=== PATIENT | female | born 1955 | race Caucasian/White ===

== ENCOUNTER 2024-04-11 01:12 | Emergency (ER) | payer MEDICARE, BC, SELFPAY ==
--- OUTSIDE RECORDS SUMMARY | 2024-04-11 01:14 | XMS_ITS | Continuity of Care Document ---
Author Name NwHIN User [facility] Address Unknown Organization Unknown Address Unknown Procedures FILTER APPLIED:Only known Procedures with Onset Date within the last 5 years Procedure Date Procedure Provider Additional Inform ation Status ADMISSION MED REC MARKER FOR REPORTING AND BPA'S (13530) Completed NT PROBNP INPATIENT (75047) Completed Encounters FILTER APPLIED:Only known Encounters with Admission Date within the last 5 years Encounter Location Admission Discharge Billing Code Checkroom Attendant Mesfin jacobo Outpatient [facility] Outpatient [facility]patient [facility] Outpatient [facility] Inpatient
[2024-04-11 01:21] VITALS: BP 144/79; PULSE 54; RESP 20; TEMP 36.8; O2SAT 98; BMI 24.3
--- NOTE | 2024-04-11 01:33 | ED_ITS ---
HPI - General Adult General Time Seen by Provider: 01:33 Date Seen: 04/11/24 Chief complaint: Post Op Complication Stated complaint: possible blood clot right leg Time Seen by Provider: 04/11/24 01:32 Source: patient, RN notes reviewed and old records reviewed Mode of arrival: ambulatory Limitations: no limitations History of Present Illness HPI narrative: This 68-year-old female is concerned about a possible blood clot in her right leg. She also wonders about possibly a urinary tract infection. 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 She was experiencing ureteropelvic obstruction and hydronephrosis. On March 26 she had a robotic assisted side to side anastomosis of lower pole to upper pole moieties. She states she got 2 days of heparin shots. She still has a stent in place which is to hopefully be removed this next Friday. She is on oxybutynin and Flomax for symptoms from the stent. She states she had a urinalysis through [facility] on April 07, she has contacted them but no antibiotics were given. She feels looking at the result that it was positive for UTI. She is not experiencing any fevers. Today, rather more this evening, started having right medial thigh pain and discomfort. Tried heat on this. She has never had a blood clot before. She feels like her legs might be a little swollen. She is not experiencing any respiratory symptoms, no shortness of breath, no chest pain. I did ask her a couple times what type of symptoms she was having that made her think she had a UTI and never got definite symptoms. Does sound like she might be having some irritant urination feeling. Her urinalysis from the in outside records showed large blood, negative nitrite, small leukocyte estrace, 21-30 rbc's, 4-10 wbc's, bacteria present. Does not appear that a culture was done. Related Data Home Medications ?Medication ?Instructions ?Recorded ?Confirmed estradiol 0.01% (0.1 mg/gram) 0.25 appful vaginal 2XW 04/11/24 04/11/24 vaginal cream rosuvastatin 5 mg tablet (Crestor) 5 mg PO .QOD 04/11/24 04/11/24 Allergies Allergy/AdvReac Type Severity Reaction Status Date / Time amoxicillin Allergy Mild Hives Verified 04/11/24 01:30 Review of Systems Status of ROS: Reports: 6 or more systems reviewed and unremarkable except as noted in History and below Exam Const: Vital Signs, click to edit/add: Vital Signs - 24 hr 04/11/24 01:21 Temperature 98.2 F Pulse Rate [Right Pulse Oximeter] 54 L Respiratory Rate 20 Blood Pressure [Ri ght Upper Arm] 144/79 H Pulse Oximetry 98 Oxygen Delivery Me thod Room Air Patient is alert, interactive, no apparent distress, ambulatory into the ED of her own accord. Sclera clear, face atraumatic. Lungs clear, good air entry, no wheezing or crackles. CV regular rate and rhythm, no murmur, normal S1-S2, no S3-S4. Abdomen is soft, nontender, nondistended, no organomegaly. She has no appreciable edema of her lower extremities, certainly no pretibial edema at all. She has some superficial varicosities more prominent in her lower legs, do not appreciate any cords or superficial thrombosis. There is no erythema of the legs. Negative Homans signs bilaterally. The pain was more in her medial right thigh, palpate this without any definable abnormality. Documenting provider has reviewed patient's vital signs: yes Course Course ED Course: Will get a baseline D-dimer in case patient does have DVT. Ultrasound will be ordered given she had recent surgery. Will get basic labs. Will obtain a urinalysis for her symptoms but do wonder if her stent might actually just be causing irritation. Reevaluation(s) Time of Reevaluation #1: 03:29 Reevaluation #1: Patient and I reviewed normal ultrasound, no DVT which she is glad. Her thigh symptoms have largely resolved. Do not know if this was some type of muscle spasm but she is to monitor any ongoing symptoms and follow up if she is having them. As far as her urinary system, did review with her that I had reviewed both her urinalysis today and the 1 from the . I agree that I do not feel they definitively support any infection. Having a stent in place will likely give her some hematuria. She admits that she had a stent 1 other time and they are very irritating. She has already requested that it be removed at 3 weeks verses the recommended 6 weeks. Reviewed with her that she will need to discuss her issues regarding the urinary problem with Urology. We will certainly culture her urine from [facility] and act accordingly if there are concerns with this. We discussed signs and symptoms for return including that of urinary tract infection with a stent in place. Plan will be to discharge to home for further outpatient management. Vital Signs Vital signs: Initial Vital Signs Temperature 98.2 F 04/11/24 01:21 Temperature Source Temporal Artery Scan 04/11/24 01:21 Pulse Rate 54 L 04/11/24 01:21 Pulse Rhythm Regular 04/11/24 01:21 Respiratory Rate 20 04/11/24 01:21 Blood Pressure 144/79 H 04/11/24 01:21 Blood Pressure Mean 100 04/11/24 01:21 Blood Pressure Position Sitting 04/11/24 01:21 Pulse Oximetry 98 04/11/24 01:21 Oxygen Delivery Method Room Air 04/11/24 01:21 Vital Signs Temperature 98.2 F 04/11/24 01:21 Pulse Rate 54 L 04/11/24 01:21 Respiratory Rate 20 04/11/24 01:21 Blood Pressure 144/79 H 04/11/24 01:21 Pulse Oximetry 98 04/11/24 01:21 Oxygen Delivery Method Room Air 04/11/24 01:21 Temperature 98.2 F 04/11/24 01:21 Pulse Rate 54 L 04/11/24 01:21 Respiratory Rate 20 04/11/24 01:21 Blood Pressure 144/79 H 04/11/24 01:21 Pulse Oximetry 98 04/11/24 01:21 Oxygen Delivery Method Room Air 04/11/24 01:21 Medical Decision Making Lab Data Lab results reviewed: Yes I reviewed the patient's lab results Labs: Lab Results 04/11/24 04/11/24 Range/Units 01:45 01:50 WBC 9.60 (4.50-11.00) K/uL RBC 4.24 (4.00-5.20) m/uL Hgb 12.7 (12.0-16.0) gm/dL Hct 39.7 (33.0-51.0) % MCV 94 (80-100) fL MCH 30 (26-34) pg MCHC 32 (32-36) gm/dL RDW Coeff of Rayo 12.9 (11.5-15.5) % Plt Count 170 (140-440) K/uL Neut % (Auto) 75.5 H (42.0-72.0) % Lymph % (Auto) 11.5 L (20-44) % Jackson % (Auto) 6.5 (0.0-11.0) % Eos % (Auto) 5.2 (0.0-7.0) % Baso % (Auto) 1.0 (0.0-3.0) % Neut # (Auto) 7.20 H (1.7-7.0) K/uL Lymph # (Auto) 1.10 (0.90-2.90) K/uL Jackson # (Auto) 0.60 (0.00-0.90) K/UL Eos # (Auto) 0.50 (0.00-0.50) K/uL Baso # (Auto) 0.10 (0.00-0.30) K/uL Abs Immat Gran (auto) 0.03 (0.00-0.30) K/uL Imm/Tot Granulo (auto) 0.3 % D-Dimer Quant (PE/DVT) 0.64 H (0.00-0.50) ug/ml Sodium 139 (135-149) mmol/L Potassium 4.0 (3.6-5.1) mmol/L Chloride 108 (96-114) mmol/L Carbon Dioxide 26 (20-32) mmol/L Anion Gap 5 L (7-15) mEq/L BUN 18 (7-30) mg/dL Creatinine 0.7 (0.5-1.5) mg/dL Estimated Creat Clear 47.78 Estimated GFR 94 ml/min Glucose 101 (60-115) mg/dL Calcium 8.9 (8.4-10.6) mg/dL Urine Color Yellow (Yellow) Urine Appearance Clear (Clear) Urine pH 5.5 (5.0-8.5) Ur Specific [place] <= 1.005 (1.000-1.030) Urine Protein Negative (Negative) Urine Glucose (UA) Negative (Negative) Urine Ketones Negative (Negative) Urine Blood 3+ A (Negative) Urine Nitrite Negative (Negative) Urine Bilirubin Negative (Negative) Urine Urobilinogen 0.2 (0.2-1.0) Ur Leukocyte Esterase 1+ A (Negative) Urine RBC 0-2 (0-2) Urine WBC 0-2 (0-5) Ur Squamous Epith Cells Few (None-Few) Urine Bacteria Few A (None) Imaging Data Venous US: Attestation: I have reviewed the pertinent imaging results. Radiologist's impression: Patient: AUDREY TOVAR Facility:?[facility] Patient ID:?[id number] Site Patient ID:?[id number]. Site :?[id number] Study:?US-Extremity Right lower leg venous-04/11/2024 3:09:49 AM Ordering Physician:Marvin Camacho Final Report: INDICATION: Leg pain and swelling. TECHNIQUE: Ultrasound venous duplex lower left extremity. Compression venous exam was performed using laboy-scale, color Doppler, and spectral Doppler analysis. COMPARISON: None. FINDINGS: Deep veins: Sonographic imaging demonstrates the left common femoral, deep femoral, superficial femoral, popliteal, posterior tibial, and the contralateral right common femoral veins to be fully compressible with normal color Doppler blood flow. Superficial veins: Greater saphenous vein is fully compressible. No popliteal cyst. IMPRESSION: No sign of deep venous thrombosis in the left lower extremity. Dictated by Josr Isaacs MD @ 04/11/2024 3:22:16 AM (Electronic Signature) Discharge Plan Discharge Clinical Impression: Acute pain of right thigh, Dysuria Patient Disposition: Home, Self-Care Condition: Stable Additional Instructions: There was no evidence of blood clot on ultrasound tonight. Unclear why this thigh a started to bother you tonight. Certainly can try some Tylenol or ibuprofen, try ice or heat. If you continue to experience symptoms, would recheck in clinic with your primary care provider. As far as your urinary symptoms, this all could be coming from irritation of the urinary system from the stent. I reviewed the urinalysis from April 07 in did compared to the urinalysis we have today. Neither is definitive for infection, urinalysis today has even less findings than yours from the . We will culture your urine from this visit today. We certainly will let you know if there is anything growing. If you develop fevers, abdominal pain, have vomiting with either of these, do need to be re-evaluated with Urology at [facility]. Discuss further urinary concerns with your urologist please. Prescriptions: No Action rosuvastatin [Crestor] 5 mg tablet 5 mg PO .QOD estradiol 0.01 % (0.1 mg/gram) cream 0.25 appful vaginal 2XW Follow Up/Referrals: Provider,Not a Local [Primary Care Provider] - Stand Alone Forms: [facility] [employer] Info Instructions
--- NOTE | 2024-04-11 01:38 | CRLHL7_ITS ---
For Patients: As a result of the Century Cures Act, medical imaging exams and procedure reports are released immediately into your electronic medical record. You may view this report before your referring provider. If you have questions, please contact your health care provider. INDICATION: Leg pain and swelling. TECHNIQUE: Ultrasound venous duplex lower left extremity. Compression venous exam was performed using laboy-scale, color Doppler, and spectral Doppler analysis. COMPARISON: None. FINDINGS: Deep veins: Sonographic imaging demonstrates the left common femoral, deep femoral, superficial femoral, popliteal, posterior tibial, and the contralateral right common femoral veins to be fully compressible with normal color Doppler blood flow. Superficial veins: Greater saphenous vein is fully compressible. No popliteal cyst. IMPRESSION: No sign of deep venous thrombosis in the left lower extremity. Dictated by Josr Isaacs MD @ 04/11/2024 3:22:16 AM (Electronically Signed)
[2024-04-11 01:52] LABS: Eosinophils Percent Auto 5.2 % (0.0-7.0); Hematocrit 39.7 % (33.0-51.0); Hemoglobin* 12.7 gm/dL (12.0-16.0); Immature Granulocytes Abs Auto 0.03 K/uL (0.00-0.30); Immature Granulocytes Pct Auto 0.3 %; Lymphocytes Percent Auto 11.5 % (20-44); Mean Corpuscular HGB Conc 32 gm/dL (32-36); Mean Corpuscular Hemoglobin 30 pg (26-34); Mean Corpuscular Volume 94 fL (80-100); Monocytes Percent Auto 6.5 % (0.0-11.0); Neutrophils Percent Auto 75.5 % (42.0-72.0); Platelet Count* 170 K/uL (140-440); RDW Coefficient of Variation % 12.9 % (11.5-15.5); Red Blood Count 4.24 m/uL (4.00-5.20)
[2024-04-11 01:54] LABS: Appearance Urine Clear (Clear); Bilirubin Urine Negative (Negative); Blood Urine 3+ (Negative); Color Urine Yellow (Yellow); Glucose Urine Negative (Negative); Ketones Urine Negative (Negative); Leukocyte Esterase Urine 1+ (Negative); Nitrite Urine Negative (Negative); Protein Urine Negative (Negative); Specific Gravity Urine <= 1.005 (1.000-1.030); Urobilinogen Urine 0.2 (0.2-1.0); pH Urine 5.5 (5.0-8.5)
[2024-04-11 01:57] LABS: Slide Review Reflex No
[2024-04-11 01:58] LABS: Bacteria Urine Few; RBC Urine 0-2 (0-2); Squamous Epithelial Cell Urine Few (None-Few); WBC Urine 0-2 (0-5)
[2024-04-11 02:04] LABS: Chloride* 108 mmol/L (96-114); Sodium* 139 mmol/L (135-149)
[2024-04-11 02:07] LABS: Anion Gap 5 mEq/L (7-15); Blood Urea Nitrogen* 18 mg/dL (7-30); Calcium* 8.9 mg/dL (8.4-10.6); Carbon Dioxide* 26 mmol/L (20-32); Creatinine* 0.7 mg/dL (0.5-1.5); Est. Creatinine Clearance* 47.78; Estimated Glomerular Filt Rate 94 ml/min; Glucose* 101 mg/dL (60-115)
[2024-04-11 02:09] LABS: D Dimer Quantitative* 0.64 ug/ml (0.00-0.50)
--- OUTSIDE RECORDS SUMMARY | 2024-04-11 02:26 | XMS_ITS | Clinical Summary ---
Author Organization [facility] Address [place], [place] [address] Care Team Providers Care Electrical Assembly Supervisor Name Role Phone [facility] Allergies Active Allergy Reactions Criticality Noted Date Comments Amoxicillin-Pot Clavulanate Hives High 03/09/2015 Ibandronate Other - Describe In Comment Field 05/02/2015 Generalized muscle spasms Alendronate Sodium Other - Describe In Comment Field 05/02/2015 Generalized muscle spasms Medications methocarbamoL (ROBAXIN) 750 mg tabletIndication s:Back pain, unspecified back location, unspecified back pain laterality, unspecified chronicity Take 1 tablet by mouth 4 times daily. 20 tablet 05/07/2020 Active Active Problems Problem Noted Date Diagnosed Date Rotator cuff impingement syn drome of right shoulder - chronic 05/02/2015 Immunizations Name Administration Dates Next Due AMB Influenza, IIV3 (Age >=3 years)(Flu [facility]) 01/16/2010 Family History Medical History Relation Name Comments Heart Disease Father Cancer-colon Mother Relation Name Status Comments Father Mother Social History Tobacco Use Types Packs/Day Years Used Date Smoking Tobacco: Never Smokeless Tobacco: Never Alcohol Use Standard Drinks/Week Comments Yes 2 (1 standard drink = 0.6 oz pur e alcohol) Comments Unknown Sex and Gender Information Value Date Recorded Sex Assigned at Not on file Legal Sex Female 6:26 AM 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 Gender Identity Not on file Sexual Orientation Not on file Obstetrics History Last Filed Vital Signs Vital Sign Reading Time Taken Comments Blood Pressure 176/75 05/07/2020 11:40 AM HOTBED 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 Pulse 68 05/07/2020 11:40 AM HOTBED 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 Temperature 36.9 C (98.4 F) 05/07/2020 11:40 AM HOTBED 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 Respiratory Rate 16 05/07/2020 11:40 AM HOTBED 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 Oxygen Saturation 97% 05/07/2020 11:40 AM HOTBED 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 Inhaled Oxygen Concentration - - Weight 61.7 kg (136 lb) 05/07/2020 11:40 AM HOTBED 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 Height 162.6 cm (5' 4) 05/07/2020 11:40 AM HOTBED 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 Body Mass Index 23.34 05/07/2020 11:40 AM HOTBED 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 Plan of Treatment Health Maintenance Due Date Last Done Comments Tdap 1965 Depression screening for age 12+ 1966 BMI (ht and wt on same day) for age 18+ 1972 Hepatitis C screening for age 18-79 1972 Tetanus booster 1974 Colonoscopy through age 75 1999 Lipids for age 45-75 1999 Mammogram for age 45-75 1999 Pneumococcal series for age 50+ (1 of 1 - PCV) 2004 Zoster (shingles) series for age 50+ (1 of 2) 2004 DEXA/DXA scan for age 65+ 2019 Influenza for age 65+ 11/23/2023 01/16/2010 RSV vaccine for adults or pr egnancy (1 - 1-dose 75+ series) 2029 COVID-19 vaccine series Completed 12/27/19 24, 01/17/2021, 05/31/2020 Insurance MEDICARE PART B HB ONLY MEDICARE PART A HB ONLY [facility] MEDICARE PB ONLY [facility] Care Teams Electrical Assembly Supervisor Relationship Specialty Start Date End Date Heather Medeiros [address] [place] [address] [facility] - General 04/28/15
--- OUTSIDE RECORDS SUMMARY | 2024-04-11 02:26 | XMS_ITS | Encounter Summary ---
Author Organization [place] Address [address] [place] [address] Care Team Providers Care Breastfeeding Educator Name Role Phone Roselyn Espitia Primary Care Provider [phone] Vasquez Mcnulty MD Unavailable Un available Elian Herrera MD Unavailable [phone] Encounter Details Date Type Department Care Team (Late st Contact Info) Description 02/11/2024 MyC Medical Advice [facility] [address] [place] [address] Kristen Cavazos, RN Social History Tobacco Use Types Packs/Day Years Used Date Smoking Tobacco: Never Smokeless Tobacco: Never Alcohol Use Standard Drinks/Week Comments Yes 0 (1 standard drink = 0.6 oz pur e alcohol) occ Adolescent Education Answer Date Record ed Getting School Help Needed Not on file 08/06 Food Insecurity Answer Date Recorded Within the past 12 months, d id you worry that your food would run out before you got money to buy more? No 02/03/2024 Within the past 12 months, d id the food you bought just not last and you didn t have money to get more? No 02/03/2024 Housing Stability Answer Date Recorded Do you have housing? (Adeelin g is defined as stable permanent housing and does not include staying ouside in a car, in a tent, in an abandoned building, in an overnight detention, or couch-surfing.) Yes 02/03/2024 Are you worried about losing your housing? No 02/03/2024 Financial Resource Strain Answer Date R ecorded Within the past 12 months, h ave you or your family members you live with been unable to get utilities (heat, electricity) when it was really needed? No 02/03/2024 Transportation Needs Answer Date Record ed Within the past 12 months, h as lack of transportation kept you from medical appointments, getting your medicines, non-medical meetings or appointments, work, or from getting things that you need? No 02/03/2024 Interpersonal Safety Answer Date Record ed Do you feel physically and e motionally safe where you currently live? Yes 02/03/2024 Within the past 12 months, h ave you been hit, slapped, kicked or otherwise physically hurt by someone? No 02/03/2024 Within the past 12 months, h ave you been humiliated or emotionally abused in other ways by your partner or ex-partner? No 02/03/2024 Comments No Sex and Gender Information Value Date Recorded Sex Assigned at Female 09/07/2023 11:49 AM CDT Legal Sex Female 3:32 AM INSPECTOR SOLDERING Gender Identity Female 09/07/2023 11:49 AM CDT Sexual Orientation Straight 09/07/2023 11 :49 AM CDT documented as of this encounter Plan of Treatment Not on file documented as of this encounter Visit Diagnoses Not on filedocumented in this encounter Care Teams Breastfeeding Educator Relationship Specialty Start Date End Date OmkarAnirudhalonaulysses PCP - General 09/12/11 Vasquez Mcnulty MD Assigned Heart and Vascular Provider 10/14/23 Elian Herrera MD [address] [place] [id number] Assigned Surgical Provider 03/15/24 documented as of this encounter
--- OUTSIDE RECORDS SUMMARY | 2024-04-11 02:26 | XMS_ITS | Continuity of Care Document ---
Author Name NwHIN [facility] Address Unknown Organization Unknown Address Unknown Procedures FILTER APPLIED:Only known Procedures with Onset Date within the last 5 years Procedure Date Procedure Provider Additional Inform ation Status ADMISSION MED REC MARKER FOR REPORTING AND BPA'S (09251) Completed NT PROBNP INPATIENT (03199) Completed Encounters FILTER APPLIED:Only known Encounters with Admission Date within the last 5 years Encounter Location Admission Discharge Billing Code Lure Maker Mesfin jacobo Outpatient [facility] Inpatient
--- OUTSIDE RECORDS SUMMARY | 2024-04-11 02:26 | XMS_ITS | Encounter Summary ---
Author Organization [place] Address [address] [place] [address] Care Team Providers Care Machined Parts Quality Inspector Name Role Phone Roselyn Espitia Primary Care Provider [phone] Vasquez Mcnulty MD Unavailable Un available Elian Herrera MD Unavailable [phone] Encounter Details Date Type Department Care Team (Late st Contact Info) Description 11/01/2023 MyC [facility] Social History Tobacco Use Types Packs/Day Years Used Date Smoking Tobacco: Never Smokeless Tobacco: Never Alcohol Use Standard Drinks/Week Comments Yes 0 (1 standard drink = 0.6 oz pur e alcohol) occ Adolescent Education Answer Date Record ed Getting School Help Needed Not on file 08/06 Comments Unknown Sex and Gender Information Value Date Recorded Sex Assigned at Female 09/07/2023 11:49 AM CDT Legal Sex Female 3:32 AM PROTECTOR PLATE ATTACHER Gender Identity Female 09/07/2023 11:49 AM CDT Sexual Orientation Straight 09/07/2023 11 :49 AM CDT documented as of this encounter Plan of Treatment Not on file documented as of this encounter Visit Diagnoses Not on filedocumented in this encounter Care Teams Machined Parts Quality Inspector Relationship Specialty Start Date End Date Roselyn Espitia PCP - General 09/12/11 Vasquez Mcnulty MD Assigned Heart and Vascular Provider 10/14/23 Elian Herrera MD [address] [place] [address] Assigned Surgical Provider 03/15/24 documented as of this encounter
--- OUTSIDE RECORDS SUMMARY | 2024-04-11 02:26 | XMS_ITS | Encounter Summary ---
Author Organization [place] Address [address] [facility] [place] [address] Care Team Providers Care Bowling Ball Grader Name Role Phone Roselyn Espitia Primary Care Provider [phone] Vasquez Mcnulty MD Unavailable Un available Elian Herrera MD Unavailable [phone] Encounter Details Date Type Department Care Team ([facility] st Contact Info) Description 09/05/2015 Records - [facility] HE CONVERSION Scan, Non-Provider Social History Tobacco Use Types Packs/Day Years Used Date Smoking Tobacco: Never Assessed Comments Unknown Sex and Gender Information Value Date Recorded Sex Assigned at Female 09/07/2023 11:49 AM CDT Legal Sex Female 3:32 AM LABORER WHARF Gender Identity Female 09/07/2023 11:49 AM CDT Sexual Orientation Straight 09/07/2023 11 :49 AM CDT documented as of this encounter Plan of Treatment Not on file documented as of this encounter Visit Diagnoses Not on filedocumented in this encounter Care Teams Bowling Ball Grader Relationship Specialty Start Date End Date Roselyn Espitia PCP - General 09/12/11 Vasquez Mcnulty MD Assigned Heart and Vascular Provider 10/14/23 Elian Herrera MD [address] [place] [address] [id number] Assigned Surgical Provider 03/15/24 documented as of this encounter
--- OUTSIDE RECORDS SUMMARY | 2024-04-11 02:26 | XMS_ITS | Encounter Summary ---
Author Organization [place] Address [address] 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
--- OUTSIDE RECORDS SUMMARY | 2024-04-11 02:26 | XMS_ITS | Encounter Summary ---
Author Organization [facility] Address [address] [facility] [place] [address] Care Team Providers Care Edge Bander Hand Name Role Phone Roselyn Espitia Primary Care Provider Vasquez Mcnulty MD Unavailable Un available Elian Herrera MD Unavailable [phone] Encounter Details Date Type Department Care Team ([facility] st Contact Info) Description 09/06/2015 Records - [facility] CONVERSION Scan, Non-Provider Social History Tobacco Use Types Packs/Day Years Used Date Smoking Tobacco: Never Assessed Comments Unknown Sex and Gender Information Value Date Recorded Sex Assigned at Female 09/07/2023 11:49 AM CDT Legal Sex Female 3:32 AM CATHODE WASHER Gender Identity Female 09/07/2023 11:49 AM CDT Sexual Orientation Straight 09/07/2023 11 :49 AM CDT documented as of this encounter Plan of Treatment Not on file documented as of this encounter Visit Diagnoses Not on filedocumented in this encounter Care Teams Edge Bander Hand Relationship Specialty Start Date End Date Roselyn Espitia PCP - General 09/12/11 Vasquez Mcnulty MD Assigned Heart and Vascular Provider 10/14/23 Elian Herrera MD [address] [place] [address] [id number] Assigned Surgical Provider 03/15/24 documented as of this encounter
--- OUTSIDE RECORDS SUMMARY | 2024-04-11 02:26 | XMS_ITS | Encounter Summary ---
Author Organization [facility] Address [address] [place] [address] Care Team Providers Care Attendant Coin Operated Laundry Name Role Phone Lawrence Espitia MD Primary Care Provider [phone] Reason for Visit * Reason Comments UTI Encounter Details Date Type Department Care Team (Late st Contact Info) Description 04/05/2024 Nurse Triage [facility] [address] [place], [place] [id number] Lawrence Espitia MD [address] [place], [place] [id number] UTI Social History Tobacco Use Types Packs/Day Years Used Date Smoking Tobacco: Never Passive Smoke Exposure: Never Smokeless Tobacco: Never Alcohol Use Standard Drinks/Week Comments Yes 2 (1 standard drink = 0.6 oz pur e alcohol) occas PHQ-2 Answer Date Recorded PHQ-2 Score 0 02/26/2024 Sex and Gender Information Value Date Recorded Sex Assigned at Not on file Gender Identity Female 07/16/2021 7:12 PM CDT Sexual Orientation Straight 07/16/2021 7: 12 PM CDT documented as of this encounter Nursing Notes * Frida Morgan V RN - 04/05/2024 5:33 PM CST Spoke with patient. Yesterday noticed burning on urination and tinge of blood in urine. No fever. No side of back pain. 1/ procedure/surgery at [facility] w/stent removal Reason for Disposition Urinating more frequently than usual (i.e., frequency) OR new-onset of the feeling of an urgent need to urinate (i.e., urgency) Pain or burning with passing urine (urination) Protocols used: Urinary Svhkmyfl-ICNUV-SH, Urine - Blood In-ADULT-OH ONOMY PROFESSOR * Amena Pete - 04/05/2024 3:39 PM CST Symptoms Describe your symptoms (if pain, include location): Urinary burning and tinge of blood in urine When did they start? Yesterday Additional comments (related to the above concern): Insurance verified and confirmed with patient? Yes If a prescription is needed, patient would like it filled at the pharmacy listed in Medication Management. Preferred communication method: Phone Call. Is it okay to leave a detailed message on your voicemail? Yes Is there anything else I can help you with today? ONOMY PROFESSOR documented in this encounter Plan of Treatment Upcoming Encounters Date Type Department Care Team (Late st Contact Info) Description 07/20/2024 1:45 PM CDT Appointment [facility] [address] [address] [place] [id number] [place] [address] 08/03/2024 1:00 PM CDT Appointment [facility] [address] [address] [place] [id number] [place] [id number] 08/19/2024 1:00 PM CDT Appointment [facility] [address] [address] [place] [id number] [place] [address] 08/25/2024 9:45 AM CDT Appointment [facility] [address] [facility] [place] [address] Elis Crook MD [facility] [place] [address] documented as of this encounter Visit Diagnoses Not on filedocumented in this encounter Care Teams Attendant Coin Operated Laundry Relationship Specialty Start Date End Date Lawrence Espitia MD [address] [place] [address] PCP - General 06/25/10 documented as of this encounter
--- OUTSIDE RECORDS SUMMARY | 2024-04-11 02:26 | XMS_ITS | Encounter Summary ---
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 You can quickly make your appointment online at [email or web address]. You can also call [phone] for help scheduling your appointment. We suggest you call your health insurance company about your coverage and benefits for this appointment. Question Answer Appointment Urgency? Non-Urgent Reason for visit? incontinence ER UP * Therapies (Routine) - New Request Specialty Diagnoses / Procedures Referred By Contac t Referred To Contact Diagnoses Mixed stress and urge urinary incontinence Lawrence Espitia MD [address] [facility] [address] [place] [address] Referral ID Status Reason Start Date Expiration Date V isits Requested Visits Authorized [id number] New Request 02/26/2024 02/25/2025 1 1 Scheduling Instructions Your clinician has recommended an appointment with [facility]. You can quickly schedule your appointment by signing in to your online account at [email or web address] or through the text message you may have received. You can also make an appointment by calling [phone]. We suggest you call your health insurance company about your coverage and benefits for this appointment. Question Answer Appointment Urgency? Non-Urgent Requested Services Evaluate and treat Reason for Visit Pelvic Health dexamethasone use Yes May check glucose per protocol (see policy link below) or if patient has symptoms? Yes ER UP Reason for Visit * Reason Comments Medicare Annual Wellness Encounter Details Date Type Department Care Team (Latest Contact Info) Description 02/26/2024 2:00 PM SKEWER UP Office Visit [facility] [address] [address] Lawrence Espitia MD [address] [facility] [address] [place] [address] Prediabetes (Primary Dx); Encounter for Medicare annual wellness exam; Medicare annual wellness visit, initial; Vaginal atrophy; Pre-diabetes; Mixed stress and urge urinary incontinence; Localized osteoporosis without current pathological fracture; Duplicated renal collecting system; Hydronephrosis, unspecified hydronephrosis type Social History Tobacco Use Types Packs/Day Years [...] PM CDT documented as of this encounter Last Filed Vital Signs Vital Sign Reading Time Taken Comments Blood Pressure 136/71 02/26/2024 1:48 PM SKEWER UP Pulse 50 02/26/2024 1:48 PM SKEWER UP Temperature - - Respiratory Rate - - Oxygen Saturation - - Inhaled Oxygen Concentration - - Weight 68.5 kg (151 lb) 02/26/2024 1:48 PM SKEWER UP Height 162 cm (5' 3.78) 02/26/2024 1:48 PM SKEWER UP Body Mass Index 26.1 02/26/2024 1:48 PM SKEWER UP documented in this encounter Patient Instructions * Patient Instructions* Isis Wsahington LPN - 02/26/2024 2:00 PM SKEWER UP Annual Wellness Visit Summary Your care team is recommending the following tests, procedures or services. Some of these recommendations may not be fully covered by Medicare or your insurance. If you have questions, check with your insurance to determine coverage before completing these services. Health Maintenance Due Health Maintenance Due Topic Date Due ??? Prediabetes: HGBA1C 02/12/2024 If your Medicare Welcome or Annual Wellness Visit is showing you are due in the above list, this will be updated after this visit. You had this completed today and are not due for another year. Thank you for coming in for your Medicare Wellness Visit. To make sure we are doing our best to meet your care needs, here are a few important reminders. We want to know your thoughts as we work together to create your care plan, including stopping and starting medications. When we work together on next steps, it's called shared decision making. If there is anything else you would like to discuss, please reach out or schedule a follow-up appointmentif needed. We are here to listen. We want to help you address any concerns you have about the cost of your medications. To find options for the most cost-effective medications near you, go to https://www.[facility]/hp/pharmacy/drug-cost/index.html You can also find more information in this handout. Health care can be complicated. Sometimes, it can help to share your health information with your family or caregivers. (Caregivers can be friends as well as family.) How much you share is up to you.Here is a helpful link: https://www.[facility]/blog/dqjsem-oopa-qpruv-benefits/ We care about nutrition, how much physical activity you get and how much stress, worry or sadness you have in your life. Please reach out to your care team if you have additional information to shareor would like more resources or support. ER UP documented in this encounter Progress Notes * Lawrence Espitia MD - 02/26/2024 2:00 PM CST Medicare Annual Wellness Visit Subjective/Historical: Tania Washington is a 68 y.o. old female Chief Complaint Patient presents with Medicare Annual Wellness Mini-Cog Assessment Word Recall: 3 Clock Draw: 2 Total: 5 Medicare Annual Wellness Smart Form 02/26/2024 2:00 PM MEDICARE ANNUAL WELLNESS CONCERNS In general, would you say your health is: -- In general, would you say your dental health is: -- Do you or any of your family members have any concerns about your memory? No Would you like to discuss urination concerns? -- Do you have difficulty hearing? -- Would you like to discuss concerns about your sexual health? -- How many servings of fruits and vegetables do you eat a day? 2 to 4 Do you get at least 2 1/2 hours of physical activity in an average week? -- Do you have anyone nearby who can help you when needed? -- Do you have difficulty doing any of the following activities? No difficulties Do you miss taking medicine or skip a dose more than once a week? -- Do you feel unsteady with walking? -- Do you have rugs (not carpet) in your home? Yes Have you had any auto accidents in the last 12 months while you were driving? -- Do you always fasten your seat belt when you are in an automobile? -- Do you take illegal drugs or use prescription medications for reasons other than prescribed by a doctor? -- Do you have concerns about your finances? -- Current concerns: see other note Advance Directives: No advance directives are on file. Written information for advance directives was given. Observed Vitals: BP 136/71 (BP Location: Left Arm, BP Cuff Size: Regular) Pulse (!) 50 Ht 1.62 m (5' 3.78) Wt 68.5 kg (151 lb) BMI 26.10 kg/m?? Assessment/Plan Prediabetes - Hgb A1C; Future Encounter for Medicare annual wellness exam Medicare annual wellness visit, initial Vaginal atrophy - estradiol (ESTRACE) 0.1 MG/GM vaginal cream; APPLY 1 GRAM 2-3 TIMES PER WEEK Pre-diabetes - estradiol (ESTRACE) 0.1 MG/GM vaginal cream; APPLY 1 GRAM 2-3 TIMES PER WEEK Mixed stress and urge urinary incontinence - Physical Therapy - Urogynecology Consult-Adult Other orders - calcium carbonate-vitamin D 600-10 MG-MCG tablet; Take 2 Tablets by mouth. Counseling and education provided today includes proper nutrition and health habits, fall prevention, and for those items ordered above. See plan for future preventive services in Patient Instructions. Chaitanya Espitia MD 02/26/2024, 1:52 PM ER UP * Lawrence Espitia MD - 02/26/2024 2:00 PM CST SUBJECTIVE: Tania Washington68 y.o. Right lower moiety hydronephrosis with suspicion of functional obstruction - developed severDuplicated renal collection system on right right side pain and showed hydronephross , was adm to from 02/01 to 02/02 and had cystoscopy and stents , [facility] witwe discussed stent removal sometime this week (urine culture in single dose of antibiotic atthe time of stent removal) followed by a VCUG, CTU, mag-3 and retrograde diagnostic ureteroscopy, proceed to robotic repair if indicated approximately 1 month after stent removal. I will ask our teamto offer potential surgical dates in late February/early March. Elevated calcium score 19 - she saw preventive cardiology at [facility] and Crestor was started, she had no problemns, and she iwll con't follo wup with them Osteoporosis - she had side effects from [place], and was evaluated at [facility] in 11/2021, and re clast was recommended for 3-6 years as yearly infusion Incontinence, - Sherin mentioned stress incontinence and we discussed about possible treatment , referral to urogyncology , since she will be very busy with her right hydronephrosis, she prefer to wait till everything settle down, but ok to take the referral Post menopausal - she still using her vagainl cream weekly Patient Active Problem List Diagnosis Osteoporosis (HRC) Menopausal symptoms History of basal cell carcinoma Family history of high cholesterol Rotator cuff impingement syndrome of right shoulder Pre-diabetes Past Surgical History: Procedure Laterality Date HYSTERECTOMY LAPAROSCOPY OVARIAN CYST SURGERY ROTATOR CUFF REPAIR right SPINE SURGERY laminectomy lumbar Outpatient Medications Prior to Visit Medication Sig Dispense Refill ascorbic acid 250 MG Chew and swallow 3 Tablets (750 mg) by mouth daily. BOOSTRIX 5-2.5-18.5 LF-MCG/0.5 JACKIE injection (Patient not taking: Reported on 02/26/2024) calcium carbonate-vitamin D 600-10 MG-MCG tablet Take 2 Tablets by mouth. loratadine (CLARITIN) 10 MG tablet Take 1 Tablet (10 mg) by mouth daily. LORazepam (ATIVAN) 0.5 MG tablet Take 1 Tablet (0.5 mg) by mouth every 6 hours as needed (Flight anxiety). Do not fill until patient requests 20 Tablet 0 rosuvastatin (AKA CRESTOR) 5 MG tamsulosin (FLOMAX) 0.4 MG CAPS capsule TAKE 1 CAPSULE (0.4 MG) BY MOUTH DAILY. TAKE ONCE A DAY IF YOU DEVELOP SYMPTOMS OF KIDNEY PAIN. 30 Capsule 1 estradiol (ESTRACE) 0.1 MG/GM vaginal cream APPLY 1 GRAM 2-3 TIMES PER WEEK 42.5 g 0 No facility-administered medications prior to visit. Social History Socioeconomic History Marital status: Spouse name: Not on file Number of children: 2 Years of education: Not on file Highest education level: Not on file Occupational History Occupation: retired Tobacco Use Smoking status: Never Passive exposure: Never Smokeless tobacco: Never Vaping Use Vaping status: Never Used Substance and Sexual Activity Alcohol use: Yes Alcohol/week: 2.0 standard drinks of alcohol Types: 2 Glasses of wine per week Comment: occas Drug use: Never Sexual activity: Yes Partners: Male control/protection: None, Post-menopausal Other Topics Concern Bike Helmet Not Asked [place] Not Asked Exercise Yes Comment: walkimg daily Guns in home Not Asked Seat Belt Yes Special Diet No Weight Concern Yes Social History Narrative 202: 5 grandkids kidnergarten, 6 grad Eating pretty healthy 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 3 tiems a week, césar aguirre Eating health 2022 4-5 time a week: walking, weight lifting Eat: healthy 5 grandkids reading club , [facility] Social Determinants of Health Financial Resource Strain: Low Risk (02/03/2024) Received from [facility] Financial Resource Strain Within the past 12 months, have you or your family members you live with been unable to get utilities (heat, electricity) when it was really needed?: No Food Insecurity: Low Risk (02/03/2024) Received from [facility] Food Insecurity Within the past 12 months, did you worry that your food would run out before you got money to buy more?: No Within the past 12 months, did the food you bought just not last and you didn???t have money to getmore?: No Transportation Needs: Low Risk (02/03/2024) Received from [facility] Transportation Needs Within the past 12 months, has lack of transportation kept you from medical appointments, getting your medicines, non-medical meetings or appointments, work, or from getting things that you need?: No Physical Activity: Insufficiently Active (01/22/2024) Received from [facility] Exercise Vital Sign Days of Exercise per Week: 4 days Minutes of Exercise per Session: 30 min Stress: No Stress Concern Present (11/27/2021) Received from [facility], [facility] [employer] [place] of Occupational Health - Occupational Stress Questionnaire Feeling of Stress : Not at all Social Connections: Socially Integrated (11/27/2021) Received from [facility], [facility] Social Connection and Isolation Panel [NHANES] Frequency of Communication with Friends and Family: More than three times a week Frequency of Social Gatherings with Friends and Family: Three times a week Attends Yarsani Services: More than 4 times per year Active Member of Clubs or Organizations: Yes Attends Club or Organization Meetings: More than 4 times per year Marital Status: Intimate Partner Violence: Low Risk (02/03/2024) Received from [facility] Interpersonal Safety Do you feel physically and emotionally safe where you currently live?: Yes Within the past 12 months, have you been hit, slapped, kicked or otherwise physically hurt by someone?: No Within the past 12 months, have you been humiliated or emotionally abused in other ways by your partner or ex-partner?: No Housing Stability: Low Risk (02/03/2024) Received from [facility] Housing Stability Do you have housing? (Housing is defined as stable permanent housing and does not include staying ouside in a car, in a tent, in an abandoned building, in an overnight senior care, or couch-surfing.): Yes Are you worried about losing your housing?: No Allergies Allergen Reactions Amoxicillin-Pot Clavulanate Hives Alendronate Sodium Other, see comments Muscle aching and cramp, chills, low-grade fever Ibandronic Acid Other, see comments Muscle aching and cramp, chills, low-grade fever Family History Problem Relation Name Age of Onset Cancer Mother Mother Colon cancer High Cholesterol Father Father High Blood Pressure Father Father Cancer Father Father Lung cancer Hypertension Father Father Tuberculosis Father Father Heart Disease Brother Father develpepd destini High Cholesterol Brother Brother High cholesterol Cancer, Colon Negative Family History Diethylstilbestrol Exposure Negative Family History Cancer, Endometrial Negative Family History ROS All of the systems reviewed, unremarkable, except that mentioned in HPI BP 136/71 (BP Location: Left Arm, BP Cuff Size: Regular) Pulse (!) 50 Ht 1.62 m (5' 3.78) Wt68.5 kg (151 lb) BMI 26.10 kg/m?? Objective: General Appearance: Alert, cooperative, no distress, appears stated age Head: Normocephalic, without obvious abnormality, atraumatic Eyes: PERRL, conjunctiva/corneas clear, EOM's intact, fundi benign, both eyes Ears: Nose: Throat: Neck: Supple, symmetrical, trachea midline, no adenopathy; thyroid: no enlargement/tenderness/nodules; no carotid bruit or JVD Back: Symmetric, no curvature, ROM normal, no CVA tenderness Lungs: Clear to auscultation bilaterally, respirations unlabored Chest Wall: No tenderness or deformity Heart: Regular rate and rhythm, S1 and S2 normal, no murmur, rub or gallop Abdomen: Soft, non-tender, bowel sounds active all four quadrants, no masses, no organomegaly Extremities: Extremities normal, atraumatic, no cyanosis or edema Pulses: 2+ and symmetric all extremities Skin: Skin color, texture, turgor normal, no rashes or lesions Lymph nodes: Cervical, supraclavicular, and axillary nodes normal Neurologic: CNII-XII intact, normal strength, sensation and reflexes throughout Labs: Lab Results Component Value Date WBC 5.0 02/11/2023 Hemoglobin 14.1 02/11/2023 HCT 43.6 02/11/2023 MCV 92.2 02/11/2023 Platelets 167 02/11/2023 Lab Results Component Value Date ALT (SGPT) 17 02/11/2023 AST (SGOT) 24 04/15/2019 Alkaline Phosphatase 70 11/08/2021 Bilirubin, Direct 0.2 04/15/2019 Bilirubin, Total 0.6 04/15/2019 Lab Results Component Value Date Cholesterol 264 (H) 02/11/2023 HDL Cholesterol 62 02/11/2023 Triglyceride 93 02/11/2023 LDL, Calculated 183 (H) 02/11/2023 Lab Results Component Value Date TSH, Reflex 3.29 04/15/2019 Thyroxine, Free 1.0 04/27/2010 Lab Results Component Value Date Creatinine 0.80 01/26/2024 Glucose 105 (H) 02/11/2023 CO2 26 02/11/2023 Chloride 104 02/11/2023 Potassium 4.6 02/11/2023 Sodium 139 02/11/2023 BUN 20 02/11/2023 Calcium 9.4 02/11/2023 Estimated GFR (eGFR) 80 01/26/2024 Lab Results Component Value Date Hemoglobin A1C 5.7 (H) 02/11/2023 Hemoglobin A1C 5.7 (H) 02/07/2022 Hemoglobin A1C 5.8 (H) 09/21/2020 Imaging (Past 12 months): No results found. Assessment: ICD-10-CM 1. Prediabetes R73.03 Hgb A1C 2. Encounter for Medicare annual wellness exam Z00.00 3. Medicare annual wellness visit, initial Z00.00 4. Vaginal atrophy N95.2 estradiol (ESTRACE) 0.1 MG/GM vaginal cream 5. Pre-diabetes R73.03 estradiol (ESTRACE) 0.1 MG/GM vaginal cream 6. Mixed stress and urge urinary incontinence N39.46 Physical Therapy Urogynecology Consult-Adult Plan: Tania was seen today for medicare annual wellness. Diagnoses and all orders for this visit: Prediabetes - Hgb A1C; Future Encounter for Medicare annual wellness exam Medicare annual wellness visit, initial Vaginal atrophy - estradiol (ESTRACE) 0.1 MG/GM vaginal cream; APPLY 1 GRAM 2-3 TIMES PER WEEK Pre-diabetes - estradiol (ESTRACE) 0.1 MG/GM vaginal cream; APPLY 1 GRAM 2-3 TIMES PER WEEK Mixed stress and urge urinary incontinence - Physical Therapy - Urogynecology Consult-Adult Localized osteoporosis without current pathological fracture - receiving re clast at [facility] once a year for 3-6 years since 2021 Duplicated renal collecting system Hydronephrosis, unspecified hydronephrosis type - will be following at [facility] Patient Instructions Annual Wellness Visit Summary Your care team is recommending the following tests, procedures or services. Some of these recommendations may not be fully covered by Medicare or your insurance. If you have questions, check with your insurance to determine coverage before completing these services. Health Maintenance Due Health Maintenance Due Topic Date Due Prediabetes: HGBA1C 02/12/2024 If your Medicare Welcome or Annual Wellness Visit is showing you are due in the above list, this will be updated after this visit. You had this completed today and are not due for another year. Thank you for coming in for your Medicare Wellness Visit. To make sure we are doing our best to meet your care needs, here are a few important reminders. We want to know your thoughts as we work together to create your care plan, including stopping and starting medications. When we work together on next steps, it's called shared decision making. If there is anything else you would like to discuss, please reach out or schedule a follow-up appointmentif needed. We are here to listen. We want to help you address any concerns you have about the cost of your medications. To find options for the most cost-effective medications near you, go to https://www.[facility]/hp/pharmacy/drug-cost/index.html You can also find more information in this handout. Health care can be complicated. Sometimes, it can help to share your health information with your family or caregivers. (Caregivers can be friends as well as family.) How much you share is up to you.Here is a helpful link: https://www.[facility]/blog/qsunqp-mbxn-hvhzr-benefits/ We care about nutrition, how much physical activity you get and how much stress, worry or sadness you have in your life. Please reach out to your care team if you have additional information to shareor would like more resources or support. ER UP documented in this encounter Plan of Treatment Upcoming Encounters Date Type Department Care Team (Late st Contact Info) Description 07/20/2024 1:45 PM CDT Appointment [facility] [address] [address] [place] [address] [place] [address] 08/03/2024 1:00 PM CDT Appointment [facility] [address] [address] [place] [address] [place] [address] 08/19/2024 1:00 PM CDT Appointment [facility] [address] [address] [place] [address] [place] [address] 08/25/2024 9:45 AM CDT Appointment [facility] [address] [place] [address] Elis Crook MD [facility] [place] [address] Scheduled Orders Name Type Priority Associated Diagnoses Orde r Schedule Hgb A1C Lab Routine Prediabetes Expected: 02/26/2024, Expires: Scheduled Referrals Name Type Priority Associated Diagnoses Orde r Schedule Physical Therapy Referral Routine Mixed stress and urge urinary incontinence Ordered: 02/26/2024 Urogynecology Consult-Adult Referral Routine Mixed stress and urge urinary incontinence Ordered: 02/26/2024 documented as of this encounter Visit Diagnoses Diagnosis Prediabetes- Primary Other abnormal glucose Encounter for Medicare annual wellness exam Medicare annual wellness visit, initial Routine general medical examination at a health care facility Vaginal atrophy Postmenopausal atrophic vaginitis Pre-diabetes Other abnormal glucose Mixed stress and urge urinary incontinence Mixed incontinence urge and stress (male)(female) Localized osteoporosis without current pathological fracture Duplicated renal collecting 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
--- OUTSIDE RECORDS SUMMARY | 2024-04-11 02:26 | XMS_ITS | Encounter Summary ---
Author Organization [facility] Address [address] [place] [address] Care Team Providers Care Research Soil Scientist Name Role Phone Roselyn Espitia Primary Care Provider [phone] Vasquez Mcnulty MD Unavailable Un available Elian Herrera MD Unavailable [phone] Encounter Details Date Type Department Care Team (Late st Contact Info) Description 02/11/2003 Office Visit-[facility] [address] [place] [address] Unknown, DoctorMD Social History Tobacco Use Types Packs/Day Years Used Date Smoking Tobacco: Never Assessed Comments Unknown Sex and Gender Information Value Date Recorded Sex Assigned at Female 09/07/2023 11:49 AM CDT 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 DATE: 02/11/2003 TANIA TOVAR DATE OF : 1955 AGE: [age] years old Referring Physician: SHONDA PENNINGTON CURRENT DIAGNOSES 1. Chest pain, 786.50 ALLERGIES NKA MEDICATIONS 1. Premarin 0.9 mg, 1 p.o. q.d. 2. Aspirin 81 mg, 1 p.o. q.d. 3. Multivitamin Multiple Vitamins, 1 p.o. q.d. 4. Calcium and Magnesium Calcium and Magnesium, 1 p.o. t.i.d. CHIEF COMPLAINTS Chest pain with exertion, Consultation. and Rapid heart beat when laying down HISTORY OF PRESENT ILLNESS PAST HISTORY Surgical Procedures: s/p hysterectomy, back sugery FAMILY HISTORY: Father - julio c. heart failure., hypercholesterolemia and hypertension; Mother - alive and well; Brother 1 - diabetes-Type I (IDDM), heart attack., hypercholesterolemia and hypertension; CARDIAC RISK FACTORS Tobacco Abuse: negative; Family History of Heart Disease: positive; Hyperlipidemia: positive; Hypertension: negative; Diabetes Mellitus: negative; Prior History of Heart Disease: negative; Obesity:negative; Sedentary Life Style:negative REVIEW OF SYSTEMS GENERAL denies recent weight loss, weight gain, fever or chills or change in exercise tolerance. INTEGUMENTARY denies any change in hair or nails, rashes, or skin lesions. EYES denies diplopia, history of glaucoma or visual field defects. EARS, NOSE, THROAT, MOUTH denies any hearing loss, epistaxis, hoarseness or difficulty speaking. RESPIRATORY dyspnea with exertion CARDIOVASCULAR chest pain, chest pain at rest, chest pain related to activity, palpitations, dizziness ABDOMINAL denies change in bowel habits, dyspepsia, ulcer disease, hematochezia or melena. GENITOURINARY-FEMALE nocturia MUSCULOSKELETAL arthritis of the hand(s) NEUROLOGICAL migraine headaches, tension headaches PSYCHIATRIC stress ENDOCRINE denies any history of hyperlipidemia, thyroid disease or diabetes mellitus. HEMATOLOGICAL/IMMUNOLOGIC seasonal allergies PHYSICAL EXAMINATION VITAL SIGNS: Blood Pressure: 118/78 Sitting, Left arm, regular cuff Pulse- 80.00/min. Weight- 141.00 lbs. Height- 65.00 Temperature- .00 CONSTITUTIONAL cooperative, alert and oriented,well developed, well nourished, in no acute distress. SKIN warm and dry to touch, no apparent skin lesions, or masses noted. HEAD normocephalic, atraumatic NECK carotid pulses are full and equal bilaterally, JVP normal, no carotid bruit, no thyromegaly CHEST normal symmetry, no tenderness to palpation, normal respiratory excursion, no intercostal retraction, no use of accessory muscles, clear to auscultation and percussion. CARDIAC regular rhythm, S1 normal, S2 normal, No S3 or S4, Apical impulse not displaced, no murmurs, gallops or rubs detected. ABDOMEN abdomen soft, bowel sounds normoactive, no masses, no hepatosplenomegaly, non- tender, no bruits EXTREMITIES & BACK no deformities, clubbing, cyanosis, erythema or edema observed. There are no spinal abnormalities noted. Normal muscle strength and tone. NEUROLOGICAL no gross motor deficits noted, affect appropriate, oriented to time, person and place. MEDICATIONS UPDATED TODAY: Premarin 0.9 mg, 1 p.o. q.d., DIRECTED Aspirin 81 mg, 1 p.o. q.d., DIRECTED Multivitamin Multiple Vitamins, 1 p.o. q.d., DIRECTED Calcium and Magnesium Calcium and Magnesium, 1 p.o. t.i.d., DIRECTED IMPRESSIONS/PLAN (Enter Doctor Dictated Impressions Here) TODAYS ORDERS 1. Treadmill Stress Echo 3 weeks Christy Chamberlain M.D. documented in this encounter Plan of Treatment Not on file documented as of this encounter Visit Diagnoses Not on filedocumented in this encounter Care Teams Research Soil Scientist Relationship Specialty Start Date End Date Roselyn Espitia PCP - General 09/12/11 Vasquez Mcnulty MD Assigned Heart and Vascular Provider 10/14/23 Elian Herrera MD [address] [place] [id number] Assigned Surgical Provider 03/15/24 documented as of this encounter
--- OUTSIDE RECORDS SUMMARY | 2024-04-11 02:26 | XMS_ITS | Clinical Summary ---
Author Organization [facility] Address [address] [place] [address] Care Team Providers Care In Store Representative Name Role Phone Oh Espitia MD Primary Care Provider [phone] Source Comments You are receiving this document as you are listed as the primary care provider,follow-up provider, or the patient has been referred to you for consultation.This is in compliance with the Medicare and[facility] EHR Incentive Program,which states Providers who transition their patient to another setting of careor provider of care or refers their patient to another provider of care shouldprovide summary care record for each transition of care or referral. [facility] Allergies Active Allergy Reactions Criticality Noted Date Comments Alendronate Sodium Other, see comments Low 12/15/19 14 Muscle aching and cramp, chills, low-grade fever Amoxicillin-Pot Clavulanate Hives High 03/09/2015 Ibandronic Acid Other, see comments Low 12/14/2013 Muscle aching and cramp, chills, low-grade fever Medications Medication Sig Dispensed Refills Start Date End Date Status tamsulosin (FLOMAX) 0.4 MG CAPS capsule TAKE 1 CAPSULE (0.4 MG) BY MOUTH DAILY. TAKE ONCE A DAY IF YOU DEVELOP SYMPTOMS OF KIDNEY PAIN. 30 Capsule 1 11/15/2021 Active loratadine (CLARITIN) 10 MG tablet Take 1 Tablet (10 mg) by mouth daily. Active ascorbic acid 250 MG Chew and swallow 3 Tablets (750 mg) by mouth daily. Active LORazepam (ATIVAN) 0.5 MG tabletIndications:An xiety with flying (HRC) Take 1 Tablet (0.5 mg) by mouth every 6 hours as needed (Flight anxiety). Do not fill until patient requests 20 Tablet 04/17/2023 Active rosuvastatin (AKA CRESTOR) 5 MG 08/02/2023 Active BOOSTRIX 5-2.5-18.5 LF-MCG/0.5 JACKIE injection 04/11/2023 Active calcium carbonate-vitamin D 600-10 MG-MCG tablet Take 2 Tablets by mouth. Active estradiol (ESTRACE) 0.1 MG/GM vaginal creamIndications:Vag inal atrophy,Pre-diabetes APPLY 1 GRAM 2-3 TIMES PER WEEK 42.5 g 10 02/26/2024 Active Active Problems Problem Noted Date Diagnosed Date Duplicated renal collecting system 02/02/2024 Family history of high cholesterol 01/29/2023 Pre-diabetes 01/29/2023 History of basal cell carcinoma 08/01/2020 Overview (08/01/2020): Left upper back Rotator cuff impingement syndrome of right shoul ashu 05/02/2015 Menopausal symptoms 12/14/2010 Osteoporosis 04/25/2010 Overview (01/29/2023): LW Modifier: lumber -3.1 LW Onset: 2009 Tried fosamx and boniva, not albe to tolerated. Prefer not to be on injection 11/2021, start reclast at [facility] had DEXA at [facility] 2022, will have reclasr in 2022, and 2023, then decided Resolved Problems Problem Noted Date Diagnosed Date Resolved Date Hydronephrosis 02/17/2024 02/27/2024 Encounters Date Type Department Care Team Description 04/05/2024 Nurse Triage [facility] [address] [place] [address] Oh Espitia MD UTI 02/26/2024 2:00 PM MARKETING COORDINATOR Office Visit [facility] [address] [place] [address] Oh Espitia MD Prediabetes (Primary Dx); Encounter for Medicare annual wellness exam; Medicare annual wellness visit, initial; Vaginal atrophy; Pre-diabetes; Mixed stress and urge urinary incontinence; Localized osteoporosis without current pathological fracture; Duplicated renal collecting system; Hydronephrosis, unspecified hydronephrosis type 02/11/2024 Refill [facility] [address] [place] [address] Oh Espitia MD Refill (estradiol (ESTRACE) 0.1 MG/GM vaginal cream [Pharmacy Med Name: ESTRADIOL 0.01% CREAM]) from Last 3 Months Immunizations Name Administration Dates Next Due Flu Vac (3+ yrs) 12/14/2010, 0,12/15/2008,2007,01/05/2007,01/22/2006,02/11/2005,1 04/09/2002 Flu Vac Preserv Free (3+yrs) 01/28/2012,12/15/19 11,12/06/2009 Flublok (RIV4) 12/14/2018 [id number] 04/19/2009 HepA Adult (19+ yrs) 09/11/2000,03/13/2000 HepB Adult (Engerix-B, 20+ y rs, 3 dose series) 09/11/2000,04/18/2000,03/13/2000 Influenza (Fluzone 0.25, 6-35 mos) 12/15/2012 Influenza IIV3 (Trivalent) F luzone Highdose, 65+ Yrs (71654) 12/09/2023 Influenza IIV4 (Quadrivalent ) 0.5mL (79720) 12/02/2017,12/31/2016,12/07/2015,2014,02/09/2014,12/15/2012 Influenza IIV4 (Quadrivalent ) Fluad, 65+ Yrs 12/12/2022,01/23/2022,01/09/2021,2019 Influenza, Unspecified Formulation 12/06/2009 Opal COVID-19 Vaccine 01/17/2021,05/31/2020 Moderna Bivalent 12+ 03/22/2022 Moderna COVID-19 12+ 12/27/2023 PCV20 ([id number]) 01/29/2023 PPSV23 (Pneumovax) 09/21/2020 TDAP (BOOSTRIX) 08/10/2012 Td 02/05/2003,03/13/2000 Tdap 04/11/2023 Zoster (Zostavax) 02/14/2015 Zoster RZV (Shingrix) 11/12/2021,07/25/2021 Family History Medical History Relation Name Comments Cancer Father Father Lung cancer High Blood Pressure Father Father High Cholesterol Father Father Hypertension Father Father Tuberculosis Father Father Cancer Mother Mother Colon cancer Heart Disease Brother 1 Father develpepd destini High Cholesterol Brother 2 Brother High choles terol Cancer, Colon Negative Family History Cancer, Endometrial Negative Family History Diethylstilbestrol Exposure Negative Family History Relation Name Status Comments Father Father Mother Mother Brother 1 Father (Age 62 ) disabled , fall and puncture the artery and did not make it Brother 2 Brother Maternal Grandfather Maternal Grandmother Paternal Grandfather Paternal Grandmother Sister Alive Social History Tobacco Use Types Packs/Day Years [...] Orientation Straight 07/16/2021 7: 12 PM CDT Last Filed Vital Signs Vital Sign Reading Time Taken Comments Blood Pressure 136/71 02/26/2024 1:48 PM MARKETING COORDINATOR Pulse 50 02/26/2024 1:48 PM MARKETING COORDINATOR Temperature 36.3 C (97.3 F) 11/08/2021 1:29 PM CDT Respiratory Rate 16 11/20/2020 3:26 PM CDT Oxygen Saturation 100% 11/20/2020 3:26 PM CDT Inhaled Oxygen Concentration - - Weight 68.5 kg (151 lb) 02/26/2024 1:48 PM MARKETING COORDINATOR Height 162 cm (5' 3.78) 02/26/2024 1:48 PM MARKETING COORDINATOR Body Mass Index 26.1 02/26/2024 1:48 PM MARKETING COORDINATOR Plan of Treatment Upcoming Encounters Date Type Department Care Team (Late st Contact Info) Description 07/20/2024 1:45 PM CDT Appointment [facility] [address] [address] [place] [phone] [place] [address] 08/03/2024 1:00 PM CDT Appointment [facility] [address] [address] [place] [phone] [place] [address] 08/19/2024 1:00 PM CDT Appointment [facility] [address] [address] [place] [phone] [place] [address] 08/25/2024 9:45 AM CDT Appointment [facility] [address] [place] [address] Elis Crook MD [address] [place] [address] Health Maintenance Due Date Last Done Comments Prediabetes: HGBA1C 02/12/2024 02/11/2023, 02/07/2022, 09/21/2020, Additional history exists Mammogram 09/25/2024 09/26/2023, 08/23, 05/02/2021, Additional history exists Medicare Annual Wellness Visit 02/25/2025 02/26/2024, 01/29/2023, 01/23/2022, Additional history exists Dexa 01/25/2026 01/26/2024, 12/22, 07/17/2021, Additional history exists Colonoscopy 11/07/2027 11/06/2020, 10/15/2016 Cholesterol 02/12/2028 02/11/2023, 01/22, 09/21/2020, Additional history exists RSV (1 - 1-dose 75+ series) 2029 DTaP/Tdap/Td (3 - Tdap) 04/11/2033 04/11/19, 08/10/2012, 02/05/2003, Additional history exists HepA Completed 09/11/2000, 03/13/2000 HepB Completed 09/11/2000, 03/25, 03/13/2000 Hep C Screening (Preventive Services) Completed 01/06/2017 Zoster/Shingles Completed 11/12/2021, 06/2021, 02/14/2015 Pneumococcal 65+ Yrs Completed 01/29/2023, 09/22/19 Influenza Completed 12/09/2023, 11/23, 01/23/2022, Additional history exists COVID-19 Vaccine Completed 12/27/2023, , 01/17/2021, Additional history exists Hib Aged Out No longer eligi ble based on patient's age to complete this topic IPV (Polio) Aged Out No longer eligi ble based on patient's age to complete this topic MCV4 Aged Out No longer eligi ble based on patient's age to complete this topic Procedures Procedure Name Priority Date/Time Associated Diagnosis Comments MM MAMMOGRAM SCREENING BILAT W 3D CHRISTOPHER W CAD Routine 09/26/2023 10:38 AM CDT Visit for screening mammogram HGB A1C Routine 02/11/2023 9:16 AM MARKETING COORDINATOR Routine physical examination Pre-diabetes LIPID PANEL & DIRECT LDL (IF NEEDED) Routine 02/11/2023 9:16 AM MARKETING COORDINATOR Routine physical examination DXA BONE DENSITY SPINE/HIP INC VERT FX ASSESS Routine 07/17/2021 2:56 PM CDT Other osteoporosis without current pathological fracture ENDOSCOPY, COLON, SCREENING/DIAGNOST IC Routine 11/06/2020 10:13 AM CDT Chronic diarrhea HEPATITIS C ANTIBODY, WITH REFLEX Routine 01/06/2017 10:55 AM CDT Need for hepatitis C screening test from Last 3 Months or Most Recently Relevant to Health Maintenance Results * MM Mammogram Screening Bilat W 3D Christopher W CAD (09/26/2023 10:38 AM CDT) Anatomical Region Laterality Modality Breast Bilateral Mammography Impressions 09/26/2023 11:23 AM CDT : ACR BI-RADS Category 1: Negative RECOMMENDATION: Follow Up Imaging in 12 months - Bilateral The results and recommendations of this examination will be communicated to the patient. Narrative 09/26/2023 11:23 AM CDT MM MAMMOGRAM SCREENING BILAT W 3D CHRISTOPHER W CAD performed on 09/26/23 Compared to: 09/12/2022 MM Mammogram Screening Bilat W 3D Christopher W CAD, 05/02/2021 MM Mammogram Screening Bilat W 3D Christopher W CAD, and 04/19/2020 MM Mammogram Screening Bilat W 3D Christopher W CAD FINDINGS: Bilateral screening mammogram was performed with the assistance of Computer-Aided Detection and breast tomosynthesis. The breasts are heterogeneously dense, which may obscure small masses. There is no radiographic evidence of malignancy. Oh Espitia MD RAD MORTEZA * (ABNORMAL) Lipid Panel & Direct LDL (if Needed) (02/11/2023 9:16 AM MARKETING COORDINATOR) Cholesterol 264(H) 0 - 199 mg/dL 02/11/2023 12:21 PM [facility] Triglyceride 93 <=149 mg/dL 02/11/2023 12:21 PM [facility] HDL Cholesterol 62 >=40 mg/dL 12:21 PM [facility] LDL, Calculated 183(H) <130 mg/dL 12:21 PM [facility] Non HDL Chol, Calculated 202(H) <=159 mg/dL 02/11/2023 12:21 PM [facility] Cholesterol/HDL Ratio 4.3 <=5.0 02/11/2023 12:21 PM [facility] Hours Fasting 12.0 8 - 12 Hours 02/11/2023 12:21 PM [facility] Blood Venipuncture / Unknown 02/11/2023 9:16 AM MARKETING COORDINATOR 02/11/2023 9:16 AM MARKETING COORDINATOR Oh Espitia MD LAB_1 Performing Organization Address [facility]/ZIP Co de Phone Number [facility] [address] [place] [address], [facility] [phone] [facility] [address] [place] [address], [facility] [phone] * (ABNORMAL) Hgb A1C (02/11/2023 9:16 AM MARKETING COORDINATOR) Hemoglobin A1C 5.7(H) <=5.6 % 02/11/2023 9:18 PM [facility] Estimated Average Glucose (Calc) 117 < 117 mg/dL 02/11/2023 9:18 PM [facility] Comment:Estimated average gl ucose (eAG) converts A1c into glucose units (mg/dL) and estimates average glucose over the past approximately 3 months. The eAG reference interval (<117 mg/dL) corresponds to an A1c of <5.7%. Blood Venipuncture / Unknown 02/11/2023 9:16 AM MARKETING COORDINATOR 02/11/2023 9:16 AM MARKETING COORDINATOR Narrative [facility] - 02/11/2023 9:18 PM MARKETING COORDINATOR For patients not previously diagnosed with diabetes: 5.7-6.4%: Increased risk for diabetes 6.5% and greater: Diagnostic for diabetes For patients diagnosed with diabetes: <8.0%: Goal of therapy for ages 18-75 Clinicians may recommend a higher or lower goal for specific individuals. Oh Espitia MD LAB_1 Performing Organization Address [facility]/ZIP Co de Phone Number [facility] [address] [address], [facility] [phone] * Endoscopy, Colon, Screening/Diagnostic (11/06/2020 10:13 AM CDT) Anatomical Region Laterality Modality Other 11/06/2020 10:1 3 AM CDT Narrative 11/06/2020 10:13 AM CDT Patient Name: Tania Washington Procedure Date: 11/06/2020 10:13 AM Date of : 1955 Admit Type: Outpatient Age: 65 Gender: Female Note Status: Finalized Attending MD: Giovanni Nicholas , Procedure: Colonoscopy Indications: Chronic diarrhea Providers: Giovanni Nicholas, Malorie Perez RN Referring MD: Oh Espitia Medicines: Monitored Anesthesia Care Complications: No immediate complications. Procedure: Pre-Anesthesia Assessment: - Prior to the procedure, a History and Physical was performed, and patient medications, allergies and sensitivities were reviewed. The patient's tolerance of previous anesthesia was reviewed. - The risks and benefits of the procedure and the sedation options and risks were discussed with the patient. All questions were answered and informed consent was obtained. After I obtained informed consent, the scope was passed under direct vision. Throughout the procedure, the patient's blood pressure, pulse, and oxygen saturations were monitored continuously. The [id number] was introduced through the anus and advanced to the terminal ileum, with identification of the appendiceal orifice and IC valve. The colonoscopy was performed without difficulty. The patient tolerated the procedure well. The quality of the bowel preparation was excellent. Findings: Scattered diverticula were found in the sigmoid colon. The exam was otherwise without abnormality on direct and retroflexion views. The terminal ileum appeared normal. Biopsies for histology were taken with a cold forceps from the entire colon for evaluation of microscopic colitis. Impression: - Diverticulosis in the sigmoid colon. - The examination was otherwise normal on direct and retroflexion views. - The examined portion of the ileum was normal. - Biopsies were taken with a cold forceps from the entire colon for evaluation of microscopic colitis. Recommendation: - Await pathology results. - Repeat colonoscopy in 7 years for surveillance. Procedure Code(s): --- Professional --- 69382, Colonoscopy, flexible; with biopsy, single or multiple Diagnosis Code(s): --- Professional --- K52.9, Noninfective gastroenteritis and colitis, unspecified K57.30, Diverticulosis of large intestine without perforation or abscess without bleeding CPT copyright 2019 [employer]. All rights reserved. The codes documented in this report are preliminary and upon outpatient coder review may be revised to meet current compliance requirements. Giovanni Nicholas, 11/06/2020 12:15:16 PM Number of Addenda: 0 Note Initiated On: 11/06/2020 10:13 AM Endoscopy Report Procedure Note Provider, MD Dulce - 11/06/2020 Patient Name: Tania Washington Procedure Date: 11/06/2020 10:13 AM Date of : 1955 Admit Type: Outpatient Age: 65 Gender: Female Note Status: Finalized Attending MD: Giovanni Nicholas , Procedure: Colonoscopy Indications: Chronic diarrhea Providers: Giovanni Nicholas, Malorie Perez RN Referring MD: Oh Espitia Medicines: Monitored Anesthesia Care Complications: No immediate complications. Procedure: Pre-Anesthesia Assessment: - Prior to the procedure, a History and Physical was performed, and patient medications, allergies and sensitivities were reviewed. The patient's tolerance of previous anesthesia was reviewed. - The risks and benefits of the procedure and the sedation options and risks were discussed with the patient. All questions were answered and informed consent was obtained. After I obtained informed consent, the scope was passed under direct vision. Throughout the procedure, the patient's blood pressure, pulse, and oxygen saturations were monitored continuously. The [id number] was introduced through the anus and advanced to the terminal ileum, with identification of the appendiceal orifice and IC valve. The colonoscopy was performed without difficulty. The patient tolerated the procedure well. The quality of the bowel preparation was excellent. Findings: Scattered diverticula were found in the sigmoid colon. The exam was otherwise without abnormality on direct and retroflexion views. The terminal ileum appeared normal. Biopsies for histology were taken with a cold forceps from the entire colon for evaluation of microscopic colitis. Impression: - Diverticulosis in the sigmoid colon. - The examination was otherwise normal on direct and retroflexion views. - The examined portion of the ileum was normal. - Biopsies were taken with a cold forceps from the entire colon for evaluation of microscopic colitis. Recommendation: - Await pathology results. - Repeat colonoscopy in 7 years for surveillance. Procedure Code(s): --- Professional --- 04240, Colonoscopy, flexible; with biopsy, single or multiple Diagnosis Code(s): --- Professional --- K52.9, Noninfective gastroenteritis and colitis, unspecified K57.30, Diverticulosis of large intestine without perforation or abscess without bleeding CPT copyright 2019 [employer]. All rights reserved. The codes documented in this report are preliminary and upon outpatient coder review may be revised to meet current compliance requirements. Giovanni Nicholas, 11/06/2020 12:15:16 PM Number of Addenda: 0 Note Initiated On: 11/06/2020 10:13 AM Endoscopy Report Oh Espitia MD ET GI PROCEDURE ORDE RABLES * Hepatitis C Antibody, with Reflex (01/06/2017 10:55 AM CDT) Hepatitis C Antibody Nonreactive Nonreactive PN SOFT 01/06/2017 10:5 5 AM CDT 01/06/2017 4:20 PM CDT Narrative PN SOFT - 01/06/2017 5:48 PM CDT Performed at [address] [address] CLIA number [id number] Oh Espitia MD LAB_1 PN SOFT [address] [place] [id number] from Last 3 Months or Most Recently Relevant to Health Maintenance Advance Directives * Full Code (Latest Code Status on File) Date Activated Date Inactivated Comments 11/21/2011 12:02 PM 11/21/2011 5:36 PM Care Teams In Store Representative Relationship Specialty Start Date End Date Oh Espitia MD [address] [place] [address] PCP - General 06/25/10
--- OUTSIDE RECORDS SUMMARY | 2024-04-11 02:26 | XMS_ITS | Encounter Summary ---
Author Organization [facility] Address [address] [place] [address] Care Team Providers Care Design And Sales Consultant Name Role Phone Roselyn Espitia Primary Care Provider [phone] Vasquez Mcnulty MD Unavailable Un available Elian Herrera MD Unavailable [phone] Reason for Visit * Reason Onset Date Comments Call to schedule test 09/23/2023 Cardiac MR I Encounter Details Date Type Department Care Team (Late st Contact Info) Description 09/23/2023 Telephone [facility] [address] [phone] Vasquez Mcnulty MD Call to schedule test (Cardiac MRI) Social History Tobacco Use Types Packs/Day Years [...] AM CDT 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 Thank you Action Taken: Other: cardiology Travel Screening: Not Applicable Thank you! [facility] Date of Service: documented in this encounter Plan of Treatment Not on file documented as of this encounter Visit Diagnoses Not on filedocumented in this encounter Care Teams Design And Sales Consultant Relationship Specialty Start Date End Date Omkar Anirudhsusan PCP - General 09/12/11 Vasquez Mcnulty MD Assigned Heart and Vascular Provider 10/14/23 Elian Herrera MD [address] [place] [address] Assigned Surgical Provider 03/15/24 documented as of this encounter
--- OUTSIDE RECORDS SUMMARY | 2024-04-11 02:26 | XMS_ITS | Clinical Summary ---
Author Organization [facility] Address [address] [place] [address] Care Team Providers Care Inspector Wreath Name Role Phone Roselyn Espitai Primary Care Provider [phone] Vasquez Mcnulty MD Unavailable Un available Elian Herrera MD Unavailable [phone] Allergies Active Allergy Reactions Criticality Noted Date Comments Amoxicillin-Pot Clavulanate Hives 02/02/20 24 Ibandronic Acid Unknown 09/05/2015 Alendronate Unknown 09/05/2015 Medications phenazopyridine (PYRIDIUM) 100 MG tabletIndicatio ns:Right flank pain,Dysuria Take 1 tablet (100 mg) by mouth 2 times daily as needed for urinary tract discomfort. 20 tablet 1 02/03/2024 Active tamsulosin (FLOMAX) 0.4 MG capsuleIndicati ons:Duplicated renal collecting system,Right renal stone Take 1 capsule (0.4 mg) by mouth as needed. At the first sign of kidney pain 30 capsule 3 02/03/2024 Active vitamin C (ASCORBIC ACID) 250 MG tablet Take 750 mg by mouth daily. Active Calcium Carbonate-Vitam in D 600-10 MG-MCG TABS Take 2 tablets by mouth 2 times daily. Active estradiol (ESTRACE) 0.1 MG/GM vaginal cream APPLY 1 GRAM 2-3 TIMES PER WEEK Active loratadine (CLARITIN) 10 MG tablet Take 10 mg by mouth daily. Active LORazepam (ATIVAN) 0.5 MG tablet Take 0.5 mg by mouth as needed for anxiety. Prior to flying Active rosuvastatin (CRESTOR) 5 MG tablet Take 5 mg by mouth twice a week. On Friday and Active oxyBUTYnin ER (DITROPAN XL) 5 MG 24 hr tabletIndicatio ns:Hydrouretero nephrosis Take 1 tablet (5 mg) by mouth daily. 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 Right flank pain 02/02/2024 Right renal stone 02/02/2024 Osteoporosis 01/31/2016 Encounters Date Type Department Care Team Description 02/18/2024 11:15 AM TRACK REPAIRER HELPER Office Visit [facility] [address] [phone] Elian Herrera MD Hydronephrosis with ureteral stricture, not elsewhere classified (Primary Dx) 02/18/2024 Travel 02/11/2024 MyC Medical Advice [facility] [address] [phone] Kristen Cavazos RN 02/11/2024 PRE VISIT [facility] [address] [phone] Elian Herrera MD Pre Visit Planning - Done 02/11/2024 Telephone [facility] [address] [phone] Elian Herrera MD 02/05/2024 Telephone [facility] [address] [place] [address] Jossy Dickinson MD Patient Request 02/05/2024 Telephone [facility] [address] [place] [address] Andrea Infante MD Clinic Care Coordination - Follow-up 02/05/2024 Telephone [facility] [address] [place] [phone] Jossy Dickinson MD Patient Request 02/03/2024 12:20 AM TRACK REPAIRER HELPER Anesthesia Event [facility] [address] [place] [address] Pat Odonnell MD 02/02/2024 9:20 PM TRACK REPAIRER HELPER - 02/02/2024 10:15 PM TRACK REPAIRER HELPER Surgery [facility] [address] [place] [address] Andrea Infante MD Cystoscopy, right diagnostic ureteroscopy, right retrograde pyelogram, right ureteral stent placement-modifier 22, fluoroscopic interpretation <1 hour physician time 02/02/2024 1:50 PM TRACK REPAIRER HELPER - 02/03/2024 12:00 PM TRACK REPAIRER HELPER Emergency [facility] Observation Dept [address] [place] [address] Satya Ramirez DO [place], Laura Anne, MD Right flank pain (Primary Dx); Hydroureteronephrosis ; Duplicated renal collecting system; Right renal stone; Dysuria Discharge Disposition: Home or Self Care 02/02/2024 Travel from Last 3 Months Immunizations Name Administration Dates Next Due Influenza Vaccine 18-64 (Flublok) 12/14/2018 Social History Tobacco Use Types Packs/Day Years Used Date Smoking Tobacco: Never Smokeless Tobacco: Never Tobacco Cessation:Counseling Given: Not Answered Alcohol Use Standard Drinks/Week Comments Yes 0 (1 standard drink = 0.6 oz pur e alcohol) occ PHQ-2 Answer Date Recorded PHQ-2 Score 0 02/18/2024 Adolescent Education Answer Date Record ed Getting [...] Answer Date Recorded Do you have housing? (Housin g is defined as stable permanent housing [...] AM CDT Legal Sex Female 3:32 AM TRACK REPAIRER HELPER Gender Identity Female 09/07/2023 11:49 AM CDT Sexual Orientation Straight 09/07/2023 11 :49 AM CDT Last Filed Vital Signs Vital Sign Reading Time Taken Comments Blood Pressure 148/86 02/18/2024 11:15 AM TRACK REPAIRER HELPER Pulse 69 02/18/2024 11:15 AM TRACK REPAIRER HELPER Temperature 36.6 C (97.8 F) 02/03/2024 11:19 AM TRACK REPAIRER HELPER Respiratory Rate 18 02/03/2024 11:19 AM TRACK REPAIRER HELPER Oxygen Saturation 97% 02/18/2024 11:15 AM TRACK REPAIRER HELPER Inhaled Oxygen Concentration - - Weight 67.1 kg (148 lb) 02/18/2024 11:15 AM TRACK REPAIRER HELPER pt states Height 165.1 cm (5' 5) 02/18/2024 11:15 AM TRACK REPAIRER HELPER pt statse Body Mass Index 24.63 02/18/2024 11:15 AM TRACK REPAIRER HELPER Plan of Treatment Health Maintenance Due Date Last Done Comments ADVANCE CARE PLANNING 1954 ANNUAL REVIEW OF HM ORDERS 1954 CT COLONOGRAPHY 1954 DEXA 1954 FIT 1954 FLEX SIG 1954 LIPID 1954 sDNA (Cologuard) 1954 HEPATITIS C SCREENING 1972 COLONOSCOPY 10/01/2011 09/30/2006 COLORECTAL CANCER SCREENING 10/01/2011 RSV VACCINE (1 - Risk 60-74 years 1-dose series) 2014 FALL RISK ASSESSMENT 2019 MEDICARE ANNUAL WELLNESS VISIT 04/15/2020 04/15/2019, 01/29/2018, 01/06/2017, Additional history exists PHQ-2 (once per calendar year) 2024 02/18/2024 MAMMO SCREENING 09/25/2025 09/26/2023, 07/0 07/2023, 09/12/2022, Additional history exists GLUCOSE 02/01/2027 02/02/2024, 08/22, 04/03/2018, Additional history exists DTAP/TDAP/TD IMMUNIZATION (3 - Td or Tdap) 04/11/2033 04/11/2023, 08/10/2012, 02/05/2003, Additional history exists ZOSTER IMMUNIZATION Completed 11/12/2021, 07/25/2021, 02/14/2015 Pneumococcal Vaccine: 50+ Years Completed 01/29/2023, 09/21/2020 INFLUENZA VACCINE Completed 12/09/2023, , 01/23/2022, Additional history exists COVID-19 Vaccine Completed 12/27/2023, , 01/17/2021, Additional history exists HPV IMMUNIZATION Aged Out No longer e ligible based on patient's age to complete this topic MENINGITIS IMMUNIZATION Aged Out No l onger eligible based on patient's age to complete this topic RSV MONOCLONAL ANTIBODY Aged Out No l onger eligible based on patient's age to complete this topic Medical Devices Implanted Type Area Cost And Risk Analysis Manager Device Identifier Shelf Expiration Date Model / Serial / Lot Stent Ureteral Polaris Ultra [id number] - [id number] Implanted:Qty : 1 on 02/02/2024 by Andrea Infante MD at [facility] Stent Right: Abdomen [employer] [place] [id number] 08/19/2026 [id number] Procedures Procedure Name Priority Date/Time Associated Diagnosis Comments XR SURGERY ROSEMARIE FLUORO LESS THAN 5 MIN Routine 02/03/2024 2:02 AM TRACK REPAIRER HELPER ANE AIRWAY SUPRAGLOTTIC PERFORMABLE Routine 02/03/2024 12:30 AM TRACK REPAIRER HELPER CYSTOSCOPY, WITH RETROGRADE PYELOGRAM AND URETERAL STENT INSERTION 02/03/2024 12:23 AM TRACK REPAIRER HELPER Right flank pain Hydroureteronephro sis Duplicated renal collecting system EKG 12-LEAD, TRACING ONLY STAT 02/02/2024 4:40 PM TRACK REPAIRER HELPER TROPONIN T, HIGH SENSITIVITY STAT 02/02/2024 4:21 [address] CHEST PE ABDOMEN PELVIS W CONTRAST STAT 02/02/2024 3:43 PM TRACK REPAIRER HELPER ROUTINE UA WITH MICROSCOPIC REFLEX TO CULTURE STAT 02/02/2024 1:36 PM TRACK REPAIRER HELPER CBC WITH PLATELETS & DIFFERENTIAL STAT 02/02/2024 1:17 PM TRACK REPAIRER HELPER NT PROBNP INPATIENT STAT 02/02/2024 1 :17 PM TRACK REPAIRER HELPER TROPONIN T, HIGH SENSITIVITY STAT 02/02/2024 1:17 PM TRACK REPAIRER HELPER LIPASE STAT 02/02/2024 1:17 PM TRACK REPAIRER HELPER EXTRA RED TOP TUBE STAT 02/02/2024 1: 17 PM TRACK REPAIRER HELPER EXTRA BLUE TOP TUBE STAT 02/02/2024 1 :17 PM TRACK REPAIRER HELPER CBC WITH PLATELETS AND DIFFERENTIAL STAT 02/02/2024 1:17 PM TRACK REPAIRER HELPER EXTRA TUBE STAT 02/02/2024 1:17 PM TRACK REPAIRER HELPER COMPREHENSIVE METABOLIC PANEL STAT 02/02/2024 1:17 PM TRACK REPAIRER HELPER MA SCREENING DIGITAL BILATERAL Routine 09/12/2011 1:58 PM CDT COLONOSCOPY Routine 09/30/2006 8:35 AM CDT from Last 3 Months or Most Recently Relevant to Health Maintenance Results * XR Surgery ROSEMARIE L/T 5 Min Fluoro (02/03/2024 2:02 AM TRACK REPAIRER HELPER) Narrative RADIANT - 02/03/2024 2:02 AM TRACK REPAIRER HELPER This exam was marked as non-reportable because it will not be read by a radiologist or a [facility] non-radiologist provider. us Andrea Infante MD IMG DIAGNOSTIC IMAGING ORDERA BLES Final Result RADIANT * ANE AIRWAY SUPRAGLOTTIC PERFORMABLE (02/03/2024 12:30 AM TRACK REPAIRER HELPER) Narrative Eri Shields APRN RESTAURANT MANAGER - 02/03/2024 12:30 AM TRACK REPAIRER HELPER Eri Shields APRN RESTAURANT MANAGER 02/03/2024 12:39 AM Airway Patient location during procedure: OR Procedure Start/Stop Times: 02/03/2024 12:30 AM Staff - Anesthesiologist: Pat Odonnell MD RESTAURANT MANAGER: Eri Shields APRN RESTAURANT MANAGER Performed By: RESTAURANT MANAGER Consent for Airway Urgency: elective Indications and Patient Condition Indications for airway management: wing-procedural Induction type:intravenous Mask difficulty assessment: 0 - not attempted Final Airway Details Final airway type: supraglottic airway Supraglottic Airway Details Type: LMA Brand: I-Gel LMA size: 4 Post intubation assessment Placement verified by: capnometry, equal breath sounds and chest rise Number of attempts at approach: 1 Number of other approaches attempted: 0 Secured with: commercial tube potter Ease of procedure: easy Dentition: Intact and Unchanged Medication(s) Administered Medication Administration Time: 02/03/2024 12:30 AM us Pat Odonnell MD ME ANESTHESIA Final Re sult * EKG 12-lead, tracing only (02/02/2024 4:40 PM TRACK REPAIRER HELPER) Systolic Blood Pressure mmHg RADIOLOGY RESULTS Diastolic Blood Pressure mmHg RADIOLOGY RESULTS Ventricular Rate 73 BPM RAD IOLOGY RESULTS Atrial Rate 73 BPM RADIOLOG Y RESULTS ME Interval 138 ms RADIOLOG Y RESULTS QRS Duration 80 ms RADIOLO GY RESULTS QT 424 ms RADIOLOGY RESULTS QTc 467 ms RADIOLOGY RESULTS P Laporte 51 degrees RADIOLOGY RESULTS R AXIS 6 degrees RADIOLOGY RESULTS T [place] 7 degrees RADIOLOGY RESULTS Interpretation ECG Sinus rhythm with frequent Premature ventricular complexes Possible Left atrial enlargement Nonspecific ST abnormality Abnormal ECG When compared with ECG of 03-Apr-2018 17:15, Premature ventricular complexes are now Present ST now depressed in Inferior leads Nonspecific T wave abnormality now evident in Anterior leads Unconfirmed report - interpretation of this ECG is computer generated - see medical record for final interpretation Confirmed by - EMERGENCY ROOM, PHYSICIAN ([id number]), editor trade journal RED OLIVARES ([id number]) on 02/03/2024 6:42:23 AM RADIOLOGY RESULTS 02/02/2024 4:40 PM TRACK REPAIRER HELPER 02/03/2024 6:42 AM TRACK REPAIRER HELPER Satya Ramirez DO ECG ORDERABLES Edited Result - Final RADIOLOGY RESULTS * Troponin T, High Sensitivity (02/02/2024 4:21 PM TRACK REPAIRER HELPER) Only the most recent of2 resultswithin the time period is included. Troponin T, High Sensitivity 7 <=14 ng/L 02/02/2024 5:06 PM TRACK REPAIRER HELPER LABORATORY Comment: Either a High Sensitivity Troponin T baseline (0 hours) value = 100 ng/L, or an increase in High Sensitivity Troponin T = 7 ng/L at 2 hours compared to 0 hours (2-0 hours), suggests myocardial injury, and urgent clinical attention is required. If the 2-0 hours increase is <7 ng/L, a High Sensitivity Troponin T result above gender-specific reference ranges warrants further evaluation. Recommendations for further evaluation include correlation with clinical decision-making tool (e.g., HEART), a 3rd High Sensitivity Troponin T test 2 hours after the 2nd (a 20% change from baseline would represent concern), admission for observation, close PCC/cardiology follow-up, or urgent outpatient provocative testing. Blood STRUCTURE OF RIGHT HAND / Unknown Venipuncture / Unknown 02/02/2024 4:21 PM TRACK REPAIRER HELPER 02/02/2024 4:35 PM TRACK REPAIRER HELPER us Satya Ramirez DO LAB - BLOOD ORDERABLES Final Res ult [facility] [address] Lab (1st floor, no room number) [place] [address], [facility] * CT Chest (PE) Abdomen Pelvis w Contrast (02/02/2024 3:43 PM TRACK REPAIRER HELPER) Anatomical Region Laterality Modality Chest, SUBRAD CT BODY, UMP CT CHEST, RAD CT Computed Tomography Impressions 02/02/2024 4:00 PM TRACK REPAIRER HELPER IMPRESSION: 1. Likely duplicated renal collecting system on the right with moderate hydroureteronephrosis of the lower pole moiety to the level of the proximal ureter, similar to prior exam but degree of hydronephrosis may be slightly increased. Questionable punctate stone at this level, although given positioning and persistence of hydronephrosis, it is felt this is unlikely to be the source of obstruction. Correlate with urinalysis to exclude superimposed urinary tract infection. Recommend urology referral and/or CT urogram, can be performed on a nonemergent/outpatient basis if clinically indicated. 2. Left kidney and urinary bladder are unremarkable. 3. No pulmonary embolus or other acute abnormality in the chest. TROY VARELA MD SYSTEM ID: [id number] Narrative 02/02/2024 4:[address] CHEST PE ABDOMEN PELVIS W CONTRAST 02/02/2024 3:43 PM CLINICAL HISTORY: Pleuritic Right lower chest wall pain, RUQ pain, right flank pain, RLQ pain, recent long trip to [facility] TECHNIQUE: CT angiogram chest and routine CT abdomen pelvis with IV contrast. Arterial phase through the chest and venous phase through the abdomen and pelvis. 2D and 3D MIP reconstructions were performed by the electroencephalographic technologist. Dose reduction techniques were used. CONTRAST: 64mL Isovue-370 COMPARISON: CT 03/24/2018 FINDINGS: ANGIOGRAM CHEST: Pulmonary arteries are normal caliber and negative for pulmonary emboli. Thoracic aorta is not well opacified and is indeterminate for dissection. No CT evidence of right heart strain. LUNGS AND PLEURA: No focal airspace consolidation, pleural effusion or pneumothorax. Multiple calcified granulomas in the left lower lobe. MEDIASTINUM/AXILLAE: Calcified left hilar lymph nodes, compatible with prior granulomatous disease. No suspicious lymphadenopathy. CORONARY ARTERY CALCIFICATION: Mild. HEPATOBILIARY: Unchanged hepatic cysts, no specific follow-up recommended. No evidence of cholecystitis or biliary obstruction. PANCREAS: Normal. SPLEEN: Normal. ADRENAL GLANDS: Unremarkable. KIDNEYS/BLADDER: Likely partial duplication of the right renal collecting system with moderate right hydroureteronephrosis of the lower pole moiety with transition point in the upper abdomen but possibly beyond the ureteropelvic junction, in similar position to prior CT (series 13 image 92). There is mild perinephric and periureteric edema with subtle delayed nephrogram on the right. Questionable punctate stone in the ureter near the transition point, although given positioning, this is favored to not be causing obstruction at the time of the exam (series 14 image 44). No additional nephroureterolithiasis. Left kidney and urinary bladder are unremarkable. BOWEL: Diverticulosis in the colon. No acute inflammatory change. No obstruction. Normal appendix. LYMPH NODES: No suspicious lymphadenopathy. PELVIC ORGANS: Hysterectomy. OTHER: No abdominal or pelvic free fluid. MUSCULOSKELETAL: No acute bony abnormality. Procedure Note Troy Varela MD - 02/02/2024 CT CHEST PE ABDOMEN PELVIS W CONTRAST 02/02/2024 3:43 PM CLINICAL HISTORY: Pleuritic Right lower chest wall pain, RUQ pain, right flank pain, RLQ pain, recent long trip to [facility] TECHNIQUE: CT angiogram chest and routine CT abdomen pelvis with IV contrast. Arterial phase through the chest and venous phase through the abdomen and pelvis. 2D and 3D MIP reconstructions were performed by the electroencephalographic technologist. Dose reduction techniques were used. CONTRAST: 64mL Isovue-370 COMPARISON: CT 03/24/2018 FINDINGS: ANGIOGRAM CHEST: Pulmonary arteries are normal caliber and negative for pulmonary emboli. Thoracic aorta is not well opacified and is indeterminate for dissection. No CT evidence of right heart strain. LUNGS AND PLEURA: No focal airspace consolidation, pleural effusion or pneumothorax. Multiple calcified granulomas in the left lower lobe. MEDIASTINUM/AXILLAE: Calcified left hilar lymph nodes, compatible with prior granulomatous disease. No suspicious lymphadenopathy. CORONARY ARTERY CALCIFICATION: Mild. HEPATOBILIARY: Unchanged hepatic cysts, no specific follow-up recommended. No evidence of cholecystitis or biliary obstruction. PANCREAS: Normal. SPLEEN: Normal. ADRENAL GLANDS: Unremarkable. KIDNEYS/BLADDER: Likely partial duplication of the right renal collecting system with moderate right hydroureteronephrosis of the lower pole moiety with transition point in the upper abdomen but possibly beyond the ureteropelvic junction, in similar position to prior CT (series 13 image 92). There is mild perinephric and periureteric edema with subtle delayed nephrogram on the right. Questionable punctate stone in the ureter near the transition point, although given positioning, this is favored to not be causing obstruction at the time of the exam (series 14 image 44). No additional nephroureterolithiasis. Left kidney and urinary bladder are unremarkable. BOWEL: Diverticulosis in the colon. No acute inflammatory change. No obstruction. Normal appendix. LYMPH NODES: No suspicious lymphadenopathy. PELVIC ORGANS: Hysterectomy. OTHER: No abdominal or pelvic free fluid. MUSCULOSKELETAL: No acute bony abnormality. IMPRESSION: 1. Likely duplicated renal collecting system on the right with moderate hydroureteronephrosis of the lower pole moiety to the level of the proximal ureter, similar to prior exam but degree of hydronephrosis may be slightly increased. Questionable punctate stone at this level, although given positioning and persistence of hydronephrosis, it is felt this is unlikely to be the source of obstruction. Correlate with urinalysis to exclude superimposed urinary tract infection. Recommend urology referral and/or CT urogram, can be performed on a nonemergent/outpatient basis if clinically indicated. 2. Left kidney and urinary bladder are unremarkable. 3. No pulmonary embolus or other acute abnormality in the chest. TROY VARELA MD SYSTEM ID: [id number] us [place] Yeh DO IMG CT ORDERABLES Final Result * (ABNORMAL) UA with Microscopic reflex to Culture (02/02/2024 1:36 PM TRACK REPAIRER HELPER) Color Urine Light Yellow Colorless, Straw, Light Yellow, Yellow 02/02/2024 2:23 PM TRACK REPAIRER HELPER [facility] Appearance Urine Clear Clear 02/02/20 24 2:23 PM TRACK REPAIRER HELPER [facility] Glucose Urine Negative Negative mg/dL 02/02/2024 2:23 PM TRACK REPAIRER HELPER [facility] Bilirubin Urine Negative Negative 2:23 PM TRACK REPAIRER HELPER LABORATORY Ketones Urine 10(A) Negative mg/dL 02/02/2024 2:23 PM TRACK REPAIRER HELPER LABORATORY Specific [place] Urine 1.023 1.003 - 1.035 02/02/2024 2:23 PM TRACK REPAIRER HELPER LABORATORY Blood Urine Negative Negative 02/02/2024 2:23 PM TRACK REPAIRER HELPER LABORATORY pH Urine 6.5 5.0 - 7.0 02/02/2024 2:23 PM TRACK REPAIRER HELPER LABORATORY Protein Albumin Urine Negative Negative mg/dL 02/02/2024 2:23 PM TRACK REPAIRER HELPER LABORATORY Urobilinogen Urine Normal Normal, 2.0 mg/dL 02/02/2024 2:23 PM TRACK REPAIRER HELPER LABORATORY Nitrite Urine Negative Negative 02/02/2024 2:23 PM TRACK REPAIRER HELPER LABORATORY Leukocyte Esterase Urine Negative Negative 02/02/2024 2:23 PM TRACK REPAIRER HELPER LABORATORY Mucus Urine Present(A) None Seen /LPF 02/02/2024 2:23 PM TRACK REPAIRER HELPER LABORATORY Amorphous Crystals Urine Few(A) None Seen /HPF 02/02/2024 2:23 PM TRACK REPAIRER HELPER LABORATORY Calcium Oxalate Crystals Urine Few(A) None Seen /HPF 02/02/2024 2:23 PM TRACK REPAIRER HELPER LABORATORY RBC Urine 1 <=2 /HPF 02/02/2024 2:23 PM TRACK REPAIRER HELPER LABORATORY WBC Urine 2 <=5 /HPF 02/02/2024 2:23 PM TRACK REPAIRER HELPER LABORATORY Squamous Epithelials Urine 1 <=1 /HPF 02/02/2024 2:23 PM TRACK REPAIRER HELPER LABORATORY Urine URINE SPECIMEN OBTAINED BY CLEAN CATCH PROCEDURE / Unknown Non-blood Collection / Unknown 02/02/2024 1:36 PM TRACK REPAIRER HELPER 02/02/2024 1:46 PM TRACK REPAIRER HELPER Narrative [facility] - 02/02/2024 2:23 PM TRACK REPAIRER HELPER Urine Culture not indicated us Satya Ramirez DO LAB - URINE ORDERABLES Final Res ult LABORATORY [facility] Lab [address] Lab (1st floor, no room number) [place] [address], [facility] * Extra Red Top Tube (02/02/2024 1:17 PM TRACK REPAIRER HELPER) Hold Specimen [facility] 02/02/2024 2:31 PM TRACK REPAIRER HELPER [facility] Blood STRUCTURE OF RIGHT UPPER LIMB / Unknown Venipuncture / Unknown 02/02/2024 1:17 PM TRACK REPAIRER HELPER 02/02/2024 1:20 PM TRACK REPAIRER HELPER us [place] Yeh DO LAB - BLOOD ORDERABLES Final Res ult LABORATORY [facility] [address] Lab (1st floor, no room number) [place] [id number] * Extra Blue Top Tube (02/02/2024 1:17 PM TRACK REPAIRER HELPER) Hold Specimen [facility] 02/02/2024 2:31 PM TRACK REPAIRER HELPER [facility] Blood STRUCTURE OF RIGHT UPPER LIMB / Unknown Venipuncture / Unknown 02/02/2024 1:17 PM TRACK REPAIRER HELPER 02/02/2024 1:21 PM TRACK REPAIRER HELPER us Satya Yeh DO LAB - BLOOD ORDERABLES Final Res ult [facility] [address] Lab (1st floor, no room number) [address] * CBC with platelets and differential (02/02/2024 1:17 PM TRACK REPAIRER HELPER) WBC Count 8.1 4.0 - 11.0 10e3/uL 02/02/2024 1:23 PM TRACK REPAIRER HELPER [facility] RBC Count 4.65 3.80 - 5.20 10e6/uL 02/02/2024 1:23 PM TRACK REPAIRER HELPER [facility] Hemoglobin 13.9 11.7 - 15.7 g/dL 02/02/2024 1:23 PM TRACK REPAIRER HELPER [facility] Hematocrit 42.5 35.0 - 47.0 % 02/02/2024 1:23 PM TRACK REPAIRER HELPER [facility] MCV 91 78 - 100 fL 02/02/2024 1:23 PM TRACK REPAIRER HELPER [facility] MCH 29.9 26.5 - 33.0 pg 02/02/2024 1:23 PM TRACK REPAIRER HELPER [facility] MCHC 32.7 31.5 - 36.5 g/dL 02/02/2024 1:23 PM TRACK REPAIRER HELPER [facility] RDW 13.0 10.0 - 15.0 % 02/02/2024 1:23 PM TRACK REPAIRER HELPER [facility] Platelet Count 156 150 - 450 10e3/uL 02/02/2024 1:23 PM TRACK REPAIRER HELPER [facility] % Neutrophils 77 % 02/02/2024 1:23 PM TRACK REPAIRER HELPER [facility] % Lymphocytes 12 % 02/02/2024 1:23 PM TRACK REPAIRER HELPER [facility] % Monocytes 9 % 02/02/2024 1:23 PM TRACK REPAIRER HELPER [facility] % Eosinophils 1 % 02/02/2024 1:23 PM TRACK REPAIRER HELPER [facility] % Basophils 1 % 02/02/2024 1:23 PM TRACK REPAIRER HELPER [facility] % Immature Granulocytes 0 % 02/02/2024 1:23 PM TRACK REPAIRER HELPER [facility] NRBCs per 100 WBC 0 <1 /100 024 1:23 PM TRACK REPAIRER HELPER [facility] Absolute Neutrophils 6.3 1.6 - 8.3 10e3/uL 02/02/2024 1:23 PM TRACK REPAIRER HELPER [facility] Absolute Lymphocytes 1.0 0.8 - 5.3 10e3/uL 02/02/2024 1:23 PM TRACK REPAIRER HELPER [facility] Absolute Monocytes 0.7 0.0 - 1.3 10e3/uL 02/02/2024 1:23 PM TRACK REPAIRER HELPER [facility] Absolute Eosinophils 0.1 0.0 - 0.7 10e3/uL 02/02/2024 1:23 PM TRACK REPAIRER HELPER [facility] Absolute Basophils 0.1 0.0 - 0.2 10e3/uL 02/02/2024 1:23 PM TRACK REPAIRER HELPER [facility] Absolute Immature Granulocytes 0.0 <=0.4 10e3/uL 02/02/2024 1:23 PM TRACK REPAIRER HELPER [facility] Absolute NRBCs 0.0 10e3/uL 02/02/2024 1:23 PM TRACK REPAIRER HELPER [facility] Blood STRUCTURE OF RIGHT UPPER LIMB / Unknown Venipuncture / Unknown 02/02/2024 1:17 PM TRACK REPAIRER HELPER 02/02/2024 1:21 PM TRACK REPAIRER HELPER us Satya Pierreh DO LAB - BLOOD ORDERABLES Final Res ult [facility] [address] Lab (1st floor, no room number) [place] [address] * Nt probnp inpatient (BNP) (02/02/2024 1:17 PM TRACK REPAIRER HELPER) N terminal Pro BNP Inpatient 511 0 - 900 pg/mL 02/02/2024 3:19 PM TRACK REPAIRER HELPER [facility] Comment: Reference range shown and results flagged as abnormal are suggested inpatient cut points for confirming diagnosis if CHF in an acute setting. Establishing a baseline value for each individual patient is useful for follow-up. An inpatient or emergency department NT-proPBNP <300 pg/mL effectively rules out acute CHF, with 99% negative predictive value. The outpatient non-acute reference range for ruling out CHF is: 0-125 pg/mL (age 18 to less than 75) 0-450 pg/mL (age 75 yrs and older) Blood STRUCTURE OF RIGHT UPPER LIMB / Unknown Venipuncture / Unknown 02/02/2024 1:17 PM TRACK REPAIRER HELPER 02/02/2024 1:21 PM TRACK REPAIRER HELPER us Satya Yeh DO LAB - BLOOD ORDERABLES Final Res ult [facility] [address] Lab (1st floor, no room number) [place] [address] * Lipase (02/02/2024 1:17 PM TRACK REPAIRER HELPER) [facility] Lipase 35 13 - 60 U/L 02/02/2024 3:09 PM TRACK REPAIRER HELPER [facility] Blood STRUCTURE OF RIGHT UPPER LIMB / Unknown Venipuncture / Unknown 02/02/2024 1:17 PM TRACK REPAIRER HELPER 02/02/2024 1:21 PM TRACK REPAIRER HELPER us [place] Yeh DO LAB - BLOOD ORDERABLES Final Res ult [facility] Acute [facility] Lab [address] Lab (1st floor, no room number) [place] [address], [facility] * (ABNORMAL) Comprehensive metabolic panel (02/02/2024 1:17 PM TRACK REPAIRER HELPER) Sodium 139 135 - 145 mmol/L 02/02/2024 1:53 PM TRACK REPAIRER HELPER [facility] Potassium 4.2 3.4 - 5.3 mmol/L 02/02/2024 1:53 PM TRACK REPAIRER HELPER [facility] Carbon Dioxide (CO2) 23 22 - 29 mmol/L 02/02/2024 1:53 PM TRACK REPAIRER HELPER [facility] Anion Gap 14 7 - 15 mmol/L 02/02/2024 1:53 PM TRACK REPAIRER HELPER [facility] Urea Nitrogen 22.9 8.0 - 23.0 mg/dL 02/02/2024 1:53 PM TRACK REPAIRER [facility] Creatinine 0.91 0.51 - 0.95 mg/dL 02/02/2024 1:53 PM TRACK REPAIRER HELPER [facility] GFR Estimate 68 >60 mL/min/1.7 3m2 02/02/2024 1:53 PM TRACK REPAIRER HELPER [facility] Comment:eGFR calculated usin 2020 CKD-EPI equation. Calcium 9.1 8.8 - 10.4 mg/dL 02/02/2024 1:53 PM [facility] Comment:Reference intervals for this test were updated on 10/07/2023 to reflect our healthy population more accurately. There may be differences in the flagging of prior results with similar values performed with this method. Those prior results can be interpreted in the context of the updated reference intervals. Chloride 102 98 - 107 mmol/L 02/02/2024 1:53 PM TRACK REPAIRER HELPER [facility] Glucose 116(H) 70 - 99 mg/dL 02/02/2024 1:53 PM TRACK REPAIRER HELPER [facility] Alkaline Phosphatase 63 40 - 150 U/L 02/02/2024 1:53 PM TRACK REPAIRER HELPER [facility] AST 25 0 - 45 U/L 02/02/2024 1:53 PM TRACK REPAIRER HELPER [facility] ALT 23 0 - 50 U/L 02/02/2024 1:53 PM TRACK REPAIRER HELPER [facility] Protein Total 7.1 6.4 - 8.3 g/dL 02/02/2024 1:53 PM TRACK REPAIRER HELPER [facility] Albumin 4.6 3.5 - 5.2 g/dL 02/02/2024 1:53 PM TRACK REPAIRER HELPER [facility] Bilirubin Total 0.3 <=1.2 mg/dL 02/02/2024 1:53 PM TRACK REPAIRER HELPER [facility] Blood STRUCTURE OF RIGHT UPPER LIMB / Unknown Venipuncture / Unknown 02/02/2024 1:17 PM TRACK REPAIRER HELPER 02/02/2024 1:21 PM TRACK REPAIRER HELPER us Satya Ramirez DO LAB - BLOOD ORDERABLES Final Res ult [facility] Lab [address] Lab (1st floor, no room number) [place] [address], [facility] * Mammo Screening digital (bilat) (09/12/2011 1:58 PM CDT) Anatomical Region Laterality Modality Breast Bilateral Other 09/12/2011 1:58 PM CDT Impressions 09/13/2011 8:06 AM CDT SCREENING MAMMOGRAM, BILATERAL, DIGITAL w/CAD BREAST SYMPTOMS/COMPARISON: 08/07/2010, 06/15/2007 BREAST PARENCHYMAL PATTERN: Heterogeneously dense. which could obscure detection of small masses FINDINGS: Negative. Screening exam in one year recommended. IMPRESSION: BI-RADS 1, NEGATIVE. us Angel Carter MD IMG MAMMOGRAPHY ORDERABLES Ed ited * COLONOSCOPY (09/30/2006 8:35 AM CDT) COLONOSCOPY Endoscopy ___ Patient Name: Tania Washington Gender: F Procedure Date: 09/30/2006 8:35 AM Date of : 1955 Age: 51 Admit Type: Outpatient Attending MD: Khurram Mccullough ___ Procedure: Colonoscopy Indications: High risk colon ca screening: Colon cancer in mother after age 50 Providers: Khurram Mccullough MD Referring MD: Angus Silva MD Medicines: Atropine IVP 0.4 mgs, Fentanyl (Sublimaze) IVP 200 mcgs, Versed (Midazolam) IVP 2 mgs Complications: No immediate complications ___ Procedure: - A History and Physical has been performed, and patient medication allergies have been reviewed. The patient The risks and benefits of the procedure and the sedation options and risks were discussed with the patient. All questions were answered and informed consent was obtained. Patient identification and proposed procedure were verified prior to the procedure by the physician. Mental Status Examination: normal. Respiratory Examination: clear to auscultation. CV Examination: normal. ASA Grade Assessment: P1 A normal healthy patient. After reviewing the risks and benefits, the patient was deemed in satisfactory condition to undergo the procedure. The anesthesia plan was to use moderate sedation / analgesia (conscious sedation). Immediately prior to administration of medications, the patient was re-assessed for adequacy to receive sedatives. The heart rate, respiratory rate, oxygen saturations, blood pressure, adequacy of pulmonary ventilation, and response to care were monitored throughout the procedure. The physical status of the patient was re-assessed after the procedure. After obtaining informed consent, the colonoscope was passed under direct vision. Throughout the procedure, the patient's blood pressure, pulse, and oxygen saturations were monitored continuously. The [id number] #[id number] was introduced through the anus and advanced to the cecum, identified by appendiceal orifice & IC valve. The colonoscopy was accomplished with ease. The patient tolerated the procedure well. The quality of the prep was excellent. The total duration of the procedure was 16 minutes. Findings: The perianal and digital rectal examination was normal. Pertinent negatives include normal sphincter tone, no palpable rectal lesions and no anal lesion or abnormality was detected. A few small-mouthed diverticula were found in the sigmoid colon. Otherwise normal colon from the anus (including rectal retroflexion) to the base of the cecum. Impression: - Diverticulosis. - The exam was otherwise normal to the cecum. Recommendation: - Discharge patient to home (ambulatory). - High bulk, high fluid diet. - Follow up with Dr. Silva as planned and get annual FOBT (fecal occult blood test). - Repeat colonoscopy for screening purposes in 5 years or PRN sooner. - The findings and recommendations were discussed with the patient. Khurram Mccullough M.D. Khurram Mccullough MD Signed Date: 09/30/2006 9:28 AM Number of Addenda: 0 I was physically present for the entire viewing portion of the exam. Note generated on 09/30/2006 8:34 AM RADIOLOGY RESULTS COLONOSCOPY RADIOLOG Y RESULTS 09/30/2006 8:35 AM CDT us Angus Silva MD PROCEDURES Final Result RADIOLOGY RESULTS from Last 3 Months or Most Recently Relevant to Health Maintenance Insurance MEDICARE [facility] MEDICARE SUPPLEMENT MEDICARE [place] MEDICARE SUPPLEMENT Advance Directives For more information, please contact: [phone] * Full Code (Latest Code Status on File) Date Activated Date Inactivated Comments 02/02/2024 6:57 PM 02/03/2024 2:40 PM All basic and advanced life-sustaining interventions are performed as appropriate Question Answer Comments Code status determined by: Discussion with patie nt/ legal decision maker Care Teams Inspector Wreath Relationship Specialty Start Date End Date Roselyn Espitia PCP - General 09/12/11 Vasquez Mcnulty MD Assigned Heart and Vascular Provider 10/14/23 Elian Herrera MD [address] [place] [address] Assigned Surgical Provider 03/15/24
--- OUTSIDE RECORDS SUMMARY | 2024-04-11 02:26 | XMS_ITS | Referral Summary ---
Author Organization [facility] Address [address] [place] [address] Care Team Providers Care Wool Grower Name Role Phone Roselyn Espitia Primary Care Provider Vasquez Mcnulty MD Unavailable Un available Elian Herrera MD Unavailable [phone] Encounters Date Type Department Care Team Description 02/18/2024 Travel 02/18/2024 11:15 AM COMPUTER FORENSICS ANALYST Office Visit [facility] [address] [phone] Elian Herrera MD Hydronephrosis with ureteral stricture, not elsewhere classified (Primary Dx) 02/11/2024 MyC Medical Advice [facility] [address] [address] Kristen Cavazos RN 02/11/2024 PRE VISIT [facility] [address] [phone] Elian Herrera MD Pre Visit Planning - Done 02/11/2024 Telephone [facility] [address] [phone] Elian Herrera MD 02/05/2024 Telephone [facility] [place] [address] [facility] [address] [place] [phone] Jossy Dickinson MD Patient Request 02/05/2024 Telephone [facility] [place] [address] [facility] [address] [facility] [address] [place] [phone] Andrea Infante MD Clinic Care Coordination - Follow-up 02/05/2024 Telephone [facility] [place] [address] [place] [phone] Jossy Dickinson MD Patient Request 02/03/2024 12:20 AM COMPUTER FORENSICS ANALYST Anesthesia Event [facility] [address] [place] [address] Pat Odonnell MD 02/02/2024 1:50 PM COMPUTER FORENSICS ANALYST - 02/03/2024 12:00 PM COMPUTER FORENSICS ANALYST Emergency [facility] [address] [place] [phone] Satya Ramirez DO [place], Eri Gillis MD Right flank pain (Primary Dx); Hydroureteronephrosis ; Duplicated renal collecting system; Right renal stone; Dysuria Discharge Disposition: Home or Self Care 02/02/2024 9:20 PM COMPUTER FORENSICS ANALYST - 02/02/2024 10:15 PM COMPUTER FORENSICS ANALYST Surgery [facility] [address] [place] [address] Andrea Infante MD Cystoscopy, right diagnostic ureteroscopy, right retrograde pyelogram, right ureteral stent placement-modifier 22, fluoroscopic interpretation <1 hour physician time 02/02/2024 Travel from Last 3 Months Allergies Active Allergy Reactions Criticality Noted Date [...] 02/02/2024 Right renal stone 02/02/2024 Osteoporosis 01/31/2016 Immunizations Name Administration Dates Next Due Influenza [...] in an abandoned building, in an overnight long term, or couch-surfing.) Yes 02/03/2024 Are you worried [...] AM CDT Legal Sex Female 3:32 AM COMPUTER FORENSICS ANALYST Gender Identity Female 09/07/2023 11:49 AM CDT Sexual Orientation Straight 09/07/2023 11 :49 AM CDT Last Filed Vital Signs Vital Sign Reading Time Taken Comments Blood Pressure 148/86 02/18/2024 11:15 AM COMPUTER FORENSICS ANALYST Pulse 69 02/18/2024 11:15 AM COMPUTER FORENSICS ANALYST Temperature 36.6 C (97.8 F) 02/03/2024 11:19 AM COMPUTER FORENSICS ANALYST Respiratory Rate 18 02/03/2024 11:19 AM COMPUTER FORENSICS ANALYST Oxygen Saturation 97% 02/18/2024 11:15 AM COMPUTER FORENSICS ANALYST Inhaled Oxygen Concentration - - Weight 67.1 kg (148 lb) 02/18/2024 11:15 AM COMPUTER FORENSICS ANALYST pt states Height 165.1 cm (5' 5) 02/18/2024 11:15 AM COMPUTER FORENSICS ANALYST pt statse Body Mass Index 24.63 02/18/2024 11:15 AM COMPUTER FORENSICS ANALYST Plan of Treatment Not on file Medical Devices Implanted Type Area Human Resources Administrator Device Identifier Shelf Expiration Date Model / Serial / Lot Stent Ureteral Polaris Ultra [id number] - [id number] Implanted:Qty : 1 on 02/02/2024 by Andrea Infante MD at [facility] Stent Right: Abdomen [employer] [place] [id number] 08/19/2026 [id number] Procedures Procedure Name Priority Date/Time Associated Diagnosis Comments XR SURGERY ROSEMARIE FLUORO LESS THAN 5 MIN Routine 02/03/2024 2:02 AM COMPUTER FORENSICS ANALYST ANE AIRWAY SUPRAGLOTTIC PERFORMABLE Routine 02/03/2024 12:30 AM COMPUTER FORENSICS ANALYST CYSTOSCOPY, WITH RETROGRADE PYELOGRAM AND URETERAL STENT INSERTION 02/03/2024 12:23 AM COMPUTER FORENSICS ANALYST Right flank pain Hydroureteronephro sis Duplicated renal collecting system EKG 12-LEAD, TRACING ONLY STAT 02/02/2024 4:40 PM COMPUTER FORENSICS ANALYST TROPONIN T, HIGH SENSITIVITY STAT 02/02/2024 4:[address] CHEST PE ABDOMEN PELVIS W CONTRAST STAT 02/02/2024 3:43 PM COMPUTER FORENSICS ANALYST ROUTINE UA WITH MICROSCOPIC REFLEX TO CULTURE STAT 02/02/2024 1:36 PM COMPUTER FORENSICS ANALYST CBC WITH PLATELETS & DIFFERENTIAL STAT 02/02/2024 1:17 PM COMPUTER FORENSICS ANALYST NT PROBNP INPATIENT STAT 02/02/2024 1 :17 PM COMPUTER FORENSICS ANALYST TROPONIN T, HIGH SENSITIVITY STAT 02/02/2024 1:17 PM COMPUTER FORENSICS ANALYST LIPASE STAT 02/02/2024 1:17 PM COMPUTER FORENSICS ANALYST EXTRA RED TOP TUBE STAT 02/02/2024 1: 17 PM COMPUTER FORENSICS ANALYST EXTRA BLUE TOP TUBE STAT 02/02/2024 1 :17 PM COMPUTER FORENSICS ANALYST CBC WITH PLATELETS AND DIFFERENTIAL STAT 02/02/2024 1:17 PM COMPUTER FORENSICS ANALYST EXTRA TUBE STAT 02/02/2024 1:17 PM COMPUTER FORENSICS ANALYST COMPREHENSIVE METABOLIC PANEL STAT 02/02/2024 1:17 PM COMPUTER FORENSICS ANALYST MA SCREENING DIGITAL BILATERAL Routine 09/12/2011 1:58 PM CDT COLONOSCOPY Routine 09/30/2006 8:35 AM CDT from Last 3 Months or Most Recently Relevant to Health Maintenance Results * XR Surgery ROSEMARIE L/T 5 Min Fluoro (02/03/2024 2:02 AM COMPUTER FORENSICS ANALYST) Narrative RADIANT - 02/03/2024 2:02 AM COMPUTER FORENSICS ANALYST This exam was marked as non-reportable because it will not be read by a radiologist or a [facility] non-radiologist provider. Andrea Infante MD IMG DIAGNOSTIC IMAGING ORDERA BLES Final Result RADIANT * ANE AIRWAY SUPRAGLOTTIC PERFORMABLE (02/03/2024 12:30 AM COMPUTER FORENSICS ANALYST) Narrative Eri Shields APRN NEW ACCOUNT INTERVIEWER - 02/03/2024 12:30 AM COMPUTER FORENSICS ANALYST Eri Shields APRN NEW ACCOUNT INTERVIEWER 02/03/2024 12:39 AM Airway Patient location during procedure: OR Procedure Start/Stop Times: 02/03/2024 12:30 AM Staff - Anesthesiologist: Pat Odonnell MD NEW ACCOUNT INTERVIEWER: Eri Shields APRN NEW ACCOUNT INTERVIEWER Performed By: NEW ACCOUNT INTERVIEWER Consent for Airway Urgency: elective Indications and [...] Administered Medication Administration Time: 02/03/2024 12:30 AM Pat Odonnell MD MT ANESTHESIA Final Re sult * EKG 12-lead, tracing only (02/02/2024 4:40 PM COMPUTER FORENSICS ANALYST) Pathologist [facility] Systolic Blood Pressure mmHg RADIOLOGY RESULTS Diastolic Blood Pressure mmHg RADIOLOGY RESULTS Ventricular Rate 73 BPM RAD IOLOGY RESULTS Atrial Rate 73 BPM RADIOLOG Y RESULTS MT Interval 138 ms RADIOLOG Y RESULTS QRS Duration 80 ms RADIOLO GY RESULTS QT 424 ms RADIOLOGY RESULTS QTc 467 ms RADIOLOGY RESULTS P Albers 51 degrees RADIOLOGY RESULTS R AXIS 6 degrees RADIOLOGY RESULTS T Albers 7 degrees RADIOLOGY RESULTS Interpretation ECG Sinus [...] Confirmed by - EMERGENCY ROOM, PHYSICIAN ([id number]), publications editor RED OLIVARES ([id number]) on 02/03/2024 6:42:23 AM RADIOLOGY RESULTS 02/02/2024 4:40 PM COMPUTER FORENSICS ANALYST 02/03/2024 6:42 AM COMPUTER FORENSICS ANALYST Satya Ramirez DO ECG ORDERABLES Edited Result - Final RADIOLOGY RESULTS * Troponin T, High Sensitivity (02/02/2024 4:21 PM COMPUTER FORENSICS ANALYST) Only the most recent of2 resultswithin the time period is included. Pathologist [facility] Troponin T, High Sensitivity 7 <=14 ng/L 02/02/2024 5:06 PM COMPUTER FORENSICS ANALYST LABORATORY Comment: Either a High Sensitivity Troponin [...] Unknown Venipuncture / Unknown 02/02/2024 4:21 PM COMPUTER FORENSICS ANALYST 02/02/2024 4:35 PM COMPUTER FORENSICS ANALYST us Satya Ramirez DO LAB - BLOOD ORDERABLES Final Res ult [facility] Lab [address] Lab (1st floor, no room number) [place] [address], [facility] * CT Chest (PE) Abdomen Pelvis w Contrast (02/02/2024 3:43 PM COMPUTER FORENSICS ANALYST) Anatomical Region Laterality Modality Chest, SUBRAD CT BODY, UMP CT CHEST, RAD CT Computed Tomography Impressions 02/02/2024 4:00 PM COMPUTER FORENSICS ANALYST IMPRESSION: 1. Likely duplicated renal collecting system [...] the chest. TROY VARELA MD SYSTEM ID: [id number] Narrative 02/02/2024 4:[address]ICS [address]LY[address] CHEST PE ABDOMEN PELVIS W CONTRAST 02/02/2024 3:43 PM CLINICAL HISTORY: Pleuritic Right lower chest wall pain, RUQ pain, right flank pain, RLQ pain, recent long trip to [facility] TECHNIQUE: CT angiogram chest and routine CT abdomen pelvis with IV contrast. Arterial phase through the chest and venous phase through the abdomen and pelvis. 2D and 3D MIP reconstructions were performed by the hybrid technologist. Dose reduction techniques were used. CONTRAST: [...] pain, RLQ pain, recent long trip to [facility] TECHNIQUE: CT angiogram chest and routine CT abdomen pelvis with IV contrast. Arterial phase through the chest and venous phase through the abdomen and pelvis. 2D and 3D MIP reconstructions were performed by the hybrid technologist. Dose reduction techniques were used. CONTRAST: [...] the chest. TROY VARELA MD SYSTEM ID: [id number] Satya Ramirez DO IMG CT ORDERABLES Final Result * (ABNORMAL) UA with Microscopic reflex to Culture (02/02/2024 1:36 PM COMPUTER FORENSICS ANALYST) Color Urine Light Yellow Colorless, Straw, Light Yellow, Yellow 02/02/2024 2:23 PM COMPUTER FORENSICS ANALYST LABORATORY Appearance Urine Clear Clear 02/02/20 2:23 PM COMPUTER FORENSICS ANALYST LABORATORY Glucose Urine Negative Negative mg/dL 02/02/2024 2:23 PM COMPUTER FORENSICS ANALYST LABORATORY Bilirubin Urine Negative Negative 2:23 PM COMPUTER FORENSICS ANALYST LABORATORY Ketones Urine 10(A) Negative mg/dL 02/02/2024 2:23 PM COMPUTER FORENSICS ANALYST LABORATORY Specific [place] Urine 1.023 1.003 - 1.035 02/02/2024 2:23 PM COMPUTER FORENSICS ANALYST LABORATORY Blood Urine Negative Negative 02/02/2024 2:23 PM COMPUTER FORENSICS ANALYST LABORATORY pH Urine 6.5 5.0 - 7.0 02/02/2024 2:23 PM COMPUTER FORENSICS ANALYST LABORATORY Protein Albumin Urine Negative Negative mg/dL 02/02/2024 2:23 PM COMPUTER FORENSICS ANALYST LABORATORY Urobilinogen Urine Normal Normal, 2.0 mg/dL 02/02/2024 2:23 PM COMPUTER FORENSICS ANALYST LABORATORY Nitrite Urine Negative Negative 02/02/2024 2:23 PM COMPUTER FORENSICS ANALYST LABORATORY Leukocyte Esterase Urine Negative Negative 02/02/2024 2:23 PM COMPUTER FORENSICS ANALYST LABORATORY Mucus Urine Present(A) None Seen /LPF 02/02/2024 2:23 PM COMPUTER FORENSICS ANALYST LABORATORY Amorphous Crystals Urine Few(A) None Seen /HPF 02/02/2024 2:23 PM COMPUTER FORENSICS ANALYST LABORATORY Calcium Oxalate Crystals Urine Few(A) None Seen /HPF 02/02/2024 2:23 PM COMPUTER FORENSICS ANALYST LABORATORY RBC Urine 1 <=2 /HPF 02/02/2024 2:23 PM COMPUTER FORENSICS ANALYST LABORATORY WBC Urine 2 <=5 /HPF 02/02/2024 2:23 PM COMPUTER FORENSICS ANALYST LABORATORY Squamous Epithelials Urine 1 <=1 /HPF 02/02/2024 2:23 PM COMPUTER FORENSICS ANALYST LABORATORY Urine URINE SPECIMEN OBTAINED BY CLEAN CATCH PROCEDURE / Unknown Non-blood Collection / Unknown 02/02/2024 1:36 PM COMPUTER FORENSICS ANALYST 02/02/2024 1:46 PM COMPUTER FORENSICS ANALYST Narrative LABORATORY - 02/02/2024 2:23 PM COMPUTER FORENSICS ANALYST Urine Culture not indicated us Satya Ramirez DO LAB - URINE ORDERABLES Final Res ult LABORATORY [facility] Lab [address] Lab (1st floor, no room number) [place] [address] * Extra Red Top Tube (02/02/2024 1:17 PM COMPUTER FORENSICS ANALYST) Hold Specimen [facility] 02/02/2024 2:31 PM COMPUTER FORENSICS ANALYST RH LABORATORY Blood STRUCTURE OF RIGHT UPPER LIMB / Unknown Venipuncture / Unknown 02/02/2024 1:17 PM COMPUTER FORENSICS ANALYST 02/02/2024 1:20 PM COMPUTER FORENSICS ANALYST us [place] Yeh DO LAB - BLOOD ORDERABLES Final Res ult LABORATORY [facility] [address] Lab (1st floor, no room number) [place] [address] * Extra Blue Top Tube (02/02/2024 1:17 PM COMPUTER FORENSICS ANALYST) Hold Specimen [facility] 02/02/2024 2:31 PM COMPUTER FORENSICS ANALYST RH LABORATORY Blood STRUCTURE OF RIGHT UPPER LIMB / Unknown Venipuncture / Unknown 02/02/2024 1:17 PM COMPUTER FORENSICS ANALYST 02/02/2024 1:21 PM COMPUTER FORENSICS ANALYST us [place] Yeh DO LAB - BLOOD ORDERABLES Final Res ult LABORATORY [facility] Lab [address] Lab (1st floor, no room number) [place] [phone] * CBC with platelets and differential (02/02/2024 1:17 PM COMPUTER FORENSICS ANALYST) WBC Count 8.1 4.0 - 11.0 10e3/uL 02/02/2024 1:23 PM COMPUTER FORENSICS ANALYST RH LABORATORY RBC Count 4.65 3.80 - 5.20 10e6/uL 02/02/2024 1:23 PM COMPUTER FORENSICS ANALYST RH LABORATORY Hemoglobin 13.9 11.7 - 15.7 g/dL 02/02/2024 1:23 PM COMPUTER FORENSICS ANALYST RH LABORATORY Hematocrit 42.5 35.0 - 47.0 % 02/02/2024 1:23 PM COMPUTER FORENSICS ANALYST RH LABORATORY MCV 91 78 - 100 fL 02/02/2024 1:23 PM COMPUTER FORENSICS ANALYST RH LABORATORY MCH 29.9 26.5 - 33.0 pg 02/02/2024 1:23 PM COMPUTER FORENSICS ANALYST RH LABORATORY MCHC 32.7 31.5 - 36.5 g/dL 02/02/2024 1:23 PM COMPUTER FORENSICS ANALYST RH LABORATORY RDW 13.0 10.0 - 15.0 % 02/02/2024 1:23 PM COMPUTER FORENSICS ANALYST RH LABORATORY Platelet Count 156 150 - 450 10e3/uL 02/02/2024 1:23 PM COMPUTER FORENSICS ANALYST RH LABORATORY % Neutrophils 77 % 02/02/2024 1:23 PM COMPUTER FORENSICS ANALYST RH LABORATORY % Lymphocytes 12 % 02/02/2024 1:23 PM COMPUTER FORENSICS ANALYST RH LABORATORY % Monocytes 9 % 02/02/2024 1:23 PM COMPUTER FORENSICS ANALYST RH LABORATORY % Eosinophils 1 % 02/02/2024 1:23 PM COMPUTER FORENSICS ANALYST RH LABORATORY % Basophils 1 % 02/02/2024 1:23 PM COMPUTER FORENSICS ANALYST RH LABORATORY % Immature Granulocytes 0 % 02/02/2024 1:23 PM COMPUTER FORENSICS ANALYST RH LABORATORY NRBCs per 100 WBC 0 <1 /100 024 1:23 PM COMPUTER FORENSICS ANALYST RH LABORATORY Absolute Neutrophils 6.3 1.6 - 8.3 10e3/uL 02/02/2024 1:23 PM COMPUTER FORENSICS ANALYST RH LABORATORY Absolute Lymphocytes 1.0 0.8 - 5.3 10e3/uL 02/02/2024 1:23 PM COMPUTER FORENSICS ANALYST RH LABORATORY Absolute Monocytes 0.7 0.0 - 1.3 10e3/uL 02/02/2024 1:23 PM COMPUTER FORENSICS ANALYST RH LABORATORY Absolute Eosinophils 0.1 0.0 - 0.7 10e3/uL 02/02/2024 1:23 PM COMPUTER FORENSICS ANALYST RH LABORATORY Absolute Basophils 0.1 0.0 - 0.2 10e3/uL 02/02/2024 1:23 PM COMPUTER FORENSICS ANALYST RH LABORATORY Absolute Immature Granulocytes 0.0 <=0.4 10e3/uL 02/02/2024 1:23 PM COMPUTER FORENSICS ANALYST RH LABORATORY Absolute NRBCs 0.0 10e3/uL 02/02/2024 1:23 PM COMPUTER FORENSICS ANALYST RH LABORATORY Blood STRUCTURE OF RIGHT UPPER LIMB / Unknown Venipuncture / Unknown 02/02/2024 1:17 PM COMPUTER FORENSICS ANALYST 02/02/2024 1:21 PM COMPUTER FORENSICS ANALYST us Satya Yeh DO LAB - BLOOD ORDERABLES Final Res ult [facility] Lab [address] Lab (1st floor, no room number) [place] [address] * Nt probnp inpatient (BNP) (02/02/2024 1:17 PM COMPUTER FORENSICS ANALYST) N terminal Pro BNP Inpatient 511 0 - 900 pg/mL 02/02/2024 3:19 PM COMPUTER FORENSICS ANALYST LABORATORY Comment: Reference range shown and results [...] Unknown Venipuncture / Unknown 02/02/2024 1:17 PM COMPUTER FORENSICS ANALYST 02/02/2024 1:21 PM COMPUTER FORENSICS ANALYST us [place] Yeh DO LAB - BLOOD ORDERABLES Final Res ult Performing Organization Address [facility] Co de Phone Number [facility] Lab [address] Lab (1st floor, no room number) [place] [address], [facility] * Lipase (02/02/2024 1:17 PM COMPUTER FORENSICS ANALYST) Lipase 35 13 - 60 U/L 02/02/2024 3:09 PM COMPUTER FORENSICS ANALYST LABORATORY Blood STRUCTURE OF RIGHT UPPER LIMB / Unknown Venipuncture / Unknown 02/02/2024 1:17 PM COMPUTER FORENSICS ANALYST 02/02/2024 1:21 PM COMPUTER FORENSICS ANALYST us Satya Yeh DO LAB - BLOOD ORDERABLES Final Res ult [facility] Lab [address] Lab (1st floor, no room number) [place] [address], [facility] * (ABNORMAL) Comprehensive metabolic panel (02/02/2024 1:17 PM COMPUTER FORENSICS ANALYST) Sodium 139 135 - 145 mmol/L 02/02/2024 1:53 PM COMPUTER FORENSICS ANALYST LABORATORY Potassium 4.2 3.4 - 5.3 mmol/L 02/02/2024 1:53 PM COMPUTER FORENSICS ANALYST LABORATORY Carbon Dioxide (CO2) 23 22 - 29 mmol/L 02/02/2024 1:53 PM COMPUTER FORENSICS ANALYST LABORATORY Anion Gap 14 7 - 15 mmol/L 02/02/2024 1:53 PM COMPUTER FORENSICS ANALYST LABORATORY Urea Nitrogen 22.9 8.0 - 23.0 mg/dL 02/02/2024 1:53 PM [facility] Creatinine 0.91 0.51 - 0.95 mg/dL 02/02/2024 1:53 PM COMPUTER FORENSICS ANALYST LABORATORY GFR Estimate 68 >60 mL/min/1.7 3m2 02/02/2024 1:53 PM COMPUTER FORENSICS ANALYST LABORATORY Comment:eGFR calculated usin 2020 CKD-EPI equation. Calcium 9.1 8.8 - 10.4 mg/dL 02/02/2024 1:53 PM COMPUTER FORENSICS ANALYST LABORATORY Comment:Reference intervals for this test were updated on 10/07/2023 to reflect our healthy population more accurately. There may be differences in the flagging of prior results with similar values performed with this method. Those prior results can be interpreted in the context of the updated reference intervals. Chloride 102 98 - 107 mmol/L 02/02/2024 1:53 PM COMPUTER FORENSICS ANALYST LABORATORY Glucose 116(H) 70 - 99 mg/dL 02/02/2024 1:53 PM COMPUTER FORENSICS ANALYST LABORATORY Alkaline Phosphatase 63 40 - 150 U/L 02/02/2024 1:53 PM COMPUTER FORENSICS ANALYST LABORATORY AST 25 0 - 45 U/L 02/02/2024 1:53 PM COMPUTER FORENSICS ANALYST LABORATORY ALT 23 0 - 50 U/L 02/02/2024 1:53 PM COMPUTER FORENSICS ANALYST LABORATORY Protein Total 7.1 6.4 - 8.3 g/dL 02/02/2024 1:53 PM COMPUTER FORENSICS ANALYST LABORATORY Albumin 4.6 3.5 - 5.2 g/dL 02/02/2024 1:53 PM COMPUTER FORENSICS ANALYST RH LABORATORY Bilirubin Total 0.3 <=1.2 mg/dL 02/02/2024 1:53 PM COMPUTER FORENSICS ANALYST LABORATORY Blood STRUCTURE OF RIGHT UPPER LIMB / Unknown Venipuncture / Unknown 02/02/2024 1:17 PM COMPUTER FORENSICS ANALYST 02/02/2024 1:21 PM COMPUTER FORENSICS ANALYST us Satya Ramirez DO LAB - BLOOD ORDERABLES Final Res ult [facility] LABORATORY [facility] [address], no room number) [place] [address], [facility] * Mammo Screening digital (bilat) (09/12/2011 1:58 [...] oxygen saturations were monitored continuously. The [id number] #[id number] was introduced through the anus and advanced [...] RADIOLOG Y RESULTS 09/30/2006 8:35 AM CDT Angus Silva MD PROCEDURES Final Result RADIOLOGY RESULTS from Last 3 Months or Most Recently Relevant to Health [place] [id number] [facility] MEDICARE SUPPLEMENT MEDICARE [place] MEDICARE SUPPLEMENT Advance Directives For more information, please contact: [phone] * Full Code (Latest Code Status on File) Date Activated Date Inactivated Comments 02/02/2024 6:57 PM 02/03/2024 2:40 PM All basic and advanced life-sustaining interventions are performed as appropriate Question Answer Comments Code status determined by: Discussion with patie nt/ legal decision maker Care Teams Wool Grower Relationship Specialty Start Date End Date Roselyn Espitia PCP - General 09/12/11 Vasquez Mcnulty MD Assigned Heart and Vascular Provider 10/14/23 Elian Herrera MD [address] [place] [address] Assigned Surgical Provider 03/15/24
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
--- OUTSIDE RECORDS SUMMARY | 2024-04-11 02:27 | XMS_ITS ---
Author Organization [facility] Address [address] [place] [address] Care Team Providers Care Rail Manager Name Role Phone Unavailable Unavailable Unavailable Surgery Details Not on file Complications Check Surgery Details section. Procedure Estimated Blood Loss Check Surgery Details section. Procedure Findings Check Surgery Details section. Procedure Specimens Taken Check Surgery Details section.
--- OUTSIDE RECORDS SUMMARY | 2024-04-11 02:27 | XMS_ITS | Encounter Summary ---
Author Organization [facility] Address [address] [place] [address] Care Team Providers Care Tafe Registrar Name Role Phone Unavailable Primary Care Provider Unavailabl e Encounter Details Date Type Department Care Team (Latest Contact Info) Description 03/26/2024 1:15 PM FAGOTING MACHINE OPERATOR Ancillary Procedure Department of Anesthesiology Social History Tobacco Use Types Packs/Day Years Used Date Smoking Tobacco: Never Smokeless Tobacco: Never Alcohol Use Standard Drinks/Week Comments Yes 1 (1 standard drink = 0.6 oz pur e alcohol) [facility] Utilities Answer Date Recorded In the past 12 months has [facility] [employer], gas, oil, or water [employer] threatened to shut off services in your home? No 03/26/2024 Humiliation, Afraid, Rape, and Kick questionnair e Answer Date Recorded Within the last year, have y ou been afraid of your partner or ex-partner? No 11/27/2021 Within the last year, have y ou been humiliated or emotionally abused in other ways by your partner or ex-partner? No Within the last year, have y ou been kicked, hit, slapped, or otherwise physically hurt by your partner or ex-partner? No 11/27/2021 Within the last year, have y ou been raped or forced to have any kind of sexual activity by your partner or ex-partner? No 11/27/2021 Social Connection and Isolat ion Panel [NHANES] Answer Date Recorded In a typical week, how many times do you talk on the phone with family, friends, or neighbors? More than three times a week 11/27/2021 How often do you get togethe r with friends or relatives? Three times a week 11/27/2021 How often do you attend chur ch or mormon services? More than 4 times per year 11/27/2021 Do you belong to any clubs o r organizations such as druze groups, unions, fraternal or athletic groups, or [...] and heating? Not hard at all 12/30/2022 [facility] - Occupational Stress Questionnaire Answer Date Recorded [...] your living situation today? I have a [facility] place to live 03/26/2024 Education Answer Date [...] PM CDT documented as of this encounter Plan of Treatment Upcoming Encounters Date Type Department Care Team (Late st Contact Info) Description 04/16/2024 2:30 PM FAGOTING MACHINE OPERATOR Procedure visit Department of Urology in [place], [place] [address] [place] [address] Dyana Chairez M.D. [address] [place] [address] documented as of this encounter Procedures Procedure Name Priority Date/Time Associated Diagnosis Comments ANESTHESIOLOGY IMAGE EXAM Routine 03/26/2024 1:15 PM FAGOTING MACHINE OPERATOR documented in this encounter Results * Non-Radiology Image-Anesthesiology Image Exam (03/26/2024 1:15 PM FAGOTING MACHINE OPERATOR) Narrative [facility] - 03/27/2024 2:01 AM FAGOTING MACHINE OPERATOR This order has been created and auto-finalized to support the import of images acquired without order. The clinical documentation to support these images can be found on the encounter that produced images. us Provider Not In System IMG NON RAD IMAGING PROCE DURES Final Result [facility] NA documented in this encounter Visit Diagnoses Not on filedocumented in this encounter
--- OUTSIDE RECORDS SUMMARY | 2024-04-11 02:27 | XMS_ITS | Encounter Summary ---
Author Organization [facility] Address [address] [place] [address] Care Team Providers Care Watch Electrician Name Role Phone Unavailable Primary Care Provider Unavailabl e Reason for Visit * Reason Onset Date Comments After Visit Question 04/06/2024 Encounter Details Date Type Department Care Team (Latest Contact Info) Description 04/06/2024 Clinical Communication Department of Urology in [place], [place] [address] [place] [phone] Sandeep Adkins M.D. [address] [place] [phone] After Visit Question Social History Tobacco Use Types Packs/Day Years Used Date Smoking Tobacco: Never Smokeless Tobacco: Never Alcohol Use Standard Drinks/Week Comments Yes 1 (1 standard drink = 0.6 oz pur e alcohol) [facility] Utilities Answer Date Recorded In the past 12 months has e [employer], gas, oil, or water [employer] threatened to shut off services in your [...] often do you attend chur ch or rastafari services? More than 4 times per year 11/27/2021 Do you belong to any clubs o r organizations such as restorationism groups, unions, fraternal or athletic groups, or [...] and heating? Not hard at all 12/30/2022 [facility] [place] of Occupat ional Health - Occupational Stress [...] your living situation today? I have a [facility] place to live 03/26/2024 Education Answer Date Recorded What is the highest level of school you have completed or the highest degree you have received? Bachelor's degree (e.g., BA, AB, BS) 11/27/2021 Comments No Sex and Gender Information Value Date Recorded Sex Assigned at Female 11/27/2021 12:50 PM CDT Legal Sex Female 6:18 PM CDT Gender Identity Female 11/27/2021 12:50 PM CDT Sexual Orientation Straight 11/27/2021 12 :50 PM CDT documented as of this encounter Miscellaneous Notes * Telephone Encounter - Audrey Tai R.N. - 04/06/2024 5:17 PM PRODUCT SUPPORT REP Patient reports that she has experienced stent pain and UTI's before and she can feel the stent irritating her bladder but feels the back pain is lower than her kidney and then the burning and pink tinged urine is new since her surgery and she normally experiences the burning with UTI's. She has not been running a fever. She is taking Flomax daily but has not been taking the oxybutynin as she hasnot felt like she has been having any spasms. Discussed with her it would be advised to have her try the oxybutynin as this may help with spasms in the kidney/ureter from the stent. She will try taking this tonight. She is also encouraged to stay well hydrated. An order has been placed for a urine culture as well and she will call one of the local clinics in the morning to schedule this. UCT SUPPORT REP documented in this encounter Plan of Treatment Upcoming Encounters Date Type Department Care Team (Late st Contact Info) Description 04/16/2024 2:30 PM PRODUCT SUPPORT REP Procedure visit Department of Urology in [place], [place] [address] [place] [phone] Dyana Chairez M.D. [address] [place] [phone] documented as of this encounter Visit Diagnoses Not on filedocumented in this encounter
--- OUTSIDE RECORDS SUMMARY | 2024-04-11 02:27 | XMS_ITS | Encounter Summary ---
Author Organization [facility] Address [address] [place] [id number] Care Team Providers Care Sales And Service Representative Name Role Phone Unavailable Primary Care Provider Unavailabl e Encounter Details Date Type Department Care Team (Late st Contact Info) Description 04/06/2024 Orders Only Department of Urology in [place], [place] [address] [place] [phone] Sandeep Adkins M.D. [address] [place] [phone] Symptom Urinary (Primary Dx) Social History Tobacco Use Types Packs/Day Years Used Date Smoking Tobacco: Never Smokeless Tobacco: Never Alcohol Use Standard Drinks/Week Comments Yes 1 (1 standard drink = 0.6 oz pur e alcohol) [facility] Utilities Answer Date Recorded In the past 12 months has [employer], gas, oil, or water [employer] threatened to shut off services in your [...] 11/27/2021 How often do you attend chur or mandaeism services? More than 4 times per year 11/27/2021 Do you belong to any clubs o r organizations such as advent groups, unions, fraternal or athletic groups, or [...] and heating? Not hard at all 12/30/2022 [facility] of Occupat ional Health - Occupational Stress [...] your living situation today? I have a [facility] place to live 03/26/2024 Education Answer [...] st Contact Info) Description 04/16/2024 2:30 PM OYSTER BUYER Procedure visit Department of Urology in [place], [place] [address] [place] [phone] Dyana Chairez M.D. [address] [place] [phone] documented as of this encounter Results * (ABNORMAL) Urinalysis, with Microscopic: Urine, Midstream (04/07/2024 9:47 AM OYSTER BUYER) Source Urine, Urine, Midstream 04/07/2024 9:47 AM OYSTER BUYER NPCL Clarity Clear Clear 04/07/2024 9:52 AM OYSTER BUYER NPCL Color Yellow 04/07/2024 9:52 AM OYSTER BUYER NPCL Comment: ----REFERENCE VALUE---- Colorless Yellow Raisa Blood Large(A) Negative 04/07/2024 9:52 AM OYSTER BUYER NPCL Nitrite Negative Negative 04/07/2024 9:52 AM OYSTER BUYER NPCL Leukocyte Esterase Small(A) Negative 04/07/2024 9:52 AM OYSTER BUYER NPCL Protein 30(A) mg/dL 04/07/2024 9:52 AM OYSTER BUYER NPCL Comment: ----REFERENCE VALUE---- Negative Trace Glucose Negative Negative mg/dL 04/07/2024 9:52 AM OYSTER BUYER NPCL Ketones, QI(U) Negative Negative mg/dL 04/07/2024 9:52 AM OYSTER BUYER NPCL Bilirubin Negative Negative 04/07/2024 9:52 AM OYSTER BUYER NPCL pH 5.5 5.0 - 8.0 04/07/2024 9:52 AM OYSTER BUYER NPCL Specific Butler 1.010 1.001 - 1.035 04/07/2024 9:52 AM OYSTER BUYER NPCL Urobilinogen 0.2 0.2 - 1.0 mg/dL 04/07/2024 9:52 AM OYSTER BUYER NPCL White Blood Cells 4-10 /hpf 04/07/2024 10:42 AM OYSTER BUYER NPRG Comment: ----REFERENCE VALUE---- Males: 0-3 Females: 0-10 Unknown: 0-10 Red Blood Cells 21-30(A) 0 - 2 /hpf 10:42 AM OYSTER BUYER NPRG Dysmorphic Red Blood Cells <=25 <=25 % 04/07/2024 10:42 AM OYSTER BUYER NPRG Squamous Cells Occ-3 /hpf 04/07/2024 10:42 AM OYSTER BUYER NPRG Bacteria Present(A) None Seen 04/07/2024 10:42 AM OYSTER BUYER NPRG Urine (Urine, Midstream) 04/07/2024 9:47 AM OYSTER BUYER 04/07/2024 9:47 AM OYSTER BUYER us Sandeep Adkins M.D. LAB URINE ORDERABLES Final Res ult [facility] [address] [place] [address], [place] NPCL [facility] [address] [place] [address] NPRG [facility] [address] [place] [address] * Bacterial Culture, Aerobic + Susceptibility, Urine (04/07/2024 9:47 AM OYSTER BUYER) Urine Culture Urogenital microbiota, susceptibilities not performed per laboratory criteria. 04/08/2024 8:22 AM OYSTER BUYER MKKEN Urine (Urine, Midstream) 04/07/2024 9:47 AM OYSTER BUYER 04/07/2024 2:28 PM OYSTER BUYER Comment:Specimen Source Site : Urine us Sandeep Adkins M.D. LAB MICROBIOLOGY - GENERAL ORD ERABLES Final Result [facility] [address] [place] [address], [facility] in [place] [address] [place] [address] documented in this encounter Visit Diagnoses Diagnosis Symptom Urinary- Primary documented in this encounter
--- OUTSIDE RECORDS SUMMARY | 2024-04-11 02:27 | XMS_ITS | Encounter Summary ---
Author Organization [facility] Address [address] [place] [address] Care Team Providers Care Manifest/Order Organizer Print Orders Name Role Phone Unavailable Primary Care Provider Unavailabl e Reason for Referral * Outpatient (Routine) - Authorized Specialty Diagnoses / Procedures Referred By Oni t Referred To Contact Diagnoses Hydronephrosis Obstruction Ureteropelvic Procedures Cysto w/stent removal Cysto w/stent removal Dyana Chairez M.D. [address] [place] [address] Phone: tel: fax: [facility] Referral ID Status Reason Start Date Expiration Date V isits Requested Visits Authorized [id number] Authorized 03/28/2024 03/28/2025 1 1 OPERATOR * Outpatient (Routine) - Authorized Specialty Diagnoses / Procedures Referred By Contac t Referred To Contact Urology Dyana Chairez M.D. [address] [place] [address] Phone: tel: fax: Sandeep Adkins M.D. [address] [place] [address] Phone: tel: fax: Referral ID Status Reason Start Date Expiration Date V isits Requested Visits Authorized [id number] Authorized 03/28/2024 09/27/2025 1 1 OPERATOR * Outpatient (Routine) - Authorized Specialty Diagnoses / Procedures Referred By Oni abarca Referred To Contact Diagnoses Hydronephrosis Obstruction Ureteropelvic Procedures US Kidneys Bilateral with Bladder Dyana Chairez M.D. [address] [place] [address] Phone: tel: fax: [facility] Referral ID Status Reason Start Date Expiration Date V isits Requested Visits Authorized [id number] Authorized 03/28/2024 03/28/2025 1 1 OPERATOR Reason for Visit * Auth/Cert (Routine) Specialty Diagnoses / Procedures Referred By Oni abarca Referred To Contact Diagnoses Hydronephrosis Obstruction Ureteropelvic Hydronephrosis [N13.30]. Procedures URETEROSCOPY, PROCEED INDICATED. RETROGRADE PYELOGRAM. BIOPSY URETER. PROCEED INDICATED TO ROBOTIC-ASSISTED SIDE TO SIDE ANASTOMOSIS OF LOWER POLE TO UPPER POLE MOIETIES. Referral ID Status Reason Start Date Expiration Date Visits Re quested Visits Authorized [id number] 1 1 Encounter Details Date Type Department Care Team (Latest Contact Info) Description 03/26/2024 5:46 AM MVA OPERATOR - 03/28/2024 3:37 PM MVA OPERATOR Hospital Encounter [facility], [facility], Sixth Floor [address] [place] [address] Sandeep Adkins M.D. [address] [place] [address] Hydronephrosis (Primary Dx); Obstruction Ureteropelvic Discharge Disposition: Home or Self Care Social History Tobacco Use Types Packs/Day Years Used Date Smoking Tobacco: Never Smokeless Tobacco: Never Alcohol Use Standard Drinks/Week Comments Yes 1 (1 standard drink = 0.6 oz pur e alcohol) [facility] Utilities Answer Date Recorded In the past 12 months has [employer], gas, oil, or water [employer] threatened to shut off services in your [...] often do you attend chur ch or anglican services? More than 4 times per year 11/27/2021 Do you belong to any clubs o r organizations such as catholic groups, unions, fraternal or athletic groups, or [...] and heating? Not hard at all 12/30/2022 [employer] - Occupational Stress [...] your living situation today? [facility] 03/26/2024 Education Answer Date [...] Sign Reading Time Taken Comments Blood Pressure 125/69 03/28/2024 3:00 PM MVA OPERATOR Pulse 68 03/28/2024 3:00 PM MVA OPERATOR Temperature 36.4 C (97.5 F) 03/28/2024 3:00 PM MVA OPERATOR Respiratory Rate 18 03/28/2024 3:00 PM MVA OPERATOR Oxygen Saturation 100% 03/28/2024 3:00 PM MVA OPERATOR Inhaled Oxygen Concentration - - Weight 68.2 kg (150 lb 5.7 oz) 03/27/2024 10:09 AM MVA OPERATOR Height 161 cm (5' 3.39) 03/26/2024 6:08 AM MVA OPERATOR Body Mass Index 26.31 03/26/2024 6:08 AM MVA OPERATOR documented in this encounter Functional Status * Intimate Partner Violence Question Answer Date of Assessment Author Within the last year, have you been humiliated or emotionally abused in other ways by your partner or ex-partner? Patient unable to answer 03/28/2024 12:00 AM MVA OPERATOR Nalini Guidry, R.N. Within the last year, have you been afraid of your partner or ex-partner? Patient unable to answer 03/28/2024 12:00 AM MVA OPERATOR Nalini Guidry R.N. Within the last year, have you been raped or forced to have any kind of sexual activity by your partner or ex-partner? Patient unable to answer 03/28/2024 12:00 AM MVA OPERATOR Nalini Guidry, R.N. Within the last year, have you been kicked, hit, slapped, or otherwise physically hurt by your partner or ex-partner? Patient unable to answer 03/28/2024 12:00 AM MVA OPERATOR Nalini Guidry R.N. documented as of this encounter Discharge Summaries * Dyana Chairez M.D. - 03/28/2024 10:19 AM CST DISCHARGE SUMMARY BRIEF OVERVIEW Hospital: [facility] Discharge Provider: Sandeep Adkins M.D. Primary Team: [facility] Urology Surgery - [place] No primary care provider on file. Primary Care Provider Phone Number: None Primary Care Provider Fax Number: None Other Providers: None Admission Date: 03/26/2024 Discharge Date: 03/28/24 PRINCIPAL DIAGNOSIS Hydronephrosis SECONDARY DIAGNOSES Principal Problem: Hydronephrosis Active Problems: Obstruction Ureteropelvic Resolved Problems: * No resolved hospital problems. * Surgery Information This Encounter Past Procedures (03/29/2023 to Today) Date Procedures Providers Loc / Dept 03/26/2024 CYSTOSCOPY INSERTION STENT URETER, RETROGRADE PYELOGRAM., ROBOTIC- ASSISTED SIDE TO SIDE ANASTOMOSIS OF LOWER POLE TO UPPER POLE MOIETIES., BLOCK - TRANSVERSUS ABDOMINIS PLANE Sandeep Adkins M.D.Olive, Elizabeth J, M.D.Morris, Kahlen R, M.D. RST ROEI OR DISCHARGE DISPOSITION Home or Self Care [1] ACTIVE ISSUES REQUIRING FOLLOW UP UCO while in hospital POD2 Cysto w/ stent removal in 4-6 weeks wily SHIPLEY, clinic visit 3 months after stent removal OUTPATIENT FOLLOW UP For appointment details refer to your Patient Appointment Guide. TEST RESULTS PENDING AT DISCHARGE Pending Labs None DETAILS OF HOSPITAL STAY REASON FOR ADMISSION Hydronephrosis Obstruction Ureteropelvic HOSPITAL COURSE SURGICAL PROCEDURE: A Cystoscopy, right retrograde pyelogram, right stent placement, and robotic assisted right sided side to side anastomosis of lower pole to upper pole moieties was performed. Patient developed a right pneumothorax during surgery, thought to be a ventilation injuyr or bleb rupture. No surgical injury was noted to the diaphragm. PATHOLOGY: No results found for this or any previous visit (from the past week). HOSPITAL COURSE: Following the procedure, a portable chest x-ray revealed signs of a spontaneous right sided pneumothorax. The patient was extubated and placed on high flow nasal canula, and was transferred to general floor care in stable condition. She developed some dyspnea, so a right chest tube was placed by IR. This was managed by Interventional Pulmonology, and serial CXR showed resolution of the pneumothorax. Tube was clamped overnight on POD1-POD2 and removed POD2 without recurrence of pneumothorax. They do not need follow up for this. The post-operative course was otherwise uneventful. By the time of dismissal, the patient was ambulatory, tolerating oral intake with no nausea / vomiting, and had pain controlled. PHYSICAL EXAM: General: Alert and oriented x 3. No acute distress. Lungs: Good respiratory effort. Nonlabored Abdomen: Abdomen soft, nontender, nondistended. No rebound or guarding. Incisions c/d/i DISMISSAL LABS: Lab Results Component Value Date CREATININE 0.74 03/27/2024 Lab Results Component Value Date HGB 11.5 (L) 03/27/2024 Lab Results Component Value Date WBC 7.6 03/27/2024 CONSULTS ORDERED DURING THIS ADMISSION IP CONSULT TO INTERVENTIONAL PULMONOLOGY CONDITION AT DISCHARGE stable Discharge instructions were provided to the patient and caregiver(s). Total time spent in discharge services today: 30 minutes. OPERATOR documented in this encounter Discharge Instructions * Attachments The following attachments cannot be sent through Care Everywhere. * Acetaminophen (By mouth) (Sammarinese) * Ibuprofen (By mouth) (Sammarinese) * Oxybutynin (By mouth) (Sammarinese) * Oxycodone, Rapid Release (By mouth) (Sammarinese) documented in this encounter Medications at Time of Discharge acetaminophen (TylenoL) 500 mg tablet Take 2 tablets (1,000 mg total) by mouth every 6 (six) hours as needed for pain. Can pick up worker over the counter 03/28/2024 ascorbic acid, vitamin C, (ascorbic acid) 250 mg tablet,chewable Chew 750 mg daily. coQ10, ubiquinol, (Qunol Bc CoQ10) 100 mg capsule capsule Take 100 mg by mouth daily. Crestor 5 mg tablet Take 5 mg by mouth every other day. 07/25/2023 estradioL (ESTRACE) 0.1 mg/g (0.01%) vaginal cream APPLY 1 GRAM 2-3 TIMES PER WEEK 08/30/2021 ibuprofen 600 mg tablet Take 1 tablet (600 mg total) by mouth every 6 (six) hours as needed for pain. 03/28/2024 loratadine (CLARITIN) 10 mg tablet Take 10 mg by mouth daily. LORazepam (ATIVAN) 0.5 mg tablet Take 0.5 mg by mouth every 6 (six) hours as needed (for flight). 11/03/2020 oxyBUTYnin (Ditropan XL) 10 mg 24 hr tablet Take 1 tablet (10 mg total) by mouth daily as needed (bladder spasms). 40 tablet 1 03/28/2024 2:56 PM MVA OPERATOR 03/28/2024 oxyCODONE (Roxicodone) 5 mg immediate release tabletIndications:A cute Pain Take 1 tablet (5 mg total) by mouth every 4 (four) hours as needed for severe pain or score 7-10 of 10 Indication: Acute Pain. 10 tablet 03/28/2024 2:56 PM MVA OPERATOR 03/28/2024 tamsulosin (Flomax) 0.4 mg 24 hr capsule Take 1 capsule (0.4 mg total) by mouth daily as needed (stent pain). 40 capsule 1 03/28/2024 2:56 PM MVA OPERATOR 03/28/2024 zoledronic acid/mannitol-water (RECLAST IV) Infuse into a venous catheter. Once/year levoFLOXacin (Levaquin) 500 mg tabletIndications:H ydronephrosis,Obstr uction Ureteropelvic Take 1 tablet (500 mg total) by mouth once for 1 dose.the morning of stent removal 1 tablet 03/28/2024 2:56 PM MVA OPERATOR 03/28/2024 documented as of this encounter Progress Notes * Dyana Chairez M.D. - 03/28/2024 8:20 AM CST UROLOGY PROGRESS NOTE Subjective Ms. Washington is a 68 y.o. female who is s/p robotic right ureteroureterostomy of lower to upper pole for lower pole UPJ obstruction on 03/26/2024 and is 2 Days Post-Op. Intraoperatively she developed apneumothorax. No surgical injury was noted, suspect this was a ventilation injury or ruptured bleb.She remained AVSS after extubation and the pneumothorax was small on CXR. However, she was somewhatsymptomatic after arrival to the floor, so an IR chest tube was placed POD0 evening. No acute events overnight. Patient remains afebrile, hemodynamically stable. Pain well controlled, some flank pain today which I suspect is related to positioning. Patient has tolerated PO food and drink without nausea/vomiting. Ambulating without difficulty. Urine output adequate. No dyspnea or increased work in breathing, currently on room air from 2L O2 yesterday. No pneumothorax with water seal and then clamping trial for chest tube overnight. Objective BP 126/55 Pulse 68 Temp 36.3 ??C Resp 18 Ht 161 cm Wt 68.2 kg LMP (LMP Unknown) SpO2 95% BMI 26.31 kg/m?? Physical Exam General: Patient comfortably in bed. No acute distress. Neuro: Alert and oriented x3. Converses appropriately. No apparent focal deficit. Pulm: Non-labored breathing on room air. Chest tube to suction, no fluid output. Abdomen: Soft, nondistended, nontender to palpation. Incisions with dressings in place, no strikethrough. Genitourinary: Yanes catheter in place draining clear yellow urine . Extremities: Warm and well-perfused. Lab Results Component Value Date NA 139 03/27/2024 CL 105 03/27/2024 BUN 10 03/27/2024 CO2 31 04/03/2018 HGB 11.5 (L) 03/27/2024 HCT 35.8 03/27/2024 WBC 7.6 03/27/2024 Lab Results Component Value Date/Time CREATININE 0.74 03/27/2024 03:23 AM CREATININE 0.91 02/02/2024 01:17 PM CREATININE 0.80 01/26/2024 01:06 PM CREATININE 0.78 09/10/2023 11:00 AM CREATININE 0.81 01/03/2023 10:55 AM CREATININE 0.94 04/03/2018 04:21 PM Intake/Output Summary (Last 24 hours) at 03/28/2024 0820 Last data filed at 03/28/2024 0741 Gross per 24 hour Intake 1560 ml Output 2425 ml Net -865 ml Assessment & Plan: 1. S/P robotic right ureteroureterostomy of lower to upper pole for lower pole UPJ obstruction on 03/26/2024 2. Pneumothorax, right, suspected ventilation injury or ruptured bleb 2. additional comorbidities include: HLD Patient is 2 Days Post-Op. Progressing well from a postop standpoint. Appreciate Interventional Pulmonlogy's help with the pneumothorax, will follow up recs today. Discharge timeline pending chest tube management -- anticipate today PM if no new concerns, vs tomorrow AM. No further labs unless clinically indicated. Ok to remove dressings on surgical incisions. Hospital Summary: Diet: Regular. Activity: Up ad miguel DVT PPX: SQH, SCDs GI PPX: Not indicated Bowel Regimen: Senokot-S, Miralax, dulcolax IVF: saline lock Abx/Microbiology: Periop antibiotics x24h Pain Control: Tylenol, toradol, oxycodone Home Meds Resumed: statin, Claritin Held Home Meds: Vitamins Consults: Interventional Pulm Lines/Drains/Tubes: PIV, right 10 Fr chest tube, Yanes, no surgical drain The patient's chronic conditions and treatments are addressed and managed as they are as an outpatient, with exceptions related to the current reason for admission and as noted. Signed by: Dyana Chairez M.D. 03/28/2024 9:49 AM MVA OPERATOR OPERATOR * Yaritza Silva, Blake - 03/28/2024 7:35 AM CST INTERVENTIONAL PULMONOLOGY PROGRESS NOTE HISTORY OF PRESENT ILLNESS Taina Washington is a 68 y.o. female with PMHx hydronephrosis, duplicate ureter, osteoporosis, hyperlipidemia and prediabetes who was admitted for postoperative pneumothorax after robotic assisted [id number] anastomosis of lower pole to upper pole. IP consulted for management of pneumothorax.At baseline she is on room air and does not use oxygen. Overnight Events Tania is now on room air which is down from 2L NC. Her PA and lateral CXRs show resolution of her pneumothorax. OBJECTIVE VITAL SIGNS Vitals: 03/27/24 1523 03/27/24 1700 03/27/24 2033 03/27/24 2300 BP: (!) 108/51 110/69 (!) 107/52 126/55 BP Location: Left arm;Upper Left arm;Upper Patient Position: Semi-recumbent Semi-recumbent Pulse: 66 64 65 68 Resp: 18 20 18 Temp: 36.5 ??C 36.7 ??C 36.3 ??C TempSrc: Oral Oral SpO2: 95% 91% 95% Weight: Height: PHYSICAL EXAMINATION GEN: female in no acute distress and pleasant with conversation. RESP: Nonlabored respirations on room air POCUS: Right lung slide noted - images saved in [employer] LABS/IMAGING/MICRO reviewed ASSESSMENT / PLAN # Postoperative right apical pneumothorax s/p 10 panamanian locking loop chest tube placement on 03/26 # Right lower moiety hydronephrosis POD #2 with side to side anastomosis This morning Mrs. Washington's CXR shows resolution of her pneumothorax after her chest tube was clamped overnight. Her chest tube removed at bed side today. RECOMMENDATIONS: Patient will not require follow up with pulmonary and I provided my business card if she has any questions or concerns after discharge. Patient discussed with supervising bridal consultant, Dr. Green. Please refer to her supervisory note forfurther details. Recommendations communicated to primary team. Thank you for the consult. We will sign off. Please page [phone] with questions or concerns. Yaritza Silva DO Pulmonary & Critical Care Medicine Fellow Pager: [phone] Cosigned by Desi Green M.D., M.H.P.E. at 03/28/2024 1:30 PM MVA OPERATOR OPERATOR OPERATOR * Dyana Chairez M.D. - 03/27/2024 9:49 AM CST UROLOGY PROGRESS NOTE Subjective Ms. Washington is a 68 y.o. female who is s/p robotic right ureteroureterostomy of lower to upper pole for lower pole UPJ obstruction on 03/26/2024 and is 1 Day Post-Op. Intraoperatively she developed a pneumothorax. No surgical injury was noted, suspect this was a ventilation injury or ruptured bleb. She remained AVSS after extubation and the pneumothorax was small on CXR. However, she was somewhat symptomatic after arrival to the floor, so an IR chest tube was placed POD0 evening. No acute events overnight. Patient remains afebrile, hemodynamically stable. Pain well controlled, mostly some chest tube insertion site pain. Patient has tolerated PO food and drink without nausea/vomiting. Ambulating without difficulty. Urine output adequate. No dyspnea or increased work in breathing, currently on 2L O2. Objective BP 110/66 (BP Location: Left arm;Upper, Patient Position: Sitting) Pulse 67 Temp 36.6 ??C (Oral) Resp 18 Ht 161 cm Wt 66.1 kg LMP (LMP Unknown) SpO2 99% BMI 25.50 kg/m?? Physical Exam General: Patient comfortably in bed. No acute distress. Neuro: Alert and oriented x3. Converses appropriately. No apparent focal deficit. Pulm: Non-labored breathing on room air. Chest tube to suction, no fluid output. Abdomen: Soft, nondistended, nontender to palpation. Incisions with dressings in place, no strikethrough. Genitourinary: Yanes catheter in place draining clear yellow urine . Extremities: Warm and well-perfused. Lab Results Component Value Date NA 139 03/27/2024 CL 105 03/27/2024 BUN 10 03/27/2024 CO2 31 04/03/2018 HGB 11.5 (L) 03/27/2024 HCT 35.8 03/27/2024 WBC 7.6 03/27/2024 Lab Results Component Value Date/Time CREATININE 0.74 03/27/2024 03:23 AM CREATININE 0.91 02/02/2024 01:17 PM CREATININE 0.80 01/26/2024 01:06 PM CREATININE 0.78 09/10/2023 11:00 AM CREATININE 0.81 01/03/2023 10:55 AM CREATININE 0.94 04/03/2018 04:21 PM Intake/Output Summary (Last 24 hours) at 03/27/2024 0949 Last data filed at 03/27/2024 0849 Gross per 24 hour Intake 3126 ml Output 3050 ml Net 76 ml Assessment & Plan: 1. S/P robotic right ureteroureterostomy of lower to upper pole for lower pole UPJ obstruction on 03/26/2024 2. Pneumothorax, right, suspected ventilation injury or ruptured bleb 2. additional comorbidities include: HLD Patient is 1 Day Post-Op. Progressing well from a postop standpoint. Appreciate Interventional Pulmonlogy's help with the pneumothorax, will follow up recs today. Discharge timeline pending chest tube management. No further labs unless clinically indicated. Hospital Summary: Diet: Regular. Activity: Up ad miguel DVT PPX: SQH, SCDs GI PPX: Not indicated Bowel Regimen: Senokot-S, Miralax, dulcolax IVF: saline lock Abx/Microbiology: Periop antibiotics x24h Pain Control: Tylenol, toradol, oxycodone Home Meds Resumed: statin, Claritin Held Home Meds: Vitamins Consults: Interventional Pulm Lines/Drains/Tubes: PIV, right 10 Fr chest tube, Yanes, no surgical drain The patient's chronic conditions and treatments are addressed and managed as they are as an outpatient, with exceptions related to the current reason for admission and as noted. Signed by: Dyana Chairez M.D. 03/27/2024 9:49 AM MVA OPERATOR OPERATOR OPERATOR * Beto Willard Pharm.D., R.Ph. - 03/27/2024 9:00 AM CST Pharmacist Progress Note Reason for admission: 68 y.o. female with Hydronephrosis [N13.30] Obstruction Ureteropelvic [N13.5] S/P URETEROSCOPY, PROCEED INDICATED. RETROGRADE PYELOGRAM. BIOPSY URETER. PROCEED INDICATED TO ROBOTIC-ASSISTED SIDE TO SIDE ANASTOMOSIS OF LOWER POLE TO UPPER POLE MOIETIES. on 03/26/2024. Admitted for right apical pneumothorax, chest tube placed 03/26/2024. Past Medical History: Diagnosis Date Cataract beginnings in 2019? Osteopenia 10+ years or more ago Osteoporosis 12/10/2021 Polyp Colon various colonoscopies [facility] 2 x's, 2017 & 2019?? OBJECTIVE Home medications: reviewed. Prior to Admission Medications Held: Estrace, Loratadine, Lorazepam, Flomax, Reclast, Supplements. Changed: none. Patient own medications: none. Neuro: pain 07/01, acetaminophen, prn oxycodone, prn IV hydromorphone PRN Melatonin available for sleep. Pulm: pneumothorax, chest tube placed /3 Chest tube (placed 03/26)- no documented output. CV: bradycardia, SBP 112-133, HR 3-80, no CV medications. GI: bowel regimen (Senna-S BID, PRN Bisacodyl, PRN Miralax) Continues Crestor for HLD. FEN: pod a fen: WNL IVFs with LF @ 75 mL/hr Renal: SCr 0.74, CrCl 74.9 mL/min, good UOP, I/O's +626 cc ID: pod a ID: WBC 7.6, afebrile, completed 24 hours of Gentamicin and Vancomycin. Prophylaxis: GI: Famotidine, Pantoprazole. DVT/VTE: Heparin 5,000 units SubQ q8h. ASSESSMENT / PLAN Neuro Pain managed with scheduled Acetaminophen, PRN Oxycodone, and PRN IV Dilaudid. CV Episodes of bradycardia documented overnight. No home CV medications at this time. Continuing to monitor. Neph: Consider resuming home dosing of Flomax as needed after urinary catheter is pulled. GI/FEN Consider discontinuing IV fluids once oral intake tolerated and acceptable. Changes to medications anticipated at discharge: pain regimen, bowel regimen Please page the 5-[place] [phone] with questions. Beto Willard Pharm.D., R.Ph. OPERATOR * Yaritza Silva, D.O. - 03/27/2024 8:27 AM CST INTERVENTIONAL PULMONOLOGY PROGRESS NOTE HISTORY OF PRESENT ILLNESS Tania Washington is a 68 y.o. female with PMHx hydronephrosis, duplicate ureter, osteoporosis, hyperlipidemia and prediabetes who was admitted for postoperative pneumothorax after robotic assisted [id number] anastomosis of lower pole to upper pole. IP consulted for management of pneumothorax.At baseline she is on room air and does not use oxygen. Overnight Events The patient had 10 panamanian locking loop chest tube placed for her right sided postoperative pneumothorax. Her chest tube was on suction overnight and this morning her CXR showed resolution of her pneumothorax. She had no chest tube output and is requiring 2L O2. OBJECTIVE VITAL SIGNS Vitals: 03/26/24 1900 03/26/24 2042 03/26/24 2331 03/27/24 0342 BP: 128/70 133/74 112/79 118/69 BP Location: Left arm;Upper Left arm;Upper Left arm;Upper Patient Position: Lying Lying Lying Pulse: 84 73 80 70 Resp: 16 20 20 Temp: 36.7 ??C 36.7 ??C 36.7 ??C 36.7 ??C TempSrc: Oral Oral Oral SpO2: 94% 94% 95% 94% Weight: Height: PHYSICAL EXAMINATION GEN: female in no acute distress and pleasant with conversation. RESP: Nonlabored respirations on 2L N[place] POCUS: Right lung slide noted - images saved in [employer] LABS/IMAGING/MICRO reviewed ASSESSMENT / PLAN # Postoperative right apical pneumothorax # Right lower moiety hydronephrosis POD #1 with side to side anastomosis This morning Mrs. Washington's CXR shows resolution of her pneumothorax after her chest tube was on suction (-20 cmH20 of water) overnight. Her chest tube should now be on waterseal and we will repeat a CXR in 4 hours. Since her CXR is stable we will do an overnight clamping trial and obtain and AM CXR. If her AM CXR (03/28) does not show a pneumothorax we will remove her chest tube. RECOMMENDATIONS: Place chest tube on waterseal with follow up CXR in 4 hours (ordered) Will proceed with clamping trial after if CXR shows no evidence of pneumothorax Flush chest tube with 10 mL saline three times daily Daily CXR while chest tube is in Patient seen and discussed with supervising bridal consultant, Dr. Green. Please refer to her supervisorynote for further details. Recommendations communicated to primary team. Thank you for the consult. We will continue to follow. Please page [phone] with questions or concerns. Yaritza Silva DO Pulmonary & Critical Care Medicine Fellow Pager: [phone] Cosigned by Desi Green M.D., M.H.P.E. at 03/27/2024 4:00 PM MVA OPERATOR OPERATOR OPERATOR Associated attestation - Desi Green M.D., M.H.P.E. - 03/27/2024 4:00 PM MVA OPERATOR I saw and evaluated the patient, participating in the kitchen portions of the service. I reviewed the resident/fellow???s note. I agree with the resident/fellow???s findings and plan. * Mikal Suarez, Pharm.D., R.Ph. - 03/26/2024 2:37 PM CST Images from the original note were not included. Admission Medication History Note Adherence issues: No concerns Medication list source: Patient Medication related information: pt reports hives with amoxicillin-pot Clavulanate, and is unsure what ABx she has tolerated in the past Prior to Admission Medications Med List Status: Pharmacy Complete Set By: Mikal Suarez, PharmMatthew, R.Ph. at 03/26/2024 2:36 PM Taking? Last Dose Informant Start Date End Date LT ascorbic acid, vitamin C, (ascorbic acid) 250 mg tablet,chewable Past Month -- -- -- Chew 750 mg daily. coQ10, ubiquinol, (Qunol Bc CoQ10) 100 mg capsule capsule Past Month -- -- -- Take 100 mg by mouth daily. Crestor 5 mg tablet Past Month -- 07/25/23 -- Take 5 mg by mouth every other day. estradioL (ESTRACE) 0.1 mg/g (0.01%) vaginal cream Past Month -- 08/30/21 -- APPLY 1 GRAM 2-3 TIMES PER WEEK loratadine (CLARITIN) 10 mg tablet Past Month -- -- -- Take 10 mg by mouth daily. Patient taking differently: Take 10 mg by mouth daily. Taken seasonally LORazepam (ATIVAN) 0.5 mg tablet Past Month -- 11/03/20 -- Take 0.5 mg by mouth every 6 (six) hours as needed (for flight). tamsulosin (Flomax) 0.4 mg 24 hr capsule 03/25/2024 at Bedtime -- 02/18/24 -- Take 1 capsule (0.4 mg total) by mouth daily. Patient taking differently: Take 0.4 mg by mouth at bedtime. zoledronic acid/mannitol-water (RECLAST IV) 01/26/2024 -- -- -- Infuse into a venous catheter. Once/year OPERATOR * Jace Moreno W - 03/26/2024 7:15 AM CST [facility] Spiritual Care Progress Note Patient: Tania Washington Age:68 y.o. Location: [facility] Reason(s) for encounter: Spiritual support as part of the interdisciplinary care team. Spiritual Assessment Spiritual Needs and/or Concerns: None expressed at this time. Spiritual Care Plan / Recommendations: No further spiritual care requested or required at this time. Chaplains can be contacted by paging [phone] ([place]) or [phone] ([employer]). OPERATOR documented in this encounter Consult Notes * Yaritza Silva D.O. - 03/26/2024 3:37 PM CSTAssociated Order(s): IP CONSULT TO INTERVENTIONAL PULMONOLOGY INTERVENTIONAL PULMONOLOGY CONSULT NOTE REFERRAL Sandeep Adkins M.D. CHIEF COMPLAINT/REASON FOR CONSULT Pneumothorax SUBJECTIVE HISTORY OF PRESENT ILLNESS Tania Washington is a 68 y.o. female with PMHx hydronephrosis, duplicate ureter, osteoporosis, hyperlipidemia and prediabetes who was admitted for postoperative pneumothorax after robotic assisted jxkr-ej-agpj anastomosis of lower pole to upper pole. IP consulted for management of pneumothorax. At baseline she is on room air and does not use oxygen. Her pre extubation chest x-ray showed right apical pneumothorax and she was successfully extubated. Her repeat chest x-ray in PACU also showed no change of her right apical pneumothorax. At the timeof our exam, the patient stated that she was having some right-sided chest pain and increasing shortness of breath. PMHx/PSHx/Social Hx/Fam Hx/Allergies reviewed and non-contributory except as above in HPI OBJECTIVE VITAL SIGNS Vitals: 03/26/24 1345 03/26/24 1400 03/26/24 1426 03/26/24 1435 BP: 124/72 127/72 127/71 Pulse: 79 83 85 Resp: 11 13 Temp: 36.5 ??C TempSrc: SpO2: 96% 98% (!) 89% 90% Weight: Height: PHYSICAL EXAMINATION GEN: female in mild distress and pleasant with conversation. RESP: Nonlabored respirations on 2L NC. LABS/IMAGING/MICRO reviewed # Postoperative right apical pneumothorax # Right lower moiety hydronephrosis POD #0 with side to side anastomosis I reviewed the patient's chest x-rays with my bridal consultant Dr. Hunt, she has a small right apical pneumothorax that we initially planned to observe with serial chest x-rays. However at the time of our exam the patient was complaining of shortness of breath and chest pain. Since her pneumothorax is small and apical, we recommended CT-guided chest tube placement rather than pursuing a bedside pigtail.We will follow for chest tube management. RECOMMENDATIONS: CT Guided Pigtail with Interventional Radiology After chest tube is placed: -20 cmH20 suction at the [facility] and -80 cm H20 at the wall Flush chest tube with 10 mL saline three times daily (may start tomorrow if not stop cock is placedin IR) Daily CXR while chest tube is in Patient seen and discussed with supervising bridal consultant, Dr. Hunt. Please refer to his supervisory note for further details. Recommendations communicated to primary team. Thank you for the consult. We will continue to follow. Please page [phone] with questions or concerns. Yaritza Silva DO Pulmonary & Critical Care Medicine Fellow Pager: [phone] Cosigned by Dylan Hunt M.D. at 03/26/2024 3:52 PM MVA OPERATOR OPERATOR OPERATOR Associated attestation - Dylan Hunt M.D. - 03/26/2024 3:52 PM MVA OPERATOR I saw and evaluated the patient, participating in the kitchen portions of the service. I reviewed the resident/fellow???s note. I agree with the resident/fellow???s findings and plan. documented in this encounter Nursing Notes * Carolina Garibay, RAnamaria. - 03/28/2024 3:13 PM CST Shift Goals: Clinical Goals for the Shift: Chest tube removal Identify possible barriers to meeting goals/advancing plan of care: None End of Shift Summary: Pt VSS and adequate for discharge. AVS given and education provided to pt and significant other at bedside. All questions/concerns addressed. Pt left the unit in stable condition on foot with family and belongings. Problem: PAIN - ADULT Goal: PT VERBALIZES/DEMONSTRATES ADEQUATE COMFORT LEVEL OR BASELINE Outcome: Adequate for Discharge Problem: KNOWLEDGE DEFICIT Goal: Patient/family/caregiver demonstrates understanding of disease process, treatment plan, medications, and discharge instructions Outcome: Adequate for Discharge Problem: INFECTION - ADULT Goal: Absence of infection during hospitalization Outcome: Adequate for Discharge Problem: SKIN/TISSUE INTEGRITY Goal: Skin/Tissue integrity maintained or improved Outcome: Adequate for Discharge Goal: Oral and Nasal mucous membranes remain intact Outcome: Adequate for Discharge Problem: SAFETY ADULT Goal: Maintain a safe environment Outcome: Adequate for Discharge Problem: DISCHARGE PLANNING Goal: Patient discharge needs identified Outcome: Adequate for Discharge Problem: SAFETY ADULT - RISK FOR FALL AND OR FALL INJURY Goal: Patient remains free from fall/fall injury Outcome: Adequate for Discharge OPERATOR * Christopher Zazueta R.N. - 03/26/2024 5:41 PM CST Pt had chest tube placement performed by Dr. Pittman today. Per report, pt had severe pain near end of tube placement procedure. Came to recovery unit on 2L O2 with chest tube on water seal and complaining of sharp intermittent pain (reported 8/10) at/near the tube placement site. Patient monitored for sedation hold, VSS stable throughout; most recent BP 126/77, RR 18, HR 90 (SR), SpO2 97. Procedural Nurse JOSE He, accompanied patient and transporter back to patient room to give report to floor nurse. OPERATOR documented in this encounter OR Notes * Op Note - Dyana Chairez M.D. - 03/26/2024 9:00 AM CST Pre-op Diagnosis Hydronephrosis Post-op Diagnosis Hydronephrosis Reporting Coordinator A certified surgical tech/first assistant actively participated and was necessary for one or more of the following: opening, exposure and visualization, maintaining hemostasis, wound closure resulting in its safe and expeditious completion. Findings 1. Cystoscopy normal, no bladder masses or stones 2. Right retrograde pyelogram with bifid collecting system and proximal ureter, with J hook insertion of lower pole moiety into common ureteral sheath 3. Placement right ureteral stent, 6 Fr x 28 cm Tria firm 4. Vscl-ys-egcp anastomosis of right upper and lower pole moieties, proximal to the area of narrowing 5. Placement 18 Fr Yanes with 10 cc in balloon Complications Other: Pneumothorax Operative Note Narrative Following appropriate patient identification and verification of informed consent, the patient was brought to the OR placed under general anesthesia. They were prepped and draped in the standard sterile fashion in sloppy flank synchronous position. After surgical pause and confirmation of laterality, allergies and antibiotic administration, we proceeded with rigid cystoscopy. The bladder was normal, with 1 ureteral orifice noted on each side in orthotopic position. No masses, stones, or foreignbodies were present. Following laterality pause, a Rutner catheter was inserted into the right ureteral orifice and a right retrograde pyelogram was performed. This revealed a bifid right collecting system and proximal ureter, with mild hydronephrosis of the lower pole moiety in comparison to the upper pole moiety. The lower pole moiety inserted into the common sheath and a J-hook configuration as previously demonstrated on retrograde pyelogram. No filling defects or strictures were noted asidefrom this. The Rutner catheter was removed and a 0.035 sensor tip guidewire was advanced into the right ureter to the upper pole moiety. A 6 Fr x 28 cm Tria firm stent was advanced over the wire and deployed in the standard fashion with good proximal and distal curls. The cystoscope was removed from the bladder and an 18 Kyrgyz latex catheter was placed with 10 cc sterile water in the balloon. We then turned our attention to the robotic component of the case. The abdomen was insufflated using supraumbilical Veress access, after negative drop test. Port sites were marked out along the mid clavicular line on the right side. Four 8 mm ports were placed along this line, and a 10 12 orthotic assistant port was placed at the supraumbilical incision. A 5 mm AirSeal port was placed below the xiphoid for liver retraction. Bilateral TAP blocks were performed using Exparel and 0.25% bupivacaine. The robot was docked. A locking Allis was introduced and the liver was retracted away from the field and the Allis secured to the abdominal wall. The right colon and duodenum were then reflected away from Gerota's to expose the vena cava as medial border of the dissection. A psoas window was created and the ureter was identified separately from the gonadal vessels. At this point, diaphragmatic billowing was noted. The Allis retractor was removed from the abdominal wall, and no diaphragmatic injury was visible. It was confirmed that the AirSeal port remained in good position, and there were no major changes from a ventilation standpoint. The billowing improved, and as the patient remained stable we elected to proceed with the remainder of the case. Dissection was carried up until the bifurcation of the ureter was appreciated just caudad to the hilum. This was dissected free, and the decision was made to proceed with a guum-tq-hrlq anastomosis of the lower pole to upper pole moiety. Each moiety was incised longitudinally using Brock scissors. A rhke-bm-axjz anastomosis was then completed proximal to the lower pole moiety obstruction using running 4-0 PDS. The previously placed ureteral stent was left in place. The robot was undocked and port sites were closed using 4-0 Monocryl subcutaneously. Portable x-raycame to the room for a chest x-ray given the diaphragmatic billowing, which confirmed a small rightpneumothorax. The patient remained again stable from a respiratory standpoint, so she was extubatedwithout issue and transferred to the PACU in stable condition. Interventional pulmonology was contacted, and recommended repeating chest x-ray in 1 hour as a first step. Dyana Chairez M.D. Cosigned by Sandeep Adkins M.D. at 03/26/2024 3:22 PM MVA OPERATOR OPERATOR OPERATOR documented in this encounter Miscellaneous Notes * Hospital Course - Dyana Chairez M.D. - 03/26/2024 12:27 PM CST SURGICAL PROCEDURE: A Cystoscopy, right retrograde pyelogram, right stent placement, and robotic assisted right sided side to side anastomosis of lower pole to upper pole moieties was performed. Patient developed a right pneumothorax during surgery, thought to be a ventilation injuyr or bleb rupture. No surgical injury was noted to the diaphragm. PATHOLOGY: No results found for this or any previous visit (from the past week). HOSPITAL COURSE: Following the procedure, a portable chest x-ray revealed signs of a spontaneous right sided pneumothorax. The patient was extubated and placed on high flow nasal canula, and was transferred to general floor care in stable condition. She developed some dyspnea, so a right chest tube was placed by IR. This was managed by Interventional Pulmonology, and serial CXR showed resolution of the pneumothorax. Tube was clamped overnight on POD1-POD2 and removed POD2 without recurrence of pneumothorax. They do not need follow up for this. The post-operative course was otherwise uneventful. By the time of dismissal, the patient was ambulatory, tolerating oral intake with no nausea / vomiting, and had pain controlled. PHYSICAL EXAM: General: Alert and oriented x 3. No acute distress. Lungs: Good respiratory effort. Nonlabored Abdomen: Abdomen soft, nontender, nondistended. No rebound or guarding. Incisions c/d/i DISMISSAL LABS: Lab Results Component Value Date CREATININE 0.74 03/27/2024 Lab Results Component Value Date HGB 11.5 (L) 03/27/2024 Lab Results Component Value Date WBC 7.6 03/27/2024 OPERATOR OPERATOR OPERATOR documented in this encounter Plan of Treatment Upcoming Encounters Date Type Department Care Team (Late st Contact Info) Description 04/16/2024 2:30 PM MVA OPERATOR Procedure visit Department of Urology in [place], [place] [address] [place] [address] Dyana Chairez M.D. [address] [place] [address] Scheduled Orders Name Type Priority Associated Diagnoses Orde r Schedule US Kidneys Bilateral with Bladder Imaging RAD - Routine (most inpatients and all outpatients) Hydronephrosis Obstruction Ureteropelvic Expected: 07/26/2024, Expires: 06/26/2025 Creatinine with Estimated GFR Lab Routine Hydronephrosis Obstruction Ureteropelvic Expected: 07/26/2024, Expires: 06/26/2025 Cystatin C with Estimated GFR Lab Routine Hydronephrosis Obstruction Ureteropelvic Expected: 07/26/2024, Expires: 06/26/2025 Scheduled Referrals Name Type Priority Associated Diagnoses Orde r Schedule Urology office visit (clinic) Outpatient Referral Routine Expected: 07/26/2024, Expires: 06/26/2025 documented as of this encounter Procedures Procedure Name Priority Date/Time Associated Diagnosis Comments DX CHEST AP OR PA AND LATERAL 2 VIEWS RAD - Routine (most inpatients and all outpatients) 03/28/2024 7:27 AM MVA OPERATOR DX CHEST PORTABLE 1 VIEW RAD - Routine (most inpatients and all outpatients) 03/27/2024 11:46 AM MVA OPERATOR ADULT OXYGEN THERAPY Routine 03/27/2024 8:01 AM MVA OPERATOR DX CHEST PORTABLE 1 VIEW RAD - Routine (most inpatients and all outpatients) 03/27/2024 5:56 AM MVA OPERATOR CBC WITHOUT DIFFERENTIAL, B Routine 03/27/2024 3:23 AM MVA OPERATOR BASIC METABOLIC PANEL, S/P Routine 03/27/2024 3:23 AM MVA OPERATOR ADULT OXYGEN THERAPY Routine 03/26/2024 8:[address] CHEST TUBE PLACEMENT RAD - Semiurgent (Fast; most ED patients; some inpatients) 03/26/2024 4:35 PM MVA OPERATOR ADULT OXYGEN THERAPY Routine 03/26/2024 2:26 PM MVA OPERATOR ADULT OXYGEN THERAPY Routine 03/26/2024 2:26 PM MVA OPERATOR ADULT OXYGEN THERAPY Routine 03/26/2024 2:26 PM MVA OPERATOR DX CHEST 1 VIEW RAD - Timed (for specific dates/times) 03/26/2024 12:24 PM MVA OPERATOR DX CHEST PORTABLE 1 VIEW RAD - Routine (most inpatients and all outpatients) 03/26/2024 11:48 AM MVA OPERATOR FL FLUORO LESS THAN 1 HOUR RAD - Routine (most inpatients and all outpatients) 03/26/2024 9:32 AM MVA OPERATOR BLOCK - TRANSVERSUS ABDOMINIS PLANE 03/26/2024 7:29 AM MVA OPERATOR Hydronephrosis ROBOTIC-ASSISTED PYELOPLASTY 03/26/2024 7:29 AM MVA OPERATOR Hydronephrosis RETROGRADE PYELOGRAM 03/26/2024 7:29 AM MVA OPERATOR Hydronephrosis CYSTOSCOPY INSERTION STENT URETER 03/26/2024 7:29 AM MVA OPERATOR Hydronephrosis documented in this encounter Results * DX Chest AP or PA and Lateral 2 Views (03/28/2024 7:27 AM MVA OPERATOR) Anatomical Region Laterality Modality Chest, Thoracic RST LOS, Tho racic ARZ LOS, Thoracic FLA LOS N/A Digital Radiography Impressions 03/28/2024 7:46 AM MVA OPERATOR Since 03/27/2024, no significant change. No definite pneumothorax. Right-sided chest tube. Left basilar atelectasis. Partially visualized right nephroureteral stent. Narrative 03/28/2024 7:46 AM MVA OPERATOR EXAM: DX CHEST AP OR PA AND LATERAL 2 VIEWS Procedure Note Jaya Mccormick M.D. - 03/28/2024 EXAM: DX CHEST AP OR PA AND LATERAL 2 VIEWS IMPRESSION: Since 03/27/2024, no significant change. No definite pneumothorax.Right-sided chest tube. Left basilar atelectasis. Partially visualizedright nephroureteral stent. us Yaritza Silva D.O. IMG DIAGNOSTIC IMAGING PRO CEDURES Final Result * DX Chest Portable 1 View (03/27/2024 11:46 AM MVA OPERATOR) Anatomical Region Laterality Modality Chest, Thoracic RST LOS, Tho racic ARZ LOS, Thoracic FLA LOS N/A Digital Radiography Impressions 03/27/2024 11:58 AM MVA OPERATOR Since earlier today, no significant change. No definite pneumothorax. Right- sided chest tube. Left basilar atelectasis. Partially visualized right nephroureteral stent. Narrative 03/27/2024 11:58 AM MVA OPERATOR EXAM: DX CHEST PORTABLE 1 VIEW Procedure Note Jaya Mccormick M.D. - 03/27/2024 EXAM: DX CHEST PORTABLE 1 VIEW IMPRESSION: Since earlier today, no significant change. No definite pneumothorax.Right-sided chest tube. Left basilar atelectasis. Partially visualizedright nephroureteral stent. Yaritza Silva D.O. [facility] DIAGNOSTIC IMAGING PRO CEDURES Final Result * DX Chest Portable 1 View (03/27/2024 5:56 AM MVA OPERATOR) Anatomical Region Laterality Modality Chest, Thoracic RST LOS, Tho racic ARZ LOS, Thoracic FLA LOS N/A Digital Radiography Impressions 03/27/2024 6:45 AM MVA OPERATOR Comparison 03/26/2024. Heart size normal. Right-sided chest tube. No definite pneumothorax. Mild bibasilar opacities have improved. Right nephroureteral stent partially visualized. Narrative 03/27/2024 6:45 AM MVA OPERATOR EXAM: DX CHEST PORTABLE 1 VIEW Procedure Note Jaya Mccormick M.D. - 03/27/2024 EXAM: DX CHEST PORTABLE 1 VIEW IMPRESSION: Comparison 03/26/2024. Heart size normal. Right-sided chest tube. Nodefinite pneumothorax. Mild bibasilar opacities have improved. Rightnephroureteral stent partially visualized. Yamini Hathaway M.D. [facility] DIAGNOSTIC IMAGING PROC EDURES Final Result * (ABNORMAL) CBC without Differential (03/27/2024 3:23 AM MVA OPERATOR) [facility] Hemoglobin 11.5(L) 11.6 - 15.0 g/dL 03/27/2024 3:44 AM MVA OPERATOR DTL Hematocrit 35.8 35.5 - 44.9 % 03/27/2024 3:44 AM MVA OPERATOR DTL Erythrocytes 3.84(L) 3.92 - 5.13 x10(12)/L 03/27/2024 3:44 AM MVA OPERATOR DTL MCV 93.2 78.2 - 97.9 fL 03/27/2024 3:44 AM MVA OPERATOR DTL RBC Distrib Width 13.4 12.2 - 16.1 % 03/27/2024 3:44 AM MVA OPERATOR DTL Platelet Count 142(L) 157 - 371 x10(9)/L 03/27/2024 4:24 AM MVA OPERATOR DTL Comment:Results confirmed by smear, no clumping or interference seen. Leukocytes 7.6 3.4 - 9.6 x10(9)/L 03/27/2024 4:24 AM MVA OPERATOR DTL Blood (Blood, Venous) 03/27/2024 3:23 AM MVA OPERATOR 03/27/2024 3:38 AM MVA OPERATOR Dyana Chairez M.D. LAB BLOOD ADD-ON Final Re sult [address] [address], [facility] [address] [place] [address] * (ABNORMAL) Basic Metabolic Panel (03/27/2024 3:23 AM MVA OPERATOR) Potassium, S 4.7 3.6 - 5.2 mmol/L 03/27/2024 4:09 AM MVA OPERATOR DTL Sodium, S 139 135 - 145 mmol/L 03/27/2024 4:09 AM MVA OPERATOR DTL Chloride, S 105 98 - 107 mmol/L 03/27/2024 4:09 AM MVA OPERATOR DTL Bicarbonate, S 22 22 - 29 mmol/L 03/27/2024 4:09 AM MVA OPERATOR DTL Anion Gap 12 7 - 15 03/27/2024 4:09 AM MVA OPERATOR DTL BUN (Blood Urea Nitrogen), S 10 6 - 21 mg/dL 03/27/2024 4:09 AM MVA OPERATOR DTL Creatinine 0.74 0.59 - 1.04 mg/dL 03/27/2024 4:09 AM MVA OPERATOR DTL Estimated GFR (eGFR) 88 >=60 mL/min/BSA 03/27/2024 4:09 AM MVA OPERATOR DTL Comment: Estimated GFR calculated using the 2020 CKD_EPI creatinine equation. Calcium, Total, S 8.4(L) 8.8 - 10.2 mg/dL 03/27/2024 4:09 AM MVA OPERATOR DTL Glucose, S 122 70 - 140 mg/dL 03/27/2024 4:09 AM MVA OPERATOR DTL Blood (Blood, Venous) 03/27/2024 3:23 AM MVA OPERATOR 03/27/2024 3:53 AM MVA OPERATOR us Dyana Chairez M.D. LAB BLOOD ADD-ON Final Re sult [facility] [address] [place] [address], [facility] [address] [place] [address] * CT Chest Tube Placement (03/26/2024 4:35 PM MVA OPERATOR) Anatomical Region Laterality Modality Chest, Abdominal RST LOS, Va scular Interventional ARZ LOS, Procedure FLA LOS, Vascular Interventional FLA LOS, Procedural, Procedural NWWI LOS N/A Computed Tomography, C omputed Tomography Impressions 03/26/2024 4:[address]-guided right pleural pigtail catheter placement. NR Narrative 03/26/2024 4:50 PM MVA OPERATOR EXAM: CT CHEST TUBE PLACEMENT PRE-PROCEDURE: Patient seen, evaluated, history reviewed, and approved for sedation. Airway, heart, and lung exam satisfactory for sedation. Discussed risks, benefits, alternatives for procedure, and/or sedation. The roles and responsibilities of care team members, residents, and fellows were discussed. Patient understands information and questions answered. Informed consent obtained from the patient. Immediately prior to starting the procedure, in the presence of the assisting personnel, a procedural pause was conducted to verify correct patient identity and verification of procedure to be performed, and as applicable, correct side and site, correct patient position, availability of implants, special equipment, or special requirements, and all image and specimen identification data. INTRAPROCEDURE: Moderate sedation was administered by sedation nurse under my supervision. The patient was continuously monitored with real time oxygen saturation, heart rate, ECG rhythm strip and blood pressure throughout administration of the sedation and performance of the procedure. The total intra-procedural sedation time was: 15 minutes. TECHNIQUE: Using sterile technique and 1 percent lidocaine as local anesthetic, a 17-gauge introducer needle was advanced into the small right pneumothorax using CT guidance. This was exchanged over wire for a 10 Kyrgyz locking loop catheter. The catheter was secured to the skin with a single stitch and hooked to an atrium device. No immediate complications. Procedure Note Ancelmo Pittman M.D. - 03/26/2024 EXAM: CT CHEST TUBE PLACEMENT PRE-PROCEDURE: Patient seen, evaluated, history reviewed, and approved forsedation. Airway, heart, and lung exam satisfactory for sedation.Discussed risks, benefits, alternatives for procedure, and/or sedation.The roles and responsibilities of care team members, residents, and fellows were discussed. Patient understandsinformation and questions answered. Informed consent obtained from thepatient. Immediately prior to starting the procedure, in the presence ofthe assisting personnel, a procedural pause was conducted to verify correct patient identity and verificationof procedure to be performed, and as applicable, correct side and site,correct patient position, availability of implants, special equipment, orspecial requirements, and all image and specimen identification data. INTRAPROCEDURE: Moderate sedation was administered by sedation nurse undermy supervision. The patient was continuously monitored with real timeoxygen saturation, heart rate, ECG rhythm strip and blood pressurethroughout administration of the sedation and performance of the procedure. The total intra-procedural sedation timewas: 15 minutes. TECHNIQUE: Using sterile technique and 1 percent lidocaine as localanesthetic, a 17-gauge introducer needle was advanced into the small rightpneumothorax using CT guidance. This was exchanged over wire for a 10French locking loop catheter. The catheter was secured to the skin with a single stitch and hooked to anatrium device. No immediate complications. IMPRESSION: CT-guided right pleural pigtail catheter placement. NR us Yamini Hathaway M.D. IMG CT PROCEDURES Final Res ult * DX Chest 1 View (03/26/2024 12:24 PM MVA OPERATOR) Anatomical Region Laterality Modality Chest, Thoracic RST LOS, Tho racic ARZ LOS, Thoracic FLA LOS N/A Digital Radiography Impressions 03/26/2024 12:33 PM MVA OPERATOR Interval removal of the right endotracheal tube. More shallow inspiration accentuates the cardiac silhouette, and pulmonary vascularity. The size of the right apical pneumothorax is unchanged given differences of technique/positioning, with pleural line projected between the posterior right third and fourth ribs. Stable linear atelectasis in the left base. Calcified left hilar nodes. Narrative 03/26/2024 12:33 PM MVA OPERATOR EXAM: DX CHEST 1 VIEW Procedure Note Thierry Deleon M.D. - 03/26/2024 EXAM: DX CHEST 1 VIEW IMPRESSION: Interval removal of the right endotracheal tube. More shallow inspirationaccentuates the cardiac silhouette, and pulmonary vascularity. The size ofthe right apical pneumothorax is unchanged given differences oftechnique/positioning, with pleural line projected between the posterior right third and fourth ribs.Stable linear atelectasis in the left base. Calcified left hilar nodes. Dyana Chairez M.D. IMG DIAGNOSTIC IMAGING [place] OCEDURES Final Result * DX Chest Portable 1 View (03/26/2024 11:48 AM MVA OPERATOR) Anatomical Region Laterality Modality Chest, Thoracic RST LOS, Tho racic ARZ LOS, Thoracic FLA LOS N/A Digital Radiography Impressions 03/26/2024 11:56 AM MVA OPERATOR Small right apical pneumothorax, with pleural line projected between the right posterior third and fourth ribs. Findings discussed with Sandeep Adkins M.D. at 11:55 AM. Endotracheal tube with tip approximately 6 cm from the spencer. Atelectasis in the left base. Calcified granulomas in the left lung with calcified left hilar nodes. Narrative 03/26/2024 11:56 AM MVA OPERATOR EXAM: DX CHEST PORTABLE 1 VIEW Procedure Note Thierry Deleon M.D. - 03/26/2024 EXAM: DX CHEST PORTABLE 1 VIEW IMPRESSION: Small right apical pneumothorax, with pleural line projected between theright posterior third and fourth ribs. Findings discussed with Sandeep Phelan M.D. at 11:55 AM. Endotracheal tube with tip approximately 6 cmfrom the spencer. Atelectasis in the left base. Calcified granulomas in the left lung withcalcified left hilar nodes. Sandeep Adkins M.D. IMG DIAGNOSTIC IMAGING PROCEDU RES Final Result * FL Fluoro Less Than 1 Hour (03/26/2024 9:32 AM MVA OPERATOR) Narrative [id number] - 03/26/2024 9:33 AM MVA OPERATOR This exam does not require a radiologist review or interpretation. Please refer to the patient's medical record on this date for clinical details. us Sandeep Adkins M.D. IMG FLUOROSCOPY PROCEDURES Fin al Result [id number] NA documented in this encounter Visit Diagnoses Diagnosis Hydronephrosis- Primary Hydronephrosis Obstruction Ureteropelvic Obstruction Ureteropelvic documented in this encounter Admitting Diagnoses Diagnosis Hydronephrosis Obstruction Ureteropelvic documented in this encounter Administered Medications Inactive Administered Medications - up to 3 most recent administrations Medication Order MAR Action Action Date Dose Rate Site acetaminophen tablet 1,000 mg (TylenoL) 1,000 mg, oral, Once, On Fri03/26/24 at 0715, For 1 dose, Pre-Op, PreOp give in preprocedural area. Given 03/26/2024 7:24 AM MVA OPERATOR 1,000 mg acetaminophen tablet 1,000 mg (TylenoL) 1,000 mg, oral, Every 6 hours, First dose on Fri03/26/24 at 1500 Given 03/28/2024 2:34 PM MVA OPERATOR 1,000 mg Given 03/28/2024 8:08 AM MVA OPERATOR 1,000 mg Given 03/28/2024 3:07 AM MVA OPERATOR 1,000 mg aprepitant capsule 40 mg (Emend) 40 mg, oral, Once, On Fri03/26/24 at 0730, For 1 dose, Pre-Op, Restriction Criteria (Pharmacy will review and approve if criteria met): Patient does not have IV access and cannot receive fosaprepitant IV Given 03/26/2024 7:24 AM MVA OPERATOR 40 mg cyclobenzaprine tablet 5 mg (FlexeriL) 5 mg, oral, 3 times daily PRN, muscle spasms, Starting on Fri03/26/24 at 2041 Given 03/27/2024 2:49 AM MVA OPERATOR 5 mg Given 03/26/2024 9:52 PM MVA OPERATOR 5 mg fentaNYL injection 25 mcg (Sublimaze) 25 mcg, intravenous, Every 2 min PRN, For pain 4 or greater (maximum 100 mcg). If max dose of Fentanyl is reached and if pain is greater than 4, discontinue Fentanyl: give Hydromorphone, Starting on Fri03/26/24 at 1257, PACU (only) Given 03/26/2024 1:38 PM MVA OPERATOR 25 mcg Given 03/26/2024 1:13 PM MVA OPERATOR 25 mcg Given 03/26/2024 1:06 PM MVA OPERATOR 25 mcg fentaNYL injection 25 mcg (Sublimaze) 25 mcg, intravenous, Every 2 min PRN, sedation, Administer over 1 minute immediately prior to the procedure. May repeat every 2 minutes to a maximum of 200 mcg, until pain score of 3 or less, or until the patient meets the pain comfort goal, or RASS 0 to -2. Do not give if respiratory rate is less than 8 breaths/minute., Starting on Fri03/26/24 at 1619, For 3 hours, Intraprocedure (RAD), Subsequent doses Given 03/26/2024 4:48 PM MVA OPERATOR 25 mc g Given 03/26/2024 4:46 PM MVA OPERATOR 25 mcg Given 03/26/2024 4:28 PM MVA OPERATOR 25 mcg fentaNYL injection 50 mcg (Sublimaze) 50 mcg, intravenous, Once as needed, sedation, Starting on Fri03/26/24 at 1619, For 1 dose, Intraprocedure (RAD), IV Push, Initial dose Given 03/26/2024 4:20 PM MVA OPERATOR 50 mcg gentamicin in NaCl 0.9 % (iso osm) IVPB 100 mg (Garamycin) 100 mg, intravenous, at 100 mL/hr, Administer over 30 Minutes, Once, On Fri03/26/24 at 0715, For 1 dose, Pre-Op, Drug Monitoring Program: Pharmacist to adjust medication dosing based on indication and drug clearance factors., Indications: Prophylaxis, surgicalIndications:Prophylaxis, surgical New Bag 03/26/2024 7:16 AM MVA OPERATOR 100 mg 100 mL/hr gentamicin in NaCl 0.9 % (iso osm) IVPB 100 mg (Garamycin) 100 mg, intravenous, at 100 mL/hr, Administer over 30 Minutes, Every 8 hours, First dose (after last reorder) on Fri03/26/24 at 1530, For 2 doses, Post-Op, Drug Monitoring Program: Pharmacist to adjust medication dosing based on indication and drug clearance factors., Indications: Prophylaxis, surgicalIndications:Prophylaxis, surgical New Bag 03/27/2024 12:26 AM MVA OPERATOR 100 mg 100 mL/hr New Bag 03/26/2024 6:27 PM MVA OPERATOR 100 mg 100 mL/hr heparin (porcine) injection 5,000 Units 5,000 Units, subcutaneous, Every 8 hours scheduled, First dose on Fri03/26/24 at 2200 Given 03/28/2024 5:33 AM MVA OPERATOR 5,000 Units Left Upper Arm (Back ) Given 03/27/2024 9:20 PM MVA OPERATOR 5,000 Units R ight Upper Arm (Back) Given 03/27/2024 1:09 PM MVA OPERATOR 5,000 Units L eft Upper Arm (Back) ketorolac injection 15 mg (ToradoL) 15 mg, intravenous, Every 6 hours PRN, moderate pain or score 4-6 of 10, Starting on 03/27/24 at 1011, For 5 days, Adult IV push rate: Over 15 seconds. Peds IV push rate: Over 1 minute. Doses > 15 mg IV/IM are discouraged due to lack of additional analgesic benefit. Given 03/28/2024 8:09 AM MVA OPERATOR 15 mg Given 03/27/2024 1:09 PM MVA OPERATOR 15 mg Lactated Ringer's 75 mL/hr, intravenous, Continuous, Starting on Fri03/26/24 at 1445, Continue IV fluids from operating room at 125 ml/hour until bag finished, then begin as ordered. New Bag 03/26/2024 2:43 PM MVA OPERATOR 75 mL/hr 75 mL/hr Lactated Ringer's 50 mL/hr, intravenous, Continuous, Starting on Fri03/26/24 at 1230, PACU & Post-Op Continued from OR 03/26/2024 12:30 PM MVA OPERATOR 50 mL/hr 50 mL/hr levoFLOXacin tablet 500 mg (Levaquin) 500 mg, oral, Once, On Fri03/28/24 at 1030, For 1 dose, Take 2 hours before or 6 hours after antacids containing magnesium or aluminum, sucralfate, didanosine, polymeric phosphate binders, or products containing calcium, iron, or zinc., Drug Monitoring Program: Pharmacist to adjust medication dosing based on indication and drug clearance factors., Indications: Prophylaxis, surgicalIndications:Prop hylaxis, surgical Given 03/28/2024 10:37 AM MVA OPERATOR 500 mg lidocaine 10 mg/mL (1 %) injection (Xylocaine) As needed, Starting on Fri03/26/24 at 1623, Intra-Op Given 03/26/2024 4:23 PM MVA OPERATOR 7 mL Right Chest midazolam (PF) injection 0.5 mg (Versed) 0.5 mg, intravenous, Every 2 min PRN, sedation, RASS -1, Starting on Fri03/26/24 at 1619, For 3 hours, Intraprocedure (RAD), May repeat every 2 minutes for a maximum of 5 mg. Do not give if respiratory rate is less than 8 breaths/minute. Given 03/26/2024 4:46 PM MVA OPERATOR 0.5 mg Given 03/26/2024 4:22 PM MVA OPERATOR 0.5 mg midazolam (PF) injection 1 mg (Versed) 1 mg, intravenous, Every 2 min PRN, sedation, RASS 0, Starting on Fri03/26/24 at 1619, For 3 hours, Intraprocedure (RAD), May repeat every 2 minutes for a maximum of 5 mg. Do not give if respiratory rate is less than 8 breaths/minute. Given 03/26/2024 4:19 PM MVA OPERATOR 1 mg oxyCODONE IR tablet 10 mg (Roxicodone) 10 mg, oral, Every 4 hours PRN, severe pain or score 7-10 of 10, May use if patient can take oral meds and other analgesics are ineffective, Starting on Fri03/26/24 at 1340 Given 03/27/2024 3:42 AM MVA OPERATOR 10 mg Given 03/26/2024 11:35 PM MVA OPERATOR 10 mg Given 03/26/2024 5:58 PM MVA OPERATOR 10 mg oxyCODONE IR tablet 5 mg (Roxicodone) 5 mg, oral, Every 4 hours PRN, moderate pain or score 4-6 of 10, May use if patient can take oral meds and other analgesics are ineffective, Starting on Fri03/26/24 at 1340 Given 03/28/2024 2:34 PM MVA OPERATOR 5 mg Given 03/27/2024 8:44 AM MVA OPERATOR 5 mg Given 03/26/2024 1:48 PM MVA OPERATOR 5 mg rosuvastatin tablet 5 mg (Crestor) 5 mg, oral, Every other day, First dose on Fri03/27/24 at 0900 Given 03/27/2024 8:44 AM MVA OPERATOR 5 mg sennosides-docusate sodium 8.6-50 mg per tablet 1 tablet (Senokot-S) 1 tablet, oral, 2 times daily, First dose on Fri03/26/24 at 2100, Do not give if patient has diarrhea. Given 03/28/2024 8:09 AM MVA OPERATOR 1 tablet Given 03/27/2024 9:19 PM MVA OPERATOR 1 tablet Given 03/27/2024 8:44 AM MVA OPERATOR 1 tablet vancomycin in NaCl 0.9 % IVPB 1,000 mg 1,000 mg, intravenous, at 200 mL/hr, Administer over 60 Minutes, Once, On Fri03/26/24 at 0715, For 1 dose, Pre-Op, Drug Monitoring Program: Pharmacist to adjust medication dosing based on indication and drug clearance factors., Indications: Prophylaxis, surgicalIndications:Prophylaxis, surgical New Bag 03/26/2024 7:27 AM MVA OPERATOR 1,000 mg 200 mL/hr vancomycin in NaCl 0.9 % IVPB 1,000 mg 1,000 mg, intravenous, at 200 mL/hr, Administer over 60 Minutes, Every 12 hours, First dose (after last reorder) on Fri03/26/24 at 1930, For 1 dose, Post-Op, Drug Monitoring Program: Pharmacist to adjust medication dosing based on indication and drug clearance factors., Indications: Prophylaxis, surgicalIndications:Prophylaxis, surgical New Bag 03/26/2024 7:33 PM MVA OPERATOR 1,000 mg 200 mL/hr documented in this encounter Active and Recently Administered Medications Times are shown in MVA OPERATOR. Scheduled Medication Order 03/26/2024 03/27/2024 03/28/2024 acetaminophen tablet 1,000 mg (TylenoL) (COMPLETED) 1,000 mg, oral, Once, On Fri03/26/24 at 0715, For 1 dose, Pre-Op, PreOp give in preprocedural area. 0724 (Given - Provider: Mireya Chawla R.N.) acetaminophen tablet 1,000 mg (TylenoL) 1,000 mg, oral, Every 6 hours, First dose on Fri03/26/24 at 1500 1500 (Given - Provider: Danyelle Gutierrez R.N.)2152 (Given - Provider: Danyelle Gutierrez R.N.) 0249 (Given - Provider: Reena Lewis R.N.)0844 (Given - Provider: Carolina Garibay, R.N.)1422 (Given - Provider: Carolina Garibay R.N.)2119 (Given - Provider: Nel Lozano R.N.) 0307 (Given - Provider: Nalini Guidry R.N.)0808 (Given - Provider: Carolina Garibay R.N.)1434 (Given - Provider: Carolina Garibay R.N.) aprepitant capsule 40 mg (Emend) (COMPLETED) 40 mg, oral, Once, On Fri03/26/24 at 0730, For 1 dose, Pre-Op, Restriction Criteria (Pharmacy will review and approve if criteria met): Patient does not have IV access and cannot receive fosaprepitant IV 0724 (Given - Provider: Mireya Chawla R.N.) fosaprepitant in NaCl 0.9% IVPB 150 mg (Emend) (COMPLETED) 150 mg, intravenous, at 500 mL/hr, Administer over 30 Minutes, Once, On Fri03/26/24 at 0915, For 1 dose, Intra-Op, Incompatible with solutions containing divalent cations (calcium, magnesium) including lactated Ringer's solution., Restriction Criteria (Pharmacy will review and approve if criteria met): Meets restriction criteria 0928 (Given - Provider: Germán Constantino) gentamicin in NaCl 0.9 % (iso osm) IVPB 100 mg (Garamycin) (COMPLETED) 100 mg, intravenous, at 100 mL/hr, Administer over 30 Minutes, Once, On Fri03/26/24 at 0715, For 1 dose, Pre-Op, Drug Monitoring Program: Pharmacist to adjust medication dosing based on indication and drug clearance factors., Indications: Prophylaxis, surgical 0716 (New Bag - Provider: Mireya Chawla RMarinaNMarina) gentamicin in NaCl 0.9 % (iso osm) IVPB 100 mg (Garamycin) (COMPLETED) 100 mg, intravenous, at 100 mL/hr, Administer over 30 Minutes, Every 8 hours, First dose (after last reorder) on Fri03/26/24 at 1530, For 2 doses, Post-Op, Drug Monitoring Program: Pharmacist to adjust medication dosing based on indication and drug clearance factors., Indications: Prophylaxis, surgical 1827 (New Bag - Provider: Danyelle Gutierrez R.N.) 0026 (New Bag - Provider: Reena Lewis RMarinaN.) heparin (porcine) injection 5,000 Units (COMPLETED) 5,000 Units, subcutaneous, Once, On Fri03/26/24 at 0745, For 1 dose, Intra-Op 0811 (Given - Provider: Germán Constantino) heparin (porcine) injection 5,000 Units 5,000 Units, subcutaneous, Every 8 hours scheduled, First dose on Fri03/26/24 at 2200 2152 (Given - Provider: Danyelle Gutierrez RMarinaN.) 0546 (Given - Provider: Reena Lewis RMarinaN.)1309 (Given - Provider: Carolina Garibay RMarinaNMarina)2120 (Given - Provider: Nel Lozano RMarinaN.) 0533 (Given - Provider: Nalini Guidry RMarinaNMarina)1400 (Due) levoFLOXacin tablet 500 mg (Levaquin) (COMPLETED) 500 mg, oral, Once, On Fri03/28/24 at 1030, For 1 dose, Take 2 hours before or 6 hours after antacids containing magnesium or aluminum, sucralfate, didanosine, polymeric phosphate binders, or products containing calcium, iron, or zinc., Drug Monitoring Program: Pharmacist to adjust medication dosing based on indication and drug clearance factors., Indications: Prophylaxis, surgical 1037 (Given - Provider: Caroilna Garibay, RMarinaN.) rosuvastatin tablet 5 mg (Crestor) 5 mg, oral, Every other day, First dose on Fri03/27/24 at 0900 0844 (Given - Provider: Carolina Garibay RMarinaN.) sennosides-docusate sodium 8.6-50 mg per tablet 1 tablet (Senokot-S) 1 tablet, oral, 2 times daily, First dose on Fri03/26/24 at 2100, Do not give if patient has diarrhea. 2151 (Given - Provider: Danyelle Gutierrez R.N.) 0844 (Given - Provider: Carolina Garibay R.N.)2118 (Given - Provider: Nel Lozano R.N.) 0809 (Given - Provider: Carolina Garibay R.N.) vancomycin in NaCl 0.9 % IVPB 1,000 mg (COMPLETED) 1,000 mg, intravenous, at 200 mL/hr, Administer over 60 Minutes, Once, On Fri03/26/24 at 0715, For 1 dose, Pre-Op, Drug Monitoring Program: Pharmacist to adjust medication dosing based on indication and drug clearance factors., Indications: Prophylaxis, surgical 726 (New Bag - Provider: Mireya Chawla R.N.) vancomycin in NaCl 0.9 % IVPB 1,000 mg (COMPLETED) 1,000 mg, intravenous, at 200 mL/hr, Administer over 60 Minutes, Every 12 hours, First dose (after last reorder) on Fri03/26/24 at 1930, For 1 dose, Post-Op, Drug Monitoring Program: Pharmacist to adjust medication dosing based on indication and drug clearance factors., Indications: Prophylaxis, surgical 1932 (New Bag - Provider: Danyelle Gutierrez R.N.) Continuous Medication Order 03/26/2024 03/27/2024 03/28/2024 Lactated Ringer's (CANCELED) 75 mL/hr, intravenous, Continuous, Starting on Fri03/26/24 at 1445, Continue IV fluids from operating room at 125 ml/hour until bag finished, then begin as ordered. 1443 (New Bag - Provider: Danyelle Gutierrez R.N.) 0600 (Stopped - Provider: Carolina Garibay R.N.) Lactated Ringer's (CANCELED) 50 mL/hr, intravenous, Continuous, Starting on Fri03/26/24 at 1230, PACU & Post-Op 1230 (Continued from OR - Provider: Parris A Juan M, R.N.)1405 (Continue to Inpatient Floor - Provider: Parris Mcgowan, R.N.)1427 (Stopped - Provider: Tayo Rodriguez II RMarinaN.) PRN Medication Order 03/26/2024 03/27/2024 03/28/2024 benzocaine-menthoL 15-3.6 mg per lozenge 1 lozenge (CepacoL) 1 lozenge, oral, As needed, sore throat, Starting on Fri03/26/24 at 1426 bisacodyL suppository 10 mg (Dulcolax) 10 mg, rectal, Daily PRN, constipation, Starting on Fri03/26/24 at 1426, Ordered sequence of administration: polyethylene glycol, then bisacodyl until BM achieved. BUPivacaine liposome (PF) 20 mL, BUPivacaine 30 mL 50 mL injection (CANCELED) As needed, Starting on Fri03/26/24 at 0945, Intra-Op 0945 (Given - Provider: Dyana Chairez M.D. - Comment: bilateral tap block) calcium carbonate chewable tablet 200 mg of calcium (Tums) 200 mg of calcium, oral, Daily PRN, heartburn, indigestion, Starting on Fri03/26/24 at 1426, calcium carbonate chewable 500 mg (200 mg elemental) was interchanged for calcium carbonate chewable 500 mg calcium carbonate contains 200 mg of elemental calcium. cyclobenzaprine tablet 5 mg (FlexeriL) 5 mg, oral, 3 times daily PRN, muscle spasms, Starting on Fri03/26/24 at 2041 2152 (Given - Provider: Danyelle Gutierrez R.N.) 0249 (Given - Provider: Reena Lewis R.N.) diphenhydrAMINE capsule 25 mg (BenadryL) 25 mg, oral, Every 4 hours PRN, itching, Starting on Fri03/26/24 at 1426 fentaNYL injection 25 mcg (Sublimaze) (CANCELED) 25 mcg, intravenous, Every 2 min PRN, For pain 4 or greater (maximum 100 mcg). If max dose of Fentanyl is reached and if pain is greater than 4, discontinue Fentanyl: give Hydromorphone, Starting on Fri03/26/24 at 1257, PACU (only) 1303 (Given - Provider: Parris Mcgowan R.N.)1306 (Given - Provider: Parris Mcgowan R.N.)1313 (Given - Provider: Parris Mcgowan R.N.)1338 (Given - Provider: Parris Mcgowan R.N.) fentaNYL injection 25 mcg (Sublimaze) (CANCELED) 25 mcg, intravenous, Every 2 min PRN, sedation, Administer over 1 minute immediately prior to the procedure. May repeat every 2 minutes to a maximum of 200 mcg, until pain score of 3 or less, or until the patient meets the pain comfort goal, or RASS 0 to -2. Do not give if respiratory rate is less than 8 breaths/minute., Starting on Fri03/26/24 at 1619, For 3 hours, Intraprocedure (RAD), Subsequent doses 1624 (Given - Provider: Ying Sanchez R.N.)1628 (Given - Provider: Ying Sanchez R.N.)1646 (Given - Provider: Ying Sanchez R.N. - Comment: OK per Dr. Pittman)1648 (Given - Provider: Ying Sanchez R.N.) fentaNYL injection 50 mcg (Sublimaze) (COMPLETED) 50 mcg, intravenous, Once as needed, sedation, Starting on Fri03/26/24 at 1619, For 1 dose, Intraprocedure (RAD), IV Push, Initial dose 1620 (Given - Provider: Ying Sanchez R.N.) haloperidol lactate injection 1 mg (HaldoL) 1 mg, intravenous, Every 6 hours PRN, nausea, vomiting, Starting on Fri03/26/24 at 1426, For 48 hours, Total of 3 doses in 24 hour period. RASS must be -2 or higher to administer. Reassess for nausea or vomiting after at least 10 minutes. If nausea or vomiting persists administer next ordered antiemetic medications (order for antiemetic medication administration ondansetron then haloperidol then prochlorperazine) iohexoL 350 mg iodine/mL solution (Omnipaque) (CANCELED) As needed, Starting on Fri03/26/24 at 0930, Intra-Op 0930 (Given - Provider: Dyana Chairez M.D. - Comment: omni diluted 1:1 with NaCl; 20cc flushed into right ureter) ketorolac injection 15 mg (ToradoL) 15 mg, intravenous, Every 6 hours PRN, moderate pain or score 4-6 of 10, Starting on 03/27/24 at 1011, For 5 days, Adult IV push rate: Over 15 seconds. Peds IV push rate: Over 1 minute. Doses > 15 mg IV/IM are discouraged due to lack of additional analgesic benefit. 1309 (Given - Provider: Carolina Garibay R.N.) 0809 (Given - Provider: Carolina Garibay R.N.) Lactated Ringer's bolus 500 mL 500 mL, intravenous, at 500 mL/hr, Administer over 1 Hours, As needed, Urinary output less than 30 mL/hour x 2 consecutive hours, Starting on Fri03/26/24 at 1426, For 1 dose, May repeat x 1 within 48 hours. lidocaine 10 mg/mL (1 %) injection (Xylocaine) (COMPLETED) As needed, Starting on Fri03/26/24 at 1623, Intra-Op 1623 (Given - Provider: Ancelmo Pittman M.D. - Comment: CT) melatonin tablet 5 mg 5 mg, oral, Bedtime PRN, sleep, Starting on Fri03/26/24 at 1426 midazolam (PF) injection 0.5 mg (Versed) (CANCELED) 0.5 mg, intravenous, Every 2 min PRN, sedation, RASS -1, Starting on Fri03/26/24 at 1619, For 3 hours, Intraprocedure (RAD), May repeat every 2 minutes for a maximum of 5 mg. Do not give if respiratory rate is less than 8 breaths/minute. 1622 (Given - Provider: Ying Sanchez R.N.)1646 (Given - Provider: Ying Sanchez R.N. - Comment: OK'd per Dr. Pittman) midazolam (PF) injection 1 mg (Versed) (CANCELED) 1 mg, intravenous, Every 2 min PRN, sedation, RASS 0, Starting on Fri03/26/24 at 1619, For 3 hours, Intraprocedure (RAD), May repeat every 2 minutes for a maximum of 5 mg. Do not give if respiratory rate is less than 8 breaths/minute. 1619 (Given - Provider: Ying Sanchez R.N.) naloxone injection 0.2 mg (Narcan) 0.2 mg, intravenous, As needed, respiratory depression, Starting on Fri03/26/24 at 1426, For RASS Score -4 or less, respiratory rate of less than 8 breaths/min. Notify provider/service and rapid response team (if available at institution). ondansetron (PF) injection 4 mg (Zofran) 4 mg, intravenous, Every 6 hours PRN, nausea, vomiting, Starting on Fri03/26/24 at 1426, For 48 hours, Reassess for nausea or vomiting after at least 10 minutes. If nausea or vomiting persists administer next ordered antiemetic medications (order for antiemetic medication administration ondansetron then haloperidol then prochlorperazine). oxyBUTYnin tablet 5 mg (Ditropan) 5 mg, oral, 3 times daily PRN, bladder spasms, Starting on Fri03/26/24 at 1426 oxyCODONE IR tablet 10 mg (Roxicodone)(Linked Group 1) 10 mg, oral, Every 4 hours PRN, severe pain or score 7-10 of 10, May use if patient can take oral meds and other analgesics are ineffective, Starting on Fri03/26/24 at 1340 1348 (See Alternative - Provider: Parris Mcgowan R.N.)1758 (Given - Provider: Tayo Rodriguez II R.N.)2335 (Given - Provider: Reena Lewis RAnamaria.) 0342 (Given - Provider: Reena Lewis RAnamaria.)0844 (See Alternative - Provider: Carolina Garibay RMarinaN.) 1434 (See Alternative - Provider: Carolina Garibay R.N.) oxyCODONE IR tablet 5 mg (Roxicodone)(Linked Group 1) 5 mg, oral, Every 4 hours PRN, moderate pain or score 4-6 of 10, May use if patient can take oral meds and other analgesics are ineffective, Starting on Fri03/26/24 at 1340 1348 (Given - Provider: Parris Mcgowan RAnamaria.)1758 (See Alternative - Provider: Tayo Rodriguez II R.N.)2335 (See Alternative - Provider: Reena Lewis R.N.) 0342 (See Alternative - Provider: Reena Lewis R.N.)0870 (Given - Provider: Carolina Garibay R.N.) 1434 (Given - Provider: Carolina Garibay R.N.) polyethylene glycol powder packet 17 g (Miralax) 17 g, oral, Daily PRN, constipation, Starting on Fri03/26/24 at 1426, Ordered sequence of administration: polyethylene glycol, then bisacodyl until BM achieved. Avoid mixing with starch-based thickened liquids. prochlorperazine injection 5 mg (Compazine) 5 mg, intravenous, Every 6 hours PRN, nausea, vomiting, Starting on Fri03/26/24 at 1426, For 48 hours, RASS must be -2 or higher to administer. Reassess for nausea/vomiting after at least 10 minutes. If nausea or vomiting persists administer next ordered antiemetic medications (order for antiemetic medication administration ondansetron then haloperidol then prochlorperazine) simethicone chewable tablet 80 mg 80 mg, oral, 4 times daily PRN, flatulence, gas pain, Starting on Fri03/26/24 at 1426 Linked Groups Order Group 1: oxyCODONE IR tablet 5 mg (Roxicodone)Jump to med 5 mg, oral, Every 4 hours PRN, moderate pain or score 4-6 of 10, May use if patient can take oral meds and other analgesics are ineffective, Starting on Fri03/26/24 at 1340 Or oxyCODONE IR tablet 10 mg (Roxicodone)Jump to med 10 mg, oral, Every 4 hours PRN, severe pain or score 7-10 of 10, May use if patient can take oral meds and other analgesics are ineffective, Starting on Fri03/26/24 at 1340 documented in this encounter
--- OUTSIDE RECORDS SUMMARY | 2024-04-11 02:27 | XMS_ITS | Encounter Summary ---
Author Organization [facility] Address [address] [place] [address] Care Team Providers Care Brake Machine Operator Name Role Phone Unavailable Primary Care Provider Unavailabl e Encounter Details Date Type Department Care Team (Late st Contact Info) Description 03/26/2024 9:05 AM PRACTICE OFFICE ASSOCIATE Ancillary Procedure Department of Urology Social History Tobacco Use Types Packs/Day Years Used Date Smoking Tobacco: Never Smokeless Tobacco: Never Alcohol Use Standard Drinks/Week Comments Yes 1 (1 standard drink = 0.6 oz pur e alcohol) [facility] Utilities Answer Date Recorded In the past 12 months has [facility] [employer], gas, oil, or water [employer] threatened to shut off services in your [...] How often do you attend chur or sikhism services? More than 4 times per year 11/27/2021 Do you belong to any clubs o r organizations such as shinto groups, unions, fraternal or athletic groups, or [...] and heating? Not hard at all 12/30/2022 [facility] of Occupat ional Health - Occupational Stress [...] your living situation today? I have a [facility] place to live 03/26/2024 Education Answer [...] st Contact Info) Description 04/16/2024 2:30 PM PRACTICE OFFICE ASSOCIATE Procedure visit Department of Urology in [place], [place] [address] [place] [address] Dyana Chairez M.D. [address] [place] [address] documented as of this encounter Procedures Procedure Name Priority Date/Time Associated Diagnosis Comments UROLOGY IMAGE EXAM Routine 03/26/2024 9: 05 AM PRACTICE OFFICE ASSOCIATE documented in this encounter Results * FL FLUORO LESS THAN 1 HOUR-Urology Image Exam (03/26/2024 9:05 AM PRACTICE OFFICE ASSOCIATE) 03/26/2024 9:04 AM PRACTICE OFFICE ASSOCIATE Narrative IIMS - 03/26/2024 10:18 AM PRACTICE OFFICE ASSOCIATE This order has been created and auto-finalized [...]
--- OUTSIDE RECORDS SUMMARY | 2024-04-11 02:27 | XMS_ITS | Encounter Summary ---
Author Organization [facility] Address [address] [place] [address] Care Team Providers Care Turbine Engine Assembler Name Role Phone Unavailable Primary Care Provider Unavailabl e Encounter Details Date Type Department Care Team (Late st Contact Info) Description 04/11/2024 Clinical Communication Department of Urology in [place], [place] [address] [place] [address] Mireya Burroughs M.D. [address] [place] [phone] Social History Tobacco Use Types Packs/Day Years Used Date Smoking Tobacco: Never Smokeless Tobacco: Never Alcohol Use Standard Drinks/Week Comments Yes 1 (1 standard drink = 0.6 oz pur e alcohol) [facility] Utilities Answer Date Recorded In the past 12 months has [facility] [employer], gas, oil, or water [employer] threatened to shut off services in your [...] any clubs o r organizations such as jehovah's witness groups, unions, fraternal or athletic groups, or [...] and heating? Not hard at all 12/30/2022 [facility] of Occupat ional Health - Occupational Stress [...] your living situation today? I have a [facility] place to live 03/26/2024 Education Answer [...] encounter Miscellaneous Notes * Telephone Encounter - Mireya Burroughs M.D. - 04/11/2024 12:38 AM CST Patient calls in with new left lower extremity swelling, pain, throbbing. This just started today. Had recent surgery with Dr. Adkins' team on 03/26/2024. Given these symptoms, advised her to present tolocal emergency department for evaluation for DVT IGN BANKNOTE TELLER documented in this encounter Plan of Treatment Upcoming Encounters Date Type Department Care Team (Late st Contact Info) Description 04/16/2024 2:30 PM FOREIGN BANKNOTE TELLER Procedure visit Department of Urology in [place], [place] [address] [place] [address] Dyana Chairez M.D. [address] [place] [address] documented as of this encounter Visit Diagnoses Not on filedocumented in this encounter
--- OUTSIDE RECORDS SUMMARY | 2024-04-11 02:27 | XMS_ITS | Encounter Summary ---
Author Organization [facility] Address [address] [place] [address] Care Team Providers Care Glue Bone Drier Name Role Phone Unavailable Primary Care Provider Unavailabl e Reason for Visit * Reason Onset Date Comments Questions regarding her bandage over her chest t ube site 04/01/2024 Encounter Details Date Type Department Care Team (Latest Contact Info) Description 04/01/2024 Clinical Communication Division of Pulmonary Medicine in [place], [place] [address] [place] [address] Yaritza Silva, DMarinaO. [address] [place] [address] Questions regarding her bandage over her chest tube site Social History Tobacco Use Types Packs/Day Years Used Date Smoking Tobacco: Never Smokeless Tobacco: Never Alcohol Use Standard Drinks/Week Comments Yes 1 (1 standard drink = 0.6 oz pur e alcohol) [facility] Utilities Answer Date Recorded In the past 12 months has e electric, gas, oil, or water company [...] any clubs o r organizations such as restorationist groups, unions, fraternal or athletic groups, or [...] and heating? Not hard at all 12/30/2022 [facility] [place] of Occupat ional Health - Occupational Stress [...] your living situation today? I have a [facility] place to live 03/26/2024 Education Answer [...] encounter Miscellaneous Notes * Telephone Encounter - RoloKathy - 04/01/2024 9:46 AM CST Pulmonary Note: Call Message Caller: Patient Preferred contact: Authorized: Yes Diagnosis: # Postoperative right apical pneumothorax s/p 10 welsh locking loop chest tube placement on 03/26 # Right lower moiety hydronephrosis POD #2 with side to side anastomosis Last Appointment: 03/28/2024 Message: Patient is calling wanting to clarify regarding her bandage over her chest tube. She states that it seems to be healing. She was wondering if she can get it wet. She is on day 6. Action Requested: Directions for her regarding the bandage. BASILIO Chavez ([phone]). AIN CUTTER documented in this encounter Plan of Treatment Upcoming Encounters Date Type Department Care Team (Late st Contact Info) Description 04/16/2024 2:30 PM CURTAIN CUTTER Procedure visit Department of Urology in [place], [place] [address] [place] [address] Dyana Chairez M.D. [address] [place] [address] documented as of this encounter Visit Diagnoses Not on filedocumented in this encounter
--- OUTSIDE RECORDS SUMMARY | 2024-04-11 02:27 | XMS_ITS | Encounter Summary ---
Author Organization [facility] Address [address] [place] [address] Care Team Providers Care Hardwood Floor Finisher Name Role Phone Unavailable Primary Care Provider Unavailabl e Encounter Details Date Type Department Care Team (Latest Contact Info) Description 04/07/2024 9:26 AM LIGHT ADJUSTER - 04/07/2024 11:59 PM [facility] Encounter Department of Laboratory Medicine in [place], [place] [address] [place] [address] Sandeep Adkins M.D. [address] [place] [address] Symptom Urinary Discharge Disposition: Home or Self Care Social History Tobacco Use Types Packs/Day Years Used Date Smoking Tobacco: Never Smokeless Tobacco: Never Alcohol Use Standard Drinks/Week Comments Yes 1 (1 standard drink = 0.6 oz pur e alcohol) [facility] Utilities Answer Date Recorded In the past 12 months has [employer], gas, oil, or water [employer] threatened to shut off services in your [...] How often do you attend chur or holiness services? More than 4 times per year 11/27/2021 Do you belong to any clubs o r organizations such as anabaptism groups, unions, fraternal or athletic groups, or [...] and heating? Not hard at all 12/30/2022 [facility] of Occupat ional Health - Occupational Stress [...] your living situation today? I have a [facility] place to live 03/26/2024 Education Answer [...] PM CDT documented as of this encounter Medications at Time of Discharge acetaminophen (TylenoL) 500 mg tablet Take 2 tablets (1,000 mg total) by mouth every 6 (six) hours as needed for pain. Can black pickler over the counter 03/28/2024 ascorbic acid, vitamin [...] spasms). 40 tablet 1 03/28/2024 2:56 PM LIGHT ADJUSTER 03/28/2024 oxyCODONE (Roxicodone) 5 mg immediate release tabletIndications :Acute Pain Take 1 tablet (5 mg total) by mouth every 4 (four) hours as needed for severe pain or score 7-10 of 10 Indication: Acute Pain. 10 tablet 03/28/2024 2:56 PM LIGHT ADJUSTER 03/28/2024 tamsulosin (Flomax) 0.4 mg 24 hr capsule Take 1 capsule (0.4 mg total) by mouth daily as needed (stent pain). 40 capsule 1 03/28/2024 2:56 PM LIGHT ADJUSTER 03/28/2024 zoledronic acid/mannitol-violet er (RECLAST IV) Infuse into a venous catheter. Once/year documented as of this encounter Plan of Treatment Upcoming Encounters Date Type Department Care Team (Late st Contact Info) Description 04/16/2024 2:30 PM LIGHT ADJUSTER Procedure visit Department of Urology in [place], [place] [address] [place] [phone] Dyana Chairez M.D. [address] [place] [address] documented as of this encounter Procedures Procedure Name Priority Date/Time Associated Diagnosis Comments BACTERIAL CULTURE, AEROBIC + SUSC, URINE Routine 04/07/2024 9:47 AM LIGHT ADJUSTER Symptom Urinary URINALYSIS WITH MICROSCOPIC Routine 04/07/2024 9:47 AM LIGHT ADJUSTER Symptom Urinary documented in this encounter Results * (ABNORMAL) Urinalysis, with Microscopic: Urine, Midstream (04/07/2024 9:47 AM LIGHT ADJUSTER) Source Urine, Urine, Midstream 04/07/2024 9:47 AM LIGHT ADJUSTER NPCL Clarity Clear Clear 04/07/2024 9:52 AM LIGHT ADJUSTER NPCL Color Yellow 04/07/2024 9:52 AM LIGHT ADJUSTER NPCL Comment: ----REFERENCE VALUE---- Colorless Yellow Raisa Blood Large(A) Negative 04/07/2024 9:52 AM LIGHT ADJUSTER NPCL Nitrite Negative Negative 04/07/2024 9:52 AM LIGHT ADJUSTER NPCL Leukocyte Esterase Small(A) Negative 04/07/2024 9:52 AM LIGHT ADJUSTER NPCL Protein 30(A) mg/dL 04/07/2024 9:52 AM LIGHT ADJUSTER NPCL Comment: ----REFERENCE VALUE---- Negative Trace Glucose Negative Negative mg/dL 04/07/2024 9:52 AM LIGHT ADJUSTER NPCL Ketones, QI(U) Negative Negative mg/dL 04/07/2024 9:52 AM LIGHT ADJUSTER NPCL Bilirubin Negative Negative 04/07/2024 9:52 AM LIGHT ADJUSTER NPCL pH 5.5 5.0 - 8.0 04/07/2024 9:52 AM LIGHT ADJUSTER NPCL Specific [place] 1.010 1.001 - 1.035 04/07/2024 9:52 AM LIGHT ADJUSTER NPCL Urobilinogen 0.2 0.2 - 1.0 mg/dL 04/07/2024 9:52 AM LIGHT ADJUSTER NPCL White Blood Cells 4-10 /hpf 04/07/2024 10:42 AM LIGHT ADJUSTER NPRG Comment: ----REFERENCE VALUE---- Males: 0-3 Females: 0-10 Unknown: 0-10 Red Blood Cells 21-30(A) 0 - 2 /hpf 10:42 AM LIGHT ADJUSTER NPRG Dysmorphic Red Blood Cells <=25 <=25 % 04/07/2024 10:42 AM LIGHT ADJUSTER NPRG Squamous Cells Occ-3 /hpf 04/07/2024 10:42 AM LIGHT ADJUSTER NPRG Bacteria Present(A) None Seen 04/07/2024 10:42 AM LIGHT ADJUSTER NPRG Urine (Urine, Midstream) 04/07/2024 9:47 AM LIGHT ADJUSTER 04/07/2024 9:47 AM LIGHT ADJUSTER Sandeep Adkins M.D. LAB URINE ORDERABLES Final Res ult [facility] [address] [place] [address], [place] NPCL [facility] [address] [place] [address] NPRG [facility] [address] [place] [address] * Bacterial Culture, Aerobic + Susceptibility, Urine (04/07/2024 9:47 AM LIGHT ADJUSTER) Urine Culture Urogenital microbiota, susceptibilities not performed per laboratory criteria. 04/08/2024 8:22 AM LIGHT ADJUSTER MKTO Urine (Urine, Midstream) 04/07/2024 9:47 AM LIGHT ADJUSTER 04/07/2024 2:28 PM LIGHT ADJUSTER Comment:Specimen Source Site : Urine Sandeep Adkins M.D. LAB MICROBIOLOGY - GENERAL ORD ERABLES Final Result Performing Organization Address City/[facility]/ZIP Co de Phone Number [facility] [address] [place] [address], [facility] MKTO [facility] [place] [address] [place] [address] documented in this encounter Visit Diagnoses Diagnosis Symptom Urinary documented in this encounter
--- OUTSIDE RECORDS SUMMARY | 2024-04-11 02:27 | XMS_ITS | Encounter Summary ---
Author Organization [facility] Address [address] [place] [address] Care Team Providers Care Yard Hostler Name Role Phone Unavailable Primary Care Provider Unavailabl e Encounter Details Date Type Department Care Team (Late st Contact Info) Description 03/26/2024 9:00 AM STRATEGIC ADVISOR Ancillary Procedure Department of General Surgery Social History Tobacco Use Types Packs/Day Years Used Date Smoking Tobacco: Never Smokeless Tobacco: Never Alcohol Use Standard Drinks/Week Comments Yes 1 (1 standard drink = 0.6 oz pur e alcohol) [facility] Utilities Answer Date Recorded In the past 12 months has [facility] [employer], gas, oil, or water [employer] threatened to shut off services in your [...] How often do you attend chur or buddhist services? More than 4 times per year [...] and heating? Not hard at all 12/30/2022 [facility] [place] of Occupat ional Health - Occupational Stress [...] your living situation today? I have a [facility] place to live 03/26/2024 Education Answer [...] st Contact Info) Description 04/16/2024 2:30 PM STRATEGIC ADVISOR Procedure visit Department of Urology in [place], [place] [address] [place] [address] Dyana Chairez M.D. [address] [place] [address] documented as of this encounter Procedures Procedure Name Priority Date/Time Associated Diagnosis Comments SURGERY IMAGE EXAM Routine 03/26/2024 9: 00 AM STRATEGIC ADVISOR documented in this encounter Results * ROBOT-Surgery Image Exam (03/26/2024 9:00 AM STRATEGIC ADVISOR) 03/26/2024 8:56 AM STRATEGIC ADVISOR Narrative IIMS - 03/26/2024 11:48 AM STRATEGIC ADVISOR This order has been created and auto-finalized [...]
--- OUTSIDE RECORDS SUMMARY | 2024-04-11 02:27 | XMS_ITS | Encounter Summary ---
Author Organization [facility] Address [address] [place] [address] Care Team Providers Care Pier Runner Name Role Phone Unavailable Primary Care Provider Unavailabl e Encounter Details Date Type Department Care Team (Late st Contact Info) Description 03/27/2024 3:05 PM SAND TEMPERER Ancillary Procedure Department of Pulmonary and CC Medicine Social History Tobacco Use Types Packs/Day Years Used Date Smoking Tobacco: Never Smokeless Tobacco: Never Alcohol Use Standard Drinks/Week Comments Yes 1 (1 standard drink = 0.6 oz pur e alcohol) [facility] Utilities Answer Date Recorded In the past 12 months has [facility] [employer], gas, oil, or water [employer] threatened to shut off services in your [...] often do you attend chur ch or jainism services? More than 4 times per year 11/27/2021 Do you belong to any clubs o r organizations such as presybeterian groups, unions, fraternal or athletic groups, or [...] and heating? Not hard at all 12/30/2022 [facility] of Occupat ional Health - Occupational Stress [...] your living situation today? I have a [facility] place to live 03/26/2024 Education Answer [...] st Contact Info) Description 04/16/2024 2:30 PM SAND TEMPERER Procedure visit Department of Urology in [place], [place] [address] [place] [address] Dyana Chairez M.D. [address] [place] [address] documented as of this encounter Procedures Procedure Name Priority Date/Time Associated Diagnosis Comments PULMONARY AND CC MEDICINE IMAGE EXAM Routine 03/27/2024 3:05 PM SAND TEMPERER documented in this encounter Results * Non-Radiology Image-Pulmonary And CC Medicine Image Exam (03/27/2024 3:05 PM SAND TEMPERER) 03/27/2024 3:03 PM SAND TEMPERER Narrative IIMS - 03/27/2024 3:12 PM SAND TEMPERER This order has been created and auto-finalized [...]
--- OUTSIDE RECORDS SUMMARY | 2024-04-11 02:27 | XMS_ITS | Clinical Summary ---
Author Organization [facility] Address [address] [place] [address] Care Team Providers Care Otr Driver Name Role Phone Unavailable Primary Care Provider Unavailabl e Source Comments Patient records contain information from all sites at [facility]. For routine questions regarding patient records, call [phone] during business hours, M-F 8:00 AM - 5:00 PM Central Time. Record requests for emergency care only can be directed to [phone] at any time.[facility] Allergies Active Allergy Reactions Criticality Noted Date Comments Amoxicillin-Pot Clavulanate Hives (Reselect Reaction) High 03/09/2015 Medications * This document contains information received from the source organization and may not represent a complete record from that organization. estradioL (ESTRACE) 0.1 mg/g (0.01%) vaginal cream APPLY 1 GRAM 2-3 TIMES PER WEEK 08/31/19 22 Active LORazepam (ATIVAN) 0.5 mg tablet Take 0.5 mg by mouth every 6 (six) hours as needed (for flight). 11/04/19 21 Active loratadine (CLARITIN) 10 mg tablet Take 10 mg by mouth daily. Active ascorbic acid, vitamin C, (ascorbic acid) 250 mg tablet,chewable Chew 750 mg daily. Active Crestor 5 mg tablet Take 5 mg by mouth every other day. 07/25/19 24 Active coQ10, ubiquinol, (Qunol Bc CoQ10) 100 mg capsule capsule Take 100 mg by mouth daily. Active zoledronic acid/mannitol-violet er (RECLAST IV) Infuse into a venous catheter. Once/year Active tamsulosin (Flomax) 0.4 mg 24 hr capsule Take 1 capsule (0.4 mg total) by mouth daily as needed (stent pain). 40 capsule 1 5 2:56 PM AMPOULE SEALER 03/28/19 25 Active oxyBUTYnin (Ditropan XL) 10 mg 24 hr tablet Take 1 tablet (10 mg total) by mouth daily as needed (bladder spasms). 40 tablet 1 5 2:56 PM AMPOULE SEALER 03/28/19 25 Active acetaminophen (TylenoL) 500 mg tablet Take 2 tablets (1,000 mg total) by mouth every 6 (six) hours as needed for pain. Can potato picker over the counter 03/28/19 25 Active ibuprofen 600 mg tablet Take 1 tablet (600 mg total) by mouth every 6 (six) hours as needed for pain. 03/28/19 25 Active oxyCODONE (Roxicodone) 5 mg immediate release tabletIndications :Acute Pain Take 1 tablet (5 mg total) by mouth every 4 (four) hours as needed for severe pain or score 7-10 of 10 Indication: Acute Pain. 10 tablet 5 2:56 PM AMPOULE SEALER 03/28/19 25 Active methocarbamoL (ROBAXIN) 750 mg tablet Take 1 tablet by mouth as needed. Haven't taken in while 05/07/19 21 024 Discontinued tamsulosin (Flomax) 0.4 mg 24 hr capsule Take 1 capsule (0.4 mg total) by mouth daily. 30 capsule 1 02/18/20 24 025 Discontinued UNABLE TO FIND 4 each 2 (two) times a day. Med Name: AlgaeCal [id number] Discontinued sulfamethoxazole- trimethoprim (Bactrim DS) 800-160 mg per tabletIndications :Hydronephrosis Take 1 tablet by mouth 2 (two) times a day for 5 days. 10 tablet 03/16/20 24 024 levoFLOXacin (Levaquin) 500 mg tabletIndications :Hydronephrosis,O bstruction Ureteropelvic Take 1 tablet (500 mg total) by mouth daily before morning meal for 2 doses. 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 04/07/2024 9:26 AM AMPOULE SEALER - 04/07/2024 11:59 PM AMPOULE SEALER Hospital Encounter Department of Laboratory Medicine in [place] [address] [place] [address] Sandeep Adkins M.D. Symptom Urinary Discharge Disposition: Home or Self Care 04/06/2024 Orders Only Department of Urology in [place], [place] [address] [place] [phone] Sandeep Adkins M.D. Symptom Urinary (Primary Dx) 04/06/2024 Clinical Communication Department of Urology in [place], [place] [address] [place] [phone] Sandeep Adkins M.D. After Visit Question 04/01/2024 Clinical Communication Division of Pulmonary Medicine in [place], [place] [address] [place] [phone] Yaritza Silva D.O. Questions regarding her bandage over her chest tube site 03/27/2024 3:05 PM AMPOULE SEALER Ancillary Procedure Department of Pulmonary and CC Medicine 03/26/2024 1:15 PM AMPOULE SEALER Ancillary Procedure Department of Anesthesiology 03/26/2024 9:05 AM AMPOULE SEALER Ancillary Procedure Department of Urology 03/26/2024 9:00 AM AMPOULE SEALER Ancillary Procedure Department of General Surgery 03/26/2024 7:59 AM AMPOULE SEALER Anesthesia Event [facility] OR [address] [place] [address] Elian Cunha M.D. Kamath, Gerard S, M.D. 03/26/2024 7:30 AM AMPOULE SEALER - 03/26/2024 11:54 AM AMPOULE SEALER Surgery [facility] OR [address] [place] [address] Sandeep Adkins M.D. ROBOTIC-ASSISTED SIDE TO SIDE ANASTOMOSIS OF LOWER POLE TO UPPER POLE MOIETIES. 03/26/2024 5:46 AM AMPOULE SEALER - 03/28/2024 3:37 PM AMPOULE SEALER Hospital Encounter [facility], Sixth Floor [address] [place] [address] Sandeep Adkins M.D. Hydronephrosis (Primary Dx); Obstruction Ureteropelvic Discharge Disposition: Home or Self Care 03/24/2024 Refill Department of Urology in [place], [place] [address] [place] [phone] Aurelio Barrios M.D. Med Change Request 03/19/2024 11:42 AM AMPOULE SEALER - 03/19/2024 11:59 PM AMPOULE SEALER Hospital Encounter Department of Radiology, [facility], in [place], [place] [address] [place] [phone] Aurelio Barrios M.D. Hydronephrosis Discharge Disposition: Home or Self Care 03/16/2024 Orders Only Department of Urology in [place], [place] [address] [place] [phone] Aurelio Barrios M.D. Hydronephrosis (Primary Dx) 03/15/2024 8:45 AM AMPOULE SEALER Telemedicine Preoperative Evaluation Center in [place], [place] [address] [place] [phone] Aurelio Barrios M.D. Pauly, Jacob J, APRN, C.N.P., M.S. Preanesthetic Medical Exam (Primary Dx); Hydronephrosis; Duplicate Ureter; Anesthesia Complication Personal History; Hyperlipidemia; Family History Coronary Artery Disease; PreDiabetes; Osteoporosis; Cancer Lung Family History 03/12/2024 12:41 PM AMPOULE SEALER - 03/12/2024 11:59 PM AMPOULE SEALER Hospital Encounter Department of Radiology, [address] [phone] Aurelio Barrios M.D. Hydronephrosis Discharge Disposition: Home or Self Care 03/12/2024 11:31 AM AMPOULE SEALER - 03/12/2024 12:40 PM AMPOULE SEALER Hospital Encounter Department of Laboratory Medicine and Pathology, [address] [phone] Aurelio Barrios M.D. Hydronephrosis Discharge Disposition: Home or Self Care 03/12/2024 9:45 AM AMPOULE SEALER Clinical Communication Virtual Review in [address] [phone] Pre-visit Intake 03/09/2024 1:00 PM AMPOULE SEALER Procedure visit Department of Urology in [address] [phone] Sandeep Adkins M.D. Hydronephrosis 02/24/2024 Clinical Communication Department of Urology in [address] [phone] Sandeep Adkins M.D. Med Question 02/20/2024 1:30 PM AMPOULE SEALER Procedure visit Department of Urology in [address] [phone] Aurelio Barrios M.D. Pougnier, Charlotte A, M.D., M.S. Hydronephrosis (Primary Dx); Kidney And Ureter Disorder 02/18/2024 Orders Only Department of Urology in [address] [phone] Aurelio Barrios M.D. 02/18/2024 Clinical Communication Department of Urology in [place], [place] [address] [place] [phone] Sandeep Adkins M.D. Appt Request 02/17/2024 3:55 PM AMPOULE SEALER - 02/17/2024 11:59 PM AMPOULE SEALER Hospital Encounter Department of Laboratory Medicine in [address] [phone] Aurelio Barrios M.D. Hydronephrosis Discharge Disposition: Home or Self Care 02/17/2024 9:00 AM AMPOULE SEALER Telemedicine Department of Urology in [place], [place] [address] [place] [phone] Sandeep Adkins M.D. Hydronephrosis (Primary Dx) 02/17/2024 Orders Only Department of Urology in [address] [phone] Sharron Zarate R.N. Hydronephrosis (Primary Dx) 02/12/2024 Clinical Communication Department of Urology in [address] [phone] Provider, Unknown [facility] - Outside Materials (Urology) 01/26/2024 6:00 PM AMPOULE SEALER Infusion Department of Infusion Therapy in [place], [place] [address] [place] [phone] Angus Ortega M.D. Osteoporosis (Primary Dx) 01/26/2024 4:00 PM AMPOULE SEALER Office Visit Division of Endocrinology in [place], [place] [address] [place] [phone] Angus Ortega M.D. Osteoporosis (Primary Dx) 01/26/2024 1:19 PM AMPOULE SEALER - 01/26/2024 11:59 PM AMPOULE SEALER Hospital Encounter Department of Radiology, [facility], in [place], [place] [address] [place] [address] Angus Ortega M.D. Osteoporosis Discharge Disposition: Home or Self Care 01/26/2024 12:57 PM AMPOULE SEALER - 01/26/2024 1:18 PM AMPOULE SEALER Hospital Encounter Department of Laboratory Medicine and Pathology, [facility], in [place], [place] [address] [place] [address] Angus Ortega M.D. Osteoporosis Discharge Disposition: Home or Self Care 01/23/2024 9:30 AM CDT Clinical Communication Virtual Review in [place], [place] [address] [place] [address] Pre-visit Intake from Last 3 Months Immunizations Immunization Administration Dates Next Due H1N1 All Forms 04/19/2009 HZV (ZOSTAVAX) 02/14/2015 HepA Adult 09/11/2000,03/13/2000 HepB Adult 09/11/2000,04/18/2000,03/13/2000 Influenza TIV (IM) 12/14/2010, 0,12/15/2008,2007,01/05/2007,01/22/2006,02/11/2005,1 04/09/2002 Influenza, Quadrivalent, Adj uvanted, Preservative Free 01/09/2021,01/17/2020 Influenza, Seasonal, Injectable 12/15/19 11,01/16/2010,12/15/2008,2007,01/05/2007,01/22/2006,02/11/2005,1 04/09/2002 Influenza, Unspecified 12/06/2009 PPSV23 09/21/2020 RZV (SHINGRIX) 11/12/2021 Td (Adult), adsorbed 02/05/2003,03/13/2000 Tdap 08/10/2012 influenza trivalent vaccine (6 months and older)(PF) 01/28/2012,12/14/2010,12/06/2009 influenza vaccine QV(FLUBLOK ) (18 years or older) (PF) 12/14/2018 influenza vaccine quad (FLUZ ONE) (6 months-35 months) (PF) 12/15/2012 influenza vaccine quad (FLUZONE/FLUARIX) (6 months and older)(PF) 12/02/2017,12/31/2016,12/07/2015,2014,02/09/2014 Family History Medical History Relation Name Comments Arthritis Father Jr Coronary artery disease Father Jr his early 50's Hyperlipidemia Father Jr Hypertension Father Jr Lung cancer Father Jr 2006, 79 y o Tuberculosis Father Jr 1977? Arthritis Mother Irlanda Colon cancer Mother Irlanda 2008, 73yo Hyperlipidemia Paternal Grandfather Ray Hypertension Paternal Grandfather Ray Relation Name Status Comments Father Jr Alive Mother Irlanda Alive Paternal Grandfather Ray Alive Social History Tobacco Use Types Packs/Day Years Used Date Smoking Tobacco: Never Smokeless Tobacco: Never Tobacco Cessation:Counseling Given: Not Answered Alcohol Use Standard Drinks/Week Comments Yes 1 (1 standard drink = 0.6 oz pur e alcohol) [facility] Utilities Answer Date Recorded In the past 12 months has e electric, gas, oil, or water [employer] threatened to shut off services in your [...] often do you attend chur ch or hindu services? More than 4 times per year 11/27/2021 Do you belong to any clubs o r organizations such as religion groups, unions, fraternal or athletic groups, or [...] and heating? Not hard at all 12/30/2022 [facility] - Occupational [...] your living situation today? I have a [facility] place to live 03/26/2024 Education Answer [...] Orientation Straight 11/27/2021 12 :50 PM CDT Last Filed Vital Signs Vital Sign Reading Time Taken Comments Blood Pressure 125/69 03/28/2024 3:00 PM AMPOULE SEALER Pulse 68 03/28/2024 3:00 PM AMPOULE SEALER Temperature 36.4 C (97.5 F) 03/28/2024 3:00 PM AMPOULE SEALER Respiratory Rate 18 03/28/2024 3:00 PM AMPOULE SEALER Oxygen Saturation 100% 03/28/2024 3:00 PM AMPOULE SEALER Inhaled Oxygen Concentration - - Weight 68.2 kg (150 lb 5.7 oz) 03/27/2024 10:09 AM AMPOULE SEALER Height 161 cm (5' 3.39) 03/26/2024 6:08 AM AMPOULE SEALER Body Mass Index 26.31 03/26/2024 6:08 AM AMPOULE SEALER Plan of Treatment Upcoming Encounters Date Type Department Care Team (Late st Contact Info) Description 04/16/2024 2:30 PM AMPOULE SEALER Procedure visit Department of Urology in [place], [place] [address] [place] [address] Dyana Chairez M.D. [address] [place] [address] Health Maintenance Due Date Last Done Comments CT Colonography 1955 Cologuard 1955 Hepatitis C Screening 1955 Lipid (Cholesterol) Screening 1955 Colonoscopy 10/01/2011 09/30/2006 Colorectal Cancer Surveillance 10/01/2011 Depression Screening (Annual PHQ-2) 03/24/2024 Mammogram 09/25/2024 09/26/2023, 070 07/2023, 09/12/2022, Additional history exists Fasting Glucose for Diabetes Screening 03/27/2025 03/27/2024, 02/02/2024, 09/10/2023, Additional history exists DTaP,Tdap,and Td Vaccines (3 - Td or Tdap) 04/11/2033 04/11/2023, 08/10/2012, 02/05/2003, Additional history exists Hepatitis A Vaccines Completed 09/11/2000, 03/13/20 Hepatitis B Vaccines Completed 09/11/2000, 04/18/2000, 03/13/2000 Zoster Vaccines Completed 11/12/2021, 06/2021, 02/14/2015 Pneumococcal vaccine (50+ years) Completed 01/29/2023, 09/21/2020 Influenza Vaccine Completed 12/09/2023, , 01/23/2022, Additional history exists COVID-19 Vaccine Completed 12/27/2023, , 01/17/2021, Additional history exists Bone Density Scan (Osteoporosis Screen) Discontinued 01/26/2024 Fall Risk Screen (Annual) Completed 03/26/2024 IPV Vaccines Aged Out No longer eligi ble based on patient's age to complete this topic Medical Devices Implanted Type Area Medical Assisting Program Director Device Identifier Shelf Expiration Date Model / Serial / Lot [facility] - [id number] Implanted:Qt y: 1 on 03/26/2024 by Sandeep Adkins M.D. at [facility] Hardware e.g. pins/screws /rods N/A: Abdomen [employer] [id number] 07/21/2026 [id number] / / [id number] Ramses chris Payton Lg - [id number] Implanted:Qt y: 1 on 03/26/2024 by Sandeep Adkins M.D. at [facility] Hardware e.g. pins/screws /rods N/A: Abdomen Robert Applebaum [employer] [id number] 12/07/2028 [id number] / / [id number] Ramses Payton Md - [id number] Implanted:Qt y: 1 on 03/26/2024 by Sandeep Adkins M.D. at [facility] Hardware e.g. pins/screws /rods N/A: Abdomen [employer] [id number] 12/23/2028 [id number] / / [id number] Stnt Uret W/O Gw Tria [id number] - [id number] Implanted:Qt y: 1 on 03/26/2024 by Sandeep Adkins M.D. at [facility] Ureteral Stent Right: Ureter [employer] [id number] 12/17/2026 [id number] / / [id number] Explanted Type Area Medical Assisting Program Director Device Identifier Shelf Expiration Date Model / Serial / Lot Ureteral Stent Explanted:Qty : 1 on 02/20/2024 by Catrachita Villalba M.D., M.S. Ureteral Stent Right: Ureter Procedures Procedure Name Priority Date/Time Associated Diagnosis Comments URINALYSIS WITH MICROSCOPIC Routine 04/07/2024 9:47 AM AMPOULE SEALER Symptom Urinary BACTERIAL CULTURE, AEROBIC + SUSC, URINE Routine 04/07/2024 9:47 AM AMPOULE SEALER Symptom Urinary DX CHEST AP OR PA AND LATERAL 2 VIEWS RAD - Routine (most inpatients and all outpatients) 03/28/2024 7:27 AM AMPOULE SEALER PULMONARY AND CC MEDICINE IMAGE EXAM Routine 03/27/2024 3:05 PM AMPOULE SEALER DX CHEST PORTABLE 1 VIEW RAD - Routine (most inpatients and all outpatients) 03/27/2024 11:46 AM AMPOULE SEALER ADULT OXYGEN THERAPY Routine 03/27/2024 8:01 AM AMPOULE SEALER DX CHEST PORTABLE 1 VIEW RAD - Routine (most inpatients and all outpatients) 03/27/2024 5:56 AM AMPOULE SEALER CBC WITHOUT DIFFERENTIAL, B Routine 03/27/2024 3:23 AM AMPOULE SEALER BASIC METABOLIC PANEL, S/P Routine 03/27/2024 3:23 AM AMPOULE SEALER ADULT OXYGEN THERAPY Routine 03/26/2024 8:[address] CHEST TUBE PLACEMENT RAD - Semiurgent (Fast; most ED patients; some inpatients) 03/26/2024 4:35 PM AMPOULE SEALER ADULT OXYGEN THERAPY Routine 03/26/2024 2:26 PM AMPOULE SEALER ADULT OXYGEN THERAPY Routine 03/26/2024 2:26 PM AMPOULE SEALER ADULT OXYGEN THERAPY Routine 03/26/2024 2:26 PM AMPOULE SEALER ANESTHESIOLOGY IMAGE EXAM Routine 03/26/2024 1:15 PM AMPOULE SEALER DX CHEST 1 VIEW RAD - Timed (for specific dates/times) 03/26/2024 12:24 PM AMPOULE SEALER DX CHEST PORTABLE 1 VIEW RAD - Routine (most inpatients and all outpatients) 03/26/2024 11:48 AM AMPOULE SEALER FL FLUORO LESS THAN 1 HOUR RAD - Routine (most inpatients and all outpatients) 03/26/2024 9:32 AM AMPOULE SEALER UROLOGY IMAGE EXAM Routine 03/26/2024 9: 05 AM AMPOULE SEALER SURGERY IMAGE EXAM Routine 03/26/2024 9: 00 AM AMPOULE SEALER LDA ANE ENDOTRACHEAL AIRWAY Routine 03/26/2024 8:07 AM AMPOULE SEALER BLOCK - TRANSVERSUS ABDOMINIS PLANE 03/26/2024 7:29 AM AMPOULE SEALER Hydronephrosis ROBOTIC-ASSISTED PYELOPLASTY 03/26/2024 7:29 AM AMPOULE SEALER Hydronephrosis RETROGRADE PYELOGRAM 03/26/2024 7:29 AM AMPOULE SEALER Hydronephrosis CYSTOSCOPY INSERTION STENT URETER 03/26/2024 7:29 AM AMPOULE SEALER Hydronephrosis CT UROGRAM WITHOUT AND WITH IV CONTRAST RAD - Routine (most inpatients and all outpatients) 03/19/2024 1:03 PM AMPOULE SEALER Hydronephrosis NM KIDNEY WITH LASIX RAD - Routine (most inpatients and all outpatients) 03/12/2024 2:42 PM AMPOULE SEALER Hydronephrosis PH, U Routine 03/12/2024 11:46 AM AMPOULE SEALER DIPSTICK, U Routine 03/12/2024 11:46 AM AMPOULE SEALER OSMOLALITY, U Routine 03/12/2024 11:46 AM AMPOULE SEALER MICROSCOPIC AUTOMATED Routine 03/12/2024 11:46 AM AMPOULE SEALER URINALYSIS WITH MICROSCOPIC Routine 03/12/2024 11:46 AM AMPOULE SEALER Hydronephrosis BACTERIAL CULTURE, AEROBIC + SUSC, URINE Routine 03/12/2024 11:46 AM AMPOULE SEALER Hydronephrosis URO VCUG Routine 03/09/2024 1:16 PM AMPOULE SEALER Hydronephrosis URO CYSTO W/RETROGRADE PYELOGRAM Routine 03/09/2024 1:00 PM AMPOULE SEALER Hydronephrosis BACTERIAL CULTURE, AEROBIC + SUSC, URINE Routine 02/20/2024 1:46 PM AMPOULE SEALER Hydronephrosis Kidney And Ureter Disorder URO CYSTO W/STENT REMOVAL Routine 02/20/2024 1:30 PM AMPOULE SEALER Hydronephrosis BACTERIAL CULTURE, AEROBIC + SUSC, URINE Routine 02/17/2024 3:57 PM AMPOULE SEALER Hydronephrosis OUTSIDE CT BODY Routine 02/02/2024 3:30 PM AMPOULE SEALER BMD BONE DENSITY SPINE HIPS RAD - Routine (most inpatients and all outpatients) 01/26/2024 1:47 PM AMPOULE SEALER Osteoporosis BETA-CROSSLAPS (BETA-CTX), S Routine 01/26/2024 1:06 PM AMPOULE SEALER Osteoporosis CALCIUM, TOT, S/P Routine 01/26/2024 1:0 6 PM AMPOULE SEALER Osteoporosis CREATININE WITH EGFR, S/P Routine 01/26/2024 1:06 PM AMPOULE SEALER Osteoporosis from Last 3 Months Results * Bacterial Culture, Aerobic + Susceptibility, Urine (04/07/2024 9:47 AM AMPOULE SEALER) Only the most recent of4 resultswithin the time period is included. Urine Culture Urogenital microbiota, susceptibilities not performed per laboratory criteria. 04/08/2024 8:22 AM AMPOULE SEALER [facility] Urine (Urine, Midstream) 04/07/2024 9:47 AM AMPOULE SEALER 04/07/2024 2:28 PM AMPOULE SEALER Comment:Specimen Source Site : Urine Sandeep Adkins M.D. LAB MICROBIOLOGY - GENERAL [place] [address], [place] [address] * (ABNORMAL) Urinalysis, with Microscopic: Urine, Midstream (04/07/2024 9:47 AM AMPOULE SEALER) Only the most recent of2 resultswithin the time period is included. Source Urine, Urine, Midstream 04/07/2024 9:47 AM AMPOULE SEALER NPCL Clarity Clear Clear 04/07/2024 9:52 AM AMPOULE SEALER NPCL Color Yellow 04/07/2024 9:52 AM AMPOULE SEALER NPCL Comment: ----REFERENCE VALUE---- Colorless Yellow Raisa Blood Large(A) Negative 04/07/2024 9:52 AM AMPOULE SEALER NPCL Nitrite Negative Negative 04/07/2024 9:52 AM AMPOULE SEALER NPCL Leukocyte Esterase Small(A) Negative 04/07/2024 9:52 AM AMPOULE SEALER NPCL Protein 30(A) mg/dL 04/07/2024 9:52 AM AMPOULE SEALER NPCL Comment: ----REFERENCE VALUE---- Negative Trace Glucose Negative Negative mg/dL 04/07/2024 9:52 AM AMPOULE SEALER NPCL Ketones, QI(U) Negative Negative mg/dL 04/07/2024 9:52 AM AMPOULE SEALER NPCL Bilirubin Negative Negative 04/07/2024 9:52 AM AMPOULE SEALER NPCL pH 5.5 5.0 - 8.0 04/07/2024 9:52 AM AMPOULE SEALER NPCL Specific Colon 1.010 1.001 - 1.035 04/07/2024 9:52 AM AMPOULE SEALER NPCL Urobilinogen 0.2 0.2 - 1.0 mg/dL 04/07/2024 9:52 AM AMPOULE SEALER NPCL White Blood Cells 4-10 /hpf 04/07/2024 10:42 AM AMPOULE SEALER NPRG Comment: ----REFERENCE VALUE---- Males: 0-3 Females: 0-10 Unknown: 0-10 Red Blood Cells 21-30(A) 0 - 2 /hpf 10:42 AM AMPOULE SEALER NPRG Dysmorphic Red Blood Cells <=25 <=25 % 04/07/2024 10:42 AM AMPOULE SEALER NPRG Squamous Cells Occ-3 /hpf 04/07/2024 10:42 AM AMPOULE SEALER NPRG Bacteria Present(A) None Seen 04/07/2024 10:42 AM AMPOULE SEALER NPRG Urine (Urine, Midstream) 04/07/2024 9:47 AM AMPOULE SEALER 04/07/2024 9:47 AM AMPOULE SEALER us Sandeep Adkins M.D. LAB URINE ORDERABLES Final Res ult [facility] [address] [place] [address], [facility] NPCL [facility] [address] [place] [id number] NPRG [facility] [address] [place] [address] * DX Chest AP or PA and Lateral 2 Views (03/28/2024 7:27 AM AMPOULE SEALER) Anatomical Region Laterality Modality Chest, Thoracic RST LOS, Tho racic ARZ LOS, Thoracic FLA LOS N/A Digital Radiography Impressions 03/28/2024 7:46 AM AMPOULE SEALER Since 03/27/2024, no significant change. No definite pneumothorax. Right-sided chest tube. Left basilar atelectasis. Partially visualized right nephroureteral stent. Narrative 03/28/2024 7:46 AM AMPOULE SEALER EXAM: DX CHEST AP OR PA AND LATERAL 2 VIEWS Procedure Note Jaya Mccormick M.D. - 03/28/2024 EXAM: DX CHEST AP OR PA AND LATERAL 2 VIEWS IMPRESSION: Since 03/27/2024, no significant change. No definite pneumothorax.Right-sided chest tube. Left basilar atelectasis. Partially visualizedright nephroureteral stent. us Yaritza Silva D.O. IMG DIAGNOSTIC IMAGING PRO CEDURES Final Result * Non-Radiology Image-Pulmonary And CC Medicine Image Exam (03/27/2024 3:05 PM AMPOULE SEALER) 03/27/2024 3:03 PM AMPOULE SEALER Narrative IIMS - 03/27/2024 3:12 PM AMPOULE SEALER This order has been created and auto-finalized to support the import of images acquired without order. The clinical documentation to support these images can be found on the encounter that produced images. us Provider Not In System IMG NON RAD IMAGING PROCE DURES Final Result IIMS NA * DX Chest Portable 1 View (03/27/2024 11:46 AM AMPOULE SEALER) Only the most recent of3 resultswithin the time period is included. Anatomical Region Laterality Modality Chest, Thoracic RST LOS, Tho racic ARZ LOS, Thoracic FLA LOS N/A Digital Radiography Impressions 03/27/2024 11:58 AM AMPOULE SEALER Since earlier today, no significant change. No definite pneumothorax. Right- sided chest tube. Left basilar atelectasis. Partially visualized right nephroureteral stent. Narrative 03/27/2024 11:58 AM AMPOULE SEALER EXAM: DX CHEST PORTABLE 1 VIEW Procedure Note Jaya Mccormick M.D. - 03/27/2024 EXAM: DX CHEST PORTABLE 1 VIEW IMPRESSION: Since earlier today, no significant change. No definite pneumothorax.Right-sided chest tube. Left basilar atelectasis. Partially visualizedright nephroureteral stent. Yaritza Silva D.O. IMMorgan DIAGNOSTIC IMAGING PRO CEDURES Final Result * (ABNORMAL) CBC without Differential (03/27/2024 3:23 AM AMPOULE SEALER) Hemoglobin 11.5(L) 11.6 - 15.0 g/dL 03/27/2024 3:44 AM AMPOULE SEALER DTL Hematocrit 35.8 35.5 - 44.9 % 03/27/2024 3:44 AM AMPOULE SEALER DTL Erythrocytes 3.84(L) 3.92 - 5.13 x10(12)/L 03/27/2024 3:44 AM AMPOULE SEALER DTL MCV 93.2 78.2 - 97.9 fL 03/27/2024 3:44 AM AMPOULE SEALER DTL RBC Distrib Width 13.4 12.2 - 16.1 % 03/27/2024 3:44 AM AMPOULE SEALER DTL Platelet Count 142(L) 157 - 371 x10(9)/L 03/27/2024 4:24 AM AMPOULE SEALER DTL Comment:Results confirmed by smear, no clumping or interference seen. Leukocytes 7.6 3.4 - 9.6 x10(9)/L 03/27/2024 4:24 AM AMPOULE SEALER DTL Blood (Blood, Venous) 03/27/2024 3:23 AM AMPOULE SEALER 03/27/2024 3:38 AM AMPOULE SEALER Dyana Chairez M.D. LAB BLOOD ADD-ON Final Re sult [facility] [address] [place] [address], [facility] [address] [place] [address] * (ABNORMAL) Basic Metabolic Panel (03/27/2024 3:23 AM AMPOULE SEALER) Potassium, S 4.7 3.6 - 5.2 mmol/L 03/27/2024 4:09 AM AMPOULE SEALER DTL Sodium, S 139 135 - 145 mmol/L 03/27/2024 4:09 AM AMPOULE SEALER DTL Chloride, S 105 98 - 107 mmol/L 03/27/2024 4:09 AM AMPOULE SEALER DTL Bicarbonate, S 22 22 - 29 mmol/L 03/27/2024 4:09 AM AMPOULE SEALER DTL Anion Gap 12 7 - 15 03/27/2024 4:09 AM AMPOULE SEALER DTL BUN (Blood Urea Nitrogen), S 10 6 - 21 mg/dL 03/27/2024 4:09 AM AMPOULE SEALER DTL Creatinine 0.74 0.59 - 1.04 mg/dL 03/27/2024 4:09 AM AMPOULE SEALER DTL Estimated GFR (eGFR) 88 >=60 mL/min/BSA 03/27/2024 4:09 AM AMPOULE SEALER DTL Comment: Estimated GFR calculated using the 2020 CKD_EPI creatinine equation. Calcium, Total, S 8.4(L) 8.8 - 10.2 mg/dL 03/27/2024 4:09 AM AMPOULE SEALER DTL Glucose, S 122 70 - 140 mg/dL 03/27/2024 4:09 AM AMPOULE SEALER DTL Blood (Blood, Venous) 03/27/2024 3:23 AM AMPOULE SEALER 03/27/2024 3:53 AM AMPOULE SEALER Dyana Chairez M.D. LAB BLOOD ADD-ON Final Re sult [facility] [address] [place] [address], [facility] [address] [place] [address] * CT Chest Tube Placement (03/26/2024 4:35 PM AMPOULE SEALER) Anatomical Region Laterality Modality Chest, Abdominal RST LOS, Va scular Interventional ARZ LOS, Procedure FLA LOS, Vascular Interventional FLA LOS, Procedural, Procedural NWWI LOS N/A Computed Tomography, C omputed Tomography Impressions 03/26/2024 4:[address]-guided right pleural pigtail catheter placement. NR Narrative 03/26/2024 4:50 PM AMPOULE SEALER EXAM: CT CHEST TUBE PLACEMENT PRE-PROCEDURE: Patient [...] was exchanged over wire for a 10 Sami locking loop catheter. The catheter was secured [...] IMG CT PROCEDURES Final Res ult * Non-Radiology Image-Anesthesiology Image Exam (03/26/2024 1:15 PM AMPOULE SEALER) Narrative IIMS - 03/27/2024 2:01 AM AMPOULE SEALER This order has been created and auto-finalized to support the import of images acquired without order. The clinical documentation to support these images can be found on the encounter that produced images. us Provider Not In System IMG NON RAD IMAGING PROCE DURES Final Result IIMS NA * DX Chest 1 View (03/26/2024 12:24 PM AMPOULE SEALER) Anatomical Region Laterality Modality Chest, Thoracic RST LOS, Tho racic ARZ LOS, Thoracic FLA LOS N/A Digital Radiography Impressions 03/26/2024 12:33 PM AMPOULE SEALER Interval removal of the right endotracheal tube. More shallow inspiration accentuates the cardiac silhouette, and pulmonary vascularity. The size of the right apical pneumothorax is unchanged given differences of technique/positioning, with pleural line projected between the posterior right third and fourth ribs. Stable linear atelectasis in the left base. Calcified left hilar nodes. Narrative 03/26/2024 12:33 PM AMPOULE SEALER EXAM: DX CHEST 1 VIEW Procedure Note [...] nodes. Dyana Chairez M.D. IMG DIAGNOSTIC IMAGING MO OCEDURES Final Result * FL Fluoro Less Than 1 Hour (03/26/2024 9:32 AM AMPOULE SEALER) Narrative [id number] - 03/26/2024 9:33 AM AMPOULE SEALER This exam does not require a radiologist review or interpretation. Please refer to the patient's medical record on this date for clinical details. Sandeep Adkins M.D. IMG FLUOROSCOPY PROCEDURES Fin al Result Performing Organization Address [facility] de Phone Number [id number] NA * FL FLUORO LESS THAN 1 HOUR-Urology Image Exam (03/26/2024 9:05 AM AMPOULE SEALER) 03/26/2024 9:04 AM AMPOULE SEALER Narrative IIMS - 03/26/2024 10:18 AM AMPOULE SEALER This order has been created and auto-finalized to support the import of images acquired without order. The clinical documentation to support these images can be found on the encounter that produced images. Provider Not In System IMG NON RAD IMAGING PROCE DURES Final Result Performing Organization Address [facility] de Phone Number IIMS NA * ROBOT-Surgery Image Exam (03/26/2024 9:00 AM AMPOULE SEALER) 03/26/2024 8:56 AM AMPOULE SEALER Narrative IIMS - 03/26/2024 11:48 AM AMPOULE SEALER This order has been created and auto-finalized to support the import of images acquired without order. The clinical documentation to support these images can be found on the encounter that produced images. Provider Not In System IMG NON RAD IMAGING PROCE DURES Final Result Performing Organization Address [facility] de Phone Number IIMS NA * LDA ANE ENDOTRACHEAL AIRWAY (03/26/2024 8:07 AM AMPOULE SEALER) Narrative Germán Constantino - 03/26/2024 8:07 AM AMPOULE SEALER Germán Constantino 03/26/2024 8:30 AM Airway Date/Time: [...] Erasto Patino M.D. ANESTHESIA ORDERABLES Final Result * CT Urogram without and with IV Contrast (03/19/2024 1:03 PM AMPOULE SEALER) Anatomical Region Laterality Modality Abdomen, Pelvis, Abdominal R ST LOS, Abdominal ARZ LOS, Abdominal FLA LOS N/A Computed Tomography 03/19/2024 12:4 8 PM AMPOULE SEALER Impressions 03/19/2024 1:18 PM AMPOULE SEALER Partial right renal collecting system duplication. Interval decrease in right lower pole moiety hydronephrosis. No obstructing stone or lesion identified. Narrative 03/19/2024 1:18 PM AMPOULE SEALER EXAM: CT UROGRAM WITHOUT AND WITH IV CONTRAST COMPARISON: 05/07/2020 CT, 03/12/2024 Lasix renogram, 02/02/2024 CT FINDINGS: : Partially duplicated right renal collecting system. Two ureters proximally and then they join above the iliac crossing. The lower pole moiety shows mild hydronephrosis and hydroureter but substantially improved from 02/02/2024. Smooth tapering at the ureteral ureteral junction. No stone or obstructing mass. Right lower pole enhancement has normalized. Left shows near complete duplication with [address] to the level of the UVJ. No left hydronephrosis. No urolithiasis. No suspicious upper tract lesion. No large bladder filling defect. Non-: No abdominal or pelvic lymphadenopathy. Hepatic cysts. Gallbladder decompressed. Spleen, pancreas, adrenals negative. No ascites. Negative appendix. No aggressive appearing osseous lesion. Procedure Note Courtney Huang M.D. - 03/19/2024 EXAM: CT UROGRAM WITHOUT AND WITH IV CONTRAST COMPARISON: 05/07/2020 CT, 03/12/2024 Lasix renogram, 02/02/2024 CT FINDINGS: : Partially duplicated right renal collecting system. Two uretersproximally and then they join above the iliac crossing. The lower polemoiety shows mild hydronephrosis and hydroureter but substantiallyimproved from 02/02/2024. Smooth tapering at the ureteral ureteral junction. No stone or obstructing mass. Right lowerpole enhancement has normalized. Left shows near complete duplication with2 ure[address] to the level of the UVJ. No left hydronephrosis. Nourolithiasis. No suspicious upper tract lesion. No large bladder filling defect. Non-: No abdominal or pelvic lymphadenopathy. Hepatic cysts. Gallbladderdecompressed. Spleen, pancreas, adrenals negative. No ascites. Negativeappendix. No aggressive appearing osseous lesion. IMPRESSION: Partial right renal collecting system duplication. Interval decrease inright lower pole moiety hydronephrosis. No obstructing stone or lesionidentified. Aurelio FERREIRA CT PROCEDURES Final R esult * NM Kidney with Lasix (03/12/2024 2:42 PM AMPOULE SEALER) Anatomical Region Laterality Modality Renal, Nuclear Medicine RST LOS, Nuclear Medicine ARZ LOS, Nuclear Medicine FLA LOS, Nuclear Medicine N/A Nuclea r Medicine Impressions 03/12/2024 4:16 PM AMPOULE SEALER 1. Differential renal function measures 49.6% on the right and 50.4% on the left. 2. No scintigraphic evidence of obstruction. Narrative 03/12/2024 4:16 PM AMPOULE SEALER EXAM: NM KIDNEY WITH LASIX RADIOPHARMACEUTICAL/MEDS: Route: intravenous technetium Tc 99m mertiatide (Tc-99m MAG3),10.923 millicurie Route: intravenous furosemide injection 1.5-40 mg (Lasix) , 33.55 mg TECHNIQUE: Planar dynamic vascular flow and function images of the kidneys beginning immediately following IV radiotracer injection. Additional posterior planar images of the kidneys obtained with pharmacologic intervention using intravenous Lasix. COMPARISON: CT abdomen/pelvis 02/02/2024 INDICATION: Hydronephrosis FINDINGS: RIGHT: Angiographic phase demonstrates normal perfusion to the kidney. Prompt cortical uptake of radiotracer and transit to the bifid renal collecting system. Delayed phase demonstrates spontaneous clearance prior to and following Lasix administration from both the superior and inferior moieties. LEFT: Angiographic phase demonstrates normal perfusion to the kidney. Prompt cortical uptake of radiotracer and transit to the renal collecting system. Delayed phase demonstrates spontaneous clearance prior to Lasix. Differential renal function: 49.6% on the right and 50.4% on the left. Procedure Note James Paez M.D., Ph.D. - 03/12/2024 EXAM: NM KIDNEY WITH LASIX RADIOPHARMACEUTICAL/MEDS: Route: intravenous technetium Tc 99m mertiatide (Tc-99m MAG3),10.923 millicurie Route: intravenous furosemide injection 1.5-40 mg (Lasix) , 33.55 mg TECHNIQUE: Planar dynamic vascular flow and function images of the kidneysbeginning immediately following IV radiotracer injection. Additionalposterior planar images of the kidneys obtained with pharmacologicintervention using intravenous Lasix. COMPARISON: CT abdomen/pelvis 02/02/2024 INDICATION: Hydronephrosis FINDINGS: RIGHT: Angiographic phase demonstrates normal perfusion to the kidney. Promptcortical uptake of radiotracer and transit to the bifid renal collectingsystem. Delayed phase demonstrates spontaneous clearance prior to and followingLasix administration from both the superior and inferior moieties. LEFT: Angiographic phase demonstrates normal perfusion to the kidney. Promptcortical uptake of radiotracer and transit to the renal collectingsystem. Delayed phase demonstrates spontaneous clearance prior to Lasix. Differential renal function: 49.6% on the right and 50.4% on the left. IMPRESSION: 1. Differential renal function measures 49.6% on the right and 50.4% onthe left. 2. No scintigraphic evidence of obstruction. us Aurelio Barrios M.D. IMG NM PROCEDURES Final R esult * Dipstick, Urine (03/12/2024 11:46 AM AMPOULE SEALER) Hemoglobin, QL, U Negative Negative 03/12/2024 12:24 PM AMPOULE SEALER DTL Leukocyte Esterase, U Negative Negative 03/12/2024 12:24 PM AMPOULE SEALER DTL Nitrite, U Negative Negative 03/12/2024 12:24 PM AMPOULE SEALER DTL Ketone, U Negative Negative mg/dL 03/12/2024 12:24 PM AMPOULE SEALER DTL Glucose, U Negative Negative mg/dL 03/12/2024 12:24 PM AMPOULE SEALER DTL Urine 03/12/2024 11:4 6 AM AMPOULE SEALER 03/12/2024 12:09 PM AMPOULE SEALER us Aurelio Barrios M.D. LAB URINE [place]AB[place] [address], [facility] [place] [address] * Microscopic Automated (03/12/2024 11:46 AM AMPOULE SEALER) Microscopy Normal 03/12/2024 12:24 PM AMPOULE SEALER DTL RBC None Seen <3 /hpf 03/12/2024 12:24 PM AMPOULE SEALER DTL WBC None Seen /hpf 03/12/2024 12:24 PM AMPOULE SEALER DTL Comment: ----REFERENCE VALUE---- <4 (Males) <11 (Females) Squamous Epithelial Cells, U 1-3 /hpf 03/12/2024 12:24 PM AMPOULE SEALER DTL Urine 03/12/2024 11:4 6 AM AMPOULE SEALER 03/12/2024 12:09 PM AMPOULE SEALER us Aurelio Barrios M.D. LAB URINE ORDERABLES Shiela l Result Performing Organization Address City/[facility] Co de Phone Number [facility] [address] [place] [address] * pH, Urine (03/12/2024 11:46 AM AMPOULE SEALER) pH, U 5.4 4.5 - 8.0 03/12/2024 12: 34 PM AMPOULE SEALER DTL Urine 03/12/2024 11:4 6 AM AMPOULE SEALER 03/12/2024 12:09 PM AMPOULE SEALER Aurelio Barrios M.D. LAB URINE ORDERABLES Shiela l Result Performing Organization Address [facility] Co de Phone Number [facility] [address] [place] [address] * Osmolality, Urine (03/12/2024 11:46 AM AMPOULE SEALER) Osmolality, U 248 150 - 1150 mOsm/kg 03/12/2024 12:34 PM AMPOULE SEALER DTL Urine 03/12/2024 11:4 6 AM AMPOULE SEALER 03/12/2024 12:09 PM AMPOULE SEALER Aurelio Barrios M.D. LAB URINE ORDERABLES Shiela l Result Performing Organization Address City/[facility]/ZIP Co de Phone Number [facility] [address] [place], [place] [address] [place] [address] [address] [place] [address] * URO VCUG (03/09/2024 1:16 PM AMPOULE SEALER) Narrative Aurelio Barrios M.D. - 03/09/2024 1:00 PM AMPOULE SEALER Aurelio Barrios M.D. 03/09/2024 2:33 PM URO VCUG Performed by: Aurelio Barrios M.D. Authorized by: Aurelio Barrios M.D. us Aurelio Barrios M.D. UROLOGY ORDERABLES Edited Result - Final * URO Cysto w/retrograde pyelogram (03/09/2024 1:00 PM AMPOULE SEALER) Narrative Aurelio Barrios M.D. - 03/09/2024 1:00 PM AMPOULE SEALER Aurelio Barrios M.D. 03/09/2024 2:33 PM URO Cysto w/retrograde pyelogram Performed by: Aurelio Barrios M.D. Authorized by: Sandeep Adkins M.D. Care team members present 1. Aurelio Barrios M.D. us Sandeep Adkins M.D. UROLOGY ORDERABLES Edited Resu lt - Final * Cysto w/stent removal (02/20/2024 1:30 PM AMPOULE SEALER) Narrative Catrachita Villalba M.D., M.S. - 02/20/2024 1:30 PM AMPOULE SEALER Catrachita Villalba M.D., M.S. 02/20/2024 2:01 PM Cysto w/stent removal Performed by: Catrachita Villalba M.D., M.S. Authorized by: Aurelio Barrios M.D. IMPRESSION foreign body PROCEDURE DETAILS: Tubes: Stent location: Right Stent encrusted: no Indication: The patient is s/p right ureteral stent placement on 02/02/24 for right duplicated system lower moiety hydronephrosis, and presents today for ureteral stent removal. Patient has been on amoxicillin for Enterococcus faecalis urine culture. After patient identification and verification of informed consent, the patient was prepped and draped in the standard fashion in the lithotomy position. Flexible cystourethroscopy was performed through plain jelly. The urethra was normal. Upon entry into the bladder, the right ureteral stent was immediately identified emanating from the right ureteral orifice with mild biofilm and no significant encrustation. This was grasped with the stent grasper and removed in its entirety without difficulty. Back table inspection confirmed intact stent. The patient tolerated the procedure well and there were no immediate complications. Follow Up: Patient is scheduled for right diagnostic ureteroscopy, proceed as indicated with Dr. Adkins on 03/26/24. PRE-PROCEDURE DETAILS Procedure purpose: Therapeutic Indications: Stent removal Site preparation: Povidone-iodine SEDATION / ANESTHESIA Anesthesia method: none POST-PROCEDURE DETAILS Procedure completed successfully: yes Complications: no apparent complications Aurelio Barrios M.D. UROLOGY ORDERABLES Final Result * CT CHEST PE ABDOMEN PELVIS W CONTRAST-Outside CT Body (02/02/2024 3:30 PM AMPOULE SEALER) Narrative IIMS - 02/13/2024 7:41 AM AMPOULE SEALER This order has been created and auto-finalized to support the import of outside images. If available, original interpretation can be found on the Media Tab in Chart Review, in Document Viewer, as an image in QREADS or as an Addendum. If a re-interpretation or overread is required please follow defined workflow. us Provider Not In System IMG CT PROCEDURES Final R esult IIMS NA * BMD Bone Density Spine Hips (01/26/2024 1:47 PM AMPOULE SEALER) Anatomical Region Laterality Modality Hip, Lumbar Spine, Nuclear M edicine RST LOS, Musculoskeletal ARZ LOS, Muskuloskeletal FLA LOS N/A Radio graphic Imaging Impressions 01/26/2024 1:54 PM AMPOULE SEALER Osteoporosis AP Spine (region: L1-L4) Narrative 01/26/2024 1:54 PM AMPOULE SEALER EXAM: BMD BONE DENSITY SPINE HIPS Bone Mineral Density (BMD) analysis performed on [employer] with serial number [id number]. COMPARISON: Serial Comparisons Left Total Hip results: Exam Date BMD T-score 01/03/2023 0.872 g/cm2 -1.1 01/26/2024 0.886 g/cm2 -1.0 Change vs. Previous (difference): 0.014 g/cm2 Change vs. Previous (%): 1.6 % The absolute BMD change from previous, 0.014 g/cm2, is greater than least significant change: No The absolute BMD change from baseline, 0.014 g/cm2, is greater than least significant change: No Right Total Hip results: Exam Date BMD T-score 01/03/2023 0.913 g/cm2 -0.7 01/26/2024 0.918 g/cm2 -0.7 Change vs. Previous (difference): 0.005 g/cm2 Change vs. Previous (%): 0.5 % The absolute BMD change from previous, 0.005 g/cm2, is greater than least significant change: No The absolute BMD change from baseline, 0.005 g/cm2, is greater than least significant change: No Combined Total Hip results: Exam Date BMD T-score 01/03/2023 0.893 g/cm2 -0.9 01/26/2024 0.902 g/cm2 -0.8 Change vs. Previous (difference): 0.009 g/cm2 Change vs. Previous (%): 1.0 % The absolute BMD change from previous, 0.009 g/cm2, is greater than least significant change: No The absolute BMD change from baseline, 0.009 g/cm2, is greater than least significant change: No Spine results: Exam Date BMD T-score 01/03/2023 0.859 g/cm2 -2.7 01/26/2024 0.888 g/cm2 -2.5 Change vs. Previous (difference): 0.029 g/cm2 Change vs. Previous (%): 3.4 % The absolute BMD change from previous, 0.029 g/cm2, is greater than the least significant change: Yes The absolute BMD change from baseline, 0.029 g/cm2, is greater than the least significant change: Yes ----- FINDINGS: Left Hip: Femur Neck: BMD = 0.862 g/cm2 T-score = -1.3 Z-score = 0.4 Total Hip: BMD = 0.886 g/cm2 T-score = -1.0 Z-score = 0.5 Right Hip: Femur Neck: BMD = 0.859 g/cm2 T-score = -1.3 Z-score = 0.4 Total Hip: BMD = 0.918 g/cm2 T-score = -0.7 Z-score = 0.7 Lumbar Spine: L1: BMD = 0.920 g/cm2 L2: BMD = 0.865 g/cm2 L3: BMD = 0.907 g/cm2 L4: BMD = 0.861 g/cm2 Total Lumbar Spine (L1-L4): BMD = 0.888 g/cm2 T-score = -2.5 Z-score = -0.8 Trabecular Bone Score: L1-L4: TBS = 1.276 < 1.23: low 1.23 -1.31: borderline > 1.31: normal A low TBS has been associated with increased risk of fractures in certain populations. TBS should not be used alone to determine treatment recommendations. It can be used in conjunction with BMD and FRAX to inform management. Please note: A more comprehensive DXA report, including images and graphs, is available in [employer]. In the absence of other causes of low BMD or demonstrated skeletal fragility, osteoporosis may be diagnosed in post-menopausal women and men at or above age 50 when the T-score is at or below -2.5 as defined by the WHO. Low bone density is present at T-scores between -1 and -2.5. The diagnosis in pre-menopausal women and men < age 50 can be based on low bone density or evidence of skeletal fragility in the appropriate clinical setting. Degenerative changes are present which may spuriously elevate the spine BMD measurement. Patient does not meet ISCD guidelines for FRAX calculations. (on treatment) Procedure Note Andrea Hobbs M.D. - 01/26/2024 EXAM: BMD BONE DENSITY SPINE HIPS Bone Mineral Density (BMD) analysis performed on [employer] with serialnumber [id number]. COMPARISON: Serial Comparisons Left Total Hip results: Exam Date BMD T-score 01/03/2023 0.872 g/cm2 -1.1 01/26/2024 0.886 g/cm2 -1.0 Change vs. Previous (difference): 0.014 g/cm2 Change vs. Previous (%): 1.6 % The absolute BMD change from previous, 0.014 g/cm2, is greater than least significant change: No The absolute BMD change from baseline, 0.014 g/cm2, is greater than least significant change: No Right Total Hip results: Exam Date BMD T-score 01/03/2023 0.913 g/cm2 -0.7 01/26/2024 0.918 g/cm2 -0.7 Change vs. Previous (difference): 0.005 g/cm2 Change vs. Previous (%): 0.5 % The absolute BMD change from previous, 0.005 g/cm2, is greater than least significant change: No The absolute BMD change from baseline, 0.005 g/cm2, is greater than least significant change: No Combined Total Hip results: Exam Date BMD T-score 01/03/2023 0.893 g/cm2 -0.9 01/26/2024 0.902 g/cm2 -0.8 Change vs. Previous (difference): 0.009 g/cm2 Change vs. Previous (%): 1.0 % The absolute BMD change from previous, 0.009 g/cm2, is greater than least significant change: No The absolute BMD change from baseline, 0.009 g/cm2, is greater than least significant change: No Spine results: Exam Date BMD T-score 01/03/2023 0.859 g/cm2 -2.7 01/26/2024 0.888 g/cm2 -2.5 Change vs. Previous (difference): 0.029 g/cm2 Change vs. Previous (%): 3.4 % The absolute BMD change from previous, 0.029 g/cm2, is greater than the least significant change: Yes The absolute BMD change from baseline, 0.029 g/cm2, is greater than the least significant change: Yes ----- FINDINGS: Left Hip: Femur Neck: BMD = 0.862 g/cm2 T-score = -1.3 Z-score = 0.4 Total Hip: BMD = 0.886 g/cm2 T-score = -1.0 Z-score = 0.5 Right Hip: Femur Neck: BMD = 0.859 g/cm2 T-score = -1.3 Z-score = 0.4 Total Hip: BMD = 0.918 g/cm2 T-score = -0.7 Z-score = 0.7 Lumbar Spine: L1: BMD = 0.920 g/cm2 L2: BMD = 0.865 g/cm2 L3: BMD = 0.907 g/cm2 L4: BMD = 0.861 g/cm2 Total Lumbar Spine (L1-L4): BMD = 0.888 g/cm2 T-score = -2.5 Z-score = -0.8 Trabecular Bone Score: L1-L4: TBS = 1.276 < 1.23: low 1.23 -1.31: borderline > 1.31: normal A low TBS has been associated with increased risk of fractures in certainpopulations. TBS should not be used alone to determine treatmentrecommendations. It can be used in conjunction with BMD and FRAX to informmanagement. Please note: A more comprehensive DXA report, including images and graphs,is available in [employer]. In the absence of other causes of low BMD or demonstrated skeletalfragility, osteoporosis may be diagnosed in post-menopausal women and menat or above age 50 when the T-score is at or below -2.5 as defined by theWHO. Low bone density is present at T-scores between -1 and -2.5. The diagnosis in pre-menopausal women andmen < age 50 can be based on low bone density or evidence of skeletalfragility in the appropriate clinical setting. Degenerative changes are present which may spuriously elevate the spineBMD measurement. Patient does not meet ISCD guidelines for FRAX calculations. (ontreatment) IMPRESSION: Osteoporosis AP Spine (region: L1-L4) us Angus Ortega M.D. IMG DXA PROCEDURES Final Re sult * Beta-CrossLaps (Beta-CTx) (01/26/2024 1:06 PM AMPOULE SEALER) Pathologist [facility] Beta-CrossLaps (B-CTx), S 192 pg/mL 01/26/2024 7:36 PM AMPOULE SEALER [facility] Comment: ----REFERENCE VALUE---- 148-967 (18-29 y) 150-635 (30-39 y) 131-670 (40-49 y) 183-1060 (50-59 y) 171-970 (60-69 y) 152-858 (>70 y) 136-689 (Premenopausal) 177-1015 (Postmenopausal) Flagging is based on the age-specific reference interval and not menopausal status. Blood (Blood, Venous) 01/26/2024 1:06 PM AMPOULE SEALER 01/26/2024 6:53 PM AMPOULE SEALER us Angus Ortega M.D. LAB BLOOD NON ADD-ON Final Result [facility] [address] [place] [address] [facility] [address] [place] [address] * Creatinine with Estimated GFR (01/26/2024 1:06 PM AMPOULE SEALER) [facility] Creatinine 0.80 0.59 - 1.04 mg/dL 01/26/2024 2:33 PM AMPOULE SEALER DTL Estimated GFR (eGFR) 80 >=60 mL/min/BSA 01/26/2024 2:33 PM AMPOULE SEALER DTL Comment: Estimated GFR calculated using the 2020 CKD_EPI creatinine equation. Blood (Blood, Venous) 01/26/2024 1:06 PM AMPOULE SEALER 01/26/2024 2:15 PM AMPOULE SEALER us Angus Ortega M.D. LAB BLOOD ADD-ON Final Resu lt [facility] [address] [place] [address], [facility] [address] [place] [address] * Calcium, Total (01/26/2024 1:06 PM AMPOULE SEALER) Calcium, Total, S 9.1 8.8 - 10.2 mg/dL 01/26/2024 2:33 PM AMPOULE SEALER DTL Blood (Blood, Venous) 01/26/2024 1:06 PM AMPOULE SEALER 01/26/2024 2:15 PM AMPOULE SEALER Angus Ortega M.D. LAB BLOOD ADD-ON Final Resu lt Performing Organization Address City/[facility]/ZIP Co de Phone Number [facility] [address] [place] [address], [facility] [address] [place] [address] from Last 3 Months Insurance MEDICARE [facility] Advance Directives For more information, please contact: [phone] * Full Code (Latest Code Status on File) Date Activated Date Inactivated Comments 03/26/2024 2:26 PM 03/28/2024 5:37 PM Question Answer Comments Full Code: Not Discussed Due to: Patient not available
--- OUTSIDE RECORDS SUMMARY | 2024-04-11 02:27 | XMS_ITS | Referral Summary ---
Author Organization [facility] Address [address] [place] [address] Care Team Providers Care Monitoring Coordinator Name Role Phone Unavailable Primary Care Provider Unavailabl e Source Comments Patient records contain information from all sites at [facility]. For routine questions regarding patient records, call [phone] during business hours, M-F 8:00 AM - 5:00 PM Central Time. Record requests for emergency care only can be directed to [phone] at any time.[facility] Encounters Date Type Department Care Team Description 04/11/2024 Clinical Communication Department of Urology in [place], [place] [address] [place] [phone] Mireya Burroughs M.D. 04/07/2024 9:26 AM LAST INSERTER - 04/07/2024 11:59 PM LAST INSERTER Hospital Encounter Department of Laboratory Medicine in [place], [place] [address] [place] [address] Sandeep Adkins M.D. Symptom Urinary Discharge Disposition: Home or Self Care 04/06/2024 Orders Only Department of Urology in [place], [place] [address] [place] [phone] Sandeep Adkins M.D. Symptom Urinary (Primary Dx) 04/06/2024 Clinical Communication Department of Urology in [place], [place] [address] [place] [address] Sandeep Adkins M.D. After Visit Question 04/01/2024 Clinical Communication Division of Pulmonary Medicine in [place], [place] [address] [place] [address] Yaritza Silva D.O. Questions regarding her bandage over her chest tube site 03/26/2024 5:46 AM LAST INSERTER - 03/28/2024 3:37 PM LAST INSERTER Hospital Encounter [facility], [facility], Sixth Floor [address] [place] [address] Sandeep Adkins M.D. Hydronephrosis (Primary Dx); Obstruction Ureteropelvic Discharge Disposition: Home or Self Care 03/27/2024 3:05 PM LAST INSERTER Ancillary Procedure Department of Pulmonary and CC Medicine 03/26/2024 1:15 PM LAST INSERTER Ancillary Procedure Department of Anesthesiology 03/26/2024 9:00 AM LAST INSERTER Ancillary Procedure Department of General Surgery 03/26/2024 9:05 AM LAST INSERTER Ancillary Procedure Department of Urology 03/26/2024 7:59 AM LAST INSERTER Anesthesia Event [facility] OR [address] [place] [address] Elian Cunha M.D. Kamath, Gerard S, M.D. 03/26/2024 7:30 AM LAST INSERTER - 03/26/2024 11:54 AM LAST INSERTER Surgery [facility] OR [address] [place] [address] Sandeep Adkins M.D. ROBOTIC-ASSISTED SIDE TO SIDE ANASTOMOSIS OF LOWER POLE TO UPPER POLE MOIETIES. 03/24/2024 Refill Department of Urology in [place], [place] [address] [place] [address] Aurelio Barrios M.D. Med Change Request 03/19/2024 11:42 AM LAST INSERTER - 03/19/2024 11:59 PM LAST INSERTER Hospital Encounter Department of Radiology, [facility], in [place], [place] [address] [place] [address] Aurelio Barrios M.D. Hydronephrosis Discharge Disposition: Home or Self Care 03/16/2024 Orders Only Department of Urology in [address] [phone] Aurelio Barrios M.D. Hydronephrosis (Primary Dx) 03/15/2024 8:45 AM [facility] Telemedicine Preoperative Evaluation Center in [address] [address] Aurelio Barrios M.D. Pauly, Jacob J, CR C.N.P., M.S. Preanesthetic Medical Exam (Primary Dx); Hydronephrosis; Duplicate Ureter; Anesthesia Complication Personal History; Hyperlipidemia; Family History Coronary Artery Disease; PreDiabetes; Osteoporosis; Cancer Lung Family History 03/12/2024 11:31 AM LAST INSERTER - 03/12/2024 12:40 PM LAST INSERTER Hospital Encounter Department of Laboratory Medicine and Pathology, [facility] in [address] [address] Aurelio Barrios M.D. Hydronephrosis Discharge Disposition: Home or Self Care 03/12/2024 12:41 PM LAST INSERTER - 03/12/2024 11:59 PM LAST INSERTER Hospital Encounter Department of Radiology, [facility] in [address] [address] Aurelio Barrios M.D. Hydronephrosis Discharge Disposition: Home or Self Care 03/12/2024 9:45 AM [facility] Clinical Communication Virtual Review in [address] [address] Pre-visit Intake 03/09/2024 1:00 PM LAST INSERTER Procedure visit Department of Urology in [address] [address] Sandeep Adkins M.D. Hydronephrosis 02/24/2024 Clinical Communication Department of Urology in [address] [address] Sandeep Adkins M.D. Med Question 02/20/2024 1:30 PM LAST INSERTER Procedure visit Department of Urology in [address] [address] Aurelio Barrios M.D. Pougnier, Charlotte A, M.D., M.S. Hydronephrosis (Primary Dx); Kidney And Ureter Disorder 02/18/2024 Orders Only Department of Urology in [address] [address] Aurelio Barrios M.D. 02/18/2024 Clinical Communication Department of Urology in [address] [address] Sandeep Adkins M.D. Appt Request 02/17/2024 Orders Only Department of Urology in [address] [address] Sharron Zarate R.N. Hydronephrosis (Primary Dx) 02/17/2024 3:55 PM LAST INSERTER - 02/17/2024 11:59 PM LAST INSERTER Hospital Encounter Department of Laboratory Medicine in [address] [address] Aurelio Barrios M.D. Hydronephrosis Discharge Disposition: Home or Self Care 02/17/2024 9:00 AM LAST INSERTER Telemedicine Department of Urology in [address] [address] Sandeep Adkins M.D. Hydronephrosis (Primary Dx) 02/12/2024 Clinical Communication Department of Urology in [address] [address] Provider, Unknown [facility] - Outside Materials (Urology) 01/26/2024 6:00 PM LAST INSERTER Infusion Department of Infusion Therapy in [address] [address] Angus Ortega M.D. Osteoporosis (Primary Dx) 01/26/2024 4:00 PM LAST INSERTER Office Visit Division of Endocrinology in [place], [place] [address] [place] [phone] Angus Ortega M.D. Osteoporosis (Primary Dx) 01/26/2024 1:19 PM LAST INSERTER - 01/26/2024 11:59 PM LAST INSERTER Hospital Encounter Department of Radiology, [facility], in [place], [place] [address] [place] [address] Angus Ortega M.D. Osteoporosis Discharge Disposition: Home or Self Care 01/26/2024 12:57 PM LAST INSERTER - 01/26/2024 1:18 PM LAST INSERTER Hospital Encounter Department of Laboratory Medicine and Pathology, [facility] in [place], [place] [address] [place] [phone] Angus Ortega M.D. Osteoporosis Discharge Disposition: Home or Self Care 01/23/2024 9:30 AM CDT Clinical Communication Virtual Review in [place], [place] [address] [place] [address] Pre-visit Intake from Last 3 Months Allergies Active Allergy [...] pain). 40 capsule 1 5 2:56 PM LAST INSERTER 03/28/19 25 Active oxyBUTYnin (Ditropan XL) 10 mg 24 hr tablet Take 1 tablet (10 mg total) by mouth daily as needed (bladder spasms). 40 tablet 1 5 2:56 PM LAST INSERTER 03/28/19 25 Active acetaminophen (TylenoL) 500 mg tablet Take 2 tablets (1,000 mg total) by mouth every 6 (six) hours as needed for pain. Can sheepskin pickler over the counter 03/28/19 25 Active ibuprofen [...] Acute Pain. 10 tablet 5 2:56 PM LAST INSERTER 03/28/19 25 Active methocarbamoL (ROBAXIN) 750 mg [...] stent removal 1 tablet 5 2:56 PM LAST INSERTER 03/28/19 25 025 Active Problems Problem Noted Date Diagnosed Date Obstruction Ureteropelvic 03/26/2024 Hyperlipidemia 03/15/2024 Anesthesia Complication Personal History 024 Family History Coronary Artery Disease 4 Cancer Lung Family History 03/15/2024 Hydronephrosis 02/17/2024 Duplicate Ureter 02/02/2024 Hydroureteronephrosis 02/02/2024 PreDiabetes 01/29/2023 Osteoporosis 12/10/2021 Immunizations Immunization Administration Dates Next Due H1N1 [...] quad (FLUZONE/FLUARIX) (6 months and older)(PF) 12/02/2017,12/31/2016,12/07/2015,2014,02/09/2014 Social History Tobacco Use Types Packs/Day Years Used Date Smoking Tobacco: Never Smokeless Tobacco: Never Tobacco Cessation:Counseling Given: Not Answered Alcohol Use Standard Drinks/Week Comments Yes 1 (1 standard drink = 0.6 oz pur e alcohol) [facility] Utilities Answer Date Recorded In the [...] week 11/27/2021 How often do you attend [facility] or quaker services? More than 4 times per year 11/27/2021 Do you belong to any clubs o r organizations such as synagogue groups, unions, fraternal or athletic groups, or [...] and heating? Not hard at all 12/30/2022 [facility] - Occupational Stress Questionnaire Answer Date Recorded [...] Comments Blood Pressure 125/69 03/28/2024 3:00 PM LAST INSERTER Pulse 68 03/28/2024 3:00 PM LAST INSERTER Temperature 36.4 C (97.5 F) 03/28/2024 3:00 PM LAST INSERTER Respiratory Rate 18 03/28/2024 3:00 PM LAST INSERTER Oxygen Saturation 100% 03/28/2024 3:00 PM LAST INSERTER Inhaled Oxygen Concentration - - Weight 68.2 kg (150 lb 5.7 oz) 03/27/2024 10:09 AM LAST INSERTER Height 161 cm (5' 3.39) 03/26/2024 6:08 AM LAST INSERTER Body Mass Index 26.31 03/26/2024 6:08 AM LAST INSERTER Plan of Treatment Upcoming Encounters Date Type Department Care Team (Late st Contact Info) Description 04/16/2024 2:30 PM LAST INSERTER Procedure visit Department of Urology in [place], [place] [address] [place] [phone] Dyana Chairez M.D. [address] [place] [address] Medical Devices Implanted Type Area Groover Runner Device Identifier Shelf Expiration Date Model / Serial / Lot Clp Lpr Abs Sut - [id number] Implanted:Qt y: 1 on 03/26/2024 by Sandeep Adkins M.D. at [facility] Hardware e.g. pins/screws /rods N/A: Abdomen [employer] [id number] 07/21/2026 [id number] / / [id number] Clp Hmol Plmr Lg - [id number] Implanted:Qt y: 1 on 03/26/2024 by Sandeep Adkins M.D. at [facility] Hardware e.g. pins/screws /rods N/A: Abdomen [employer] [id number] 12/07/2028 [id number] / / [id number] Clp Hmol [place] - [id number] Implanted:Qt y: 1 on 03/26/2024 by Sandeep Adkins M.D. at [facility] Hardware e.g. pins/screws /rods N/A: Abdomen [employer] [id number] 12/23/2028 [id number] / / [id number] Stnt Uret W/O Gw Tria [id number] - [id number] Implanted:Qt y: 1 on 03/26/2024 by Sandeep Adkins M.D. at [facility] Ureteral Stent Right: Ureter [employer] [id number] 12/17/2026 [id number] / / [id number] Explanted Type Area Groover Runner Device Identifier Shelf Expiration Date Model / Serial / Lot Ureteral Stent Explanted:Qty : 1 on 02/20/2024 by Catrachita Villalba M.D., M.S. Ureteral Stent Right: Ureter Procedures Procedure Name Priority Date/Time Associated Diagnosis Comments URINALYSIS WITH MICROSCOPIC Routine 04/07/2024 9:47 AM LAST INSERTER Symptom Urinary BACTERIAL CULTURE, AEROBIC + SUSC, URINE Routine 04/07/2024 9:47 AM LAST INSERTER Symptom Urinary DX CHEST AP OR PA AND LATERAL 2 VIEWS RAD - Routine (most inpatients and all outpatients) 03/28/2024 7:27 AM LAST INSERTER PULMONARY AND CC MEDICINE IMAGE EXAM Routine 03/27/2024 3:05 PM LAST INSERTER DX CHEST PORTABLE 1 VIEW RAD - Routine (most inpatients and all outpatients) 03/27/2024 11:46 AM LAST INSERTER ADULT OXYGEN THERAPY Routine 03/27/2024 8:01 AM LAST INSERTER DX CHEST PORTABLE 1 VIEW RAD - Routine (most inpatients and all outpatients) 03/27/2024 5:56 AM LAST INSERTER CBC WITHOUT DIFFERENTIAL, B Routine 03/27/2024 3:23 AM LAST INSERTER BASIC METABOLIC PANEL, S/P Routine 03/27/2024 3:23 AM LAST INSERTER ADULT OXYGEN THERAPY Routine 03/26/2024 8:[address] CHEST TUBE PLACEMENT RAD - Semiurgent (Fast; most ED patients; some inpatients) 03/26/2024 4:35 PM LAST INSERTER ADULT OXYGEN THERAPY Routine 03/26/2024 2:26 PM LAST INSERTER ADULT OXYGEN THERAPY Routine 03/26/2024 2:26 PM LAST INSERTER ADULT OXYGEN THERAPY Routine 03/26/2024 2:26 PM LAST INSERTER ANESTHESIOLOGY IMAGE EXAM Routine 03/26/2024 1:15 PM LAST INSERTER DX CHEST 1 VIEW RAD - Timed (for specific dates/times) 03/26/2024 12:24 PM LAST INSERTER DX CHEST PORTABLE 1 VIEW RAD - Routine (most inpatients and all outpatients) 03/26/2024 11:48 AM LAST INSERTER FL FLUORO LESS THAN 1 HOUR RAD - Routine (most inpatients and all outpatients) 03/26/2024 9:32 AM LAST INSERTER UROLOGY IMAGE EXAM Routine 03/26/2024 9: 05 AM LAST INSERTER SURGERY IMAGE EXAM Routine 03/26/2024 9: 00 AM LAST INSERTER LDA ANE ENDOTRACHEAL AIRWAY Routine 03/26/2024 8:07 AM LAST INSERTER BLOCK - TRANSVERSUS ABDOMINIS PLANE 03/26/2024 7:29 AM LAST INSERTER Hydronephrosis ROBOTIC-ASSISTED PYELOPLASTY 03/26/2024 7:29 AM LAST INSERTER Hydronephrosis RETROGRADE PYELOGRAM 03/26/2024 7:29 AM LAST INSERTER Hydronephrosis CYSTOSCOPY INSERTION STENT URETER 03/26/2024 7:29 AM LAST INSERTER Hydronephrosis CT UROGRAM WITHOUT AND WITH IV CONTRAST RAD - Routine (most inpatients and all outpatients) 03/19/2024 1:03 PM LAST INSERTER Hydronephrosis NM KIDNEY WITH LASIX RAD - Routine (most inpatients and all outpatients) 03/12/2024 2:42 PM LAST INSERTER Hydronephrosis PH, U Routine 03/12/2024 11:46 AM LAST INSERTER DIPSTICK, U Routine 03/12/2024 11:46 AM LAST INSERTER OSMOLALITY, U Routine 03/12/2024 11:46 AM LAST INSERTER MICROSCOPIC AUTOMATED Routine 03/12/2024 11:46 AM LAST INSERTER URINALYSIS WITH MICROSCOPIC Routine 03/12/2024 11:46 AM LAST INSERTER Hydronephrosis BACTERIAL CULTURE, AEROBIC + SUSC, URINE Routine 03/12/2024 11:46 AM LAST INSERTER Hydronephrosis URO VCUG Routine 03/09/2024 1:16 PM LAST INSERTER Hydronephrosis URO CYSTO W/RETROGRADE PYELOGRAM Routine 03/09/2024 1:00 PM LAST INSERTER Hydronephrosis BACTERIAL CULTURE, AEROBIC + SUSC, URINE Routine 02/20/2024 1:46 PM LAST INSERTER Hydronephrosis Kidney And Ureter Disorder URO CYSTO W/STENT REMOVAL Routine 02/20/2024 1:30 PM LAST INSERTER Hydronephrosis BACTERIAL CULTURE, AEROBIC + SUSC, URINE Routine 02/17/2024 3:57 PM LAST INSERTER Hydronephrosis OUTSIDE CT BODY Routine 02/02/2024 3:30 PM LAST INSERTER BMD BONE DENSITY SPINE HIPS RAD - Routine (most inpatients and all outpatients) 01/26/2024 1:47 PM LAST INSERTER Osteoporosis BETA-CROSSLAPS (BETA-CTX), S Routine 01/26/2024 1:06 PM LAST INSERTER Osteoporosis CALCIUM, TOT, S/P Routine 01/26/2024 1:0 6 PM LAST INSERTER Osteoporosis CREATININE WITH EGFR, S/P Routine 01/26/2024 1:06 PM LAST INSERTER Osteoporosis from Last 3 Months Results * Bacterial Culture, Aerobic + Susceptibility, Urine (04/07/2024 9:47 AM LAST INSERTER) Only the most recent of4 resultswithin the time period is included. Urine Culture Urogenital microbiota, susceptibilities not performed per laboratory criteria. 04/08/2024 8:22 AM LAST INSERTER [facility] Urine (Urine, Midstream) 04/07/2024 9:47 AM LAST INSERTER 04/07/2024 2:28 PM LAST INSERTER Comment:Specimen Source Site : Urine Sandeep Adkins M.D. LAB MICROBIOLOGY - GENERAL ORD ERABLES Final Result [facility] [address] [place] [address], [facility] [place] [address] * (ABNORMAL) Urinalysis, with Microscopic: Urine, Midstream (04/07/2024 9:47 AM LAST INSERTER) Only the most recent of2 resultswithin the time period is included. Source Urine, Urine, Midstream 04/07/2024 9:47 AM LAST INSERTER NPCL Clarity Clear Clear 04/07/2024 9:52 AM LAST INSERTER NPCL Color Yellow 04/07/2024 9:52 AM LAST INSERTER NPCL Comment: ----REFERENCE VALUE---- Colorless Yellow Raisa Blood Large(A) Negative 04/07/2024 9:52 AM LAST INSERTER NPCL Nitrite Negative Negative 04/07/2024 9:52 AM LAST INSERTER NPCL Leukocyte Esterase Small(A) Negative 04/07/2024 9:52 AM LAST INSERTER NPCL Protein 30(A) mg/dL 04/07/2024 9:52 AM LAST INSERTER NPCL Comment: ----REFERENCE VALUE---- Negative Trace Glucose Negative Negative mg/dL 04/07/2024 9:52 AM LAST INSERTER NPCL Ketones, QI(U) Negative Negative mg/dL 04/07/2024 9:52 AM LAST INSERTER NPCL Bilirubin Negative Negative 04/07/2024 9:52 AM LAST INSERTER NPCL pH 5.5 5.0 - 8.0 04/07/2024 9:52 AM LAST INSERTER NPCL Specific [place] 1.010 1.001 - 1.035 04/07/2024 9:52 AM LAST INSERTER NPCL Urobilinogen 0.2 0.2 - 1.0 mg/dL 04/07/2024 9:52 AM LAST INSERTER NPCL White Blood Cells 4-10 /hpf 04/07/2024 10:42 AM LAST INSERTER NPRG Comment: ----REFERENCE VALUE---- Males: 0-3 Females: 0-10 Unknown: 0-10 Red Blood Cells 21-30(A) 0 - 2 /hpf 10:42 AM LAST INSERTER NPRG Dysmorphic Red Blood Cells <=25 <=25 % 04/07/2024 10:42 AM LAST INSERTER NPRG Squamous Cells Occ-3 /hpf 04/07/2024 10:42 AM LAST INSERTER NPRG Bacteria Present(A) None Seen 04/07/2024 10:42 AM LAST INSERTER NPRG Urine (Urine, Midstream) 04/07/2024 9:47 AM LAST INSERTER 04/07/2024 9:47 AM LAST INSERTER us Sandeep Adkins M.D. LAB URINE ORDERABLES Final Res ult [facility] [address] [place] [address], [facility] NPCL [facility] [address] [place] [address] NPRG [facility] [address] [place] [address] * DX Chest AP or PA and Lateral 2 Views (03/28/2024 7:27 AM LAST INSERTER) Anatomical Region Laterality Modality Chest, Thoracic RST LOS, Tho racic ARZ LOS, Thoracic FLA LOS N/A Digital Radiography Impressions 03/28/2024 7:46 AM LAST INSERTER Since 03/27/2024, no significant change. No definite pneumothorax. Right-sided chest tube. Left basilar atelectasis. Partially visualized right nephroureteral stent. Narrative 03/28/2024 7:46 AM LAST INSERTER EXAM: DX CHEST AP OR PA AND [...] CC Medicine Image Exam (03/27/2024 3:05 PM LAST INSERTER) 03/27/2024 3:03 PM LAST INSERTER Narrative IIMS - 03/27/2024 3:12 PM LAST INSERTER This order has been created and auto-finalized to support the import of images acquired without order. The clinical documentation to support these images can be found on the encounter that produced images. us Provider Not In System IMG NON RAD IMAGING PROCE DURES Final Result IIMS NA * DX Chest Portable 1 View (03/27/2024 11:46 AM LAST INSERTER) Only the most recent of3 resultswithin the time period is included. Anatomical Region Laterality Modality Chest, Thoracic RST LOS, Tho racic ARZ LOS, Thoracic FLA LOS N/A Digital Radiography Impressions 03/27/2024 11:58 AM LAST INSERTER Since earlier today, no significant change. No definite pneumothorax. Right- sided chest tube. Left basilar atelectasis. Partially visualized right nephroureteral stent. Narrative 03/27/2024 11:58 AM LAST INSERTER EXAM: DX CHEST PORTABLE 1 VIEW Procedure Note Jaya Mccormick M.D. - 03/27/2024 EXAM: DX CHEST PORTABLE 1 VIEW IMPRESSION: Since earlier today, no significant change. No definite pneumothorax.Right-sided chest tube. Left basilar atelectasis. Partially visualizedright nephroureteral stent. Yaritza Silva D.O. IMMorgan DIAGNOSTIC IMAGING PRO CEDURES Final Result * (ABNORMAL) CBC without Differential (03/27/2024 3:23 AM LAST INSERTER) Pathologist [facility] Hemoglobin 11.5(L) 11.6 - 15.0 g/dL 03/27/2024 3:44 AM LAST INSERTER DTL Hematocrit 35.8 35.5 - 44.9 % 03/27/2024 3:44 AM LAST INSERTER DTL Erythrocytes 3.84(L) 3.92 - 5.13 x10(12)/L 03/27/2024 3:44 AM LAST INSERTER DTL MCV 93.2 78.2 - 97.9 fL 03/27/2024 3:44 AM LAST INSERTER DTL RBC Distrib Width 13.4 12.2 - 16.1 % 03/27/2024 3:44 AM LAST INSERTER DTL Platelet Count 142(L) 157 - 371 x10(9)/L 03/27/2024 4:24 AM LAST INSERTER DTL Comment:Results confirmed by smear, no clumping or interference seen. Leukocytes 7.6 3.4 - 9.6 x10(9)/L 03/27/2024 4:24 AM LAST INSERTER DTL Blood (Blood, Venous) 03/27/2024 3:23 AM LAST INSERTER 03/27/2024 3:38 AM LAST INSERTER Dyana Chairez M.D. LAB BLOOD ADD-ON Final Re sult [facility] [address] [place] [address], [place] DTL [facility] [address] [place] [address] * (ABNORMAL) Basic Metabolic Panel (03/27/2024 3:23 AM LAST INSERTER) Pathologist [facility] Potassium, S 4.7 3.6 - 5.2 mmol/L 03/27/2024 4:09 AM LAST INSERTER DTL Sodium, S 139 135 - 145 mmol/L 03/27/2024 4:09 AM LAST INSERTER DTL Chloride, S 105 98 - 107 mmol/L 03/27/2024 4:09 AM LAST INSERTER DTL Bicarbonate, S 22 22 - 29 mmol/L 03/27/2024 4:09 AM LAST INSERTER DTL Anion Gap 12 7 - 15 03/27/2024 4:09 AM LAST INSERTER DTL BUN (Blood Urea Nitrogen), S 10 6 - 21 mg/dL 03/27/2024 4:09 AM LAST INSERTER DTL Creatinine 0.74 0.59 - 1.04 mg/dL 03/27/2024 4:09 AM LAST INSERTER DTL Estimated GFR (eGFR) 88 >=60 mL/min/BSA 03/27/2024 4:09 AM LAST INSERTER DTL Comment: Estimated GFR calculated using the 2020 CKD_EPI creatinine equation. Calcium, Total, S 8.4(L) 8.8 - 10.2 mg/dL 03/27/2024 4:09 AM LAST INSERTER DTL Glucose, S 122 70 - 140 mg/dL 03/27/2024 4:09 AM LAST INSERTER DTL Blood (Blood, Venous) 03/27/2024 3:23 AM LAST INSERTER 03/27/2024 3:53 AM LAST INSERTER Dyana Chairez M.D. LAB BLOOD ADD-ON Final Re sult [facility] [address] [place] [address], [facility] [address] [place] [address] * CT Chest Tube Placement (03/26/2024 4:35 PM LAST INSERTER) Anatomical Region Laterality Modality Chest, Abdominal RST LOS, Va scular Interventional ARZ LOS, Procedure FLA LOS, Vascular Interventional FLA LOS, Procedural, Procedural NWWI LOS N/A Computed Tomography, C omputed Tomography Impressions 03/26/2024 4:[address]-guided right pleural pigtail catheter placement. NR Narrative 03/26/2024 4:50 PM LAST INSERTER EXAM: CT CHEST TUBE PLACEMENT PRE-PROCEDURE: Patient [...] was exchanged over wire for a 10 Bahamian locking loop catheter. The catheter was secured [...] Non-Radiology Image-Anesthesiology Image Exam (03/26/2024 1:15 PM LAST INSERTER) Narrative IIMS - 03/27/2024 2:01 AM LAST INSERTER This order has been created and auto-finalized to support the import of images acquired without order. The clinical documentation to support these images can be found on the encounter that produced images. us Provider Not In System IMG NON RAD IMAGING PROCE DURES Final Result IIMS NA * DX Chest 1 View (03/26/2024 12:24 PM LAST INSERTER) Anatomical Region Laterality Modality Chest, Thoracic RST LOS, Tho racic ARZ LOS, Thoracic FLA LOS N/A Digital Radiography Impressions 03/26/2024 12:33 PM LAST INSERTER Interval removal of the right endotracheal tube. More shallow inspiration accentuates the cardiac silhouette, and pulmonary vascularity. The size of the right apical pneumothorax is unchanged given differences of technique/positioning, with pleural line projected between the posterior right third and fourth ribs. Stable linear atelectasis in the left base. Calcified left hilar nodes. Narrative 03/26/2024 12:33 PM LAST INSERTER EXAM: DX CHEST 1 VIEW Procedure Note [...] nodes. Dyana Chairez M.D. IMG DIAGNOSTIC IMAGING OR OCEDURES Final Result * FL Fluoro Less Than 1 Hour (03/26/2024 9:32 AM LAST INSERTER) Narrative [id number] - 03/26/2024 9:33 AM LAST INSERTER This exam does not require a radiologist review or interpretation. Please refer to the patient's medical record on this date for clinical details. Sandeep Adkins M.D. IMG FLUOROSCOPY PROCEDURES Fin al Result Performing Organization Address [facility] de Phone Number [id number] NA * FL FLUORO LESS THAN 1 HOUR-Urology Image Exam (03/26/2024 9:05 AM LAST INSERTER) 03/26/2024 9:04 AM LAST INSERTER Narrative IIWI - 03/26/2024 10:18 AM LAST INSERTER This order has been created and auto-finalized to support the import of images acquired without order. The clinical documentation to support these images can be found on the encounter that produced images. us Provider Not In System IM NON RAD IMAGING PROCE DURES Final Result Performing Organization Address [facility] de Phone Number IIMS NA * ROBOT-Surgery Image Exam (03/26/2024 9:00 AM LAST INSERTER) 03/26/2024 8:56 AM LAST INSERTER Narrative IIWI - 03/26/2024 11:48 AM LAST INSERTER This order has been created and auto-finalized to support the import of images acquired without order. The clinical documentation to support these images can be found on the encounter that produced images. us Provider Not In System IM NON RAD IMAGING PROCE DURES Final Result IIMS NA * LDA ANE ENDOTRACHEAL AIRWAY (03/26/2024 8:07 AM LAST INSERTER) Narrative Germán Constantino R - 03/26/2024 8:07 AM LAST INSERTER Germán Constantino 03/26/2024 8:30 AM Airway Date/Time: [...] Procedure outcome: successful Notable Events: no complications us Erasto Patino M.D. ANESTHESIA ORDERABLES Final Result * CT Urogram without and with IV Contrast (03/19/2024 1:03 PM LAST INSERTER) Anatomical Region Laterality Modality Abdomen, Pelvis, Abdominal R ST LOS, Abdominal ARZ LOS, Abdominal FLA LOS N/A Computed Tomography 03/19/2024 12:4 8 PM LAST INSERTER Impressions 03/19/2024 1:18 PM LAST INSERTER Partial right renal collecting system duplication. Interval decrease in right lower pole moiety hydronephrosis. No obstructing stone or lesion identified. Narrative 03/19/2024 1:18 PM LAST INSERTER EXAM: CT UROGRAM WITHOUT AND WITH IV [...] hydronephrosis. No obstructing stone or lesionidentified. Aurelio Barrios M.D. IMMorgan CT PROCEDURES Final R esult * NM Kidney with Lasix (03/12/2024 2:42 PM LAST INSERTER) Anatomical Region Laterality Modality Renal, Nuclear Medicine RST LOS, Nuclear Medicine ARZ LOS, Nuclear Medicine FLA LOS, Nuclear Medicine N/A Nuclea r Medicine Impressions 03/12/2024 4:16 PM LAST INSERTER 1. Differential renal function measures 49.6% on the right and 50.4% on the left. 2. No scintigraphic evidence of obstruction. Narrative 03/12/2024 4:16 PM LAST INSERTER EXAM: NM KIDNEY WITH LASIX RADIOPHARMACEUTICAL/MEDS: Route: [...] esult * Dipstick, Urine (03/12/2024 11:46 AM LAST INSERTER) Hemoglobin, QL, U Negative Negative 03/12/2024 12:24 PM LAST INSERTER DTL Leukocyte Esterase, U Negative Negative 03/12/2024 12:24 PM LAST INSERTER DTL Nitrite, U Negative Negative 03/12/2024 12:24 PM LAST INSERTER DTL Ketone, U Negative Negative mg/dL 03/12/2024 12:24 PM LAST INSERTER DTL Glucose, U Negative Negative mg/dL 03/12/2024 12:24 PM LAST INSERTER DTL Urine 03/12/2024 11:4 6 AM LAST INSERTER 03/12/2024 12:09 PM LAST INSERTER us Aurelio Barrios M.D. LAB URINE ORDERABLES [place] [address], [facility] [address] * Microscopic Automated (03/12/2024 11:46 AM LAST INSERTER) Microscopy Normal 03/12/2024 12:24 PM LAST INSERTER DTL RBC None Seen <3 /hpf 03/12/2024 12:24 PM LAST INSERTER DTL WBC None Seen /hpf 03/12/2024 12:24 PM LAST INSERTER DTL Comment: ----REFERENCE VALUE---- <4 (Males) <11 (Females) Squamous Epithelial Cells, U 1-3 /hpf 03/12/2024 12:24 PM LAST INSERTER DTL Urine 03/12/2024 11:4 6 AM LAST INSERTER 03/12/2024 12:09 PM LAST INSERTER us Aurelio Barrios M.D. LAB URINE ORDERABLES Shiela l Result [facility] [address] [place] [address], [facility] [address] [place] [address] * pH, Urine (03/12/2024 11:46 AM LAST INSERTER) pH, U 5.4 4.5 - 8.0 03/12/2024 12: 34 PM LAST INSERTER DTL Urine 03/12/2024 11:4 6 AM LAST INSERTER 03/12/2024 12:09 PM LAST INSERTER us Aurelio Barrios M.D. LAB URINE ORDERABLES Shiela l Result Performing Organization Address City/[facility]/ZIP Co de Phone Number [facility] [address] [place] [address], [facility] [address] [place] [address] * Osmolality, Urine (03/12/2024 11:46 AM LAST INSERTER) Osmolality, U 248 150 - 1150 mOsm/kg 03/12/2024 12:34 PM LAST INSERTER DTL Urine 03/12/2024 11:4 6 AM LAST INSERTER 03/12/2024 12:09 PM LAST INSERTER us Aurelio Barrios M.D. LAB URINE ORDERABLES Shiela l Result [facility] [address] [place], [place] [address] [address] [place] [address] * URO VCUG (03/09/2024 1:16 PM LAST INSERTER) Narrative Aurelio Barrios M.D. - 03/09/2024 1:00 PM LAST INSERTER Aurelio Barrios M.D. 03/09/2024 2:33 PM URO VCUG Performed by: Aurelio Barrios M.D. Authorized by: Aurelio Barrios M.D. us Aurelio Barrios M.D. UROLOGY ORDERABLES Edited Result - Final * URO Cysto w/retrograde pyelogram (03/09/2024 1:00 PM LAST INSERTER) Narrative Aurelio Barrios M.D. - 03/09/2024 1:00 PM LAST INSERTER Aurelio Barrios M.D. 03/09/2024 2:33 PM URO Cysto w/retrograde pyelogram Performed by: Aurelio Barrios M.D. Authorized by: Sandeep Adkins M.D. Care team members present 1. Aurelio Barrios M.D. us Sandeep Adkins M.D. UROLOGY ORDERABLES Edited Resu lt - Final * Cysto w/stent removal (02/20/2024 1:30 PM LAST INSERTER) Narrative Catrachita Villalba M.D., M.S. - 02/20/2024 1:30 PM LAST INSERTER Catrachita Villalba M.D., M.S. 02/20/2024 2:01 PM [...] W CONTRAST-Outside CT Body (02/02/2024 3:30 PM LAST INSERTER) Narrative IIMS - 02/13/2024 7:41 AM LAST INSERTER This order has been created and auto-finalized to support the import of outside images. If available, original interpretation can be found on the Media Tab in Chart Review, in Document Viewer, as an image in QREADS or as an Addendum. If a re-interpretation or overread is required please follow defined workflow. Provider Not In System IMG CT PROCEDURES Final R esult IIMS NA * BMD Bone Density Spine Hips (01/26/2024 1:47 PM LAST INSERTER) Anatomical Region Laterality Modality Hip, Lumbar Spine, Nuclear M edicine RST LOS, Musculoskeletal ARZ LOS, Muskuloskeletal FLA LOS N/A Radio graphic Imaging Impressions 01/26/2024 1:54 PM LAST INSERTER Osteoporosis AP Spine (region: L1-L4) Narrative 01/26/2024 1:54 PM LAST INSERTER EXAM: BMD BONE DENSITY SPINE HIPS Bone Mineral Density (BMD) analysis performed on [employer] with serial number [id number]. COMPARISON: Serial Comparisons Left Total Hip results: [...] including images and graphs, is available in [employer]. In the absence of other causes of [...] Bone Mineral Density (BMD) analysis performed on [employer] with serialnumber [id number]. COMPARISON: Serial Comparisons Left Total Hip results: [...] report, including images and graphs,is available in [employer]. In the absence of other causes of [...] sult * Beta-CrossLaps (Beta-CTx) (01/26/2024 1:06 PM LAST INSERTER) Beta-CrossLaps (B-CTx), S 192 pg/mL 01/26/2024 7:36 PM LAST INSERTER [facility] Comment: ----REFERENCE VALUE---- 148-967 (18-29 y) 150-635 (30-39 y) 131-670 (40-49 y) 183-1060 (50-59 y) 171-970 (60-69 y) 152-858 (>70 y) 136-689 (Premenopausal) 177-1015 (Postmenopausal) Flagging is based on the age-specific reference interval and not menopausal status. Blood (Blood, Venous) 01/26/2024 1:06 PM LAST INSERTER 01/26/2024 6:53 PM LAST INSERTER us Angus Ortega M.D. LAB BLOOD NON ADD-ON Final Result [facility] [address] [place] [address] [facility] [address] [place] [address] * Creatinine with Estimated GFR (01/26/2024 1:06 PM LAST INSERTER) Creatinine 0.80 0.59 - 1.04 mg/dL 01/26/2024 2:33 PM LAST INSERTER DTL Estimated GFR (eGFR) 80 >=60 mL/min/BSA 01/26/2024 2:33 PM LAST INSERTER DTL Comment: Estimated GFR calculated using the 2020 CKD_EPI creatinine equation. Blood (Blood, Venous) 01/26/2024 1:06 PM LAST INSERTER 01/26/2024 2:15 PM LAST INSERTER us Angus Ortega M.D. LAB BLOOD ADD-ON Final Resu lt Performing Organization Address City/[facility]/ZIP Co de Phone Number [facility] [address] [place] [address], [facility] [address] [place] [address] * Calcium, Total (01/26/2024 1:06 PM LAST INSERTER) Calcium, Total, S 9.1 8.8 - 10.2 mg/dL 01/26/2024 2:33 PM LAST INSERTER DTL Blood (Blood, Venous) 01/26/2024 1:06 PM LAST INSERTER 01/26/2024 2:15 PM LAST INSERTER Angus Ortega M.D. LAB BLOOD ADD-ON Final Resu lt Performing Organization Address City/[facility] Co de Phone Number [facility] [address] [place] [address], [facility] [address] [place] [address] from Last 3 Months Insurance MEDICARE [facility] Advance Directives For more information, please contact: [phone] * Full Code (Latest Code Status on File) Date Activated Date Inactivated Comments 03/26/2024 2:26 PM 03/28/2024 5:37 PM Question Answer Comments Full Code: Not Discussed Due to: Patient not available
--- OUTSIDE RECORDS SUMMARY | 2024-04-11 02:28 | XMS_ITS | Encounter Summary ---
Author Organization [facility] Address [address] [place] [address] Care Team Providers Care Department Store General Manager Name Role Phone Unavailable Primary Care Provider Unavailabl e Reason for Visit * Outpatient (Routine) - Closed Specialty Diagnoses / Procedures Referred By Oni t Referred To Contact Diagnoses Hydronephrosis Procedures URO VCUG Aurelio Barrios M.D. [address] [place] [phone] Phone: tel: fax: Sandeep Adkins M.D. [address] [place] [phone] Phone: tel: fax: Referral ID Status Reason Start Date Expiration Date Visits Re quested Visits Authorized [id number] Closed 02/17/2024 02/16/2025 1 1 Encounter Details Date Type Department Care Team (Late st Contact Info) Description 03/09/2024 1:00 PM ASSOCIATE SALES Procedure visit Department of Urology in [place], [place] [address] [place] [phone] Sandeep Adkins M.D. [address] [place] [phone] Hydronephrosis Social History Tobacco Use Types Packs/Day Years Used Date Smoking Tobacco: Never Smokeless Tobacco: Never Alcohol Use Standard Drinks/Week Comments Yes 3 (1 standard drink = 0.6 oz pur e alcohol) [facility] Utilities Answer Date Recorded In the past 12 months has e electric, gas, oil, or water company threatened to shut off services in your home? No 01/22/2024 Humiliation, Afraid, Rape, and Kick questionnair e [...] week 11/27/2021 How often do you attend [facility] or tenriism services? More than 4 times per year [...] and heating? Not hard at all 12/30/2022 [facility] of Occupat ional Health - Occupational Stress [...] the money to buy more. Never true 01/22/20 24 Within the past 12 months, t he food you bought just didn't last and you didn't have money to get more. Never true 01/22/2024 PRAPARE - Transportation Answer Date Re corded In the past 12 months, has l ack of transportation kept you from medical appointments or from getting medications? No 12/24 In the past 12 months, has l ack of transportation kept you from meetings, work, or from getting things needed for daily living? No 01/22/2024 Nutrition Answer Date Recorded On average, how [...] your living situation today? I have a [facility] place to live 01/22/2024 Education Answer Date Recorded What is the [...] PM CDT documented as of this encounter Patient Instructions * Patient Instructions* Kelsy Mcadams L.P.N. - 03/09/2024 1:00 PM ASSOCIATE SALES Care after your cystoscopy Possible blood in your urine You may see some blood the first few times you urinate after the cystoscopy. There could be some small clots of blood in your urine. Or your urine could be pink or light red. These effects are commonafter a cystoscopy. Discomfort For the first day or two after your cystoscopy, you may need to urinate often, and you may have a mild burning feeling while urinating. You also may have mild low abdominal pain for a day. To relievediscomfort, drink two 8-ounce glasses of water each hour for two hours after the test (a total of four glasses in two hours). This will help flush your bladder. To relieve discomfort, if your provider says it???s OK, you may take a warm tub bath for 20 minutes. Or you may hold a clean, warm, moist washcloth over the urethral opening for 20 minutes. Some common pain relievers can affect blood thinning. Examples include aspirin, aspirin-containing products, ibuprofen (Advil, Motrin), and naproxen(Aleve, Naprosyn). Talk with your health care providers about what you can take for pain. Activity Rest for the remainder of the day after your cystoscopy. Gradually return to your usual activity level when you feel able. Diet For the first two days after your cystoscopy, while you are awake, you may find it more comfortableif you drink at least one glass of fluid every one to two hours. This will help flush your bladder.Drink fluids such as water, juice, caffeine-free carbonated beverages and tea. Resume your usual diet after the procedure, unless you are scheduled for more tests or procedures that require a specialdiet. When to get medical help Contact your health care provider right away if you: Are not able to urinate for 6 to 8 hours. Have blood clots or bright red blood in your urine (not pink or rust colored) that lasts for 4 to 5hours despite increased intake of fluids. Have frequent urination with any of the following: - Pain not relieved by increasing fluids. - Chills. - Temperature of 100.4 degrees Fahrenheit (38 degrees Celsius) or higher. Have a burning feeling while urinating on day three or after. CIATE SALES documented in this encounter Procedure Notes * Aurelio Barrios M.D. - 03/09/2024 1:00 PM CSTAssociated Order(s): URO Cysto w/retrograde pyelogram; URO VCUG Pre-Procedure Diagnose(s): Hydronephrosis Post-Procedure Diagnose(s): Hydronephrosis Images from the original note were not included. URO Cysto w/retrograde pyelogram Performed by: Aurelio Barrios M.D. Authorized by: Sandeep Adkins M.D. Care team members present 1. Aurelio Barrios M.D. URO VCUG Performed by: Aurelio Barrios M.D. Authorized by: Aurelio Barrios M.D. 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 Normal bladder contour, no ureteral reflux. No retained contrast during drainage phase. The patient was prepped and draped in standard sterile fashion in dorsal lithotomy position. The flexible cystoscope was introduced. The urethra was unremarkable. Jean cystoscopy was performed, there is a small amount of catheter trauma to the posterior bladder wall related to the VCUG done just prior to cystoscopy. Otherwise no mucosal abnormalities. The ureteral orifices were orthotopic in nature and singular. Normal-appearing bladder neck on retroflex view. Bladder capacity appeared normal. Right retrograde pyelogram demonstrated a smooth column of contrast within the entirety of the ureter. 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 Consent Consent obtained: verbal Consent given by: patient The benefits, risks and alternatives to the procedure and the potential need for sedation or anesthesia as well as the names, roles, and responsibilities of healthcare team members performing significant interventional tasks were discussed with the patient and/or decision maker. Safety Protocols All relevant documentation and testing were reviewed and available. All required blood products, implants, devices and or special equipment were made available as applicable. Pre-procedure verification was conducted and the correct site was marked if required. A fire risk assessment was done as applicable. The procedural time-out to verify correct patient, correct side/site, and procedure was conducted prior to performing the procedure and confirmed in a procedural pause. Pre-Procedural Details Procedure purpose: Diagnostic Appropriate hand hygiene, protective eyewear, gloves, skin preparation, sterile drape, and sterile technique were utilized as applicable for the procedure.: yes Site preparation: Povidone-iodine Anesthesia Anesthesia method: none Post-Procedural Details Procedure completed successfully: yes Complications: no apparent complications CIATE SALES CIATE SALES CIATE SALES documented in this encounter Plan of Treatment Upcoming Encounters Date Type Department Care Team (Late st Contact Info) Description 04/16/2024 2:30 PM ASSOCIATE SALES Procedure visit Department of Urology in [place], [place] [address] [place] [phone] Dyana Chairez M.D. [address] [place] [phone] documented as of this encounter Procedures Procedure Name Priority Date/Time Associated Diagnosis Comments URO VCUG Routine 03/09/2024 1:16 PM ASSOCIATE SALES Hydronephrosis URO CYSTO W/RETROGRADE PYELOGRAM Routine 03/09/2024 1:00 PM ASSOCIATE SALES Hydronephrosis documented in this encounter Results * URO VCUG (03/09/2024 1:16 PM ASSOCIATE SALES) Narrative Aurelio Barrios M.D. - 03/09/2024 1:00 PM ASSOCIATE SALES Aurelio Barrios M.D. 03/09/2024 2:33 PM URO VCUG Performed by: Aurelio Barrios M.D. Authorized by: Aurelio Barrios M.D. Aurelio Barrios M.D. UROLOGY ORDERABLES Edited Result - Final * URO Cysto w/retrograde pyelogram (03/09/2024 1:00 PM ASSOCIATE SALES) Narrative Aurelio Barrios M.D. - 03/09/2024 1:00 PM ASSOCIATE SALES Aurelio Barrios M.D. 03/09/2024 2:33 PM URO Cysto w/retrograde pyelogram Performed by: Aurelio Barrios M.D. Authorized by: Sandeep Adkins M.D. Care team members present 1. Aurelio Barrios M.D. Sandeep Adkins M.D. UROLOGY ORDERABLES Edited Resu lt - Final documented in this encounter Visit Diagnoses Diagnosis Hydronephrosis documented in this encounter
--- OUTSIDE RECORDS SUMMARY | 2024-04-11 02:28 | XMS_ITS | Encounter Summary ---
Author Organization [facility] Address [address] [place] [address] Care Team Providers Care Radio Journalist Name Role Phone Unavailable Primary Care Provider Unavailabl e Reason for Referral * MRI/CAT/PET Scan (Routine) - Closed Specialty Diagnoses / Procedures Referred By Oni abarca Referred To Contact Radiology Diagnoses Hydronephrosis Procedures CT Urogram without and with IV Contrast Aurelio Barrios M.D. [address] [place] [address] Phone: tel: fax: [facility] Referral ID Status Reason Start Date Expiration Date Visits Re quested Visits Authorized [id number] Closed 02/17/2024 02/16/2025 1 1 OM TAILOR APPRENTICE Reason for Visit * MRI/CAT/PET Scan (Routine) - Closed Specialty Diagnoses / Procedures Referred By Oni abarca Referred To Contact Radiology Diagnoses Hydronephrosis Procedures CT Urogram without and with IV Contrast Aurelio Barrios M.D. [address] [place] [address] Phone: tel: fax: [facility] Referral ID Status Reason Start Date Expiration Date Visits Re quested Visits Authorized [id number] Closed 02/17/2024 02/16/2025 1 1 Encounter Details Date Type Department Care Team (Latest Contact Info) Description 03/19/2024 11:42 AM CUSTOM TAILOR APPRENTICE - 03/19/2024 11:59 PM CUSTOM TAILOR APPRENTICE Hospital Encounter Department of Radiology, [facility], in [place], [place] [address] [place] [address] Aurelio Barrios M.D. [address] [place] [address] Hydronephrosis Discharge Disposition: Home or Self Care Social History Tobacco Use Types Packs/Day Years Used Date Smoking Tobacco: Never Smokeless Tobacco: Never Alcohol Use Standard Drinks/Week Comments Yes 1 (1 standard drink = 0.6 oz pur e alcohol) [facility] Utilities Answer Date Recorded In the past 12 months has e electric, gas, oil, or water [employer] threatened to shut off services in your [...] often do you attend chur ch or synagogue services? More than 4 times per year 11/27/2021 Do you belong to any clubs o r organizations such as adventism groups, unions, fraternal or athletic groups, or [...] and heating? Not hard at all 12/30/2022 [facility] of Occupat ional Health - Occupational Stress [...] your living situation today? I have a [facility] place to live 01/22/2024 Education Answer Date [...] (six) hours as needed for pain. 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 40 tablet 1 03/28/2024 2:56 PM CUSTOM TAILOR APPRENTICE 03/28/2024 oxyCODONE (Roxicodone) 5 mg immediate release tabletIndications:A cute Pain Take 1 tablet (5 mg total) by mouth every 4 (four) hours as needed for severe pain or score 7-10 of 10 Indication: Acute Pain. 10 tablet 03/28/2024 2:56 PM CUSTOM TAILOR APPRENTICE 03/28/2024 tamsulosin (Flomax) 0.4 mg 24 hr capsule Take 1 capsule (0.4 mg total) by mouth daily as needed (stent pain). 40 capsule 1 03/28/2024 2:56 PM CUSTOM TAILOR APPRENTICE 03/28/2024 zoledronic acid/mannitol-water (RECLAST IV) Infuse into a venous catheter. Once/year levoFLOXacin (Levaquin) 500 mg tabletIndications:H ydronephrosis,Obstr uction Ureteropelvic Take 1 tablet (500 mg total) by mouth once for 1 dose.the morning of stent removal 1 tablet 03/28/2024 2:56 PM CUSTOM TAILOR APPRENTICE 03/28/2024 5 sulfamethoxazole-tr imethoprim (Bactrim DS) 800-160 mg per tabletIndications:H ydronephrosis Take 1 tablet by mouth 2 (two) times a day for 5 days. 10 tablet 03/16/2024 4 levoFLOXacin (Levaquin) 500 mg tabletIndications:H ydronephrosis,Obstr uction Ureteropelvic Take 1 tablet (500 mg total) by mouth daily before morning meal for 2 doses. Take 1 dose AM of catheter removal, and 1 dose AM of stent removal 2 tablet 03/28/2024 5 tamsulosin (Flomax) 0.4 mg 24 hr capsule Take 1 capsule (0.4 mg total) by mouth daily. 30 capsule 1 02/18/2024 5 UNABLE TO FIND 4 each 2 (two) times a day. Med Name: AlgaeCal 5 documented as of this encounter Plan of Treatment Upcoming Encounters Date Type Department Care Team (Late st Contact Info) Description 04/16/2024 2:30 PM CUSTOM TAILOR APPRENTICE Procedure visit Department of Urology in [place], [place] [address] [place] [address] Dyana Chairez M.D. [address] [place] [address] documented as of this encounter Procedures Procedure Name Priority Date/Time Associated Diagnosis Comments CT UROGRAM WITHOUT AND WITH IV CONTRAST RAD - Routine (most inpatients and all outpatients) 03/19/2024 1:03 PM CUSTOM TAILOR APPRENTICE Hydronephrosis documented in this encounter Results * CT Urogram without and with IV Contrast (03/19/2024 1:03 PM CUSTOM TAILOR APPRENTICE) Anatomical Region Laterality Modality Abdomen, Pelvis, Abdominal R ST LOS, Abdominal ARZ LOS, Abdominal FLA LOS N/A Computed Tomography 03/19/2024 12:4 8 PM CUSTOM TAILOR APPRENTICE Impressions 03/19/2024 1:18 PM CUSTOM TAILOR APPRENTICE Partial right renal collecting system duplication. Interval decrease in right lower pole moiety hydronephrosis. No obstructing stone or lesion identified. Narrative 03/19/2024 1:18 PM CUSTOM TAILOR APPRENTICE EXAM: CT UROGRAM WITHOUT AND WITH IV [...] M.D. IMMorgan CT PROCEDURES Final R esult documented in this encounter Visit Diagnoses Diagnosis Hydronephrosis documented in this encounter Administered Medications Inactive Administered Medications - up to 3 most recent administrations Medication Order MAR Action Action Date Dose Rate Site iohexoL 300 mg iodine/mL solution 1-200 mL (Omnipaque) 1-200 mL, intravenous, Once in imaging, contrast, Starting on Fri03/19/24 at 1152, For 1 dose, Imaging Protocol Orders, Dose per Radiant Medication Guidelines Given 03/19/2024 12:36 PM CUSTOM TAILOR APPRENTICE 140 mL sodium chloride (PF) 0.9 % injection 1-100 mL 1-100 mL, intravenous, Once, On Fri03/19/24 at 1215, For 1 dose, Imaging Protocol Orders, Dose per Radiant Medication Guidelines Given 03/19/2024 12:36 PM CUSTOM TAILOR APPRENTICE 60 mL documented in this encounter
--- OUTSIDE RECORDS SUMMARY | 2024-04-11 02:28 | XMS_ITS | Encounter Summary ---
Author Organization [facility] Address [address] [place] [address] Care Team Providers Care Chief Clerk Shelter Name Role Phone Unavailable Primary Care Provider Unavailabl e Reason for Referral * Outpatient (Routine) - Authorized Specialty Diagnoses / Procedures Referred By Oni abarca Referred To Contact Diagnoses Hydronephrosis Procedures NM Kidney with Lasix NM Kidney Aurelio Barrios M.D. [address] [place] [address] Phone: tel: fax: [facility] Referral ID Status Reason Start Date Expiration Date V isits Requested Visits Authorized [id number] Authorized 02/17/2024 02/16/2025 8 8 ERS AND ACQUISITIONS ASSOCIATE Reason for Visit * Outpatient (Routine) - Authorized Specialty Diagnoses / Procedures Referred By Oni abarca Referred To Contact Diagnoses Hydronephrosis Procedures NM Kidney with Lasix NM Kidney Aurelio Barrios M.D. [address] [place] [address] Phone: tel: fax: [facility] Referral ID Status Reason Start Date Expiration Date V isits Requested Visits Authorized [id number] Authorized 02/17/2024 02/16/2025 8 8 Encounter Details Date Type Department Care Team (Latest Contact Info) Description 03/12/2024 12:41 PM MERGERS AND ACQUISITIONS ASSOCIATE - 03/12/2024 11:59 PM MERGERS AND ACQUISITIONS ASSOCIATE Hospital Encounter Department of Radiology, [facility], in [place], [place] [address] [place] [address] Aurelio Barrios M.D. 200 [place] [address] Hydronephrosis Discharge Disposition: Home or Self Care Social History Tobacco Use Types Packs/Day Years Used Date Smoking Tobacco: Never Smokeless Tobacco: Never Alcohol Use Standard Drinks/Week Comments Yes 1 (1 standard drink = 0.6 oz pur e alcohol) [facility] Utilities Answer Date Recorded In the past 12 months has e [employer], gas, oil, or water [employer] threatened to shut off services in your [...] often do you attend chur ch or mosque services? More than 4 times per year 11/27/2021 Do you belong to any clubs o r organizations such as mormon groups, unions, fraternal or athletic groups, or [...] your living situation today? I have a [facility] place to live 01/22/2024 Education Answer [...] (six) hours as needed for pain. Can brass pickler over the counter 03/28/2024 ascorbic acid, [...] spasms). 40 tablet 1 03/28/2024 2:56 PM MERGERS AND ACQUISITIONS ASSOCIATE 03/28/2024 oxyCODONE (Roxicodone) 5 mg immediate release tabletIndications:A cute Pain Take 1 tablet (5 mg total) by mouth every 4 (four) hours as needed for severe pain or score 7-10 of 10 Indication: Acute Pain. 10 tablet 03/28/2024 2:56 PM MERGERS AND ACQUISITIONS ASSOCIATE 03/28/2024 tamsulosin (Flomax) 0.4 mg 24 hr capsule Take 1 capsule (0.4 mg total) by mouth daily as needed (stent pain). 40 capsule 1 03/28/2024 2:56 PM MERGERS AND ACQUISITIONS ASSOCIATE 03/28/2024 levoFLOXacin (Levaquin) 500 mg tabletIndications:H ydronephrosis,Obstr uction Ureteropelvic Take 1 tablet (500 mg total) by mouth once for 1 dose.the morning of stent removal 1 tablet 03/28/2024 2:56 PM MERGERS AND ACQUISITIONS ASSOCIATE 03/28/2024 5 levoFLOXacin (Levaquin) 500 mg tabletIndications:H ydronephrosis,Obstr uction Ureteropelvic Take 1 tablet (500 mg total) by mouth daily before morning meal for 2 doses. Take 1 dose AM of catheter removal, and 1 dose AM of stent removal 2 tablet 03/28/2024 5 methocarbamoL (ROBAXIN) 750 mg tablet Take 1 tablet by mouth as needed. Haven't taken in while 05/07/2020 4 tamsulosin (Flomax) 0.4 mg 24 hr capsule Take 1 capsule (0.4 mg total) by mouth daily. 30 capsule 1 02/18/2024 5 UNABLE TO FIND 4 each 2 (two) times a day. Med Name: AlgaeCal 5 documented as of this encounter Plan of Treatment Upcoming Encounters Date Type Department Care Team (Late st Contact Info) Description 04/16/2024 2:30 PM MERGERS AND ACQUISITIONS ASSOCIATE Procedure visit Department of Urology in [place], [place] [address] [place] [address] Dyana Chairez M.D. [address] [place] [phone] documented as of this encounter Procedures Procedure Name Priority Date/Time Associated Diagnosis Comments NM KIDNEY WITH LASIX RAD - Routine (most inpatients and all outpatients) 03/12/2024 2:42 PM MERGERS AND ACQUISITIONS ASSOCIATE Hydronephrosis documented in this encounter Results * NM Kidney with Lasix (03/12/2024 2:42 PM MERGERS AND ACQUISITIONS ASSOCIATE) Anatomical Region Laterality Modality Renal, Nuclear Medicine RST LOS, Nuclear Medicine ARZ LOS, Nuclear Medicine FLA LOS, Nuclear Medicine N/A Nuclea r Medicine Impressions 03/12/2024 4:16 PM MERGERS AND ACQUISITIONS ASSOCIATE 1. Differential renal function measures 49.6% on the right and 50.4% on the left. 2. No scintigraphic evidence of obstruction. Narrative 03/12/2024 4:16 PM MERGERS AND ACQUISITIONS ASSOCIATE EXAM: NM KIDNEY WITH LASIX RADIOPHARMACEUTICAL/MEDS: Route: [...] left. 2. No scintigraphic evidence of obstruction. Aurelio FERREIRA NM PROCEDURES Final R esult documented in this encounter Visit Diagnoses Diagnosis Hydronephrosis documented in this encounter Administered Medications Inactive Administered Medications - up to 3 most recent administrations Medication Order MAR Action Action Date Dose Rate Site furosemide injection 1.5-40 mg (Lasix) 1.5-40 mg, intravenous, Once, On Fri03/12/24 at 1315, For 1 dose, Imaging Protocol Orders Given 03/12/2024 1:50 PM MERGERS AND ACQUISITIONS ASSOCIATE 33.55 mg Left Antecubital technetium Tc 99m mertiatide (Tc-99m MAG3) 9-16.5 millicurie, intravenous, Once, On Fri03/12/24 at 1315, For 1 dose, Imaging Protocol Orders Given 03/12/2024 1:18 PM MERGERS AND ACQUISITIONS ASSOCIATE 10.923 millicuries Left Antecubital documented in this encounter
--- OUTSIDE RECORDS SUMMARY | 2024-04-11 02:28 | XMS_ITS | Encounter Summary ---
Author Organization [facility] Address [address] [place] [address] Care Team Providers Care Snuff Maker Name Role Phone Unavailable Primary Care Provider Unavailabl e Reason for Visit * Reason Comments Med Change Request Encounter Details Date Type Department Care Team (Late st Contact Info) Description 03/24/2024 Refill Department of Urology in [place], [place] [address] [place] [phone] Aurelio Barrios M.D. [address] [place] [phone] Med Change Request Social History Tobacco Use Types Packs/Day Years Used Date Smoking Tobacco: Never Smokeless Tobacco: Never Alcohol Use Standard Drinks/Week Comments Yes 1 (1 standard drink = 0.6 oz pur e alcohol) [facility] Utilities Answer Date Recorded In the past 12 months has [employer], gas, oil, or water [employer] threatened to shut off services in your [...] often do you attend chur ch or orthodoxy services? More than 4 times per year [...] and heating? Not hard at all 12/30/2022 [facility] [place] of Occupat ional Health - Occupational Stress [...] your living situation today? I [facility] a [facility] place [facility] 03/26/2024 Education Answer [...] PM CDT documented as of this encounter Functional Status * Intimate Partner Violence Question Answer Date of Assessment Author Within the last year, have you been humiliated or emotionally abused in other ways by your partner or ex-partner? Patient unable to answer 03/28/2024 12:00 AM Nalini Pruitt, R.N. Within the last year, have you been afraid of your partner or ex-partner? Patient unable to answer 03/28/2024 12:00 AM Nalini Pruitt, R.N. Within the last year, have you been raped or forced to have any kind of sexual activity by your partner or ex-partner? Patient unable to answer 03/28/2024 12:00 AM DAMAGE ADJUSTER Nalini Guidry R.N. Within the last year, have you been kicked, hit, slapped, or otherwise physically hurt by your partner or ex-partner? Patient unable to answer 03/28/2024 12:00 AM DAMAGE ADJUSTER Nalini Guidry R.N. documented as of this encounter Plan of Treatment Upcoming Encounters Date Type Department Care Team (Late st Contact Info) Description 04/16/2024 2:30 PM DAMAGE ADJUSTER Procedure visit Department of Urology in [place], [place] [address] [place] [address] Dayna Cahirez M.D. [address] [place] [address] documented as of this encounter Visit Diagnoses Not on filedocumented in this encounter
--- OUTSIDE RECORDS SUMMARY | 2024-04-11 02:28 | XMS_ITS | Encounter Summary ---
Author Organization [facility] Address [address] [place] [address] Care Team Providers Care Community Case Manager Name Role Phone Unavailable Primary Care Provider Unavailabl e Encounter Details Date Type Department Care Team (Late st Contact Info) Description 03/16/2024 Orders Only Department of Urology in [place], [place] [address] [place] [address] Aurelio Barrios M.D. [address] [place] [address] Hydronephrosis (Primary Dx) Social History Tobacco Use Types Packs/Day Years Used Date Smoking Tobacco: Never Smokeless Tobacco: Never Alcohol Use Standard Drinks/Week Comments Yes 1 (1 standard drink = 0.6 oz pur e alcohol) [facility] Utilities Answer Date Recorded In the past 12 months has [employer], gas, oil, or water [employer] threatened to shut off services in your [...] How often do you attend chur or evangelical services? More than 4 times per year 11/27/2021 Do you belong to any clubs o r organizations such as worship groups, unions, fraternal or athletic groups, or [...] and heating? Not hard at all 12/30/2022 [facility] of Occupat ional Health - Occupational [...] money to buy more. Never true 01/22/20 Within the past 12 months, t he [...] your living situation today? I have a [facility] place to live 01/22/2024 Education Answer [...] st Contact Info) Description 04/16/2024 2:30 PM APICULTURIST Procedure visit Department of Urology in [place], [place] [address] [place] [address] Dyana Chairez M.D. [address] [place] [address] documented as of this encounter Visit Diagnoses Diagnosis Hydronephrosis- Primary documented in this encounter
--- OUTSIDE RECORDS SUMMARY | 2024-04-11 02:28 | XMS_ITS | Encounter Summary ---
Author Organization [facility] Address [address] [place] [address] Care Team Providers Care Production Machine Shop Supervisor Name Role Phone Unavailable Primary Care Provider Unavailabl e Encounter Details Date Type Department Care Team (Latest Contact Info) Description 03/12/2024 11:31 AM BROWNFIELD REDEVELOPMENT SPECIALIST - 03/12/2024 12:40 PM [facility] Hospital Encounter Department of Laboratory Medicine and Pathology, [place], [place] [address] [place] [address] Aurelio Barrios M.D. [address] [place] [phone] Hydronephrosis Discharge Disposition: Home or Self Care Social History Tobacco Use Types Packs/Day Years Used Date Smoking Tobacco: Never Smokeless Tobacco: Never Alcohol Use Standard Drinks/Week Comments Yes 1 (1 standard drink = 0.6 oz pur e alcohol) [facility] Utilities Answer Date Recorded In [...] How often do you attend chur or zoroastrian services? More than 4 times per year 11/27/2021 Do you belong to any clubs o r organizations such as evangelical groups, unions, fraternal or athletic groups, or [...] and heating? Not hard at all 12/30/2022 [facility] [place] of Occupat ional Health - Occupational Stress [...] your living situation today? I have a [facility] place to live 01/22/2024 Education Answer [...] (six) hours as needed for pain. Can curing pickling packer over the counter 03/28/2024 ascorbic acid, vitamin [...] spasms). 40 tablet 1 03/28/2024 2:56 PM BROWNFIELD REDEVELOPMENT SPECIALIST 03/28/2024 oxyCODONE (Roxicodone) 5 mg immediate release tabletIndications:A cute Pain Take 1 tablet (5 mg total) by mouth every 4 (four) hours as needed for severe pain or score 7-10 of 10 Indication: Acute Pain. 10 tablet 03/28/2024 2:56 PM BROWNFIELD REDEVELOPMENT SPECIALIST 03/28/2024 tamsulosin (Flomax) 0.4 mg 24 hr capsule Take 1 capsule (0.4 mg total) by mouth daily as needed (stent pain). 40 capsule 1 03/28/2024 2:56 PM BROWNFIELD REDEVELOPMENT SPECIALIST 03/28/2024 levoFLOXacin (Levaquin) 500 mg tabletIndications:H ydronephrosis,Obstr uction Ureteropelvic Take 1 tablet (500 mg total) by mouth once for 1 dose.the morning of stent removal 1 tablet 03/28/2024 2:56 PM BROWNFIELD REDEVELOPMENT SPECIALIST 03/28/2024 5 levoFLOXacin (Levaquin) 500 mg tabletIndications:H [...] st Contact Info) Description 04/16/2024 2:30 PM BROWNFIELD REDEVELOPMENT SPECIALIST Procedure visit Department of Urology in [place], [place] [address] [place] [address] Dyana Chairez M.D. [address] [place] [phone] documented as of this encounter Procedures Procedure Name Priority Date/Time Associated Diagnosis Comments DIPSTICK, U Routine 03/12/2024 11:46 AM BROWNFIELD REDEVELOPMENT SPECIALIST MICROSCOPIC AUTOMATED Routine 03/12/2024 11:46 AM BROWNFIELD REDEVELOPMENT SPECIALIST BACTERIAL CULTURE, AEROBIC + SUSC, URINE Routine 03/12/2024 11:46 AM BROWNFIELD REDEVELOPMENT SPECIALIST Hydronephrosis PH, U Routine 03/12/2024 11:46 AM BROWNFIELD REDEVELOPMENT SPECIALIST OSMOLALITY, U Routine 03/12/2024 11:46 AM BROWNFIELD REDEVELOPMENT SPECIALIST URINALYSIS WITH MICROSCOPIC Routine 03/12/2024 11:46 AM BROWNFIELD REDEVELOPMENT SPECIALIST Hydronephrosis documented in this encounter Results * pH, Urine (03/12/2024 11:46 AM BROWNFIELD REDEVELOPMENT SPECIALIST) pH, U 5.4 4.5 - 8.0 03/12/2024 12: 34 PM BROWNFIELD REDEVELOPMENT SPECIALIST DTL Urine 03/12/2024 11:4 6 AM BROWNFIELD REDEVELOPMENT SPECIALIST 03/12/2024 12:09 PM BROWNFIELD REDEVELOPMENT SPECIALIST us Aurelio Barrios M.D. LAB URINE ORDERABLES Shiela l Result [facility] [address] [place] [address], [facility] [address] [place] [address] * Dipstick, Urine (03/12/2024 11:46 AM BROWNFIELD REDEVELOPMENT SPECIALIST) [facility] Hemoglobin, QL, U Negative Negative 03/12/2024 12:24 PM BROWNFIELD REDEVELOPMENT SPECIALIST DTL Leukocyte Esterase, U Negative Negative 03/12/2024 12:24 PM BROWNFIELD REDEVELOPMENT SPECIALIST DTL Nitrite, U Negative Negative 03/12/2024 12:24 PM BROWNFIELD REDEVELOPMENT SPECIALIST DTL Ketone, U Negative Negative mg/dL 03/12/2024 12:24 PM BROWNFIELD REDEVELOPMENT SPECIALIST DTL Glucose, U Negative Negative mg/dL 03/12/2024 12:24 PM BROWNFIELD REDEVELOPMENT SPECIALIST DTL Urine 03/12/2024 11:4 6 AM BROWNFIELD REDEVELOPMENT SPECIALIST 03/12/2024 12:09 PM BROWNFIELD REDEVELOPMENT SPECIALIST us Aurelio Barrios M.D. LAB URINE ORDERABLES Shiela l Result Performing Organization Address City/[facility]/ZIP Co de Phone Number [facility] [address] [place] [address], [facility] [address] [place] [address] * Osmolality, Urine (03/12/2024 11:46 AM BROWNFIELD REDEVELOPMENT SPECIALIST) [facility] Osmolality, U 248 150 - 1150 mOsm/kg 03/12/2024 12:34 PM BROWNFIELD REDEVELOPMENT SPECIALIST DT Urine 03/12/2024 11:4 6 AM BROWNFIELD REDEVELOPMENT SPECIALIST 03/12/2024 12:09 PM BROWNFIELD REDEVELOPMENT SPECIALIST us Aurelio Barrios M.D. LAB URINE ORDERABLES Shiela l Result [facility] [address] [place] [address], [facility] [address] [place] [address] * Microscopic Automated (03/12/2024 11:46 AM BROWNFIELD REDEVELOPMENT SPECIALIST) Microscopy Normal 03/12/2024 12:24 PM BROWNFIELD REDEVELOPMENT SPECIALIST DTL RBC None Seen <3 /hpf 03/12/2024 12:24 PM BROWNFIELD REDEVELOPMENT SPECIALIST DTL WBC None Seen /hpf 03/12/2024 12:24 PM BROWNFIELD REDEVELOPMENT SPECIALIST DTL Comment: ----REFERENCE VALUE---- <4 (Males) <11 (Females) Squamous Epithelial Cells, U 1-3 /hpf 03/12/2024 12:24 PM BROWNFIELD REDEVELOPMENT SPECIALIST DTL Urine 03/12/2024 11:4 6 AM BROWNFIELD REDEVELOPMENT SPECIALIST 03/12/2024 12:09 PM BROWNFIELD REDEVELOPMENT SPECIALIST us Aurelio Barrios M.D. LAB URINE ORDERABLES Shiela l Result Performing Organization Address City/[facility]/ZIP Co de Phone Number [facility] [address] [place] [address], [facility] DTL [address] [address] * Urinalysis, with Microscopic: Urine, Midstream (03/12/2024 11:46 AM BROWNFIELD REDEVELOPMENT SPECIALIST) Source Urine, Urine, Midstream 03/12/2024 12:09 PM BROWNFIELD REDEVELOPMENT SPECIALIST DTL Color, U Yellow 03/12/2024 12:09 PM BROWNFIELD REDEVELOPMENT SPECIALIST DTL Clarity, U Clear 03/12/2024 12:09 PM BROWNFIELD REDEVELOPMENT SPECIALIST DTL Protein, U <4 <26 mg/dL 03/12/2024 1:00 PM BROWNFIELD REDEVELOPMENT SPECIALIST DTL Protein/Osmol ality <0.16 <0.42 ratio 03/12/2024 1:00 PM BROWNFIELD REDEVELOPMENT SPECIALIST DTL Predicted 24 HR Protein, U <128 <229 mg/24 h 03/12/2024 1:00 PM BROWNFIELD REDEVELOPMENT SPECIALIST DTL Predicted Range <517 mg/24 h 03/12/2024 1:00 PM BROWNFIELD REDEVELOPMENT SPECIALIST DTL Urine (Urine, Midstream) 03/12/2024 11:46 AM BROWNFIELD REDEVELOPMENT SPECIALIST 03/12/2024 12:09 PM BROWNFIELD REDEVELOPMENT SPECIALIST us Aurelio Barrios M.D. LAB URINE ORDERABLES Shiela l Result Performing Organization Address City/[facility]/ZIP Co de Phone Number [facility] [address] [place] [address], [place] [facility] [address] [place] [address] * Bacterial Culture, Aerobic + Susceptibility, Urine (03/12/2024 11:46 AM BROWNFIELD REDEVELOPMENT SPECIALIST) Urine Culture Urogenital microbiota, susceptibilities not performed per laboratory criteria. 03/13/2024 8:16 AM BROWNFIELD REDEVELOPMENT SPECIALIST DTL Urine (Urine, Midstream) 03/12/2024 11:46 AM BROWNFIELD REDEVELOPMENT SPECIALIST 03/12/2024 12:37 PM BROWNFIELD REDEVELOPMENT SPECIALIST Comment:Specimen Source Site : Urine us Aurelio Barrios M.D. LAB MICROBIOLOGY - GENERA L ORDERABLES Final Result [facility] [address] [place] [address], [facility] [address] [place] [address] documented in this encounter Visit Diagnoses Diagnosis Hydronephrosis documented in this encounter
--- OUTSIDE RECORDS SUMMARY | 2024-04-11 02:28 | XMS_ITS | Encounter Summary ---
Author Organization [facility] Address [address] [place] [address] Care Team Providers Care Mine Development Engineer Name Role Phone Unavailable Primary Care Provider Unavailabl e Reason for Visit * Reason Onset Date Comments Pre-visit Intake 03/12/2024 * Appointment Request (Routine) - Authorized Specialty Diagnoses / Procedures Referred By Oni abarca Referred To Contact Anesthesiology Referral ID Status Reason Start Date Expiration Date V isits Requested Visits Authorized [id number] Authorized 02/18/2024 02/17/2025 1 1 Encounter Details Date Type Department Care Team (Latest Contact Info) Description 03/12/2024 9:45 AM INTERMEDIATE CARD TENDER Clinical Communication Virtual Review in [place], [place] [address] [place] [address] Pre-visit Intake Social History Tobacco Use Types Packs/Day Years Used Date Smoking Tobacco: Never Smokeless Tobacco: Never Alcohol Use Standard Drinks/Week Comments Yes 1 (1 standard drink = 0.6 oz pur e alcohol) [facility] Utilities Answer Date Recorded In [...] How often do you attend chur or tenriism services? More than 4 times per year 11/27/2021 Do you belong to any clubs o r organizations such as sikh groups, unions, fraternal or athletic groups, or [...] and heating? Not hard at all 12/30/2022 [facility] [place] of Occupat ional Health - Occupational Stress [...] your living situation today? I have a [facility] place to live 01/22/2024 Education Answer [...] st Contact Info) Description 04/16/2024 2:30 PM INTERMEDIATE CARD TENDER Procedure visit Department of Urology in [place], [place] 200 [place] [address] Dyana Chairez M.D. 200 [place] [address] documented as of this encounter Visit Diagnoses Not on filedocumented in this encounter
--- OUTSIDE RECORDS SUMMARY | 2024-04-11 02:28 | XMS_ITS | Encounter Summary ---
Author Organization [facility] Address [address] [place] [address] Care Team Providers Care Quality Control Microbiologist Name Role Phone Unavailable Primary Care Provider [...] Expiration Date Visits Re quested Visits Authorized [id number] 1 1 Encounter Details Date Type Department Care Team (Late st Contact Info) Description 03/26/2024 7:30 AM REAL ESTATE SALES MANAGER - 03/26/2024 11:54 AM REAL ESTATE SALES MANAGER Surgery [facility] [address] [place] [address] Sandeep Adkins M.D. [address] [place] [address] ROBOTIC-ASSISTED SIDE TO SIDE ANASTOMOSIS OF LOWER POLE TO UPPER POLE MOIETIES. Social History Tobacco Use Types Packs/Day Years Used Date Smoking Tobacco: Never Smokeless Tobacco: Never Alcohol Use Standard Drinks/Week Comments Yes 1 (1 standard drink = 0.6 oz pur e alcohol) [facility] Utilities Answer Date Recorded In the past 12 months has [employer], gas, oil, or water [employer] threatened to shut off services in your [...] How often do you attend chur or baptist services? More than 4 times per year 11/27/2021 Do you belong to any clubs o r organizations such as buddhism groups, unions, fraternal or athletic groups, or [...] and heating? Not hard at all 12/30/2022 [facility] [place] of Occupat ional Health - Occupational Stress [...] your living situation today? I have a [facility] place to live 03/26/2024 Education Answer [...] Sign Reading Time Taken Comments Blood Pressure 125/86 03/26/2024 6:08 AM REAL ESTATE SALES MANAGER Pulse 73 03/26/2024 6:08 AM REAL ESTATE SALES MANAGER Temperature 36.6 C (97.9 F) 03/26/2024 6:08 AM REAL ESTATE SALES MANAGER Respiratory Rate - - Oxygen Saturation 97% 03/26/2024 6:08 AM REAL ESTATE SALES MANAGER Inhaled Oxygen Concentration - - Weight 66.1 kg (145 lb 11.6 oz) 03/26/2024 6:08 AM REAL ESTATE SALES MANAGER Height 161 cm (5' 3.39) 03/26/2024 6:08 AM REAL ESTATE SALES MANAGER Body Mass Index 26.31 03/26/2024 6:08 AM REAL ESTATE SALES MANAGER documented in this encounter Discharge Summaries * Dyana Chairez M.D. - 03/28/2024 10:19 AM CST DISCHARGE SUMMARY BRIEF OVERVIEW Hospital: [facility] Discharge Provider: Sandeep Adkins M.D. Primary Team: [facility] Urology Surgery - [place] No primary [...] M.D.Olive, Elizabeth J, M.D.Morris, Kahlen R, M.D. [facility] OR DISCHARGE DISPOSITION Home or Self [...] spent in discharge services today: 30 minutes. ESTATE SALES MANAGER documented in this encounter Discharge Instructions * Attachments The following attachments cannot be sent through Care Everywhere. * Acetaminophen (By mouth) (Bulgarian) * Ibuprofen (By mouth) (Bulgarian) * Oxybutynin (By mouth) (Bulgarian) * Oxycodone, Rapid Release (By mouth) (Bulgarian) documented in this encounter Medications at Time of Discharge acetaminophen (TylenoL) 500 mg tablet Take 2 tablets (1,000 mg total) by mouth every 6 (six) hours as needed for pain. Can picker box operator over the counter 03/28/2024 ascorbic acid, vitamin [...] spasms). 40 tablet 1 03/28/2024 2:56 PM REAL ESTATE SALES MANAGER 03/28/2024 oxyCODONE (Roxicodone) 5 mg immediate release tabletIndications:A cute Pain Take 1 tablet (5 mg total) by mouth every 4 (four) hours as needed for severe pain or score 7-10 of 10 Indication: Acute Pain. 10 tablet 03/28/2024 2:56 PM REAL ESTATE SALES MANAGER 03/28/2024 tamsulosin (Flomax) 0.4 mg 24 hr capsule Take 1 capsule (0.4 mg total) by mouth daily as needed (stent pain). 40 capsule 1 03/28/2024 2:56 PM REAL ESTATE SALES MANAGER 03/28/2024 zoledronic acid/mannitol-water (RECLAST IV) Infuse into a venous catheter. Once/year levoFLOXacin (Levaquin) 500 mg tabletIndications:H ydronephrosis,Obstr uction Ureteropelvic Take 1 tablet (500 mg total) by mouth once for 1 dose.the morning of stent removal 1 tablet 03/28/2024 2:56 PM REAL ESTATE SALES MANAGER 03/28/2024 documented as of this encounter Progress [...] by: Dyana Chairez M.D. 03/28/2024 9:49 AM REAL ESTATE SALES MANAGER ESTATE SALES MANAGER * Yaritza Silva D.O. - 03/28/2024 7:35 AM CST INTERVENTIONAL PULMONOLOGY PROGRESS NOTE HISTORY OF PRESENT ILLNESS Tania Washington is a 68 y.o. female with PMHx hydronephrosis, duplicate ureter, osteoporosis, hyperlipidemia and prediabetes who was admitted for postoperative pneumothorax after robotic assisted [id number]-vl-gtdi anastomosis of lower pole to upper pole. [...] lung slide noted - images saved in [employer] LABS/IMAGING/MICRO reviewed ASSESSMENT / PLAN # Postoperative right apical pneumothorax s/p 10 tajik locking loop chest tube placement on 03/26 [...] concerns after discharge. Patient discussed with supervising csm consultant, Dr. Green. Please refer to her supervisory note forfurther details. Recommendations communicated to primary team. Thank you for the consult. We will sign off. Please page [phone] with questions or concerns. Yaritza Silva DO Pulmonary & Critical Care Medicine Fellow Pager: [phone] Cosigned by eDsi Green M.D., M.H.P.E. at 03/28/2024 1:30 PM REAL ESTATE SALES MANAGER ESTATE SALES MANAGER ESTATE SALES MANAGER * Dyana Chairez M.D. - 03/27/2024 9:49 [...] by: Dyana Chairez M.D. 03/27/2024 9:49 AM REAL ESTATE SALES MANAGER ESTATE SALES MANAGER ESTATE SALES MANAGER * Beto Willard Pharm.D., R.Ph. - 03/27/2024 [...] for sleep. Pulm: pneumothorax, chest tube placed 03/26 Chest tube (placed 03/26)- no documented output. [...] regimen Please page [place] 5-[place] [phone] with questions. Beto Willard PharmHector., R.Ph. ESTATE SALES MANAGER * Yaritza Silva, D.O. - 03/27/2024 8:27 AM CST INTERVENTIONAL PULMONOLOGY PROGRESS NOTE HISTORY OF PRESENT ILLNESS Tania Washington is a 68 y.o. female with PMHx hydronephrosis, duplicate ureter, osteoporosis, hyperlipidemia and prediabetes who was admitted for postoperative pneumothorax after robotic assisted ozoi-uq-wzww anastomosis of lower pole to upper pole. IP consulted for management of pneumothorax.At baseline she is on room air and does not use oxygen. Overnight Events The patient had 10 tajik locking loop chest tube placed for her [...] lung slide noted - images saved in [employer] LABS/IMAGING/MICRO reviewed ASSESSMENT / PLAN # Postoperative [...] in Patient seen and discussed with supervising csm consultant, Dr. Green. Please refer to her supervisorynote for further details. Recommendations communicated to primary team. Thank you for the consult. We will continue to follow. Please page [phone] with questions or concerns. Yaritza Silva DO Pulmonary & Critical Care Medicine Fellow Pager: [phone] Cosigned by Desi Green M.D., M.H.P.E. at 03/27/2024 4:00 PM REAL ESTATE SALES MANAGER ESTATE SALES MANAGER ESTATE SALES MANAGER Associated attestation - Desi Green M.D., M.H.P.E. - 03/27/2024 4:00 PM REAL ESTATE SALES MANAGER I saw and evaluated the patient, participating in the kitchen portions of the service. I reviewed the resident/fellow???s note. I agree with the resident/fellow???s findings and plan. * Mikal Suarez, PharmMarinaD., R.Ph. - 03/26/2024 2:37 PM CST Images from the original note were not included. Admission Medication History Note Adherence issues: No concerns Medication list source: Patient Medication related information: pt reports hives with amoxicillin-pot Clavulanate, and is unsure what ABx she has tolerated in the past Prior to Admission Medications Med List Status: Pharmacy Complete Set By: Mikal Suarez, PharmMarinaD., R.Ph. at 03/26/2024 2:36 PM Taking? Last [...] -- Infuse into a venous catheter. Once/year ESTATE SALES MANAGER * Jace Moreno - 03/26/2024 7:15 AM CST [facility] Spiritual Care Progress Note Patient: Tania Washington Age:68 y.o. Location: [facility] Reason(s) for encounter: Spiritual support as part of the interdisciplinary care team. Spiritual Assessment Spiritual Needs and/or Concerns: None expressed at this time. Spiritual Care Plan / Recommendations: No further spiritual care requested or required at this time. Chaplains can be contacted by paging [phone] ([place]) or [phone] (Congregation). ESTATE SALES MANAGER documented in this encounter Consult Notes * Yaritza Silva DAnel - 03/26/2024 3:37 PM CSTAssociated Order(s): IP CONSULT TO INTERVENTIONAL PULMONOLOGY INTERVENTIONAL PULMONOLOGY CONSULT NOTE REFERRAL Sandeep Adkins M.D. CHIEF COMPLAINT/REASON FOR CONSULT Pneumothorax SUBJECTIVE HISTORY OF PRESENT ILLNESS Tania Washington is a 68 y.o. female with PMHx hydronephrosis, duplicate ureter, osteoporosis, hyperlipidemia and prediabetes who was admitted for postoperative pneumothorax after robotic assisted jivu-iw-eafc anastomosis of lower pole to upper pole. IP consulted for management of pneumothorax. At baseline she is on room air and does not use oxygen. Her pre extubation chest x-ray showed right apical pneumothorax and she was successfully extubated.Her repeat chest x-ray in PACU also showed no change of her right apical pneumothorax. At the time of our exam, the patient stated that she [...] reviewed the patient's chest x-rays with my csm consultant Dr. Hunt, she has a small [...] in Patient seen and discussed with supervising csm consultant, Dr. Hunt. Please refer to his supervisory note for further details. Recommendations communicated to primary team. Thank you for the consult. We will continue to follow. Please page [phone] with questions or concerns. Yaritza Silva DO Pulmonary & Critical Care Medicine Fellow Pager: [phone] Cosigned by Dylan Hunt M.D. at 03/26/2024 3:52 PM REAL ESTATE SALES MANAGER ESTATE SALES MANAGER ESTATE SALES MANAGER Associated attestation - Dylan Hunt M.D. - 03/26/2024 3:52 PM REAL ESTATE SALES MANAGER I saw and evaluated the patient, participating in the kitchen portions of the service. I reviewed the resident/fellow???s note. I agree with the resident/fellow???s findings and plan. documented in this encounter Nursing Notes * Carolina Garibay R.N. - 03/28/2024 3:13 PM CST Shift Goals: [...] from fall/fall injury Outcome: Adequate for Discharge ESTATE SALES MANAGER * Christopher Zazueta R.N. - 03/26/2024 5:41 [...] room to give report to floor nurse. ESTATE SALES MANAGER documented in this encounter OR Notes * Op Note - Dyana Chairez M.D. - 03/26/2024 9:00 AM CST Pre-op Diagnosis Hydronephrosis Post-op Diagnosis Hydronephrosis Culinary Specialist A training and development assistant actively participated and was necessary for [...] Fr x 28 cm Tria firm 4. Lyxl-uo-xlbi anastomosis of right upper and lower pole [...] removed from the bladder and an 18 Serbian latex catheter was placed with 10 cc sterile water in the balloon. We then turned our attention to the robotic component of the case. The abdomen was insufflated using supraumbilical Veress access, after negative drop test. Port sites were marked out along the mid clavicular line on the right side. Four 8 mm ports were placed along this line, and a 10 12 assistantport was placed at the supraumbilical incision. A [...] decision was made to proceed with a hdea-mn-abbi anastomosis of the lower pole to upper pole moiety. Each moiety was incised longitudinally using Brock scissors. A umxb-mr-tvbo anastomosis was then completed proximal to the [...] Sandeep Adkins M.D. at 03/26/2024 3:22 PM REAL ESTATE SALES MANAGER ESTATE SALES MANAGER ESTATE SALES MANAGER documented in this encounter Miscellaneous Notes * [...] Results Component Value Date WBC 7.6 03/27/2024 ESTATE SALES MANAGER ESTATE SALES MANAGER ESTATE SALES MANAGER documented in this encounter Plan of Treatment Upcoming Encounters Date Type Department Care Team (Late st Contact Info) Description 04/16/2024 2:30 PM REAL ESTATE SALES MANAGER Procedure visit Department of Urology in [place], [place] [address] [place] [address] Dyana Chairez M.D. [address] [place] [address] Scheduled Orders Name Type Priority Associated Diagnoses [...] inpatients and all outpatients) 03/28/2024 7:27 AM REAL ESTATE SALES MANAGER DX CHEST PORTABLE 1 VIEW RAD - Routine (most inpatients and all outpatients) 03/27/2024 11:46 AM REAL ESTATE SALES MANAGER ADULT OXYGEN THERAPY Routine 03/27/2024 8:01 AM REAL ESTATE SALES MANAGER DX CHEST PORTABLE 1 VIEW RAD - Routine (most inpatients and all outpatients) 03/27/2024 5:56 AM REAL ESTATE SALES MANAGER CBC WITHOUT DIFFERENTIAL, B Routine 03/27/2024 3:23 AM REAL ESTATE SALES MANAGER BASIC METABOLIC PANEL, S/P Routine 03/27/2024 3:23 AM REAL ESTATE SALES MANAGER ADULT OXYGEN THERAPY Routine 03/26/2024 8:01 PM REAL ESTATE SALES MANAGER CT CHEST TUBE PLACEMENT RAD - Semiurgent (Fast; most ED patients; some inpatients) 03/26/2024 4:35 PM REAL ESTATE SALES MANAGER ADULT OXYGEN THERAPY Routine 03/26/2024 2:26 PM REAL ESTATE SALES MANAGER ADULT OXYGEN THERAPY Routine 03/26/2024 2:26 PM REAL ESTATE SALES MANAGER ADULT OXYGEN THERAPY Routine 03/26/2024 2:26 PM REAL ESTATE SALES MANAGER DX CHEST 1 VIEW RAD - Timed (for specific dates/times) 03/26/2024 12:24 PM REAL ESTATE SALES MANAGER DX CHEST PORTABLE 1 VIEW RAD - Routine (most inpatients and all outpatients) 03/26/2024 11:48 AM REAL ESTATE SALES MANAGER FL FLUORO LESS THAN 1 HOUR RAD - Routine (most inpatients and all outpatients) 03/26/2024 9:32 AM REAL ESTATE SALES MANAGER BLOCK - TRANSVERSUS ABDOMINIS PLANE 03/26/2024 7:29 AM REAL ESTATE SALES MANAGER Hydronephrosis ROBOTIC-ASSISTED PYELOPLASTY 03/26/2024 7:29 AM REAL ESTATE SALES MANAGER Hydronephrosis RETROGRADE PYELOGRAM 03/26/2024 7:29 AM REAL ESTATE SALES MANAGER Hydronephrosis CYSTOSCOPY INSERTION STENT URETER 03/26/2024 7:29 AM REAL ESTATE SALES MANAGER Hydronephrosis documented in this encounter Results * DX Chest AP or PA and Lateral 2 Views (03/28/2024 7:27 AM REAL ESTATE SALES MANAGER) Anatomical Region Laterality Modality Chest, Thoracic RST LOS, Tho racic ARZ LOS, Thoracic FLA LOS N/A Digital Radiography Impressions 03/28/2024 7:46 AM REAL ESTATE SALES MANAGER Since 03/27/2024, no significant change. No definite pneumothorax. Right-sided chest tube. Left basilar atelectasis. Partially visualized right nephroureteral stent. Narrative 03/28/2024 7:46 AM REAL ESTATE SALES MANAGER EXAM: DX CHEST AP OR PA AND LATERAL 2 VIEWS Procedure Note Jaya Mccormick M.D. - 03/28/2024 EXAM: DX CHEST AP OR PA AND LATERAL 2 VIEWS IMPRESSION: Since 03/27/2024, no significant change. No definite pneumothorax.Right-sided chest tube. Left basilar atelectasis. Partially visualizedright nephroureteral stent. us Urenmanuel Silva D.O. IMG DIAGNOSTIC IMAGING PRO CEDURES Final Result * DX Chest Portable 1 View (03/27/2024 11:46 AM REAL ESTATE SALES MANAGER) Anatomical Region Laterality Modality Chest, Thoracic RST LOS, Tho racic ARZ LOS, Thoracic FLA LOS N/A Digital Radiography Impressions 03/27/2024 11:58 AM REAL ESTATE SALES MANAGER Since earlier today, no significant change. No definite pneumothorax. Right- sided chest tube. Left basilar atelectasis. Partially visualized right nephroureteral stent. Narrative 03/27/2024 11:58 AM REAL ESTATE SALES MANAGER EXAM: DX CHEST PORTABLE 1 VIEW Procedure Note Jaya Mccormick M.D. - 03/27/2024 EXAM: DX CHEST PORTABLE 1 VIEW IMPRESSION: Since earlier today, no significant change. No definite pneumothorax.Right-sided chest tube. Left basilar atelectasis. Partially visualizedright nephroureteral stent. us Yaritza Silva D.O. IM DIAGNOSTIC IMAGING PRO CEDURES Final Result * DX Chest Portable 1 View (03/27/2024 5:56 AM REAL ESTATE SALES MANAGER) Anatomical Region Laterality Modality Chest, Thoracic RST LOS, Tho racic ARZ LOS, Thoracic FLA LOS N/A Digital Radiography Impressions 03/27/2024 6:45 AM REAL ESTATE SALES MANAGER Comparison 03/26/2024. Heart size normal. Right-sided chest tube. No definite pneumothorax. Mild bibasilar opacities have improved. Right nephroureteral stent partially visualized. Narrative 03/27/2024 6:45 AM REAL ESTATE SALES MANAGER EXAM: DX CHEST PORTABLE 1 VIEW Procedure Note Jaya Mccormick M.D. - 03/27/2024 EXAM: DX CHEST PORTABLE 1 VIEW IMPRESSION: Comparison 03/26/2024. Heart size normal. Right-sided chest tube. Nodefinite pneumothorax. Mild bibasilar opacities have improved. Rightnephroureteral stent partially visualized. Yamini Hathaway M.D. [facility] DIAGNOSTIC IMAGING PROC EDURES Final Result * (ABNORMAL) CBC without Differential (03/27/2024 3:23 AM REAL ESTATE SALES MANAGER) Hemoglobin 11.5(L) 11.6 - 15.0 g/dL 03/27/2024 3:44 AM REAL ESTATE SALES MANAGER DTL Hematocrit 35.8 35.5 - 44.9 % 03/27/2024 3:44 AM REAL ESTATE SALES MANAGER DTL Erythrocytes 3.84(L) 3.92 - 5.13 x10(12)/L 03/27/2024 3:44 AM REAL ESTATE SALES MANAGER DTL MCV 93.2 78.2 - 97.9 fL 03/27/2024 3:44 AM REAL ESTATE SALES MANAGER DTL RBC Distrib Width 13.4 12.2 - 16.1 % 03/27/2024 3:44 AM REAL ESTATE SALES MANAGER DTL Platelet Count 142(L) 157 - 371 x10(9)/L 03/27/2024 4:24 AM REAL ESTATE SALES MANAGER DTL Comment:Results confirmed by smear, no clumping or interference seen. Leukocytes 7.6 3.4 - 9.6 x10(9)/L 03/27/2024 4:24 AM REAL ESTATE SALES MANAGER DTL Blood (Blood, Venous) 03/27/2024 3:23 AM REAL ESTATE SALES MANAGER 03/27/2024 3:38 AM REAL ESTATE SALES MANAGER Dyana Chairez M.D. LAB BLOOD ADD-ON Final Re sult [facility] [address] DTL [facility] [address] [place] [address] * (ABNORMAL) Basic Metabolic Panel (03/27/2024 3:23 AM REAL ESTATE SALES MANAGER) Potassium, S 4.7 3.6 - 5.2 mmol/L 03/27/2024 4:09 AM REAL ESTATE SALES MANAGER DTL Sodium, S 139 135 - 145 mmol/L 03/27/2024 4:09 AM REAL ESTATE SALES MANAGER DTL Chloride, S 105 98 - 107 mmol/L 03/27/2024 4:09 AM REAL ESTATE SALES MANAGER DTL Bicarbonate, S 22 22 - 29 mmol/L 03/27/2024 4:09 AM REAL ESTATE SALES MANAGER DTL Anion Gap 12 7 - 15 03/27/2024 4:09 AM REAL ESTATE SALES MANAGER DTL BUN (Blood Urea Nitrogen), S 10 6 - 21 mg/dL 03/27/2024 4:09 AM REAL ESTATE SALES MANAGER DTL Creatinine 0.74 0.59 - 1.04 mg/dL 03/27/2024 4:09 AM REAL ESTATE SALES MANAGER DTL Estimated GFR (eGFR) 88 >=60 mL/min/BSA 03/27/2024 4:09 AM REAL ESTATE SALES MANAGER DTL Comment: Estimated GFR calculated using the 2020 CKD_EPI creatinine equation. Calcium, Total, S 8.4(L) 8.8 - 10.2 mg/dL 03/27/2024 4:09 AM REAL ESTATE SALES MANAGER DTL Glucose, S 122 70 - 140 mg/dL 03/27/2024 4:09 AM REAL ESTATE SALES MANAGER DTL Blood (Blood, Venous) 03/27/2024 3:23 AM REAL ESTATE SALES MANAGER 03/27/2024 3:53 AM REAL ESTATE SALES MANAGER us Dyana Chairez M.D. LAB BLOOD ADD-ON Final Re sult [address] [address], [facility] [place] [address] * CT Chest Tube Placement (03/26/2024 4:35 PM REAL ESTATE SALES MANAGER) Anatomical Region Laterality Modality Chest, Abdominal RST LOS, Va scular Interventional ARZ LOS, Procedure FLA LOS, Vascular Interventional FLA LOS, Procedural, Procedural NWWI LOS N/A Computed Tomography, C omputed Tomography Impressions 03/26/2024 4:50 PM REAL ESTATE SALES MANAGER CT-guided right pleural pigtail catheter placement. NR Narrative 03/26/2024 4:50 PM REAL ESTATE SALES MANAGER EXAM: CT CHEST TUBE PLACEMENT PRE-PROCEDURE: Patient [...] was exchanged over wire for a 10 Serbian locking loop catheter. The catheter was secured [...] DX Chest 1 View (03/26/2024 12:24 PM REAL ESTATE SALES MANAGER) Anatomical Region Laterality Modality Chest, Thoracic RST LOS, Tho racic ARZ LOS, Thoracic FLA LOS N/A Digital Radiography Impressions 03/26/2024 12:33 PM REAL ESTATE SALES MANAGER Interval removal of the right endotracheal tube. More shallow inspiration accentuates the cardiac silhouette, and pulmonary vascularity. The size of the right apical pneumothorax is unchanged given differences of technique/positioning, with pleural line projected between the posterior right third and fourth ribs. Stable linear atelectasis in the left base. Calcified left hilar nodes. Narrative 03/26/2024 12:33 PM REAL ESTATE SALES MANAGER EXAM: DX CHEST 1 VIEW Procedure Note [...] left base. Calcified left hilar nodes. Dyana FERREIRA DIAGNOSTIC IMAGING DC OCEDURES Final Result * DX Chest Portable 1 View (03/26/2024 11:48 AM REAL ESTATE SALES MANAGER) Anatomical Region Laterality Modality Chest, Thoracic RST LOS, Tho racic ARZ LOS, Thoracic FLA LOS N/A Digital Radiography Impressions 03/26/2024 11:56 AM REAL ESTATE SALES MANAGER Small right apical pneumothorax, with pleural line projected between the right posterior third and fourth ribs. Findings discussed with Sandeep Adkins M.D. at 11:55 AM. Endotracheal tube with tip approximately 6 cm from the spencer. Atelectasis in the left base. Calcified granulomas in the left lung with calcified left hilar nodes. Narrative 03/26/2024 11:56 AM REAL ESTATE SALES MANAGER EXAM: DX CHEST PORTABLE 1 VIEW Procedure [...] left lung withcalcified left hilar nodes. Sandeep FERREIRA DIAGNOSTIC IMAGING PROCEDU RES Final Result * FL Fluoro Less Than 1 Hour (03/26/2024 9:32 AM REAL ESTATE SALES MANAGER) Narrative [id number] - 03/26/2024 9:33 AM REAL ESTATE SALES MANAGER This exam does not require a radiologist review or interpretation. Please refer to the patient's medical record on this date for clinical details. Sandeep Adkins M.D. IMG FLUOROSCOPY PROCEDURES Fin al Result [id number] NA documented in this encounter Visit Diagnoses Diagnosis Hydronephrosis- Primary Hydronephrosis Obstruction Ureteropelvic Hydronephrosis documented in this encounter Admitting Diagnoses Diagnosis Hydronephrosis Obstruction Ureteropelvic documented in this encounter Administered Medications Inactive Administered Medications - up to 3 most recent administrations Medication Order MAR Action Action Date Dose Rate Site acetaminophen tablet 1,000 mg (TylenoL) 1,000 mg, oral, Every 6 hours, First dose on Fri03/26/24 at 1500 Given 03/28/2024 2:34 PM REAL ESTATE SALES MANAGER 1,000 mg Given 03/28/2024 8:08 AM REAL ESTATE SALES MANAGER 1,000 mg Given 03/28/2024 3:07 AM REAL ESTATE SALES MANAGER 1,000 mg BUPivacaine liposome (PF) 20 mL, BUPivacaine 30 mL 50 mL injection As needed, Starting on Fri03/26/24 at 0945, Intra-Op Given 03/26/2024 9:45 AM REAL ESTATE SALES MANAGER 50 mL cyclobenzaprine tablet 5 mg (FlexeriL) 5 mg, oral, 3 times daily PRN, muscle spasms, Starting on Fri03/26/24 at 2041 Given 03/27/2024 2:49 AM REAL ESTATE SALES MANAGER 5 mg Given 03/26/2024 9:52 PM REAL ESTATE SALES MANAGER 5 mg heparin (porcine) injection 5,000 Units 5,000 Units, subcutaneous, Every 8 hours scheduled, First dose on Fri03/26/24 at 2200 Given 03/28/2024 5:33 AM REAL ESTATE SALES MANAGER 5,000 Units Left Upper Arm (Back ) Given 03/27/2024 9:20 PM REAL ESTATE SALES MANAGER 5,000 Units R ight Upper Arm (Back) Given 03/27/2024 1:09 PM REAL ESTATE SALES MANAGER 5,000 Units L eft Upper Arm (Back) iohexoL 350 mg iodine/mL solution (Omnipaque) As needed, Starting on Fri03/26/24 at 0930, Intra-Op Given 03/26/2024 9:30 AM REAL ESTATE SALES MANAGER 20 mL ketorolac injection 15 mg (ToradoL) 15 mg, intravenous, Every 6 hours PRN, moderate pain or score 4-6 of 10, Starting on Fri03/27/24 at 1011, For 5 days, Adult IV push rate: Over 15 seconds. Peds IV push rate: Over 1 minute. Doses > 15 mg IV/IM are discouraged due to lack of additional analgesic benefit. Given 03/28/2024 8:09 AM REAL ESTATE SALES MANAGER 15 mg Given 03/27/2024 1:09 PM REAL ESTATE SALES MANAGER 15 mg oxyCODONE IR tablet 10 mg (Roxicodone) 10 mg, oral, Every 4 hours PRN, severe pain or score 7-10 of 10, May use if patient can take oral meds and other analgesics are ineffective, Starting on Fri03/26/24 at 1340 Given 03/27/2024 3:42 AM REAL ESTATE SALES MANAGER 10 mg Given 03/26/2024 11:35 PM REAL ESTATE SALES MANAGER 10 mg Given 03/26/2024 5:58 PM REAL ESTATE SALES MANAGER 10 mg oxyCODONE IR tablet 5 mg (Roxicodone) 5 mg, oral, Every 4 hours PRN, moderate pain or score 4-6 of 10, May use if patient can take oral meds and other analgesics are ineffective, Starting on Fri03/26/24 at 1340 Given 03/28/2024 2:34 PM REAL ESTATE SALES MANAGER 5 mg Given 03/27/2024 8:44 AM REAL ESTATE SALES MANAGER 5 mg Given 03/26/2024 1:48 PM REAL ESTATE SALES MANAGER 5 mg rosuvastatin tablet 5 mg (Crestor) 5 mg, oral, Every other day, First dose on Fri03/27/24 at 0900 Given 03/27/2024 8:44 AM REAL ESTATE SALES MANAGER 5 mg sennosides-docusate sodium 8.6-50 mg per tablet 1 tablet (Senokot-S) 1 tablet, oral, 2 times daily, First dose on Fri03/26/24 at 2100, Do not give if patient has diarrhea. Given 03/28/2024 8:09 AM REAL ESTATE SALES MANAGER 1 tablet Given 03/27/2024 9:19 PM REAL ESTATE SALES MANAGER 1 tablet Given 03/27/2024 8:44 AM REAL ESTATE SALES MANAGER 1 tablet documented in this encounter Active and Recently Administered Medications Times are shown in REAL ESTATE SALES MANAGER. Scheduled Medication Order 03/26/2024 03/27/2024 03/28/2024 acetaminophen tablet 1,000 mg (TylenoL) (COMPLETED) 1,000 mg, oral, Once, On Fri03/26/24 at 0715, For 1 dose, Pre-Op, PreOp give in preprocedural area. 0724 (Given - Provider: Mireya Chawla R.N.) acetaminophen tablet 1,000 mg (TylenoL) 1,000 mg, oral, Every 6 hours, First dose on Fri03/26/24 at 1500 1500 (Given - Provider: Danyelle Gutierrez RAnamaria.)2152 (Given - Provider: Kapil BirminghamNMarina) 0249 (Given - Provider: Reena Lewis R.N.)0844 (Given - Provider: Carolina Garibay R.N.)1422 (Given - Provider: Carolina Garibay R.N.)2119 (Given - Provider: Nel Lozano R.N.) 0307 (Given - Provider: Nalini Guidry R.N.)0808 (Given - Provider: Carolina Garibay RMarinaN.)1434 (Given - Provider: Carolina Garibay RMarinaN.) aprepitant capsule 40 mg (Emend) (COMPLETED) 40 [...] 0716 (New Bag - Provider: Mireya Chawla R.N.) gentamicin in NaCl 0.9 % (iso osm) [...] 0026 (New Bag - Provider: Reena Lewis R.N.) heparin (porcine) injection 5,000 Units (COMPLETED) 5,000 Units, subcutaneous, Once, On Fri03/26/24 at 0745, For 1 dose, Intra-Op 0811 (Given - Provider: Germán Constantino) heparin (porcine) injection 5,000 Units 5,000 Units, subcutaneous, Every 8 hours scheduled, First dose on Fri03/26/24 at 2200 2152 (Given - Provider: Danyelle Gutierrez R.N.) 0546 (Given - Provider: Reena Lewis R.N.)1309 (Given - Provider: Carolina Garibay R.N.)2120 (Given - Provider: Nel Lozano R.N.) 0533 (Given - Provider: Nalini Guidry R.N.)1400 (Due) levoFLOXacin tablet 500 mg (Levaquin) (COMPLETED) [...] Indications: Prophylaxis, surgical 1037 (Given - Provider: Carolina Garibay R.N.) rosuvastatin tablet 5 mg (Crestor) 5 mg, oral, Every other day, First dose on Fri03/27/24 at 0900 0844 (Given - Provider: Carolina Garibay R.N.) sennosides-docusate sodium 8.6-50 mg per tablet 1 tablet (Senokot-S) 1 tablet, oral, 2 times daily, First dose on Fri03/26/24 at 2100, Do not give if patient has diarrhea. 2152 (Given - Provider: Danyelle Gutierrez R.N.) 0844 (Given - Provider: Carolina Garibay R.N.)2119 (Given - Provider: Nel Lozano R.N.) 0809 [...] and drug clearance factors., Indications: Prophylaxis, surgical 1933 (New Bag - Provider: Daynelle Gutierrez R.N.) Continuous Medication Order 03/26/2024 03/27/2024 03/28/2024 Lactated Ringer's (CANCELED) 75 mL/hr, intravenous, Continuous, Starting on Fri03/26/24 at 1445, Continue IV fluids from operating room at 125 ml/hour until bag finished, then begin as ordered. 1443 (New Bag - Provider: Danyelle Gutirerez R.N.) 0600 (Stopped - Provider: Carolina Garibay R.N.) Lactated Ringer's (CANCELED) 50 mL/hr, intravenous, Continuous, Starting on Fri03/26/24 at 1230, PACU & Post-Op 1230 (Continued from OR - Provider: Parris Mcgowan RAlex)1405 (Continue to Inpatient Floor - Provider: Parris Mcgowan R.N.)1427 (Stopped - Provider: Tayo Rodriguez II RMarinaNMarina) PRN Medication Order 03/26/2024 03/27/2024 03/28/2024 benzocaine-menthoL [...] PACU (only) 1303 (Given - Provider: Parris Mcgowan, R.N.)1306 (Given - Provider: Parris Mcgowan, R.N.)1313 (Given - Provider: Parris Mcgowan, R.N.)1338 (Given - Provider: Parirs Mcgowan, R.N.) fentaNYL injection 25 mcg (Sublimaze) (CANCELED) [...] or score 4-6 of 10, Starting on Fri03/27/24 at 1011, For 5 days, Adult IV [...] 1348 (See Alternative - Provider: Parris Mcgowan RMarinaNMarina)1758 (Given - Provider: Taoy Rodriguez II RMarinaNMarina)2335 (Given - Provider: Reena Lewis R.N.) 0342 (Given - Provider: Reena Lewis R.N.)0844 (See Alternative - Provider: Carolina Garibay R.N.) 1434 (See Alternative - Provider: Carolina Garibay R.N.) oxyCODONE IR tablet 5 mg (Roxicodone)(Linked Group 1) 5 mg, oral, Every 4 hours PRN, moderate pain or score 4-6 of 10, May use if patient can take oral meds and other analgesics are ineffective, Starting on Fri03/26/24 at 1340 1348 (Given - Provider: Parris Mcgowan R.N.)1758 (See Alternative - Provider: Tayo Rodriguez II RMarinaNMarina)2335 (See Alternative - Provider: Reena Lewis R.N.) 0342 (See Alternative - Provider: Reena Lewis R.N.)0844 (Given - Provider: Carolina Garibay R.N.) 1434 (Given - Provider: Carolina M Lani, R.N.) polyethylene glycol powder packet 17 g [...]
--- OUTSIDE RECORDS SUMMARY | 2024-04-11 02:28 | XMS_ITS | Encounter Summary ---
Author Organization [facility] Address [address] [place] [address] Care Team Providers Care Manager Pulmonary Name Role Phone Unavailable Primary Care Provider Unavailabl e Reason for Visit * Reason Onset Date Comments OSM - Outside Materials 02/12/2024 Urology Encounter Details Date Type Department Care Team (Latest Contact Info) Description 02/12/2024 Clinical Communication Department of Urology in [place], [place] [address] [place] [address] Provider, Unknown OSM - Outside Materials (Urology) Social History Tobacco Use Types Packs/Day Years Used Date Smoking Tobacco: Never Smokeless Tobacco: Never Alcohol Use Standard Drinks/Week Comments Yes 3 (1 standard drink = 0.6 oz pur e alcohol) [facility] Utilities Answer Date Recorded In the past 12 months has [facility] [employer], gas, oil, or water [employer] threatened to shut off services in your [...] How often do you attend chur or shinto services? More than 4 times per year 11/27/2021 Do you belong to any clubs o r organizations such as sabianist groups, unions, fraternal or athletic groups, or [...] heating? Not hard at all 12/30/2022 [facility] - Occupational Stress Questionnaire Answer Date [...] living situation today? I have a [facility] place to live 01/22/2024 Education Answer Date [...] st Contact Info) Description 04/16/2024 2:30 PM AVIONICS MECHANIC Procedure visit Department of Urology in [place], [place] [address] [place] [address] Dyana Chairez M.D. [address] [place] [address] documented as of this encounter Visit Diagnoses Not on filedocumented in this encounter
--- OUTSIDE RECORDS SUMMARY | 2024-04-11 02:28 | XMS_ITS | Encounter Summary ---
Author Organization [facility] Address [address] [place] [address] Care Team Providers Care Color Dipper Name Role Phone Unavailable Primary Care Provider Unavailabl e Reason for Visit * Reason Onset Date Comments Appt Request 02/18/2024 Encounter Details Date Type Department Care Team (Late st Contact Info) Description 02/18/2024 Clinical Communication Department of Urology in [place], [place] [address] [place] [phone] Sandeep Adkins M.D. [address] [place] [phone] Appt Request Social History Tobacco Use Types Packs/Day Years Used Date Smoking Tobacco: Never Smokeless Tobacco: Never Alcohol Use Standard Drinks/Week Comments Yes 3 (1 standard drink = 0.6 oz pur e alcohol) [facility] Utilities Answer Date Recorded In the past 12 months has [employer] gas, oil, or water [employer] threatened to shut off services in your [...] often do you attend chur ch or anabaptism services? More than 4 times per year 11/27/2021 Do you belong to any clubs o r organizations such as judaism groups, unions, fraternal or athletic groups, or [...] and heating? Not hard at all 12/30/2022 [facility] Occupat ional Health - [...] your living situation today? I have a [facility] place to live 01/22/2024 Education Answer [...] st Contact Info) Description 04/16/2024 2:30 PM REGIONAL REHABILITATION DIRECTOR Procedure visit Department of Urology in [place], [place] [address] [place] [phone] Dyana Chairez M.D. [address] [place] [address] documented as of this encounter Visit Diagnoses Not on filedocumented in this encounter
--- OUTSIDE RECORDS SUMMARY | 2024-04-11 02:28 | XMS_ITS | Encounter Summary ---
Author Organization [facility] Address [address] [place] [address] Care Team Providers Care Correctional Lieutenant Name Role Phone Unavailable Primary Care Provider Unavailabl e Reason for Visit * Outpatient (Routine) - Closed Specialty Diagnoses / Procedures Referred By Oni abarca Referred To Contact Anesthesiology Diagnoses Hydronephrosis Aurelio Barrios M.D. [address] [place] [phone] Phone: tel: fax: [facility] Referral ID Status Reason Start Date Expiration Date Visits Re quested Visits Authorized [id number] Closed 02/17/2024 08/18/2025 1 1 Encounter Details Date Type Department Care Team (Latest Contact Info) Description 03/15/2024 8:45 AM [facility] Telemedicine Preoperative Evaluation Center in [place], [place] [address] [place] [phone] Aurelio Barrios M.D. [address] [place] [phone] Jesus Fraser APRN, C.N.P., M.S. [address] [place] [phone] Preanesthetic Medical Exam (Primary Dx); Hydronephrosis; Duplicate Ureter; Anesthesia Complication Personal History; Hyperlipidemia; Family History Coronary Artery Disease; PreDiabetes; Osteoporosis; Cancer Lung Family History Social History Tobacco Use Types Packs/Day Years Used Date Smoking Tobacco: Never Smokeless Tobacco: Never Alcohol Use Standard Drinks/Week Comments Yes 1 (1 standard drink = 0.6 oz pur e alcohol) [facility] Utilities Answer Date Recorded In [...] How often do you attend chur or yazdanism services? More than 4 times per year 11/27/2021 Do you belong to any clubs o r organizations such as anabaptist groups, unions, fraternal or athletic groups, or [...] at all 12/30/2022 [facility] [place] of Occupat ional Health - Occupational Stress [...] Sign Reading Time Taken Comments Blood Pressure - - Pulse - - Temperature - - Respiratory Rate - - Oxygen Saturation - - Inhaled Oxygen Concentration - - Weight 66.7 kg (147 lb) 03/15/2024 9:15 AM HEART SURGEON P atient reports Height 165.1 cm (5' 5) 03/15/2024 9:15 AM HEART SURGEON P atient reports Body Mass Index 24.46 03/15/2024 9:15 AM HEART SURGEON documented in this encounter H&P Notes * Jesus Fraser, CR, C.N.P., M.S. - 03/15/2024 8:45 AM CST REASON FOR VISIT: Preoperative Medical Evaluation REFERRING PHYSICIAN: Aurelio Barrios M.D. 03/26/2024: URETEROSCOPY; Sandeep Adkins M.D. Surgery Specific Risk Classification: Intermediate Risk SUBJECTIVE HISTORY OF PRESENT ILLNESS This Consult was conducted via real-time audio/video technology. This is a 68 y.o. female who is here for preanesthetic medical examination prior to the planned procedure as listed above. REVIEW OF SYSTEMS Eyes: - Glasses All other systems reviewed and are negative. Cardiac Risk Scoring: [place]ana Cardiac Score: 0.06% Revised Cardiac Risk Index 0 Points - Very Low Risk of Cardiac Event (0.4%) DASI Calculations Flowsheet Row Telemedicine from 03/15/2024 in Preoperative Evaluation Center in [place], [place] DASI Total Score 44.7 Estimated V02 Peak 28.82 Estimated MET Level 8.23 OBJECTIVE OBJECTIVE PHYSICAL EXAMINATION General/Constitutional Constitutional Assessment: Normal General State of Health: Healthy appearing Airway (HEENT) Chipped teeth. TM Distance: >3 FB Neck ROM: Full Mouth Opening: > 3 cm Dental Assessment: Dentition intact Cardiovascular Unable to assess Pulmonary Unable to assess Neurological Neurologic Assessment: Alert Musculoskeletal MSK Assessment: Normal Psychiatric Psychiatric Assessment: Calm Dermatology Skin Assessment: normal Physical exam will be performed by anesthesia the day of procedure. ASSESSMENT / PLAN Anesthesia: PONV history. Difficult IV insertion, ultrasound IV history. Patient denies all other personal/family previous anesthesia related complications. Please see allergy history. (Amoxicillin clavulanate sensitivity) Airway Hx: - 02/03/2024 supraglottic airway, LMA 4, no postanesthesia concerns. Lab: - 02/02/2024 HGB 13.9, HCT 42.5, PLT 156, WBC 8.1, CR 0.91/GFR 68, BUN 22.9, Na 139, K 4.2, total calcium 9.1, glucose 116 (02/11/2023 A1c 5.7%), total bili 0.3, ALT 23, AST 25, alk-phos 63, totalprotein 7.1, albumin 4.6. ECG: - 02/02/2024 sinus rhythm with frequent PVCs 73 bpm, possible LA enlargement, nonspecific ST abnormality, comparison ECG 04/03/2018 PVCs now present, ST now depressed in inferior leads, nonspecific T-wave abnormality now evident in anterior leads. ECHO: - 08/24/2012 stress echo conclusion: 1. Normal bicycle stress echocardiogram with adequate heart rate and workload. 2. No evidence for inducible ischemia. REST: Chamber size, wall motion, and wall thickness are normal. No significant valvular abnormalities areseen. The visually estimated LVEF is 55%. STRESS: All segments display appropriate hyperkinesis; ejection fraction increases appropriately. End systolic area did NOT increase. MRI Cardiac: - 10/15/2023 final impression: Normal biventricular size with normal systolic function. Quantitative LVEF is 60%. Quantitative RVEF is 69%. Delayed hyperenhancement reveals no scar, fibrosis or evidence of infiltrative disease. #1 Preanesthetic Medical Exam #2 Hydronephrosis #3 Duplicate Ureter #4 Anesthesia Complication Personal History Kind hearted 68-year-old woman here for RANJAN visit. Active individual. Able to care for self at home. No ambulation aids. Mets 8.23. Denies acute cardiopulmonary symptoms both at rest and with exertional activity. On exam today denies any fever/chills, cough, nasal drainage, or sinus pressure. 1-2 cups coffee daily without withdrawal headaches. 1 alcoholic drink weekly. No smoking history. COVID history x2, fully recovered without residual affects. Lorazepam for flying. Please see planned procedure and HPI above. Please hold all ibuprofen, aspirin, supplements, minerals, and vitamins 1 week prior to surgery. Tamsulosin will continue as prescribed. #5 Hyperlipidemia #6 Family History Coronary Artery Disease Treated with no TIA/stroke history. LFTs normal 02/02/2024. No recent liver imaging. Abdominal MR 06/02/2018 indicates hepatic cysts, considered otherwise insignificant. Carotid ultrasound 02/18/2018impression indicates no significant carotid stenosis. Father coronary artery disease history. Personal cardiac workups negative for any ischemia/infarction history. Coronary calcium CT scan 04/29/2023 indicates total calcium scoring 19 (LM 0, LAD 19, Circ 0, RCA 0, PDA 0). Mother blood clot history related to chronic comorbidities. No acute cardiopulmonary/angina symptoms on exam. 02/02/2024 CR 0.91/GFR 68, lytes normal. No cardiac ischemia/infarction/surgical/arrhythmic history. No thromboembolism history. Chart review BP 130-150/70-80. Please see cardiac testing above. Rosuvastatin will continue as prescribed. #7 Cancer Lung Family History Father lung cancer history. No smoking history. No inhaler/O2 history. Chest CT 02/02/2024 indicates lungs otherwise unremarkable. Continue pulmonary surveillance/treatment per primary care provider. #8 PreDiabetes 02/02/2024 glucose 116. 02/11/2023 A1c 5.7%. Continue prediabetes surveillance/treatment per primary care provider. #9 Osteoporosis Treated with no pathologic fracture history. Reclast last injection January 2024. Last evaluated by Dr. Ortega endocrinology 01/26/2024 with recommendations: Patient has responded nicely to Reclast therapy. We discussed issues related to skeletal health andagreed on the followin. She will switch her calcium to bariatric advantage calcium citrate chew (500 mg calcium and 500 units vitamin-D) as 1 chew twice daily. 2. She will ensure that her multivitamin has 1000 units vitamin-D such that her total daily vitamin-D intake will be 2000 units daily. 3. We will provide her with her 3rd dose of Reclast and have her return in 1 year for repeat bone mineral density. - If repeat bone mineral density stays in the osteoporosis range she would be a candidate to switchto anabolic therapy. - If repeat bone mineral density improves in the osteopenia range, we can then transition to Reclast every other year. RECOMMENDATIONS: Patient medically optimized for planned procedure: Yes Further Recommendations: None PATIENT EDUCATION: Instructions To Get Ready for Your Surgery or Procedure: [facility]?? 3596-07 rev 0124. Verbal instructions given on medication management before surgery. Reviewed instructions on avoiding aspirin, ibuprofen- containing medications, and supplements one week before surgery. Patient may take acetaminophen as needed for pain. Evening before your surgery: The evening before your procedure at about 8:15 p.m. [facility] will inform you of the time to arrive the next day using one of these methods: - A text -or- An automated phone call If you have not received a text or a phone call by 8:45 p.m. or if you prefer to call after 8:15 p.m. to get the information: - Please call [phone] (automated) or [phone] (live caster operator) to learn report time for surgery next day. Phone system will ask for [facility] number and date of . Fasting for Adults: - 8 hours before your report time stop eating solid foods. - 6 hours before your report time stop drinking any non clear liquids such as: milk, soy/almond milk, orange juice, or tomato juice. - 2 hour before your report time stop drinking clear liquids. Clear Liquids: - Water, clear fruit juice (apple/white grape), carbonated beverages, clear broth, gelatin, ice pops or popsicles, and clear tea or black coffee (no milk or creamer). Consult conducted via real-time audio/video technology by Jesus Fraser APRN, C.N.P., M.S. in [facility] to the patient in the patient's home. T SURGEON documented in this encounter Plan of Treatment Upcoming Encounters Date Type Department Care Team (Late st Contact Info) Description 04/16/2024 2:30 PM HEART SURGEON Procedure visit Department of Urology in [place], [place] [address] [place] [address] Dyana Chairez M.D. [address] [place] [address] documented as of this encounter Visit Diagnoses Diagnosis Preanesthetic Medical Exam- Primary Hydronephrosis Duplicate Ureter Anesthesia Complication Personal History Hyperlipidemia Family History Coronary Artery Disease PreDiabetes Osteoporosis Cancer Lung Family History documented in this encounter
[2024-04-11 03:39] VITALS: RESP 20
== END 2024-04-11 03:40 | disposition home or self-care (01) ==
PROVIDERS: Emergency Provider Family Medicine
DX: M79.651 Pain in right thigh (principal); R30.0 Dysuria
CPT/HCPCS: 36415; 80048; 81001; 85025; 85379; 87086; 93971; 99284